=== PATIENT | male | born 1945 | race Caucasian/White ===

== ENCOUNTER 2018-09-09 19:51 | Inpatient (IN) | payer MEDICARE, OTHER ==
[~2018-09-09] VITALS: Ht 177.8 cm; Wt 68.8 kg
--- NOTE | 2018-09-09 20:10 | ERD ---
ER Documentation Chief Complaint Chief Complaint BIB private EMS for ALOC, abnormal labwork HPI 73-year-old male with a history of CHF, diabetes, mesothelioma, depression, dementia, and hypertension sent in by his primary care doctor from his long term facility for acute renal failure. Patient is complaining of feeling generally weak and unwell. Denies any chest pain, shortness of breath, headache, nausea, vomiting, diarrhea, dysuria. Labs done 09/08/18 showed BUN of 81 and creatinine of 2.1 with potassium 5.8. Labs from 09/06/2018 showed a potassium of 4.7. ROS All systems reviewed and are negative except as per history of present illness. Medications Home Meds Reported Medications Ondansetron Hcl* (Ondansetron Hcl*) 4 Mg Tablet, 4 MG PO Q4H PRN for NAUSEA AND OR VOMITING, TAB 09/09/18 Zinc Sulfate* (Zinc Sulfate*) 220 Mg Cap, 220 MG PO DAILY, CAP 09/09/18 Ascorbic Acid* (Vitamin C*) 500 Mg Capsule.sa, 500 MG PO DAILY, CAP 09/09/18 Cran/Vitc/Mannose/Inulin/Brom (Uti-Stat Liquid) 3,875 Mg/30 Ml Liquid, 3875 MG PO DAILY 09/09/18 Acetaminophen* (Acetaminophen*) 650 Mg Tablet, 650 MG PO Q4 PRN for PAIN AND OR ELEVATED TEMP, #30 TAB 09/09/18 Sennosides* (Senna Lax*) 8.6 Mg Tablet, 2 TAB PO DAILY PRN for CONSTIPATION, TAB 09/09/18 Fluoxetine Hcl* (Prozac*) 20 Mg Capsule, 20 MG PO DAILY, CAP 09/09/18 Pantoprazole* (Protonix*) 40 Mg Tablet.dr, 40 MG PO DAILY, TAB 09/09/18 Prochlorperazine* (Prochlorperazine*) 5 Mg Tablet, 5 MG PO Q6 PRN for NAUSEA, TAB 09/09/18 Memantine* (Namenda*) 5 Mg Tablet, 5 MG PO DAILY, #30 TAB 09/09/18 Multivitamins* (Theragran*) 1 Tab Tab, 1 TAB PO DAILY, TAB 09/09/18 Magnesium Hydroxide* (Milk Of Magnesia*) 400 Mg/5 Ml Oral.susp, 30 ML PO Q24H PRN for CONSTIPATION, ML 09/09/18 Megestrol Acetate* (Megace ES*) 625 Mg/5 Ml Oral.susp, 10 ML PO BID, ML 09/09/18 Insulin Glargine* (Lantus*) 100 Unit/Ml Soln, 12 UNIT SC QHS, #1 VIAL 09/09/18 Ferrous Sulfate* (Ferrous Sulfate*) 325 Mg Tabec, 325 MG PO DAILY, TAB 09/09/18 Diltiazem Hcl* (Cardizem SR*) 60 Mg Capsr, 60 MG PO Q6, #60 CAP HOLD IF SBP BELOW 110 OR HR BELOW 60 09/09/18 Cranberry (Cranberry) 400 Mg Capsule, 400 MG PO DAILY, CAP 09/09/18 Docusate Sodium* (Colace*) 100 Mg Capsule, 200 MG PO DAILY PRN for CONSTIPATION, #30 CAP 09/09/18 Bisoprolol Fumarate* (Bisoprolol Fumarate*) 5 Mg Tablet, 5 MG PO DAILY, TAB HOLD IF SBP IS BELOW 110 OR HR BELOW 60 09/09/18 Allergies Allergies: Coded Allergies: No Known Allergy (Unverified , 09/09/18) PMhx/Soc Hx Neurological Disorder: Yes (Dementia) Hx Cardiac Disorders: Yes (CHF, hypertension, A. fib) Hx Miscellaneous Medical Probl: Yes (Diabetes, GERD, esophagitis) FmHx Unable to obtain Physical Exam Vitals Vital Signs Date Temp Pulse Resp B/P (MAP) Pulse Ox O2 O2 Flow FiO2 Time Delivery Rate 09/09/18 66 24 90/47 (61) 100 Nasal 2.0 23:07 Cannula 09/09/18 98.0 66 36 83/44 (57) 99 20:03 Physical Exam Const: No acute distress, nontoxic Head: Atraumatic Eyes: Normal Conjunctiva ENT: Dry mucous membranes Neck: Full range of motion. No meningismus. Resp: Clear to auscultation bilaterally Chest wall: Right upper chest surgical scar, well healing. Left upper chest surgical scar from new pacemaker, well-healing Cardio: irregularly irregular rhythm with normal rate, no murmurs Abd: Soft, non tender, non distended. Normal bowel sounds Skin: No petechiae or rashes Back: No midline or flank tenderness Ext: No cyanosis, or edema Neur: Awake and alert, moving all extremities, normal speech, no facial asymmetry Psych: Depressed mood Result Diagram: 09/09/18201909/09/182019 Results 24 hrs Laboratory Tests Test 09/09/18 20:20 09/09/18 20:32 09/09/18 20:33 09/09/18 22:43 White Blood Count 6.7 10^3/ul Red Blood Count 3.13 10^6/ul Hemoglobin 8.9 g/dl Hematocrit 28.9 % Mean Corpuscular 92.3 fl Volume Mean Corpuscular 28.4 pg Hemoglobin Mean Corpuscular 30.8 g/dl Hemoglobin Concent Red Cell 18.6 % Distribution Width Platelet Count 101 10^3/UL Mean Platelet 10.7 fl Volume Immature 0.900 % Granulocytes % Neutrophils % 91.4 % Lymphocytes % 4.9 % Monocytes % 2.7 % Eosinophils % 0.0 % Basophils % 0.1 % Nucleated Red Blood 0.3 /100WBC Cells % Immature 0.060 10^3/ul Granulocytes # Neutrophils # 6.1 10^3/ul Lymphocytes # 0.3 10^3/ul Monocytes # 0.2 10^3/ul Eosinophils # 0.0 10^3/ul Basophils # 0.0 10^3/ul Nucleated Red Blood 0.0 10^3/ul Cells # Prothrombin Time 20.6 Sec Prothrombin Time 1.6 Ratio INR International 1.76 Normalized Ratio Activated 40.7 Sec Partial Thromboplas t Time Sodium Level 134 mmol/L Potassium Level 5.8 mmol/L Chloride Level 103 mmol/L Carbon Dioxide 20 mmol/L Level Anion Gap 11 Blood Urea Nitrogen 92 mg/dl Creatinine 2.64 mg/dl Est Glomerular mL/min Filtrat Rate mL/min Glucose Level 237 mg/dl Calcium Level 9.3 mg/dl Total Bilirubin 0.1 mg/dl Direct Bilirubin 0.00 mg/dl Indirect Bilirubin 0.1 mg/dl Aspartate Amino 28 IU/L Transf (AST/SGOT) Alanine 30 IU/L Aminotransferase (A LT/SGPT) Alkaline 92 IU/L Phosphatase Troponin I < 0.012 ng/ml Total Protein 6.6 g/dl Albumin 3.0 g/dl Globulin 3.60 g/dl Albumin/Globulin 0.83 Ratio POC Venous Lactate 2.7 mmol/L Bedside Glucose 259 mg/dL Urine Color YELLOW Urine Clarity CLOUDY Urine pH 6.0 Urine Specific 1.015 [place] Urine Ketones NEGATIVE mg/dL Urine Nitrite NEGATIVE mg/dL Urine Bilirubin NEGATIVE mg/dL Urine Urobilinogen NEGATIVE mg/dL Urine Leukocyte 3+ Juliet/ul Esterase Urine Microscopic > 182 /HPF RBC Urine Microscopic > 182 /HPF WBC Urine Bacteria MANY /HPF Urine Hemoglobin 3+ mg/dL Urine Glucose 1+ mg/dL Urine Total Protein 2+ mg/dl Current Medications Medications Dose Sig/Ankita Start Time Status Last (Trade) Ordered Route PRN Stop Time Admin Dose Reason Admin Sodium 2,450 ml @ BOLUS X1 09/09/18 DC 09/09/18 Chloride 1,225 mls/hr ONCE IV 20:30 09/09/18 20:46 22:29 Ondansetron 4 mg ER BRIDGE 09/09/18 HCl (Zofran PRN IV 23:00 09/10/18 Inj) NAUSEA/VOMITI 22:59 NG 650 mg ER BRIDGE 09/09/18 Acetaminophen PRN PO 23:00 09/10/18 (Tylenol .MILD PAIN 22:59 Tab) 1-3 OR TEMP Ceftriaxone 50 ml @ ONCE ONCE 09/10/18 Sodium 100 mls/hr IVPB 00:00 09/10/18 00:29 Procedures/MDM EMERGENT LABS AND DIAGNOSTIC STUDIES: Lab Results above were reviewed and interpreted by me. CBC: no anemia or evidence of infection CMP: No evidence of electrolyte abnormality, renal failure, hypoglycemia, liver failure, or biliary obstruction Troponin within normal limits, not indicative of cardiac ischemia Lactate elevated, concerning for tissue hypoperfusion UA: Consistent with infection 12-lead EKG was interpreted by Xavi Baez MD: Atrial fibrillation at 64 bpm Normal axis Normal intervals No changes of hyperkalemia. No acute ST or T wave changes suggestive of acute ischemia or STEMI. Radiology Results as interpreted by Radiology below were reviewed by Ousmane Baez MD: Chest x-ray: IMPRESSION: 1. There is a moderate right pleural effusion with associated compressive atelectasis. This may be at least partially loculated. A CT might be useful for further characterization. 2. Patchy left basilar atelectasis with very small left pleural effusion. 3. Left chest Port-A-Cath as above. Physician Quin Date Time Electronically viewed and signed by Jeffrey Reyes Physician on 09/09/2018 20:57 Initial Nursing notes reviewed. Previous Medical Records requested via the Electronic Health Record. EMERGENCY DEPARTMENT COURSE / MEDICAL DECISION MAKING: Patient is presenting for acute renal failure, worsening from baseline. He was slightly hypotensive upon arrival, however on reevaluation, this had improved. He is well-appearing on exam. IV fluids were started. I do not suspect sepsis as I have no clear source at this time. Labs showed multiple abnormalities inc luding hyperglycemia, acute renal failure, hyperkalemia, anemia and thrombocytopenia. Hyperkalemia will be treated with insulin, dextrose, and albuterol. Urine was finally collected from the patient. At 2350, patient's urine came back positive for UTI. At this point, antibiotics were given. He has already been receiving the 30 mls/kg bolus which had not finished. Patient's infectious symptoms have not stabilized and the patient is at risk of rapid decompensation. The patient will be admitted for careful hydration, antibiotic therapy, and infectious source control. Time sepsis recognized: 23:50 ( UA came back as positive for UTI) Severe Sepsis Assessment: Infectious Source: UTI End organ damage indicated by: Lactate > 2.0 mmol/L Hypotension( SBP < 90 or >40 mmHG drop or MAP < 65) Acute Resp Failure (sat < 92% w/o oxygen) Pulp Operator > 2.0 Severe Sepsis Managment: Blood Cultures X 2 before broad spectrum antibiotics initiated within 3 hours of recognition. 30 ml/kg NS bolus Completed Initial Lactate: 2.7 Repeat Lactate pending Critical Care: Time: 45 minutes Treatments/Evaluations: Emergent fluid management, while maintaining close respiratory support. Immediate broad spectrum antibiotic therapy. Simultaneous assessment for possible sources in order to direct therapy. Consideration for invasive and chemical support to prevent respiratory or cardiac collapse. Septic Shock Assessment (1 hour post 30 ml/kg fluid bolus): Hypotension (SBP < 90 or 40 mmHg drop, MAP < 65): patient still receiving fluids at time of admit Lactic acid > 4.0 No Critical Care Time: 35 minutes Treatments/Evaluations: Close monitoring and treatment of unstable vital signs, cardiorespiratory, and neurologic status, while maintaining tight balance of fluid, respiratory, and cardiac interventions. This time includes discussing the case with the patient and the patients family. This time does not include all procedures stated elsewhere in this record. This time also includes reviewing old records, labs and radiological studies. This time includes examining and re- examining the patient. Additionally, this time also includes arranging care with admitting and consulting physicians. Accepting Care Team: Current data and ongoing care discussed. Time: Time of admission Primary Provider: , admitting for Dr. Lopez Outstanding Data: none Departure Diagnosis: Primary Impression: Acute renal failure Acute renal failure type: unspecified Qualified Codes: N17.9 - Acute kidney failure, unspecified Additional Impressions: Hyperkalemia Anemia Anemia type: unspecified type Qualified Codes: D64.9 - Anemia, unspecified Thrombocytopenia Generalized weakness UTI (urinary tract infection) Urinary tract infection type: site unspecified Hematuria presence: with hematuria Qualified Codes: N39.0 - Urinary tract infection, site not specified; R31.9 - Hematuria, unspecified Severe sepsis Condition: Serious TERRY BAEZ MD Sep 09, 2018 20:10
[2018-09-09] MEDS ORDERED: SOD CHLORIDE 0.9% 2,450 ML IV ONE (20:30)
[2018-09-09] MEDS ORDERED: BISO5TAB21 PO (20:58)
[2018-09-09] MEDS ORDERED: DOCU-144 PO (20:59)
[2018-09-09] MEDS ORDERED: CRAN400C PO (20:59)
[2018-09-09] MEDS ORDERED: CARSR60 PO (21:00)
[2018-09-09] MEDS ORDERED: FER325 PO (21:00)
[2018-09-09] MEDS ORDERED: MAGN400O19 PO (21:01)
[2018-09-09] MEDS ORDERED: LANT3I SC (21:01)
[2018-09-09] MEDS ORDERED: MEGE625O PO (21:01)
[2018-09-09] MEDS ORDERED: MULTI PO (21:02)
[2018-09-09] MEDS ORDERED: MEMA5TAB PO (21:02)
[2018-09-09] MEDS ORDERED: PANT40TA3 PO (21:02)
[2018-09-09] MEDS ORDERED: PROC5TAB9 PO (21:02)
[2018-09-09] MEDS ORDERED: FLUO20CA38 PO (21:03)
[2018-09-09] MEDS ORDERED: SENN-120 PO (21:03)
[2018-09-09] MEDS ORDERED: ASCO500C7 PO (21:04)
[2018-09-09] MEDS ORDERED: CRAN3875 PO (21:04)
[2018-09-09] MEDS ORDERED: ZINC220C5 PO (21:04)
[2018-09-09] MEDS ORDERED: ACET-2047 PO (21:04)
[2018-09-09] MEDS ORDERED: ONDA4TAB95 PO (21:05)
[2018-09-09] MEDS ORDERED: ACETAMINOPHEN 325 MG TAB PO PRN (23:00)
[2018-09-09] MEDS ORDERED: ONDANSETRON 4 MG INJ IV PRN (23:00)
[2018-09-09] MEDS ORDERED: DEXTROSE 50% 50 ML SYRINGE IV STA (23:56)
[2018-09-09] MEDS ORDERED: INSULIN REGULAR, HUMAN 100 UNIT/1 ML 3ML VIAL IVP STA (23:56)
[2018-09-09] MEDS ORDERED: ALBUTEROL 0.5% (NEB) 2.5 MG/0.5 ML AMP INH STA (23:56)
[2018-09-09] MEDS ORDERED: SODIUM POLYSTYRENE 15 GM KIT (POWDER + SORBITOL) PO STA (23:56)
[2018-09-10] VITALS (11 sets, daily range): BP systolic 94–114; BP diastolic 51–62; PULSE 70–137; RESP 17–19; Ht 177.8 cm; Wt 68.8 kg
[2018-09-10] MEDS ORDERED: CEFTRIAXONE 1 GM/50 ML (PMX) 50 ML IVPB ONE
[2018-09-10] MEDS ORDERED: NACL 0.9% 3 ML SYG IV SCH (06:30)
[2018-09-10] MEDS ORDERED: ACETAMINOPHEN 650 MG SUPP PR PRN (06:30)
[2018-09-10] MEDS: SOD CHLORIDE 0.45% 1,000 ML IV SCH ×2 (06:30→19:37)
[2018-09-10] MEDS ORDERED: FUROSEMIDE 20 MG TAB PO ONE (06:30)
[2018-09-10] MEDS ORDERED: SODIUM POLYSTYRENE 15 GM KIT (POWDER + SORBITOL) PO ONE (06:30)
[2018-09-10] MEDS ORDERED: ZOLPIDEM 5 MG TAB PO PRN (06:30)
[2018-09-10] MEDS ORDERED: ONDANSETRON 4 MG INJ IV PRN (06:30)
[2018-09-10] MEDS ORDERED: PROCHLORPERAZINE 5 MG TAB PO PRN (08:00)
[2018-09-10] MEDS ORDERED: DOCUSATE SODIUM 100 MG CAP PO PRN (08:00)
[2018-09-10] MEDS ORDERED: ACETAMINOPHEN 325 MG TAB PO PRN (08:00)
[2018-09-10] MEDS ORDERED: GLUCOSE GEL 15 GRAM TUBE PO PRN ×2 (08:00)
[2018-09-10] MEDS ORDERED: SENNA TAB PO PRN (08:00)
[2018-09-10] MEDS ORDERED: GLUCOSE GEL 15 GRAM TUBE BUCCAL PRN (08:00)
[2018-09-10] MEDS ORDERED: ONDANSETRON 4 MG TAB PO PRN (08:00)
[2018-09-10] MEDS ORDERED: DEXTROSE 50% 50 ML SYRINGE IV PRN ×3 (08:00)
[2018-09-10] MEDS ORDERED: GLUCAGON 1 MG INJ IM PRN (08:00)
[2018-09-10] MEDS ORDERED: MAGNESIUM HYDROXIDE 30ML CUP PO PRN (08:00)
--- NOTE | 2018-09-10 08:17 | HP ---
Date/Time of Note Date/Time of Note DATE: 09/10/18 TIME: 08:10 Assessment/Plan VTE Prophylaxis Pharmacological prophylaxis: other Lines/Catheters IV Catheter Type (from Nrs): Saline Lock Assessment/Plan Hospital Course 73-year-old male with a history of CHF, diabetes, mesothelioma, depression, dementia, and hypertension sent in by his primary care doctor from his [facility] facility for acute renal failure. Patient is complaining of feeling g enerally weak and unwell. Denies any chest pain, shortness of breath, headache, nausea, vomiting, diarrhea, dysuria. Labs done 09/08/18 showed BUN of 81 and creatinine of 2.1 with potassium 5.8. Labs from 09/06/2018 showed a potassium of 4.7. Patient is therefore presenting for acute renal failure, worsening from baseline. He was slightly hypotensive upon arrival but improved with 2 liters of IVF. Labs showed multiple abnormalities including hyperglycemia, acute renal failure, hyperkalemia, anemia and thrombocytopenia. Hyperkalemia will be treated with insulin, dextrose, and albuterol. Urine was finally collected from the patient was positive for UTI and was given Rocephin IV He is now admitted to the hospital for further care Medications Home Meds Reported Medications Ondansetron Hcl* (Ondansetron Hcl*) 4 Mg Tablet, 4 MG PO Q4H PRN for NAUSEA AND OR VOMITING, TAB 09/09/18 Zinc Sulfate* (Zinc Sulfate*) 220 Mg Cap, 220 MG PO DAILY, CAP 09/09/18 Ascorbic Acid* (Vitamin C*) 500 Mg Capsule.sa, 500 MG PO DAILY, CAP 09/09/18 Cran/Vitc/Mannose/Inulin/Brom (Uti-Stat Liquid) 3,875 Mg/30 Ml Liquid, 3875 MG PO DAILY 09/09/18 Acetaminophen* (Acetaminophen*) 650 Mg Tablet, 650 MG PO Q4 PRN for PAIN AND OR ELEVATED TEMP, #30 TAB 09/09/18 Sennosides* (Senna Lax*) 8.6 Mg Tablet, 2 TAB PO DAILY PRN for CONSTIPATION, TAB 09/09/18 Fluoxetine Hcl* (Prozac*) 20 Mg Capsule, 20 MG PO DAILY, CAP 09/09/18 Pantoprazole* (Protonix*) 40 Mg Tablet.dr, 40 MG PO DAILY, TAB 09/09/18 Prochlorperazine* (Prochlorperazine*) 5 Mg Tablet, 5 MG PO Q6 PRN for NAUSEA, TAB 09/09/18 Memantine* (Namenda*) 5 Mg Tablet, 5 MG PO DAILY, #30 TAB 09/09/18 Multivitamins* (Theragran*) 1 Tab Tab, 1 TAB PO DAILY, TAB 09/09/18 Magnesium Hydroxide* (Milk Of Magnesia*) 400 Mg/5 Ml Oral.susp, 30 ML PO Q24H PRN for CONSTIPATION, ML 09/09/18 Megestrol Acetate* (Megace ES*) 625 Mg/5 Ml Oral.susp, 10 ML PO BID, ML 09/09/18 Insulin Glargine* (Lantus*) 100 Unit/Ml Soln, 12 UNIT SC QHS, #1 VIAL 09/09/18 Ferrous Sulfate* (Ferrous Sulfate*) 325 Mg Tabec, 325 MG PO DAILY, TAB 09/09/18 Diltiazem Hcl* (Cardizem SR*) 60 Mg Capsr, 60 MG PO Q6, #60 CAP HOLD IF SBP BELOW 110 OR HR BELOW 60 09/09/18 Cranberry (Cranberry) 400 Mg Capsule, 400 MG PO DAILY, CAP 09/09/18 Docusate Sodium* (Colace*) 100 Mg Capsule, 200 MG PO DAILY PRN for CONSTIPATION, #30 CAP 09/09/18 Bisoprolol Fumarate* (Bisoprolol Fumarate*) 5 Mg Tablet, 5 MG PO DAILY, TAB HOLD IF SBP IS BELOW 110 OR HR BELOW 60 09/09/18 Allergies Allergies: Coded Allergies: No Known Allergy (Unverified , 09/09/18) PMhx/Soc Hx Neurological Disorder: Yes (Dementia) Hx Cardiac Disorders: Yes (CHF, hypertension, A. fib) Hx Miscellaneous Medical Probl: Yes (Diabetes, GERD, esophagitis) FmHx no renal diseases ROS: 13 point ROS was done and pertinent findings are in HPI Physical Exam Physical Exam Const: No acute distress, nontoxic Head: Atraumatic Eyes: Normal Conjunctiva ENT: Dry mucous membranes Neck: Full range of motion. No meningismus. Resp: Clear to auscultation bilaterally Chest wall: Right upper chest surgical scar, well healing. Left upper chest surgical scar from new pacemaker, well-healing Cardio: irregularly irregular rhythm with normal rate, no murmurs Abd: Soft, non tender, non distended. Normal bowel sounds Skin: No petechiae or rashes Back: No midline or flank tenderness Ext: No cyanosis, or edema Neur: Awake and alert, moving all extremities, normal speech, no facial asymmetry Psych: Depressed mood 12-lead EKG Atrial fibrillation at 64 bpm Normal axis Normal intervals No changes of hyperkalemia. No acute ST or T wave changes suggestive of acute ischemia or STEMI. Chest x-ray: IMPRESSION: 1. There is a moderate right pleural effusion with associated compressive atelectasis. This may be at least partially loculated. A CT might be useful for further characterization. 2. Patchy left basilar atelectasis with very small left pleural effusion. 3. Left chest Port-A-Cath as above. Diagnosis: Acute renal failure: due to ATN caused by sepsis and hypovolemia. will send off urine studies. will continue with ivf. no indication for acute HD yet Hyperkalemia: due to ARF and lactic acidosis (sepsis) Anemia: will check iron panel, stool guiac Thrombocytopenia Generalized weakness UTI (urinary tract infection) and sepsis (POA): cultuers were reviewed. continue iv abx and ivf dementia DM: fair control. continue insulin will be on dvt and gi pplx more than 30 minutes were spent on advance directives and goals of care Result Diagram: 09/09/18201909/09/182019 Results 24hrs Laboratory Tests Test 09/09/18 20:20 09/09/18 20:32 09/09/18 20:33 09/09/18 22:43 White Blood Count 6.7 Red Blood Count 3.13 L Hemoglobin 8.9 L Hematocrit 28.9 L Mean Corpuscular Volume 92.3 Mean Corpuscular 28.4 L Hemoglobin Mean Corpuscular 30.8 L Hemoglobin Concent Red Cell Distribution 18.6 H Width Platelet Count 101 L Mean Platelet Volume 10.7 H Immature Granulocytes % 0.900 H Neutrophils % 91.4 H Lymphocytes % 4.9 L Monocytes % 2.7 Eosinophils % 0.0 Basophils % 0.1 Nucleated Red Blood 0.3 H Cells % Immature Granulocytes # 0.060 H Neutrophils # 6.1 Lymphocytes # 0.3 L Monocytes # 0.2 L Eosinophils # 0.0 Basophils # 0.0 Nucleated Red Blood 0.0 Cells # Prothrombin Time 20.6 H Prothrombin Time Ratio 1.6 INR International 1.76 Normalized Ratio Activated 40.7 H Partial Thromboplast Time Sodium Level 134 L Potassium Level 5.8 H Chloride Level 103 Carbon Dioxide Level 20 L Anion Gap 11 Blood Urea Nitrogen 92 H Creatinine 2.64 H Est Glomerular Filtrat Rate mL/min Glucose Level 237 H Calcium Level 9.3 Total Bilirubin 0.1 L Direct Bilirubin 0.00 Indirect Bilirubin 0.1 Aspartate Amino 28 Transf (AST/SGOT) Alanine 30 Aminotransferase (ALT/SG PT) Alkaline Phosphatase 92 Troponin I < 0.012 Total Protein 6.6 Albumin 3.0 L Globulin 3.60 H Albumin/Globulin Ratio 0.83 POC Venous Lactate 2.7 *H Bedside Glucose 259 H Urine Color YELLOW Urine Clarity CLOUDY A Urine pH 6.0 Urine Specific [place] 1.015 Urine Ketones NEGATIVE Urine Nitrite NEGATIVE Urine Bilirubin NEGATIVE Urine Urobilinogen NEGATIVE Urine Leukocyte Esterase 3+ H Urine Microscopic RBC > 182 H Urine Microscopic WBC > 182 H Urine Bacteria MANY A Urine Hemoglobin 3+ H Urine Glucose 1+ H Urine Total Protein 2+ H Test 09/10/18 00:13 09/10/18 00:27 09/10/18 00:52 09/10/18 01:30 POC Venous Lactate 2.0 Bedside Glucose 188 204 Lactic Acid Level 3.5 *H HPI/ROS Admit Date/Time Admit Date/Time Sep 09, 2018 at 22:52 PMH/Family/Social Past Medical History Medications Current Medications Ondansetron HCl (Zofran Inj) 4 mg ER BRIDGE PRN IV NAUSEA/VOMITING; Start 09/09/18 at 23:00; Stop 09/10/18 at 22:59 Acetaminophen (Tylenol Tab) 650 mg ER BRIDGE PRN PO .MILD PAIN 1-3 OR TEMP; Start 09/09/18 at 23:00; Stop 09/10/18 at 22:59 Dextrose (D50w Syringe) ONCE PRN IV DECREASED GLUCOSE; Start 09/10/18 at 00:00 IV Flush (NS 3 ml) 3 ml PER PROTOCOL IV ; Start 09/10/18 at 06:30 Ondansetron HCl (Zofran Inj) 4 mg Q6H PRN IV NAUSEA/VOMITING; Start 09/10/18 at 06:30 Acetaminophen (Tylenol Supp) 650 mg Q6H PRN DC .PAIN 1-3 OR TEMP; Start 09/10/18 at 06:30 Zolpidem Tartrate (Ambien) 5 mg QHS PRN PO .INSOMNIA; Start 09/10/18 at 06:30 Heparin Sodium (Porcine) (Heparin (5000 Units/1ml)) 5,000 unit Q12 SC ; Start 09/10/18 at 09:00 Acetaminophen (Tylenol Tab) 650 mg Q4H PRN PO MILD PAIN(1-3)OR ELEVATED TEMP; Start 09/10/18 at 08:00 Ascorbic Acid (Vitamin C) 500 mg DAILY PO ; Start 09/10/18 at 09:00 Bisoprolol Fumarate (Zebeta) 5 mg DAILY PO ; Start 09/10/18 at 09:00; Status UNV Diltiazem HCl (Cardizem) 60 mg Q6 PO ; Start 09/10/18 at 12:00 Docusate Sodium (Colace) 200 mg DAILY PRN PO CONSTIPATION; Start 09/10/18 at 08:00 Ferrous Sulfate (Ferrous Sulfate (Ec)) 325 mg DAILY PO ; Start 09/10/18 at 09:00 Fluoxetine HCl (Prozac) 20 mg DAILY PO ; Start 09/10/18 at 09:00 Insulin Glargine (Lantus) 12 units QHS SC ; Start 09/10/18 at 21:00 Magnesium Hydroxide (Milk Of Mag) 30 ml Q24H PRN PO CONSTIPATION; Start 09/10/18 at 08:00 Memantine (Namenda) 5 mg DAILY PO ; Start 09/10/18 at 09:00 Multivitamins Therapeutic (Theragran) 1 tab DAILY PO ; Start 09/10/18 at 09:00 Ondansetron HCl (Zofran Tab) 4 mg Q4H PRN PO NAUSEA AND/OR VOMITING; Start 09/10/18 at 08:00 Pantoprazole (Protonix Tab) 40 mg DAILY@0600 PO ; Start 09/10/18 at 09:00 Prochlorperazine (Compazine) 5 mg Q6H PRN PO NAUSEA; Start 09/10/18 at 08:00 Senna (Senokot) 2 tab DAILY PRN PO CONSTIPATION; Start 09/10/18 at 08:00 Zinc Sulfate (Zinc Sulfate) 220 mg DAILY PO ; Start 09/10/18 at 09:00 Sodium Chloride 1,000 ml @ 80 mls/hr [id number] IV ; Start 09/10/18 at 06:30 Miscellaneous Information 1 ea NOTE XX ; Start 09/10/18 at 08:00 Glucose (Glutose) 15 gm Q15M PRN PO DECREASED GLUCOSE; Start 09/10/18 at 08:00 Glucose (Glutose) 22.5 gm Q15M PRN PO DECREASED GLUCOSE; Start 09/10/18 at 08:00 Dextrose (D50w Syringe) 25 ml Q15M PRN IV DECREASED GLUCOSE; Start 09/10/18 at 08:00 Dextrose (D50w Syringe) 50 ml Q15M PRN IV DECREASED GLUCOSE; Start 09/10/18 at 08:00 Glucagon (Glucagen) 1 mg Q15M PRN IM DECREASED GLUCOSE; Start 09/10/18 at 08:00 Glucose (Glutose) 15 gm Q15M PRN BUCCAL DECREASED GLUCOSE; Start 09/10/18 at 08:00 Coded Allergies: No Known Allergy (Unverified , 09/09/18) Social History Smoking Status: Unknown if ever smoked Exam/Review of Systems Vital Signs Vitals Vital Signs Date Temp Pulse Resp B/P (MAP) Pulse Ox O2 O2 Flow FiO2 Time Delivery Rate 09/10/18 98.1 101 19 108/51 96 07:37 (70) 09/10/18 Nasal 2.0 02:30 Cannula Intake and Output 09/09/18 09/09/18 09/10/18 1515:00 23:00 07:00 IntakeIntake Total 0 ml BalanceBalance 0 ml EMILIA BETANCUR DO Sep 10, 2018 08:17
[2018-09-10] MEDS ORDERED: BISOPROLOL 5 MG TAB PO SCH (09:00)
[2018-09-10] MEDS ORDERED: CEFTRIAXONE 1 GM/50 ML (PMX) 50 ML IVPB SCH (09:00)
[2018-09-10] MEDS: ASCORBIC ACID 500 MG TAB PO SCH (09:31)
[2018-09-10] MEDS: MEMANTINE 5 MG TAB PO SCH (09:31)
[2018-09-10] MEDS: FLUOXETINE 20 MG CAP PO SCH (09:31)
[2018-09-10] MEDS: MULTIVITAMINS THERAPEUTIC TAB PO SCH (09:31)
[2018-09-10] MEDS: ZINC SULFATE 220 MG CAP PO SCH (09:31)
[2018-09-10] MEDS: PANTOPRAZOLE (EC) 40 MG TAB PO SCH (09:31)
[2018-09-10] MEDS: FERROUS SULFATE (EC) 325 MG TAB PO SCH (09:32)
[2018-09-10] MEDS: HEPARIN 5,000 UNIT/1 ML VIAL SC SCH ×2 (10:02→20:32)
[2018-09-10] MEDS ORDERED: ERTAPENEM SODIUM 1 GM in SOD CHLORIDE 0.9% 100 ML IVPB ONE (11:00)
[2018-09-10] MEDS: DILTIAZEM 60 MG TAB PO SCH ×4 (12:18→23:34)
--- NOTE | 2018-09-10 16:01 | CONS ---
DATE OF ADMISSION: 09/09/2018 DATE OF CONSULTATION: 09/10/2018 TYPE OF CONSULTATION: Infectious Disease. REASON FOR CONSULTATION: Antibiotic management. HISTORY OF PRESENT ILLNESS: Kuldeep Sandra is a 73-year-old male who was brought in by EMS for alter ed level of consciousness and abnormal lab work. His past problems include: 1. Congestive heart failure. 2. Diabetes mellitus. 3. Mesothelioma. 4. Depression. 5. Dementia. 6. Hypertension. The [facility], comes in with acute renal failure. He has been fe eling generally weak and unwell. Denies chest pain or shortness of breath. His labs on 09/08/2018 s howed a BUN of 81, creatinine 2.1, potassium 5.8. PAST MEDICAL HISTORY: Significant for dementia including his other problems. He also has atrial fib rillation, GERD and esophagitis. FAMILY HISTORY: Noncontributory. PHYSICAL EXAMINATION: GENERAL: He is in no acute distress. VITAL SIGNS: Stable. He is afebrile. SKIN: Without generalized rash. HEENT: Within normal limits. NECK: Supple. LYMPH NODES: None palpable. CHEST: He has a right upper chest surgical scar well healing and left upper chest surgical scar from a new pacemaker. LUNGS: Decreased breath sounds at the bases. HEART: Irregularly irregular rhythm. ABDOMEN: Soft, nontender, without organosplenomegaly or masses. EXTREMITIES: Without cyanosis, clubbing or edema. RECTAL AND GENITAL: Deferred. NEUROLOGIC: No focal neurological abnormality. LABORATORY DATA: On admission, white count 6.7, H and H of 8.9 and 28.9, platelet count 101,000. BU N and creatinine 92/2.64. Blood sugar of 237. He has 91% polys. Urinalysis shows 3+ leukocyte brett rase and greater than 182 white cells per high powered field. The patient was started initially on c eftriaxone. IMAGING DATA: Chest x-ray shows a left chest Port-A-Cath, moderate right pleural effusion with assoc iated compressive atelectasis, patchy left basilar atelectasis and very small left pleural effusion. The patient was slightly hypotensive but improved with 2 liters of IV fluid. He is not a candidate for acute hemodialysis according to Dr. Richard Be at this point. The patient is on ceftriaxone. I believe switch him to cefepime. I will dictate my findings to Dr. Vazquez and Dr. Richard Be . Dictated By: JENNIFER JACKSON MD, JD/GUNJAN Conf#: [id number] DID#: [id number] CC: RENE VAZQUEZ DO;*EndCC*
[2018-09-10] MEDS: INSULIN GLARGINE [LANTus] (100 UNITS/ML) SYG SC SCH (20:33)
[2018-09-11] VITALS (14 sets, daily range): BP systolic 81–140; BP diastolic 42–83; PULSE 72–138; RESP 19
[2018-09-11] MEDS: INSULIN ASPART [NOVOLOG] 3 ML PEN SC SCH ×5 (00:08→20:33)
[2018-09-11] MEDS: ACCU-CHEK XX SCH (02:00)
[2018-09-11] MEDS: PANTOPRAZOLE (EC) 40 MG TAB PO SCH (05:53)
[2018-09-11] MEDS: DILTIAZEM 60 MG TAB PO SCH ×3 (05:53→17:56)
[2018-09-11] MEDS: SOD CHLORIDE 0.45% 1,000 ML IV SCH ×2 (06:16→20:29)
--- NOTE | 2018-09-11 08:46 | PN ---
Date/Time of Note Date/Time of Note DATE: 09/11/18 TIME: 08:44 Assessment/Plan VTE Prophylaxis Risk score (from Nsg)>0 risk: 8 SCD applied (from Nsg): Yes Pharmacological prophylaxis: other Lines/Catheters IV Catheter Type (from Nrsg): Portacath Assessment/Plan Hospital Course 73-year-old male with a history of CHF, diabetes, mesothelioma, depression, dementia, and hypertension sent in by his primary care doctor from his intermediate facility for acute renal failure. Patient is complaining of feeling generally weak and unwell. Denies any chest pain, shortness of breath, headache, nausea, vomiting, diarrhea, dysuria. Labs done 09/08/18 showed BUN of 81 and creatinine of 2.1 with potassium 5.8. Patient is therefore presenting for acute renal failure, worsening from baseline. He was slightly hypotensive upon arrival but improved with 2 liters of IVF. Labs showed multiple abnormalities including hyperglycemia, acute renal failure, hyperkalemia, anemia and thrombocytopenia. Hyperkalemia will be treated with insulin, dextrose, and albuterol. Urine was finally collected from the patient was positive for UTI and was given Rocephin IV He now afib with RVR. refused dilt po yesterday Medications Home Meds Reported Medications Ondansetron Hcl* (Ondansetron Hcl*) 4 Mg Tablet, 4 MG PO Q4H PRN for NAUSEA AND OR VOMITING, TAB 09/09/18 Zinc Sulfate* (Zinc Sulfate*) 220 Mg Cap, 220 MG PO DAILY, CAP 09/09/18 Ascorbic Acid* (Vitamin C*) 500 Mg Capsule.sa, 500 MG PO DAILY, CAP 09/09/18 Cran/Vitc/Mannose/Inulin/Brom (Uti-Stat Liquid) 3,875 Mg/30 Ml Liquid, 3875 MG PO DAILY 09/09/18 Acetaminophen* (Acetaminophen*) 650 Mg Tablet, 650 MG PO Q4 PRN for PAIN AND OR ELEVATED TEMP, #30 TAB 09/09/18 Sennosides* (Senna Lax*) 8.6 Mg Tablet, 2 TAB PO DAILY PRN for CONSTIPATION, TAB 09/09/18 Fluoxetine Hcl* (Prozac*) 20 Mg Capsule, 20 MG PO DAILY, CAP 09/09/18 Pantoprazole* (Protonix*) 40 Mg Tablet.dr, 40 MG PO DAILY, TAB 09/09/18 Prochlorperazine* (Prochlorperazine*) 5 Mg Tablet, 5 MG PO Q6 PRN for NAUSEA, TAB 09/09/18 Memantine* (Namenda*) 5 Mg Tablet, 5 MG PO DAILY, #30 TAB 09/09/18 Multivitamins* (Theragran*) 1 Tab Tab, 1 TAB PO DAILY, TAB 09/09/18 Magnesium Hydroxide* (Milk Of Magnesia*) 400 Mg/5 Ml Oral.susp, 30 ML PO Q24H PRN for CONSTIPATION, ML 09/09/18 Megestrol Acetate* (Megace ES*) 625 Mg/5 Ml Oral.susp, 10 ML PO BID, ML 09/09/18 Insulin Glargine* (Lantus*) 100 Unit/Ml Soln, 12 UNIT SC QHS, #1 VIAL 09/09/18 Ferrous Sulfate* (Ferrous Sulfate*) 325 Mg Tabec, 325 MG PO DAILY, TAB 09/09/18 Diltiazem Hcl* (Cardizem SR*) 60 Mg Capsr, 60 MG PO Q6, #60 CAP HOLD IF SBP BELOW 110 OR HR BELOW 60 09/09/18 Cranberry (Cranberry) 400 Mg Capsule, 400 MG PO DAILY, CAP 09/09/18 Docusate Sodium* (Colace*) 100 Mg Capsule, 200 MG PO DAILY PRN for CONSTIPATION, #30 CAP 09/09/18 Bisoprolol Fumarate* (Bisoprolol Fumarate*) 5 Mg Tablet, 5 MG PO DAILY, TAB HOLD IF SBP IS BELOW 110 OR HR BELOW 60 09/09/18 Diagnosis: Acute renal failure: due to ATN caused by sepsis and hypovolemia. improving. will continue with ivf. no indication for acute HD Hyperkalemia: due to ARF and lactic acidosis (sepsis) Anemia: will check iron panel, stool guiac. improving Thrombocytopenia Generalized weakness UTI (urinary tract infection) and sepsis (POA): cultuers were reviewed. continue iv abx and ivf dementia DM: fair control. continue insulin afib with RVR: will continue with dilt po. will defer anticoagulation to cardio will be on dvt and gi pplx Result Diagram: 09/11/1837 09/11/18 0536 Results 24hrs Laboratory Tests Test 09/10/18:25 09/10/18 23:25 09/10/18 23:40 09/11/18 05:25 Bedside Glucose 359 H 324 H Urine Color YELLOW Urine Clarity CLOUDY A Urine pH 5.0 Urine Specific [place] 1.008 Urine Ketones NEGATIVE Urine Nitrite NEGATIVE Urine Bilirubin NEGATIVE Urine Urobilinogen NEGATIVE Urine Leukocyte Esterase 2+ H Urine Microscopic RBC > 182 H Urine Microscopic WBC > 182 H Urine Bacteria MODERATE Urine Hemoglobin 3+ H Urine Glucose 3+ H Urine Total Protein 2+ H Hemoglobin A1c 9.1 H Test 09/11/18 05:35 09/11/18 05:36 09/11/18 05:37 09/11/18 07:46 Lactic Acid Level 1.4 Sodium Level 138 Potassium Level 4.2 Chloride Level 104 Carbon Dioxide Level 23 Anion Gap 11 Blood Urea Nitrogen 74 H Creatinine 2.13 H Est Glomerular Filtrat Rate mL/min Glucose Level 118 # Calcium Level 8.9 Phosphorus Level 4.0 Magnesium Level 1.6 L Total Bilirubin 0.2 Direct Bilirubin 0.00 Indirect Bilirubin 0.2 Aspartate Amino 28 Transf (AST/SGOT) Alanine 31 Aminotransferase (ALT/SG PT) Alkaline Phosphatase 85 Total Protein 6.4 # Albumin 2.9 L Globulin 3.50 H Albumin/Globulin Ratio 0.82 White Blood Count 6.5 Red Blood Count 2.76 L Hemoglobin 8.0 L Hematocrit 25.6 L Mean Corpuscular Volume 92.8 Mean Corpuscular 29.0 Hemoglobin Mean Corpuscular 31.3 L Hemoglobin Concent Red Cell Distribution 18.5 H Width Platelet Count 83 L Mean Platelet Volume 11.5 H Immature Granulocytes % 0.500 H Neutrophils % Segmented Neutrophils 86 H % (Manual) Band Neutrophils % 7 H (Manual) Lymphocytes % Lymphocytes % (Manual) 7 L Monocytes % Eosinophils % Basophils % Nucleated Red Blood 0.0 Cells % Immature Granulocytes # 0.030 Neutrophils # Neutrophils # (Manual) 5.6 Band Neutrophils # 0.4 Lymphocytes (Manual) 0.4 L Lymphocytes # Monocytes # Eosinophils # Basophils # Nucleated Red Blood Cells # Platelet Estimate DECREASED Polychromasia 3+ Poikilocytosis 1+ Anisocytosis 1+ Tear Drop Cells 1+ Bedside Glucose 116 Exam/Review of Systems Exam Vitals Vital Signs Date Temp Pulse Resp B/P (MAP) Pulse Ox O2 O2 Flow FiO2 Time Delivery Rate 3/3/19 138 08:11 09/11/18 98.1 19 110/57 98 07:21 (74) 09/11/18 Nasal 2.0 01:12 Cannula Intake and Output 09/10/18 09/10/18 09/11/18 1515:00 23:00 07:00 IntakeIntake Total 1500 ml 1240 ml OutputOutput Total 450 ml BalanceBalance 1500 ml 790 ml Results Results 24hrs Laboratory Tests Test 09/10/18 20:25 09/10/18 23:25 09/10/18 23:40 09/11/18 05:25 Bedside Glucose 359 H 324 H Urine Color YELLOW Urine Clarity CLOUDY A Urine pH 5.0 Urine Specific [place] 1.008 Urine Ketones NEGATIVE Urine Nitrite NEGATIVE Urine Bilirubin NEGATIVE Urine Urobilinogen NEGATIVE Urine Leukocyte Esterase 2+ H Urine Microscopic RBC > 182 H Urine Microscopic WBC > 182 H Urine Bacteria MODERATE Urine Hemoglobin 3+ H Urine Glucose 3+ H Urine Total Protein 2+ H Hemoglobin A1c 9.1 H Test 09/11/18 05:35 09/11/18 05:36 09/11/18 05:37 09/11/18 07:46 Lactic Acid Level 1.4 Sodium Level 138 Potassium Level 4.2 Chloride Level 104 Carbon Dioxide Level 23 Anion Gap 11 Blood Urea Nitrogen 74 H Creatinine 2.13 H Est Glomerular Filtrat Rate mL/min Glucose Level 118 # Calcium Level 8.9 Phosphorus Level 4.0 Magnesium Level 1.6 L Total Bilirubin 0.2 Direct Bilirubin 0.00 Indirect Bilirubin 0.2 Aspartate Amino 28 Transf (AST/SGOT) Alanine 31 Aminotransferase (ALT/SG PT) Alkaline Phosphatase 85 Total Protein 6.4 # Albumin 2.9 L Globulin 3.50 H Albumin/Globulin Ratio 0.82 White Blood Count 6.5 Red Blood Count 2.76 L Hemoglobin 8.0 L Hematocrit 25.6 L Mean Corpuscular Volume 92.8 Mean Corpuscular 29.0 Hemoglobin Mean Corpuscular 31.3 L Hemoglobin Concent Red Cell Distribution 18.5 H Width Platelet Count 83 L Mean Platelet Volume 11.5 H Immature Granulocytes % 0.500 H Neutrophils % Segmented Neutrophils 86 H % (Manual) Band Neutrophils % 7 H (Manual) Lymphocytes % Lymphocytes % (Manual) 7 L Monocytes % Eosinophils % Basophils % Nucleated Red Blood 0.0 Cells % Immature Granulocytes # 0.030 Neutrophils # Neutrophils # (Manual) 5.6 Band Neutrophils # 0.4 Lymphocytes (Manual) 0.4 L Lymphocytes # Monocytes # Eosinophils # Basophils # Nucleated Red Blood Cells # Platelet Estimate DECREASED Polychromasia 3+ Poikilocytosis 1+ Anisocytosis 1+ Tear Drop Cells 1+ Bedside Glucose 116 Medications Medication Current Medications Dextrose (D50w Syringe) ONCE PRN IV DECREASED GLUCOSE; Start 09/10/18 at 00:00 IV Flush (NS 3 ml) 3 ml PER PROTOCOL IV ; Start 09/10/18 at 06:30 Ondansetron HCl (Zofran Inj) 4 mg Q6H PRN IV NAUSEA/VOMITING; Start 09/10/18 at 06:30 Acetaminophen (Tylenol Supp) 650 mg Q6H PRN SD .PAIN 1-3 OR TEMP; Start 09/10/18 at 06:30 Zolpidem Tartrate (Ambien) 5 mg QHS PRN PO .INSOMNIA; Start 09/10/18 at 06:30 Heparin Sodium (Porcine) (Heparin (5000 Units/1ml)) 5,000 unit Q12 SC Last administered on 09/10/18at 20:32; Admin Dose 5,000 UNIT; Start 09/10/18 at 09:00 Acetaminophen (Tylenol Tab) 650 mg Q4H PRN PO MILD PAIN(1-3)OR ELEVATED TEMP; Start 09/10/18 at 08:00 Ascorbic Acid (Vitamin C) 500 mg DAILY PO Last administered on 09/10/18at 09:31; Admin Dose 500 MG; Start 09/10/18 at 09:00 Bisoprolol Fumarate (Zebeta) 5 mg DAILY PO ; Start 09/10/18 at 09:00; Status UNV Diltiazem HCl (Cardizem) 60 mg Q6 PO Last administered on 09/11/18at 05:53; Admin Dose 60 MG; Start 09/10/18 at 12:00 Docusate Sodium (Colace) 200 mg DAILY PRN PO CONSTIPATION; Start 09/10/18 at 08:00 Ferrous Sulfate (Ferrous Sulfate (Ec)) 325 mg DAILY PO Last administered on 09/10/18at 09:32; Admin Dose 325 MG; Start 09/10/18 at 09:00 Fluoxetine HCl (Prozac) 20 mg DAILY PO Last administered on 09/10/18at 09:31; Admin Dose 20 MG; Start 09/10/18 at 09:00 Insulin Glargine (Lantus) 12 units QHS SC Last administered on 09/10/18at 20:33; Admin Dose 12 UNITS; Start 09/10/18 at 21:00 Magnesium Hydroxide (Milk Of Mag) 30 ml Q24H PRN PO CONSTIPATION; Start 09/10/18 at 08:00 Memantine (Namenda) 5 mg DAILY PO Last administered on 09/10/18at 09:31; Admin Dose 5 MG; Start 09/10/18 at 09:00 Multivitamins Therapeutic (Theragran) 1 tab DAILY PO Last administered on 09/10/18at 09:31; Admin Dose 1 TAB; Start 09/10/18 at 09:00 Ondansetron HCl (Zofran Tab) 4 mg Q4H PRN PO NAUSEA AND/OR VOMITING; Start 09/10/18 at 08:00 Pantoprazole (Protonix Tab) 40 mg DAILY@0600 PO Last administered on 09/11/18at 05:53; Admin Dose 40 MG; Start 09/10/18 at 09:00 Prochlorperazine (Compazine) 5 mg Q6H PRN PO NAUSEA; Start 09/10/18 at 08:00 Senna (Senokot) 2 tab DAILY PRN PO CONSTIPATION; Start 09/10/18 at 08:00 Zinc Sulfate (Zinc Sulfate) 220 mg DAILY PO Last administered on 09/10/18at 09:31; Admin Dose 220 MG; Start 09/10/18 at 09:00 Sodium Chloride 1,000 ml @ 80 mls/hr [id number] IV Last administered on 09/11/18at 06:16; Admin Dose 80 MLS/HR; Start 09/10/18 at 06:30 Miscellaneous Information 1 ea NOTE XX ; Start 09/10/18 at 08:00 Glucose (Glutose) 15 gm Q15M PRN PO DECREASED GLUCOSE; Start 09/10/18 at 08:00 Glucose (Glutose) 22.5 gm Q15M PRN PO DECREASED GLUCOSE; Start 09/10/18 at 08:00 Dextrose (D50w Syringe) 25 ml Q15M PRN IV DECREASED GLUCOSE; Start 09/10/18 at 0 8:00 Dextrose (D50w Syringe) 50 ml Q15M PRN IV DECREASED GLUCOSE; Start 09/10/18 at 08:00 Glucagon (Glucagen) 1 mg Q15M PRN IM DECREASED GLUCOSE; Start 09/10/18 at 08:00 Glucose (Glutose) 15 gm Q15M PRN BUCCAL DECREASED GLUCOSE; Start 09/10/18 at 08:00 Ertapenem 0.5 gm/ Sodium Chloride 100 ml @ 200 mls/hr Q24H IVPB ; Start 09/11/18 at 11:00 Diagnostic Test (Pha) (Accu-Chek) 1 ea 02 XX ; Start 09/11/18 at 02:00 Insulin Aspart (Novolog Insulin Pen) NOVOLOG *MODERATE* ALGORITHM WITH MEALS BEDTIME SC Last administered on 09/11/18at 00:08; Admin Dose 4 UNIT; Start 09/10/18 at 22:30 Miscellaneous Information (*Order Clarification Bulletin) MEDICATION REQUIRES CLARIFICATION:BI... Q8H XX ; Start 09/11/18 at 07:30 EMILIA BETANCUR DO Sep 11, 2018 08:46
[2018-09-11] MEDS ORDERED: MAGNESIUM SULFATE 1 GM/D5W 100 ML IVPB ONE (09:00)
[2018-09-11] MEDS: HEPARIN 5,000 UNIT/1 ML VIAL SC SCH (09:00)
[2018-09-11] MEDS: FLUOXETINE 20 MG CAP PO SCH (09:07)
[2018-09-11] MEDS: FERROUS SULFATE (EC) 325 MG TAB PO SCH (09:07)
[2018-09-11] MEDS: ASCORBIC ACID 500 MG TAB PO SCH (09:07)
[2018-09-11] MEDS: MEMANTINE 5 MG TAB PO SCH (09:07)
[2018-09-11] MEDS: ZINC SULFATE 220 MG CAP PO SCH (09:09)
[2018-09-11] MEDS: MULTIVITAMINS THERAPEUTIC TAB PO SCH (09:09)
--- NOTE | 2018-09-11 10:57 | CONS ---
Assessment/Plan Assessment/Plan Assessment/Plan (Daily) Atrial fibrillation likely chronic now tachycardic possibly due to intercurrent UTI and possible p neumonia will check echo will start metoprolol start Eliquis and monitor CBC Consultation Date/Type/Reason Admit Date/Time Sep 09, 2018 at 22:52 Type of Consult Cardiology Reason for Consultation [place] Fibrillation Date/Time of Note DATE: 09/11/18 TIME: 10:45 Hx of Present Illness 73-year-old male with a history of CHF, diabetes, mesothelioma, depression, dementia, and hypertension sent in by his primary care doctor from his longterm facility for acute renal failure. Patient is complaining of feeling generally weak and unwell. Noted to be in afib on admission developed rapid rates although refused Cardizem yesterday. Asymptomatic Constitutional: no complaints (somewhat confused) Respiratory: no complaints Cardiovascular: no complaints Past Medical History Home Meds Reported Medications Ondansetron Hcl* (Ondansetron Hcl*) 4 Mg Tablet, 4 MG PO Q4H PRN for NAUSEA AND OR VOMITING, TAB 09/09/18 Zinc Sulfate* (Zinc Sulfate*) 220 Mg Cap, 220 MG PO DAILY, CAP 09/09/18 Ascorbic Acid* (Vitamin C*) 500 Mg Capsule.sa, 500 MG PO DAILY, CAP 09/09/18 Cran/Vitc/Mannose/Inulin/Brom (Uti-Stat Liquid) 3,875 Mg/30 Ml Liquid, 3875 MG PO DAILY 09/09/18 Acetaminophen* (Acetaminophen*) 650 Mg Tablet, 650 MG PO Q4 PRN for PAIN AND OR ELEVATED TEMP, #30 TAB 09/09/18 Sennosides* (Senna Lax*) 8.6 Mg Tablet, 2 TAB PO DAILY PRN for CONSTIPATION, TAB 09/09/18 Fluoxetine Hcl* (Prozac*) 20 Mg Capsule, 20 MG PO DAILY, CAP 09/09/18 Pantoprazole* (Protonix*) 40 Mg Tablet.dr, 40 MG PO DAILY, TAB 09/09/18 Prochlorperazine* (Prochlorperazine*) 5 Mg Tablet, 5 MG PO Q6 PRN for NAUSEA, TAB 09/09/18 Memantine* (Namenda*) 5 Mg Tablet, 5 MG PO DAILY, #30 TAB 09/09/18 Multivitamins* (Theragran*) 1 Tab Tab, 1 TAB PO DAILY, TAB 09/09/18 Magnesium Hydroxide* (Milk Of Magnesia*) 400 Mg/5 Ml Oral.susp, 30 ML PO Q24H PRN for CONSTIPATION, ML 09/09/18 Megestrol Acetate* (Megace ES*) 625 Mg/5 Ml Oral.susp, 10 ML PO BID, ML 09/09/18 Insulin Glargine* (Lantus*) 100 Unit/Ml Soln, 12 UNIT SC QHS, #1 VIAL 09/09/18 Ferrous Sulfate* (Ferrous Sulfate*) 325 Mg Tabec, 325 MG PO DAILY, TAB 09/09/18 Diltiazem Hcl* (Cardizem SR*) 60 Mg Capsr, 60 MG PO Q6, #60 CAP HOLD IF SBP BELOW 110 OR HR BELOW 60 09/09/18 Cranberry (Cranberry) 400 Mg Capsule, 400 MG PO DAILY, CAP 09/09/18 Docusate Sodium* (Colace*) 100 Mg Capsule, 200 MG PO DAILY PRN for CONSTIPATION, #30 CAP 09/09/18 Bisoprolol Fumarate* (Bisoprolol Fumarate*) 5 Mg Tablet, 5 MG PO DAILY, TAB HOLD IF SBP IS BELOW 110 OR HR BELOW 60 09/09/18 Medications Current Medications Dextrose (D50w Syringe) ONCE PRN IV DECREASED GLUCOSE; Start 09/10/18 at 00:00 IV Flush (NS 3 ml) 3 ml PER PROTOCOL IV ; Start 09/10/18 at 06:30 Ondansetron HCl (Zofran Inj) 4 mg Q6H PRN IV NAUSEA/VOMITING; Start 09/10/18 at 06:30 Acetaminophen (Tylenol Supp) 650 mg Q6H PRN PA .PAIN 1-3 OR TEMP; Start 09/10/18 at 06:30 Zolpidem Tartrate (Ambien) 5 mg QHS PRN PO .INSOMNIA; Start 09/10/18 at 06:30 Heparin Sodium (Porcine) (Heparin (5000 Units/1ml)) 5,000 unit Q12 SC Last administered on 09/10/18at 20:32; Admin Dose 5,000 UNIT; Start 09/10/18 at 09:00 Acetaminophen (Tylenol Tab) 650 mg Q4H PRN PO MILD PAIN(1-3)OR ELEVATED TEMP; Start 09/10/18 at 08:00 Ascorbic Acid (Vitamin C) 500 mg DAILY PO Last administered on 09/11/18 09:07; Admin Dose 500 MG; Start 09/10/18 at 09:00 Diltiazem HCl (Cardizem) 60 mg Q6 PO Last administered on 09/11/18 05:53; Admin Dose 60 MG; Start 09/10/18 at 12:00 Docusate Sodium (Colace) 200 mg DAILY PRN PO CONSTIPATION; Start 09/10/18 at 08:00 Ferrous Sulfate (Ferrous Sulfate (Ec)) 325 mg DAILY PO Last administered on 09:07; Admin Dose 325 MG; Start 09/10/18 at 09:00 Fluoxetine HCl (Prozac) 20 mg DAILY PO Last administered on 09/11/18 09:07; Admin Dose 20 MG; Start 09/10/18 at 09:00 Insulin Glargine (Lantus) 12 units QHS SC Last administered on 09/10/18 20:33; Admin Dose 12 UNITS; Start 09/10/18 at 21:00 Magnesium Hydroxide (Milk Of Mag) 30 ml Q24H PRN PO CONSTIPATION; Start 09/10/18 at 08:00 Memantine (Namenda) 5 mg DAILY PO Last administered on 09/11/18 09:07; Admin Dose 5 MG; Start 09/10/18 at 09:00 Multivitamins Therapeutic (Theragran) 1 tab DAILY PO Last administered on 09/11/18 09:09; Admin Dose 1 TAB; Start 09/10/18 at 09:00 Ondansetron HCl (Zofran Tab) 4 mg Q4H PRN PO NAUSEA AND/OR VOMITING; Start 09/10/18 at 08:00 Pantoprazole (Protonix Tab) 40 mg DAILY@0600 PO Last administered on 09/11/18 05:53; Admin Dose 40 MG; Start 09/10/18 at 09:00 Prochlorperazine (Compazine) 5 mg Q6H PRN PO NAUSEA; Start 09/10/18 at 08:00 Senna (Senokot) 2 tab DAILY PRN PO CONSTIPATION; Start 09/10/18 at 08:00 Zinc Sulfate (Zinc Sulfate) 220 mg DAILY PO Last administered on 3/3/19at 09:09; Admin Dose 220 MG; Start 09/10/18 at 09:00 Sodium Chloride 1,000 ml @ 80 mls/hr [id number] IV Last administered on 09/11/18at 06:16; Admin Dose 80 MLS/HR; Start 09/10/18 at 06:30 Miscellaneous Information 1 ea NOTE XX ; Start 09/10/18 at 08:00 Glucose (Glutose) 15 gm Q15M PRN PO DECREASED GLUCOSE; Start 09/10/18 at 08:00 Glucose (Glutose) 22.5 gm Q15M PRN PO DECREASED GLUCOSE; Start 09/10/18 at 08:00 Dextrose (D50w Syringe) 25 ml Q15M PRN IV DECREASED GLUCOSE; Start 09/10/18 at 08:00 Dextrose (D50w Syringe) 50 ml Q15M PRN IV DECREASED GLUCOSE; Start 09/10/18 at 08:00 Glucagon (Glucagen) 1 mg Q15M PRN IM DECREASED GLUCOSE; Start 09/10/18 at 08:00 Glucose (Glutose) 15 gm Q15M PRN BUCCAL DECREASED GLUCOSE; Start 09/10/18 at 08:00 Ertapenem 0.5 gm/ Sodium Chloride 100 ml @ 200 mls/hr Q24H IVPB ; Start 09/11/18 at 11:00 Diagnostic Test (Pha) (Accu-Chek) 1 ea 02 XX ; Start 09/11/18 at 02:00 Insulin Aspart (Novolog Insulin Pen) NOVOLOG *MODERATE* ALGORITHM WITH MEALS BEDTIME SC Last administered on 09/11/18at 00:08; Admin Dose 4 UNIT; Start 09/10/18 at 22:30 Miscellaneous Information (*Order Clarification Bulletin) MEDICATION REQUIRES CLARIFICATION:BI... Q8H XX ; Start 09/11/18 at 07:30 Allergies: Coded Allergies: No Known Allergy (Unverified , 09/09/18) Social History Smoking Status: Unknown if ever smoked Exam/Review of Systems Vital Signs Vitals Vital Signs Date Temp Pulse Resp B/P (MAP) Pulse Ox O2 O2 Flow FiO2 Time Delivery Rate 09/11/18 138 08:11 09/11/18 98.1 19 110/57 98 07:21 (74) 09/11/18 Nasal 2.0 01:12 Cannula Intake and Output 09/10/18 09/10/18 09/11/18 1515:00 23:00 07:00 IntakeIntake Total 1500 ml 1240 ml OutputOutput Total 450 ml BalanceBalance 1500 ml 790 ml Exam Constitutional: alert Psych: no complaints Respiratory: diminished breath sounds Cardiovascular: irregular rhythm (tachcyardic) Extremities: No edema Labs Result Diagram: 09/11/18 0537 09/11/18 0536 Results 24hrs Laboratory Tests Test 09/10/18 20:25 09/10/18 23:25 09/10/18 23:40 09/11/18 05:25 Bedside Glucose 359 H 324 H Urine Color YELLOW Urine Clarity CLOUDY A Urine pH 5.0 Urine Specific [place] 1.008 Urine Ketones NEGATIVE Urine Nitrite NEGATIVE Urine Bilirubin NEGATIVE Urine Urobilinogen NEGATIVE Urine Leukocyte Esterase 2+ H Urine Microscopic RBC > 182 H Urine Microscopic WBC > 182 H Urine Bacteria MODERATE Urine Hemoglobin 3+ H Urine Glucose 3+ H Urine Total Protein 2+ H Hemoglobin A1c 9.1 H Test 09/11/18 05:35 09/11/18 05:36 09/11/18 05:37 09/11/18 07:46 Lactic Acid Level 1.4 Sodium Level 138 Potassium Level 4.2 Chloride Level 104 Carbon Dioxide Level 23 Anion Gap 11 Blood Urea Nitrogen 74 H Creatinine 2.13 H Est Glomerular Filtrat Rate mL/min Glucose Level 118 # Calcium Level 8.9 Phosphorus Level 4.0 Magnesium Level 1.6 L Total Bilirubin 0.2 Direct Bilirubin 0.00 Indirect Bilirubin 0.2 Aspartate Amino 28 Transf (AST/SGOT) Alanine 31 Aminotransferase (ALT/SG PT) Alkaline Phosphatase 85 Total Protein 6.4 # Albumin 2.9 L Globulin 3.50 H Albumin/Globulin Ratio 0.82 White Blood Count 6.5 Red Blood Count 2.76 L Hemoglobin 8.0 L Hematocrit 25.6 L Mean Corpuscular Volume 92.8 Mean Corpuscular 29.0 Hemoglobin Mean Corpuscular 31.3 L Hemoglobin Concent Red Cell Distribution 18.5 H Width Platelet Count 83 L Mean Platelet Volume 11.5 H Immature Granulocytes % 0.500 H Neutrophils % Segmented Neutrophils 86 H % (Manual) Band Neutrophils % 7 H (Manual) Lymphocytes % Lymphocytes % (Manual) 7 L Monocytes % Eosinophils % Basophils % Nucleated Red Blood 0.0 Cells % Immature Granulocytes # 0.030 Neutrophils # Neutrophils # (Manual) 5.6 Band Neutrophils # 0.4 Lymphocytes (Manual) 0.4 L Lymphocytes # Monocytes # Eosinophils # Basophils # Nucleated Red Blood Cells # Platelet Estimate DECREASED Polychromasia 3+ Poikilocytosis 1+ Anisocytosis 1+ Tear Drop Cells 1+ Bedside Glucose 116 Medications Medications Current Medications Dextrose (D50w Syringe) ONCE PRN IV DECREASED GLUCOSE; Start 09/10/18 at 00:00 IV Flush (NS 3 ml) 3 ml PER PROTOCOL IV ; Start 09/10/18 at 06:30 Ondansetron HCl (Zofran Inj) 4 mg Q6H PRN IV NAUSEA/VOMITING; Start 09/10/18 at 06:30 Acetaminophen (Tylenol Supp) 650 mg Q6H PRN PA .PAIN 1-3 OR TEMP; Start 09/10/18 at 06:30 Zolpidem Tartrate (Ambien) 5 mg QHS PRN PO .INSOMNIA; Start 09/10/18 at 06:30 Heparin Sodium (Porcine) (Heparin (5000 Units/1ml)) 5,000 unit Q12 SC Last administered on 09/10/18at 20:32; Admin Dose 5,000 UNIT; Start 09/10/18 at 09:00 Acetaminophen (Tylenol Tab) 650 mg Q4H PRN PO MILD PAIN(1-3)OR ELEVATED TEMP; Start 09/10/18 at 08:00 Ascorbic Acid (Vitamin C) 500 mg DAILY PO Last administered on 09/11/18at 09:07; Admin Dose 500 MG; Start 09/10/18 at 09:00 Diltiazem HCl (Cardizem) 60 mg Q6 PO Last administered on 09/11/18at 05:53; Admin Dose 60 MG; Start 09/10/18 at 12:00 Docusate Sodium (Colace) 200 mg DAILY PRN PO CONSTIPATION; Start 09/10/18 at 08:00 Ferrous Sulfate (Ferrous Sulfate (Ec)) 325 mg DAILY PO Last administered on 09/11/18at 09:07; Admin Dose 325 MG; Start 09/10/18 at 09:00 Fluoxetine HCl (Prozac) 20 mg DAILY PO Last administered on 09/11/18at 09:07; Admin Dose 20 MG; Start 09/10/18 at 09:00 Insulin Glargine (Lantus) 12 units QHS SC Last administered on 09/10/18at 20:33; Admin Dose 12 UNITS; Start 09/10/18 at 21:00 Magnesium Hydroxide (Milk Of Mag) 30 ml Q24H PRN PO CONSTIPATION; Start 09/10/18 at 08:00 Memantine (Namenda) 5 mg DAILY PO Last administered on 09/11/18at 09:07; Admin Dose 5 MG; Start 09/10/18 at 09:00 Multivitamins Therapeutic (Theragran) 1 tab DAILY PO Last administered on 09/11at 09:09; Admin Dose 1 TAB; Start 09/10/18 at 09:00 Ondansetron HCl (Zofran Tab) 4 mg Q4H PRN PO NAUSEA AND/OR VOMITING; Start 09/10/18 at 08:00 Pantoprazole (Protonix Tab) 40 mg DAILY@0600 PO Last administered on 09/11/18at 05:53; Admin Dose 40 MG; Start 09/10/18 at 09:00 Prochlorperazine (Compazine) 5 mg Q6H PRN PO NAUSEA; Start 09/10/18 at 08:00 Senna (Senokot) 2 tab DAILY PRN PO CONSTIPATION; Start 09/10/18 at 08:00 Zinc Sulfate (Zinc Sulfate) 220 mg DAILY PO Last administered on 09/11/18at 0 9:09; Admin Dose 220 MG; Start 09/10/18 at 09:00 Sodium Chloride 1,000 ml @ 80 mls/hr [id number] IV Last administered on 09/11/18at 06:16; Admin Dose 80 MLS/HR; Start 09/10/18 at 06:30 Miscellaneous Information 1 ea NOTE XX ; Start 09/10/18 at 08:00 Glucose (Glutose) 15 gm Q15M PRN PO DECREASED GLUCOSE; Start 09/10/18 at 08:00 Glucose (Glutose) 22.5 gm Q15M PRN PO DECREASED GLUCOSE; Start 09/10/18 at 08:00 Dextrose (D50w Syringe) 25 ml Q15M PRN IV DECREASED GLUCOSE; Start 09/10/18 at 08:00 Dextrose (D50w Syringe) 50 ml Q15M PRN IV DECREASED GLUCOSE; Start 09/10/18 at 08:00 Glucagon (Glucagen) 1 mg Q15M PRN IM DECREASED GLUCOSE; Start 09/10/18 at 08:00 Glucose (Glutose) 15 gm Q15M PRN BUCCAL DECREASED GLUCOSE; Start 09/10/18 at 08:00 Ertapenem 0.5 gm/ Sodium Chloride 100 ml @ 200 mls/hr Q24H IVPB ; Start 09/11/18 at 11:00 Diagnostic Test (Pha) (Accu-Chek) 1 ea 02 XX ; Start 09/11/18 at 02:00 Insulin Aspart (Novolog Insulin Pen) NOVOLOG *MODERATE* ALGORITHM WITH MEALS BEDTIME SC Last administered on 09/11/18at 00:08; Admin Dose 4 UNIT; Start 09/10/18 at 22:30 Miscellaneous Information (*Order Clarification Bulletin) MEDICATION REQUIRES CLARIFICATION:BI... Q8H XX ; Start 09/11/18 at 07:30 DARLENE DESIR MD Sep 11, 2018 10:57
[2018-09-11] MEDS ORDERED: FUROSEMIDE 40 MG INJ IV ONE (11:00)
[2018-09-11] MEDS ORDERED: DILTIAZEM 25 MG INJ IV ONE (11:00)
[2018-09-11] MEDS ORDERED: FUROSEMIDE 40 MG INJ ONE (11:04)
[2018-09-11] MEDS: METOPROLOL 25 MG TAB GTB SCH ×2 (11:08→20:29)
[2018-09-11] MEDS: ERTAPENEM SODIUM 0.5 GM in SOD CHLORIDE 0.9% 100 ML IVPB SCH (12:05)
--- NOTE | 2018-09-11 16:06 | CONS ---
Assessment/Plan Assessment/Plan Hospital Course (Demo Recall) Patient is awake in no distress he is afebrile, currently getting 2D echo. WBC 6.5 neutrophils 86 bands 7 BUN 74 creatinine 2.13. Urinalysis on admission revealed yellow cloudy urine was positive for leukocyte Estrace WBCs and bacteria. Blood cultures remain negative. Chest x-ray this morning revealed moderate partially loculated right pleural effusion. Dense atelectasis in the left lung base. Left upper chest Port-A-Cath in good position without pneumothorax. Antimicrobials: Invanz Physical examination: Well-developed well-nourished chronically ill-appearing elderly man in no distress. Head atraumatic normocephalic sclera nonicteric. Neck is supple chest rise symmetrical breath sounds diminished bases. Heart: S1-S2. Abdomen soft bowel sounds present assessment Assessment: 1. Acute renal failure 2. Urinary tract infection as per urinalysis 3. History of mesothelioma 4. Atrial fibrillation 5. Possible pneumonia Plan: Clinically stable, blood cultures had been negative, will order urine culture, continue antibiotics, follow cardiology recommendations Consultation Date/Type/Reason Admit Date/Time Sep 09, 2018 at 22:52 Initial Consult Date Type of Consult id Date/Time of Note DATE: 09/11/18 TIME: 16:06 Exam/Review of Systems Exam Vitals Vital Signs Date Temp Pulse Resp B/P (MAP) Pulse Ox O2 O2 Flow FiO2 Time Delivery Rate 09/11/18 91 16:05 09/11/18 98.3 19 102/68 98 15:37 (79) 09/11/18 Nasal 2.0 08:20 Cannula Intake and Output 09/10/18 09/10/18 09/11/18 1515:00 23:00 07:00 IntakeIntake Total 1500 ml 1240 ml OutputOutput Total 450 ml BalanceBalance 1500 ml 790 ml Results Result Diagram: 09/11/18 0537 09/11/18 0536 Results 24hrs Laboratory Tests Test 09/10/18 20:25 09/10/18 23:25 09/10/18 23:40 09/11/18 05:25 Bedside Glucose 359 H 324 H Urine Color YELLOW Urine Clarity CLOUDY A Urine pH 5.0 Urine Specific [place] 1.008 Urine Ketones NEGATIVE Urine Nitrite NEGATIVE Urine Bilirubin NEGATIVE Urine Urobilinogen NEGATIVE Urine Leukocyte Esterase 2+ H Urine Microscopic RBC > 182 H Urine Microscopic WBC > 182 H Urine Bacteria MODERATE Urine Hemoglobin 3+ H Urine Random Creatinine 23.90 Urine Random Sodium 112 H Urine Glucose 3+ H Urine Total Protein 2+ H Hemoglobin A1c 9.1 H Test 09/11/18 05:35 09/11/18 05:36 09/11/18 05:37 09/11/18 07:46 Lactic Acid Level 1.4 Sodium Level 138 Potassium Level 4.2 Chloride Level 104 Carbon Dioxide Level 23 Anion Gap 11 Blood Urea Nitrogen 74 H Creatinine 2.13 H Est Glomerular Filtrat Rate mL/min Glucose Level 118 # Calcium Level 8.9 Phosphorus Level 4.0 Magnesium Level 1.6 L Total Bilirubin 0.2 Direct Bilirubin 0.00 Indirect Bilirubin 0.2 Aspartate Amino 28 Transf (AST/SGOT) Alanine 31 Aminotransferase (ALT/SG PT) Alkaline Phosphatase 85 Total Protein 6.4 # Albumin 2.9 L Globulin 3.50 H Albumin/Globulin Ratio 0.82 White Blood Count 6.5 Red Blood Count 2.76 L Hemoglobin 8.0 L Hematocrit 25.6 L Mean Corpuscular Volume 92.8 Mean Corpuscular 29.0 Hemoglobin Mean Corpuscular 31.3 L Hemoglobin Concent Red Cell Distribution 18.5 H Width Platelet Count 83 L Mean Platelet Volume 11.5 H Immature Granulocytes % 0.500 H Neutrophils % Segmented Neutrophils 86 H % (Manual) Band Neutrophils % 7 H (Manual) Lymphocytes % Lymphocytes % (Manual) 7 L Monocytes % Eosinophils % Basophils % Nucleated Red Blood 0.0 Cells % Immature Granulocytes # 0.030 Neutrophils # Neutrophils # (Manual) 5.6 Band Neutrophils # 0.4 Lymphocytes (Manual) 0.4 L Lymphocytes # Monocytes # Eosinophils # Basophils # Nucleated Red Blood Cells # Platelet Estimate DECREASED Polychromasia 3+ Poikilocytosis 1+ Anisocytosis 1+ Tear Drop Cells 1+ Bedside Glucose 116 Test 09/11/18 10:54 09/11/18 11:21 09/11/18 12:02 Bedside Glucose 148 163 D-Dimer 3067.73 H D-Dimer Comment Troponin I 0.020 Medications Medication Current Medications Dextrose (D50w Syringe) ONCE PRN IV DECREASED GLUCOSE; Start 09/10/18 at 00:00 IV Flush (NS 3 ml) 3 ml PER PROTOCOL IV ; Start 09/10/18 at 06:30 Ondansetron HCl (Zofran Inj) 4 mg Q6H PRN IV NAUSEA/VOMITING; Start 09/10/18 at 06:30 Acetaminophen (Tylenol Supp) 650 mg Q6H PRN [place] .PAIN 1-3 OR TEMP; Start 09/10/18 at 06:30 Zolpidem Tartrate (Ambien) 5 mg QHS PRN PO .INSOMNIA; Start 09/10/18 at 06:30 Heparin Sodium (Porcine) (Heparin (5000 Units/1ml)) 5,000 unit Q12 SC Last administered on 09/10/18 20:32; Admin Dose 5,000 UNIT; Start 09/10/18 at 09:00; Status Hold Acetaminophen (Tylenol Tab) 650 mg Q4H PRN PO MILD PAIN(1-3)OR ELEVATED TEMP; Start 09/10/18 at 08:00 Ascorbic Acid (Vitamin C) 500 mg DAILY PO Last administered on 09/11/18 09:07; Admin Dose 500 MG; Start 09/10/18 at 09:00 Diltiazem HCl (Cardizem) 60 mg Q6 PO Last administered on 09/11/18 12:10; Admin Dose 60 MG; Start 09/10/18 at 12:00 Docusate Sodium (Colace) 200 mg DAILY PRN PO CONSTIPATION; Start 09/10/18 at 08:00 Ferrous Sulfate (Ferrous Sulfate (Ec)) 325 mg DAILY PO Last administered on 09/11/18 09:07; Admin Dose 325 MG; Start 09/10/18 at 09:00 Fluoxetine HCl (Prozac) 20 mg DAILY PO Last administered on 09/11/18 09:07; Admin Dose 20 MG; Start 09/10/18 at 09:00 Insulin Glargine (Lantus) 12 units QHS SC Last administered on 09/10/18 20:33; Admin Dose 12 UNITS; Start 09/10/18 at 21:00 Magnesium Hydroxide (Milk Of Mag) 30 ml Q24H PRN PO CONSTIPATION; Start 09/10/18 at 08:00 Memantine (Namenda) 5 mg DAILY PO Last administered on 09/11/18 09:07; Admin Dose 5 MG; Start 09/10/18 at 09:00 Multivitamins Therapeutic (Theragran) 1 tab DAILY PO Last administered on 09/11/18 09:09; Admin Dose 1 TAB; Start 09/10/18 at 09:00 Ondansetron HCl (Zofran Tab) 4 mg Q4H PRN PO NAUSEA AND/OR VOMITING; Start 09/10/18 at 08:00 Pantoprazole (Protonix Tab) 40 mg DAILY@0600 PO Last administered on 09/11/18at 05:53; Admin Dose 40 MG; Start 09/10/18 at 09:00 Prochlorperazine (Compazine) 5 mg Q6H PRN PO NAUSEA; Start 09/10/18 at 08:00 Senna (Senokot) 2 tab DAILY PRN PO CONSTIPATION; Start 09/10/18 at 08:00 Zinc Sulfate (Zinc Sulfate) 220 mg DAILY PO Last administered on 09/11/18at 09:09; Admin Dose 220 MG; Start 09/10/18 at 09:00 Sodium Chloride 1,000 ml @ 80 mls/hr [id number] IV Last administered on 09/11/18at 06:16; Admin Dose 80 MLS/HR; Start 09/10/18 at 06:30 Miscellaneous Information 1 ea NOTE XX ; Start 09/10/18 at 08:00 Glucose (Glutose) 15 gm Q15M PRN PO DECREASED GLUCOSE; Start 09/10/18 at 08:00 Glucose (Glutose) 22.5 gm Q15M PRN PO DECREASED GLUCOSE; Start 09/10/18 at 08:00 Dextrose (D50w Syringe) 25 ml Q15M PRN IV DECREASED GLUCOSE; Start 09/10/18 at 08:00 Dextrose (D50w Syringe) 50 ml Q15M PRN IV DECREASED GLUCOSE; Start 09/10/18 at 08:00 Glucagon (Glucagen) 1 mg Q15M PRN IM DECREASED GLUCOSE; Start 09/10/18 at 08:00 Glucose (Glutose) 15 gm Q15M PRN BUCCAL DECREASED GLUCOSE; Start 09/10/18 at 08:00 Ertapenem 0.5 gm/ Sodium Chloride 100 ml @ 200 mls/hr Q24H IVPB Last administered on 09/11/18at 12:05; Admin Dose 200 MLS/HR; Start 09/11/18 at 11:00 Diagnostic Test (Pha) (Accu-Chek) 1 ea 02 XX ; Start 09/11/18 at 02:00 Insulin Aspart (Novolog Insulin Pen) NOVOLOG *MODERATE* ALGORITHM WITH MEALS BEDTIME SC Last administered on 09/11/18at 12:08; Admin Dose 2 UNIT; Start 09/10/18 at 22:30 Apixaban (Eliquis) 2.5 mg BID PO ; Start 09/12/18 at 09:00 Metoprolol Tartrate (Lopressor) 25 mg BID GTB Last administered on 09/11/18at 11:08; Admin Dose 25 MG; Start 09/11/18 at 11:00 CARMEN ALEGRIA NP Sep 11, 2018 16:06
[2018-09-11] MEDS ORDERED: APIXABAN 5 MG TABLET PO SCH ×2 (18:00→21:00)
[2018-09-11] MEDS: INSULIN GLARGINE [LANTus] (100 UNITS/ML) SYG SC SCH (20:42)
[2018-09-11] MEDS ORDERED: SOD CHLORIDE 0.9% 1,000 ML IV ONE ×2 (21:30→23:30)
[2018-09-12] VITALS (78 sets, daily range): BP systolic 85–125; BP diastolic 43–87; PULSE 72–145; RESP 12–42
[2018-09-12] MEDS: ACCU-CHEK XX SCH (00:50)
[2018-09-12] MEDS ORDERED: NORepinephrine 8MG/250 ML (PMX 250 ML IV SCH ×3 (02:30→03:27)
[2018-09-12] MEDS: PANTOPRAZOLE (EC) 40 MG TAB PO SCH (06:16)
[2018-09-12] MEDS: INSULIN ASPART [NOVOLOG] 3 ML PEN SC SCH ×4 (07:35→21:20)
--- NOTE | 2018-09-12 08:15 | PN ---
DATE: 09/12/2018 SUBJECTIVE: The patient is critically ill, currently on pressor support. The patient was transferre d from telemetry to the intensive care unit. The patient's urinary output has been adequate. No acu te events noted. No hemoptysis, hematemesis or hematochezia. OBJECTIVE: VITAL SIGNS: Blood pressure is 109/54, respirations 21, pulse 110, temperature 98.6. HEENT: Head is normocephalic. NECK: Supple. HEART: Irregularly irregular . LUNGS: Diminished breath sounds at the base. ABDOMEN: Soft, nontender to palpation without rebound or guarding. EXTREMITIES: Negative for clubbing, cyanosis, no edema. DERMATOLOGIC: No rashes. MUSCULOSKELETAL: No joint effusion. NEUROLOGIC: No change in exam. MEDICATIONS: Reviewed. LABORATORY DATA: Shows white count 6.8, hemoglobin 6.9, platelet count 61. Sodium 138, potassium 3. 9, BUN 66, creatinine 1.98. INR is 1.76. Urinalysis was reviewed. Blood cultures have been reviewe d. IMAGING STUDY: Chest x-ray was reviewed. ASSESSMENT AND PLAN: 1. Septic shock. Etiology is believed to be secondary to urinary tract infection. The patient's ur inalysis does show pyuria, hematuria and moderate bacteria. The patient is currently off pressor sup port. Plan is to continue current medical management. Continue pressor support, IV fluids, antibiot ic therapy, monitor closely. Follow up with infectious disease for antibiotic management. 2. Atrial fibrillation with rapid rate. The patient is currently on Cardizem. We will continue to monitor. Follow up with cardiology. 3. Anemia. The patient had a drop in hemoglobin and hematocrit levels. Etiology is unclear, possib ly dilutional; however, need to rule out bleed in the setting of anticoagulation. Plan is to hold El iquis. We will transfuse 1 unit PRBC. We will check stool for occult blood and monitor hemoglobin a nd hematocrit levels. 4. History of mesothelioma with metastasis. The patient is receiving chemotherapy in outpatient set ting. At this point, continue to monitor. Consider oncology evaluation. 5. Nonoliguric acute kidney injury with unknown baseline creatinine. Etiology is secondary to hemod ynamics. Renal function has been improving. Continue to monitor closely. Continue supportive care, and renally dose all medicines. 6. Diabetes. The patient's glucose levels have been improving. Continue to adjust insulin regimen, monitor closely. 7. Acute encephalopathy and dementia. Etiology is toxic metabolic. Continue to monitor. 8. History of depression. 9. Thrombocytopenia, possibly from chemotherapy. Continue to monitor. 10. Hypokalemia secondary to acute kidney injury, resolved. 11. Lactic acidosis, resolved. Continue to monitor. Please note I spent over 30 minutes of critical care time with this patient. Dictated By: RENE VAZQUEZ DO NR/NTS Conf#: [id number] DID#: [id number] CC: RENE VAZQUEZ DO;*EndCC*
[2018-09-12] MEDS: METOPROLOL 25 MG TAB GTB SCH (09:00)
[2018-09-12] MEDS ORDERED: APIXABAN 5 MG TABLET PO SCH (09:00)
[2018-09-12] MEDS: SOD CHLORIDE 0.45% 1,000 ML IV SCH ×2 (09:04→18:31)
--- NOTE | 2018-09-12 09:21 | CONS ---
Assessment/Plan Assessment/Plan Assessment/Plan (Daily) Chest x-ray showing mild cardiomegaly with what appears to be chronic right- sided pleural changes. Patient is currently on Levophed at 2 mics per minute. Assessment and recommendations; 1. Patient admitted with sepsis and UTI, currently on appropriate antimicrobial regimen. 2. Acute renal injury possibly with some element of baseline renal insufficiency. Serum creatinine improving. 3. Improving hypotension. 4. Chronic atrial fibrillation. 5. Severe anemia and thrombocytopenia. 6. History of hypertension. 7. History of mesothelioma likely with right-sided involvement. 8. History of diabetes. Continue current supportive care. Patient responding well to current treatment regimen. Taper Levophed as tolerated. Hold beta-alyssia for now. Consultation Date/Type/Reason Admit Date/Time Sep 09, 2018 at 22:52 Date of Consultation: Sep 12, 2018 Type of Consult Pulmonary/critical care Pulmonary consult requested for evaluation of right pleural effusion. Patient is a 73-year-old male who was admitted to the hospital sent from physician's office because of acute elevation in serum creatinine. Patient also was hypotensive and had to be transferred to ICU. Patient is currently on low- dose Levophed drip. Otherwise patient has remained hemodynamically stable and also exhibiting stable pulmonary status on 2 L nasal cannula. Patient denies any chest pain, shortness of breath, cough, fever or chills. Past medical history; 1. History of mesothelioma apparently right-sided involvement. 2. Placement of MediPort. 3. Possibly underlying some element of baseline renal insufficiency. 4. CHF. 5. Chronic atrial fibrillation. 6. Diabetes and hypertension. 7. History of dementia. Medications; reviewed. Allergies; none. Family history; noncontributory. Occupational history; not available. Review of systems; denies any headache, shortness of breath, coughing, chest pain, hemoptysis. Any abdominal pain, nausea vomiting. Any diarrhea. General exam; elderly male, currently no distress. Laying comfortably in bed. Date/Time of Note DATE: 09/12/18 TIME: 09:16 Past Medical History Home Meds Reported Medications Ondansetron Hcl* (Ondansetron Hcl*) 4 Mg Tablet, 4 MG PO Q4H PRN for NAUSEA AND OR VOMITING, TAB 09/09/18 Zinc Sulfate* (Zinc Sulfate*) 220 Mg Cap, 220 MG PO DAILY, CAP 09/09/18 Ascorbic Acid* (Vitamin C*) 500 Mg Capsule.sa, 500 MG PO DAILY, CAP 09/09/18 Cran/Vitc/Mannose/Inulin/Brom (Uti-Stat Liquid) 3,875 Mg/30 Ml Liquid, 3875 MG PO DAILY 09/09/18 Acetaminophen* (Acetaminophen*) 650 Mg Tablet, 650 MG PO Q4 PRN for PAIN AND OR ELEVATED TEMP, #30 TAB 09/09/18 Sennosides* (Senna Lax*) 8.6 Mg Tablet, 2 TAB PO DAILY PRN for CONSTIPATION, TAB 09/09/18 Fluoxetine Hcl* (Prozac*) 20 Mg Capsule, 20 MG PO DAILY, CAP 09/09/18 Pantoprazole* (Protonix*) 40 Mg Tablet.dr, 40 MG PO DAILY, TAB 09/09/18 Prochlorperazine* (Prochlorperazine*) 5 Mg Tablet, 5 MG PO Q6 PRN for NAUSEA, TAB 09/09/18 Memantine* (Namenda*) 5 Mg Tablet, 5 MG PO DAILY, #30 TAB 09/09/18 Multivitamins* (Theragran*) 1 Tab Tab, 1 TAB PO DAILY, TAB 09/09/18 Magnesium Hydroxide* (Milk Of Magnesia*) 400 Mg/5 Ml Oral.susp, 30 ML PO Q24H PRN for CONSTIPATION, ML 09/09/18 Megestrol Acetate* (Megace ES*) 625 Mg/5 Ml Oral.susp, 10 ML PO BID, ML 09/09/18 Insulin Glargine* (Lantus*) 100 Unit/Ml Soln, 12 UNIT SC QHS, #1 VIAL 09/09/18 Ferrous Sulfate* (Ferrous Sulfate*) 325 Mg Tabec, 325 MG PO DAILY, TAB 09/09/18 Diltiazem Hcl* (Cardizem SR*) 60 Mg Capsr, 60 MG PO Q6, #60 CAP HOLD IF SBP BELOW 110 OR HR BELOW 60 09/09/18 Cranberry (Cranberry) 400 Mg Capsule, 400 MG PO DAILY, CAP 09/09/18 Docusate Sodium* (Colace*) 100 Mg Capsule, 200 MG PO DAILY PRN for CONSTIPATION, #30 CAP 09/09/18 Bisoprolol Fumarate* (Bisoprolol Fumarate*) 5 Mg Tablet, 5 MG PO DAILY, TAB HOLD IF SBP IS BELOW 110 OR HR BELOW 60 09/09/18 Medications Current Medications Dextrose (D50w Syringe) ONCE PRN IV DECREASED GLUCOSE; Start 09/10/18 at 00:00 IV Flush (NS 3 ml) 3 ml PER PROTOCOL IV ; Start 09/10/18 at 06:30 Ondansetron HCl (Zofran Inj) 4 mg Q6H PRN IV NAUSEA/VOMITING; Start 09/10/18 at 06:30 Acetaminophen (Tylenol Supp) 650 mg Q6H PRN [place] .PAIN 1-3 OR TEMP; Start 09/10/18 at 06:30 Zolpidem Tartrate (Ambien) 5 mg QHS PRN PO .INSOMNIA; Start 09/10/18 at 06:30 Acetaminophen (Tylenol Tab) 650 mg Q4H PRN PO MILD PAIN(1-3)OR ELEVATED TEMP; Start 09/10/18 at 08:00 Ascorbic Acid (Vitamin C) 500 mg DAILY PO Last administered on 09/11/18at 09:07; Admin Dose 500 MG; Start 09/10/18 at 09:00 Diltiazem HCl (Cardizem) 60 mg Q6 PO Last administered on 09/11/18at 12:10; Admin Dose 60 MG; Start 09/10/18 at 12:00 Docusate Sodium (Colace) 200 mg DAILY PRN PO CONSTIPATION; Start 09/10/18 at 08:00 Ferrous Sulfate (Ferrous Sulfate (Ec)) 325 mg DAILY PO Last administered on 09/11/18 09:07; Admin Dose 325 MG; Start 09/10/18 at 09:00 Fluoxetine HCl (Prozac) 20 mg DAILY PO Last administered on 09/11/18 09:07; Admin Dose 20 MG; Start 09/10/18 at 09:00 Insulin Glargine (Lantus) 12 units QHS SC Last administered on 09/11/18 20:42; Admin Dose 12 UNITS; Start 09/10/18 at 21:00 Magnesium Hydroxide (Milk Of Mag) 30 ml Q24H PRN PO CONSTIPATION; Start 09/10/18 at 08:00 Memantine (Namenda) 5 mg DAILY PO Last administered on 09/11/18 09:07; Admin Dose 5 MG; Start 09/10/18 at 09:00 Multivitamins Therapeutic (Theragran) 1 tab DAILY PO Last administered on 09/11/18at 09:09; Admin Dose 1 TAB; Start 09/10/18 at 09:00 Ondansetron HCl (Zofran Tab) 4 mg Q4H PRN PO NAUSEA AND/OR VOMITING; Start 09/10 at 08:00 Pantoprazole (Protonix Tab) 40 mg DAILY@0600 PO Last administered on 09/12/18at 06:16; Admin Dose 40 MG; Start 09/10/18 at 09:00 Prochlorperazine (Compazine) 5 mg Q6H PRN PO NAUSEA; Start 09/10/18 at 08:00 Senna (Senokot) 2 tab DAILY PRN PO CONSTIPATION; Start 09/10/18 at 08:00 Zinc Sulfate (Zinc Sulfate) 220 mg DAILY PO Last administered on 09/11/18at 09:09; Admin Dose 220 MG; Start 09/10/18 at 09:00 Sodium Chloride 1,000 ml @ 80 mls/hr [id number] IV Last administered on 09/11/18at 20:29; Admin Dose 80 MLS/HR; Start 09/10/18 at 06:30 Miscellaneous Information 1 ea NOTE XX ; Start 09/10/18 at 08:00 Glucose (Glutose) 15 gm Q15M PRN PO DECREASED GLUCOSE; Start 09/10/18 at 08:00 Glucose (Glutose) 22.5 gm Q15M PRN PO DECREASED GLUCOSE; Start 09/10/18 at 08:00 Dextrose (D50w Syringe) 25 ml Q15M PRN IV DECREASED GLUCOSE; Start 09/10/18 at 08:00 Dextrose (D50w Syringe) 50 ml Q15M PRN IV DECREASED GLUCOSE; Start 09/10/18 at 08:00 Glucagon (Glucagen) 1 mg Q15M PRN IM DECREASED GLUCOSE; Start 09/10/18 at 08:00 Glucose (Glutose) 15 gm Q15M PRN BUCCAL DECREASED GLUCOSE; Start 09/10/18 at 08: 00 Ertapenem 0.5 gm/ Sodium Chloride 100 ml @ 200 mls/hr Q24H IVPB Last administered on 09/11/18at 12:05; Admin Dose 200 MLS/HR; Start 09/11/18 at 11:00 Diagnostic Test (Pha) (Accu-Chek) 1 ea 02 XX ; Start 09/11/18 at 02:00 Insulin Aspart (Novolog Insulin Pen) NOVOLOG *MODERATE* ALGORITHM WITH MEALS BEDTIME SC Last administered on 09/11/18at 17:59; Admin Dose 2 UNIT; Start 09/10/18 at 22:30 Metoprolol Tartrate (Lopressor) 25 mg BID GTB Last administered on 09/11/18at 11:08; Admin Dose 25 MG; Start 09/11/18 at 11:00 Apixaban (Eliquis) 2.5 mg BID PO Last administered on 09/11/18at 17:55; Admin Dose 2.5 MG; Start 09/11/18 at 18:00; Status Hold Norepinephrine 250 ml @ 1.875 mls/ hr TITRATE IV Last administered on 09/12/18at 03:47; Admin Dose 3.75 MLS/HR; Start 09/12/18 at 03:27 Allergies: Coded Allergies: No Known Allergy (Unverified , 09/09/18) Social History Smoking Status: Unknown if ever smoked Exam/Review of Systems Exam Vitals Vital Signs Date Temp Pulse Resp B/P (MAP) Pulse Ox O2 O2 Flow FiO2 Time Delivery Rate 09/12/18 100 08:00 09/12/18 98 2.0 27 07:33 09/12/18 21 109/54 06:30 (72) 09/12/18 98.4 04:15 09/12/18 Nasal 02:15 Cannula Intake and Output 09/11/18 09/11/18 09/12/18 1515:00 23:00 07:00 IntakeIntake Total 200 ml 2050 ml 1114 ml OutputOutput Total 800 ml 460 ml BalanceBalance 200 ml 1250 ml 654 ml Exam HEENT exam; supple neck, no JVD. No lymphadenopathy. Midline trachea. No thyromegaly. Patient is edentulous. No neck masses. Chest exam; diminished but clear breath sounds. S1-S2 audible, no murmurs. Irregular rhythm. MediPort in left chest wall. Abdomen exam; soft, no rebound. Nontender. No organomegaly. Bowel sounds audible. Extremity exam; no edema. [employer] exam; no focal deficit. Results Result Diagram: 09/12/18 0719 09/12/18 0400 Results 24hrs Laboratory Tests Test 09/11/18 10:54 09/11/18 11:21 09/11/18 12:02 09/11/18 17:08 Bedside Glucose 148 163 148 D-Dimer 3067.73 H D-Dimer Comment Troponin I 0.020 Test 09/11/18 20:32 09/12/18 04:00 09/12/18 07:19 Bedside Glucose 139 White Blood Count 6.4 6.8 Red Blood Count 2.31 L 2.49 L Hemoglobin 6.4 *L 6.9 *L Hematocrit 21.3 L 22.7 L Mean Corpuscular Volume 92.2 91.2 Mean Corpuscular 27.7 L 27.7 L Hemoglobin Mean Corpuscular 30.0 L 30.4 L Hemoglobin Concent Red Cell Distribution 18.4 H 18.7 H Width Platelet Count 58 #L 61 L Mean Platelet Volume 11.2 H 10.5 H Immature Granulocytes % 0.600 H 0.700 H Neutrophils % 92.0 H Lymphocytes % 7.1 L Monocytes % 0.1 Eosinophils % 0.0 Basophils % 0.1 Nucleated Red Blood 0.0 0.0 Cells % Immature Granulocytes # 0.040 H 0.050 H Neutrophils # 6.2 Lymphocytes # 0.5 L Monocytes # 0.0 L Eosinophils # 0.0 Basophils # 0.0 Nucleated Red Blood 0.0 Cells # Sodium Level 138 Potassium Level 3.9 Chloride Level 107 Carbon Dioxide Level 20 L Anion Gap 11 Blood Urea Nitrogen 66 H Creatinine 1.98 H Est Glomerular Filtrat Rate mL/min Glucose Level 85 Calcium Level 8.1 L Phosphorus Level 4.4 Magnesium Level 1.7 Medications Medication Current Medications Dextrose (D50w Syringe) ONCE PRN IV DECREASED GLUCOSE; Start 09/10/18 at 00:00 IV Flush (NS 3 ml) 3 ml PER PROTOCOL IV ; Start 09/10/18 at 06:30 Ondansetron HCl (Zofran Inj) 4 mg Q6H PRN IV NAUSEA/VOMITING; Start 09/10/18 at 06:30 Acetaminophen (Tylenol Supp) 650 mg Q6H PRN [place] .PAIN 1-3 OR TEMP; Start 09/10/18 at 06:30 Zolpidem Tartrate (Ambien) 5 mg QHS PRN PO .INSOMNIA; Start 09/10/18 at 06:30 Acetaminophen (Tylenol Tab) 650 mg Q4H PRN PO MILD PAIN(1-3)OR ELEVATED TEMP; Start 09/10/18 at 08:00 Ascorbic Acid (Vitamin C) 500 mg DAILY PO Last administered on 09/11/18 09:07; Admin Dose 500 MG; Start 09/10/18 at 09:00 Diltiazem HCl (Cardizem) 60 mg Q6 PO Last administered on 09/11/18 12:10; Admin Dose 60 MG; Start 09/10/18 at 12:00 Docusate Sodium (Colace) 200 mg DAILY PRN PO CONSTIPATION; Start 09/10/18 at 08:00 Ferrous Sulfate (Ferrous Sulfate (Ec)) 325 mg DAILY PO Last administered on 09/11/18 09:07; Admin Dose 325 MG; Start 09/10/18 at 09:00 Fluoxetine HCl (Prozac) 20 mg DAILY PO Last administered on 09/11/18 09:07; Admin Dose 20 MG; Start 09/10/18 at 09:00 Insulin Glargine (Lantus) 12 units QHS SC Last administered on 09/11/18 20:42; Admin Dose 12 UNITS; Start 09/10/18 at 21:00 Magnesium Hydroxide (Milk Of Mag) 30 ml Q24H PRN PO CONSTIPATION; Start 09/10/18 at 08:00 Memantine (Namenda) 5 mg DAILY PO Last administered on 09/11/18 09:07; Admin Dose 5 MG; Start 09/10/18 at 09:00 Multivitamins Therapeutic (Theragran) 1 tab DAILY PO Last administered on 09/11/18 09:09; Admin Dose 1 TAB; Start 09/10/18 at 09:00 Ondansetron HCl (Zofran Tab) 4 mg Q4H PRN PO NAUSEA AND/OR VOMITING; Start 09/10/18 at 08:00 Pantoprazole (Protonix Tab) 40 mg DAILY@0600 PO Last administered on 09/12/18 06:16; Admin Dose 40 MG; Start 09/10/18 at 09:00 Prochlorperazine (Compazine) 5 mg Q6H PRN PO NAUSEA; Start 09/10/18 at 08:00 Senna (Senokot) 2 tab DAILY PRN PO CONSTIPATION; Start 09/10/18 at 08:00 Zinc Sulfate (Zinc Sulfate) 220 mg DAILY PO Last administered on 09/11/18at 09:09; Admin Dose 220 MG; Start 09/10/18 at 09:00 Sodium Chloride 1,000 ml @ 80 mls/hr [id number] IV Last administered on 09/11/18at 20:29; Admin Dose 80 MLS/HR; Start 09/10/18 at 06:30 Miscellaneous Information 1 ea NOTE XX ; Start 09/10/18 at 08:00 Glucose (Glutose) 15 gm Q15M PRN PO DECREASED GLUCOSE; Start 09/10/18 at 08:00 Glucose (Glutose) 22.5 gm Q15M PRN PO DECREASED GLUCOSE; Start 09/10/18 at 08:00 Dextrose (D50w Syringe) 25 ml Q15M PRN IV DECREASED GLUCOSE; Start 09/10/18 at 08:00 Dextrose (D50w Syringe) 50 ml Q15M PRN IV DECREASED GLUCOSE; Start 09/10/18 at 08:00 Glucagon (Glucagen) 1 mg Q15M PRN IM DECREASED GLUCOSE; Start 09/10/18 at 08:00 Glucose (Glutose) 15 gm Q15M PRN BUCCAL DECREASED GLUCOSE; Start 09/10/18 at 08:00 Ertapenem 0.5 gm/ Sodium Chloride 100 ml @ 200 mls/hr Q24H IVPB Last administered on 09/11/18at 12:05; Admin Dose 200 MLS/HR; Start 09/11/18 at 11:00 Diagnostic Test (Pha) (Accu-Chek) 1 ea 02 XX ; Start 09/11/18 at 02:00 Insulin Aspart (Novolog Insulin Pen) NOVOLOG *MODERATE* ALGORITHM WITH MEALS BEDTIME SC Last administered on 09/11/18at 17:59; Admin Dose 2 UNIT; Start 09/10/18 at 22:30 Metoprolol Tartrate (Lopressor) 25 mg BID GTB Last administered on 09/11/18at 11:08; Admin Dose 25 MG; Start 09/11/18 at 11:00 Apixaban (Eliquis) 2.5 mg BID PO Last administered on 09/11/18at 17:55; Admin Dose 2.5 MG; Start 09/11/18 at 18:00; Status Hold Norepinephrine 250 ml @ 1.875 mls/ hr TITRATE IV Last administered on 09/12/18at 03:47; Admin Dose 3.75 MLS/HR; Start 09/12/18 at 03:27 SWETA ROBBINS 4, 2019 09:21
[2018-09-12] MEDS: DILTIAZEM 60 MG TAB PO SCH ×4 (09:33→18:31)
[2018-09-12] MEDS: ASCORBIC ACID 500 MG TAB PO SCH (09:33)
[2018-09-12] MEDS: FERROUS SULFATE (EC) 325 MG TAB PO SCH (09:33)
[2018-09-12] MEDS: FLUOXETINE 20 MG CAP PO SCH (09:33)
[2018-09-12] MEDS: MULTIVITAMINS THERAPEUTIC TAB PO SCH (09:33)
[2018-09-12] MEDS: ZINC SULFATE 220 MG CAP PO SCH (09:33)
[2018-09-12] MEDS: MEMANTINE 5 MG TAB PO SCH (09:33)
--- NOTE | 2018-09-12 11:52 | CONS ---
Assessment/Plan Assessment/Plan Hospital Course (Demo Recall) Patient was transferred to ICU secondary to symptomatic hypotension now on low- dose of Levophed tachycardic with a heart rate of 121. She is in no distress and afebrile. WBC 6.8 H&H 6.9 and 22.7 platelets 61 neutrophils 92 BUN 66 creatinine 1.98 Microbiology: All cultures since admission negative Indwelling: Left chest Port-A-Cath Antimicrobials: Invanz Physical examination: Well-developed chronically ill-appearing elderly man in no distress. Head atraumatic normocephalic sclera nonicteric. Neck is supple chest rise symmetrical breath sounds diminished bases. Heart: S1-S2. Abdomen soft bowel sounds present assessment Assessment: 1. Septic shock, possibly cardiogenic 2. Acute renal failure 3. Urinary tract infection as per urinalysis 4. Mesothelioma with metastasis, patient is getting chemotherapy outpatient 5. Atrial fibrillation 6. Possible pneumonia Plan: Patient is hemodynamically unstable, cardiology and pulmonary on case, so far all cultures negative, continue antibiotics, aspiration precautions Consultation Date/Type/Reason Admit Date/Time Sep 09, 2018 at 22:52 Initial Consult Date Type of Consult id Date/Time of Note DATE: 09/12/18 TIME: 11:48 Exam/Review of Systems Exam Vitals Vital Signs Date Temp Pulse Resp B/P (MAP) Pulse Ox O2 O2 Flow FiO2 Time Delivery Rate 09/12/18 145 22 98 Nasal 09:45 Cannula 09/12/18 2.0 09:00 09/12/18 98.2 08:00 09/12/18 27 07:33 Intake and Output 09/11/18 09/11/18 09/12/18 1515:00 23:00 07:00 IntakeIntake Total 200 ml 2050 ml 1201.5 ml OutputOutput Total 800 ml 560 ml BalanceBalance 200 ml 1250 ml 641.5 ml Results Result Diagram: 09/12/18 0719 09/12/18 0400 Results 24hrs Laboratory Tests Test 09/11/18 12:02 09/11/18 17:08 09/11/18 20:32 09/12/18 04:00 Bedside Glucose 163 148 139 White Blood Count 6.4 Red Blood Count 2.31 L Hemoglobin 6.4 *L Hematocrit 21.3 L Mean Corpuscular Volume 92.2 Mean Corpuscular 27.7 L Hemoglobin Mean Corpuscular 30.0 L Hemoglobin Concent Red Cell Distribution 18.4 H Width Platelet Count 58 #L Mean Platelet Volume 11.2 H Immature Granulocytes % 0.600 H Neutrophils % Segmented Neutrophils 83 H % (Manual) Band Neutrophils % 5 H (Manual) Lymphocytes % Lymphocytes % (Manual) 12 L Monocytes % Eosinophils % Basophils % Nucleated Red Blood 0.0 Cells % Immature Granulocytes # 0.040 H Neutrophils # Neutrophils # (Manual) 5.3 Band Neutrophils # 0.3 Lymphocytes (Manual) 0.7 L Lymphocytes # Monocytes # Eosinophils # Basophils # Nucleated Red Blood Cells # Toxic Granulation 1+ Platelet Estimate DECREASED Polychromasia 1+ Hypochromasia 1+ Anisocytosis 1+ Ovalocytes 1+ Sodium Level 138 Potassium Level 3.9 Chloride Level 107 Carbon Dioxide Level 20 L Anion Gap 11 Blood Urea Nitrogen 66 H Creatinine 1.98 H Est Glomerular Filtrat Rate mL/min Glucose Level 85 Calcium Level 8.1 L Phosphorus Level 4.4 Magnesium Level 1.7 Test 09/12/18 07:19 09/12/18 09:31 White Blood Count 6.8 Red Blood Count 2.49 L Hemoglobin 6.9 *L Hematocrit 22.7 L Mean Corpuscular Volume 91.2 Mean Corpuscular 27.7 L Hemoglobin Mean Corpuscular 30.4 L Hemoglobin Concent Red Cell Distribution 18.7 H Width Platelet Count 61 L Mean Platelet Volume 10.5 H Immature Granulocytes % 0.700 H Neutrophils % 92.0 H Lymphocytes % 7.1 L Monocytes % 0.1 Eosinophils % 0.0 Basophils % 0.1 Nucleated Red Blood 0.0 Cells % Immature Granulocytes # 0.050 H Neutrophils # 6.2 Lymphocytes # 0.5 L Monocytes # 0.0 L Eosinophils # 0.0 Basophils # 0.0 Nucleated Red Blood 0.0 Cells # Bedside Glucose 86 Medications Medication Current Medications Dextrose (D50w Syringe) ONCE PRN IV DECREASED GLUCOSE; Start 09/10/18 at 00:00 IV Flush (NS 3 ml) 3 ml PER PROTOCOL IV ; Start 09/10/18 at 06:30 Ondansetron HCl (Zofran Inj) 4 mg Q6H PRN IV NAUSEA/VOMITING; Start 09/10/18 at 06:30 Acetaminophen (Tylenol Supp) 650 mg Q6H PRN [place] .PAIN 1-3 OR TEMP; Start 09/10/18 at 06:30 Zolpidem Tartrate (Ambien) 5 mg QHS PRN PO .INSOMNIA; Start 09/10/18 at 06:30 Acetaminophen (Tylenol Tab) 650 mg Q4H PRN PO MILD PAIN(1-3)OR ELEVATED TEMP; Start 09/10/18 at 08:00 Ascorbic Acid (Vitamin C) 500 mg DAILY PO Last administered on 09/12/18 09:33; Admin Dose 500 MG; Start 09/10/18 at 09:00 Diltiazem HCl (Cardizem) 60 mg Q6 PO Last administered on 09/12/18 09:33; Admin Dose 60 MG; Start 09/10/18 at 12:00 Docusate Sodium (Colace) 200 mg DAILY PRN PO CONSTIPATION; Start 09/10/18 at 08:00 Ferrous Sulfate (Ferrous Sulfate (Ec)) 325 mg DAILY PO Last administered on 09/12/18 09:33; Admin Dose 325 MG; Start 09/10/18 at 09:00 Fluoxetine HCl (Prozac) 20 mg DAILY PO Last administered on 09/12/18 09:33; Admin Dose 20 MG; Start 09/10/18 at 09:00 Insulin Glargine (Lantus) 12 units QHS SC Last administered on 09/11/18 20:42; Admin Dose 12 UNITS; Start 09/10/18 at 21:00 Magnesium Hydroxide (Milk Of Mag) 30 ml Q24H PRN PO CONSTIPATION; Start 09/10/18 at 08:00 Memantine (Namenda) 5 mg DAILY PO Last administered on 09/12/18 09:33; Admin Dose 5 MG; Start 09/10/18 at 09:00 Multivitamins Therapeutic (Theragran) 1 tab DAILY PO Last administered on 09/12/18 09:33; Admin Dose 1 TAB; Start 09/10/18 at 09:00 Ondansetron HCl (Zofran Tab) 4 mg Q4H PRN PO NAUSEA AND/OR VOMITING; Start 09/10/18 at 08:00 Pantoprazole (Protonix Tab) 40 mg DAILY@0600 PO Last administered on 09/12/18 06:16; Admin Dose 40 MG; Start 09/10/18 at 09:00 Prochlorperazine (Compazine) 5 mg Q6H PRN PO NAUSEA; Start 09/10/18 at 08:00 Senna (Senokot) 2 tab DAILY PRN PO CONSTIPATION; Start 09/10/18 at 08:00 Zinc Sulfate (Zinc Sulfate) 220 mg DAILY PO Last administered on 09/12/18at 09:33; Admin Dose 220 MG; Start 09/10/18 at 09:00 Sodium Chloride 1,000 ml @ 80 mls/hr [id number] IV Last administered on 09/11/18at 20:29; Admin Dose 80 MLS/HR; Start 09/10/18 at 06:30 Miscellaneous Information 1 ea NOTE XX ; Start 09/10/18 at 08:00 Glucose (Glutose) 15 gm Q15M PRN PO DECREASED GLUCOSE; Start 09/10/18 at 08:00 Glucose (Glutose) 22.5 gm Q15M PRN PO DECREASED GLUCOSE; Start 09/10/18 at 08:00 Dextrose (D50w Syringe) 25 ml Q15M PRN IV DECREASED GLUCOSE; Start 09/10/18 at 08:00 Dextrose (D50w Syringe) 50 ml Q15M PRN IV DECREASED GLUCOSE; Start 09/10/18 at 08:00 Glucagon (Glucagen) 1 mg Q15M PRN IM DECREASED GLUCOSE; Start 09/10/18 at 08:00 Glucose (Glutose) 15 gm Q15M PRN BUCCAL DECREASED GLUCOSE; Start 09/10/18 at 08:00 Ertapenem 0.5 gm/ Sodium Chloride 100 ml @ 200 mls/hr Q24H IVPB Last administered on 09/11/18at 12:05; Admin Dose 200 MLS/HR; Start 09/11/18 at 11:00 Diagnostic Test (Pha) (Accu-Chek) 1 ea 02 XX ; Start 09/11/18 at 02:00 Insulin Aspart (Novolog Insulin Pen) NOVOLOG *MODERATE* ALGORITHM WITH MEALS BEDTIME SC Last administered on 09/11/18at 17:59; Admin Dose 2 UNIT; Start 09/10/18 at 22:30 Apixaban (Eliquis) 2.5 mg BID PO Last administered on 09/11/18at 17:55; Admin Dose 2.5 MG; Start 09/11/18 at 18:00; Status Hold Norepinephrine 250 ml @ 1.875 mls/ hr TITRATE IV Last administered on 09/12/18at 03:47; Admin Dose 3.75 MLS/HR; Start 09/12/18 at 03:27 CARMEN ALEGRIA NP Sep 12, 2018 11:52
[2018-09-12] MEDS: ERTAPENEM SODIUM 0.5 GM in SOD CHLORIDE 0.9% 100 ML IVPB SCH (13:30)
--- NOTE | 2018-09-12 14:06 | RADRPT ---
Echocardiogram Report Patient Name: SALVADOR STDODARDPatient ID: [id number] : [birth year] (73y 4m)Study Date: 09/11/2018 2:26:31 PM Gender: MAccession #: [id number] Tech: [facility] [place] Location: Ref.Physician: DARLENE DESIR Height(Cm): 178 BSA: 1.84Weight(Kg): 68.5 Quality: Technically Difficult StudyAccount #: Procedures: Echocardiographic Report: Transthoracic echocardiogram examination, patient uncooperative and coughing throughout exam. Indications: Atrial Fibrillation. Measurements: 2D/M Mode Doppler Measurement Value Normal Range Measurement Value Normal Range LVIDd 2D 3.4 [ 4.2 - 5.8 ] cm AV Peak Reyes 1.1 [ 100.0 - 170.0 ] cm/sec LVIDs 2D 2.1 [ 2.5 - 4.0 ] cm AV Peak PG 5.0 [ 2.0 - 9.0 ] mmHg LVPWd 2D 1.3 [ 0.6 - 1.0 ] cm LVOT Peak Reyes 0.7 [ 70.0 - 110.0 ] cm/sec IVSd 2D 1.3 [ 0.6 - 1.0 ] cm LVOT Peak PG 2.0 [ 2.0 - 6.0 ] mmHg AoR Diam 2D 3.2 [ 2.6 - 3.4 ] cm PV Peak Reyes 1.1 [ 40.0 - 80.0 ] cm/sec EDV 2D 46.1 [ 62.0 - 150.0 ] ml PV Peak PG 5.0 mmHg ESV 2D 13.9 [ 21.0 - 61.0 ] ml EF 2D 69.8 [ 52.0 - 72.0 ] percent LA Dimen 2D 4.0 [ 3.0 - 4.0 ] cm Findings: Left Ventricle: Normal left ventricular cavity size. Possibly mild left ventricular systolic dysfunction. Moderate concentric left ventricular hypertrophy. The left ventricle is not well visualized in the apical views, parasternal and subcostal only. The left ventricular ejection fraction is visually estimated at 60 %. Right Ventricle: Normal right ventricular size. Left Atrium: Upper limit of normal left atrial size. Right Atrium: The right atrium is normal in size and appearance. Atrial Septum: Normal atrial septum. Mitral Valve: Normal appearance of the mitral valve leaflets. The mitral valve is not well visualized. Mild mitral regurgitation, but only seen from parasternal window. Aortic Valve: The aortic valve is not well visualized. No hemodynamically significant aortic stenosis by Doppler. Aortic cusps appear mildly calcified. No aortic regurgitation. Tricuspid Valve: Normal appearance of the tricuspid valve. No evidence of tricuspid regurgitation. Pulmonic Valve: Normal pulmonic valve appearance and function with trivial (physiologic) regurgitation. There is trace pulmonic regurgitation. Pericardium: Normal pericardium with no significant pericardial effusion. Aorta: Normal aortic root. IVC: Normal inferior vena cava appearance. Pulmonary Artery: Normal pulmonary artery size. Conclusions: Normal left ventricular cavity size. Possibly mild left ventricular systolic dysfunction. . Moderate concentric left ventricular hypertrophy. The left ventricle is not well visualized in the apical views, parasternal and subcostal only. The left ventricular ejection fraction is visually estimated at 60 %. Normal appearance of the mitral valve leaflets. The mitral valve is not well visualized. Mild mitral regurgitation, but only seen from parasternal window. The aortic valve is not well visualized. No hemodynamically significant aortic stenosis by Doppler. Aortic cusps appear mildly calcified. No aortic regurgitation. Normal appearance of the tricuspid valve. No evidence of tricuspid regurgitation. Upper limit of normal left atrial size. Electronically Signed By: Gael Herrmann 2018-09-12 14:04:48 PST
--- NOTE | 2018-09-12 14:23 | CONS ---
Consult Date/Type/Reason Admit Date/Time Sep 09, 2018 at 22:52 Initial Consult Date 09/12/18 Type of Consultation: CV Reason for Consultation AFIB Date/Time of Note DATE: 09/12/18 TIME: 14:18 Subjective Cardiology follow-up progress note Subjective: Discussed with staff and telemetry was reviewed. Patient remains in atrial fibrillation. Mostly left ventricular response. He is a still in ICU but off of Levophed drip Patient denies any chest pain or pressure to me and wants to go home He denies any active bleeding to me but his hemoglobin had dropped significantly Objective: General: Elderly gentleman in no acute distress HEENT: NC/AT. pupils are equal. round. NECK: NO JVD. no stridor. CV: Irregularly irregular. systolic murmur; no gallop or rubs. PULM: no wheezing + rhonchi. GI: SOFT, NT, ND, no rebound or guarding Extremity: trace B/L LE edema. no clubbing. neuro: awake and alert, OX2. Psych: calm and pleasant rectal: deferred : normal Echocardiogram was personally reviewed which shows: Normal left ventricular cavity size. Possibly mild left ventricular systolic dysfunction. . Moderate concentric left ventricular hypertrophy. The left ventricle is not well visualized in the apical views, parasternal and subcostal only. The left ventricular ejection fraction is visually estimated at 60 %. Normal appearance of the mitral valve leaflets. The mitral valve is not well visualized. Mild mitral regurgitation, but only seen from parasternal window. The aortic valve is not well visualized. No hemodynamically significant aortic stenosis by Doppler. Aortic cusps appear mildly calcified. No aortic regurgitation. Normal appearance of the tricuspid valve. No evidence of tricuspid regurgitation. Upper limit of normal left atrial size. Objective Vitals Vital Signs Date Temp Pulse Resp B/P (MAP) Pulse Ox O2 O2 Flow FiO2 Time Delivery Rate 09/12/18 138 12:00 09/12/18 22 98 Nasal 09:45 Cannula 09/12/18 2.0 09:00 09/12/18 98.2 08:00 09/12/18 27 07:33 Intake and Output 09/11/18 09/11/18 09/12/18 1515:00 23:00 07:00 IntakeIntake Total 200 ml 2050 ml 1201.5 ml OutputOutput Total 800 ml 560 ml BalanceBalance 200 ml 1250 ml 641.5 ml Results/Medications Result Diagram: 09/12/18 0719 09/12/18 0400 Results 24 hrs Laboratory Tests Test 09/11/18 17:08 09/11/18 20:32 09/12/18 04:00 09/12/18 07:19 Bedside Glucose 148 139 White Blood Count 6.4 6.8 Red Blood Count 2.31 L 2.49 L Hemoglobin 6.4 *L 6.9 *L Hematocrit 21.3 L 22.7 L Mean Corpuscular Volume 92.2 91.2 Mean Corpuscular 27.7 L 27.7 L Hemoglobin Mean Corpuscular 30.0 L 30.4 L Hemoglobin Concent Red Cell Distribution 18.4 H 18.7 H Width Platelet Count 58 #L 61 L Mean Platelet Volume 11.2 H 10.5 H Immature Granulocytes % 0.600 H 0.700 H Neutrophils % 92.0 H Segmented Neutrophils 83 H % (Manual) Band Neutrophils % 5 H (Manual) Lymphocytes % 7.1 L Lymphocytes % (Manual) 12 L Monocytes % 0.1 Eosinophils % 0.0 Basophils % 0.1 Nucleated Red Blood 0.0 0.0 Cells % Immature Granulocytes # 0.040 H 0.050 H Neutrophils # 6.2 Neutrophils # (Manual) 5.3 Band Neutrophils # 0.3 Lymphocytes (Manual) 0.7 L Lymphocytes # 0.5 L Monocytes # 0.0 L Eosinophils # 0.0 Basophils # 0.0 Nucleated Red Blood 0.0 Cells # Toxic Granulation 1+ Platelet Estimate DECREASED Polychromasia 1+ Hypochromasia 1+ Anisocytosis 1+ Ovalocytes 1+ Sodium Level 138 Potassium Level 3.9 Chloride Level 107 Carbon Dioxide Level 20 L Anion Gap 11 Blood Urea Nitrogen 66 H Creatinine 1.98 H Est Glomerular Filtrat Rate mL/min Glucose Level 85 Calcium Level 8.1 L Phosphorus Level 4.4 Magnesium Level 1.7 Test 09/12/18 09:31 09/12/18 13:29 Bedside Glucose 86 107 Home Meds Reported Medications Ondansetron Hcl* (Ondansetron Hcl*) 4 Mg Tablet, 4 MG PO Q4H PRN for NAUSEA AND OR VOMITING, TAB 09/09/18 Zinc Sulfate* (Zinc Sulfate*) 220 Mg Cap, 220 MG PO DAILY, CAP 09/09/18 Ascorbic Acid* (Vitamin C*) 500 Mg Capsule.sa, 500 MG PO DAILY, CAP 09/09/18 Cran/Vitc/Mannose/Inulin/Brom (Uti-Stat Liquid) 3,875 Mg/30 Ml Liquid, 3875 MG PO DAILY 09/09/18 Acetaminophen* (Acetaminophen*) 650 Mg Tablet, 650 MG PO Q4 PRN for PAIN AND OR ELEVATED TEMP, #30 TAB 09/09/18 Sennosides* (Senna Lax*) 8.6 Mg Tablet, 2 TAB PO DAILY PRN for CONSTIPATION, TAB 09/09/18 Fluoxetine Hcl* (Prozac*) 20 Mg Capsule, 20 MG PO DAILY, CAP 09/09/18 Pantoprazole* (Protonix*) 40 Mg Tablet.dr, 40 MG PO DAILY, TAB 09/09/18 Prochlorperazine* (Prochlorperazine*) 5 Mg Tablet, 5 MG PO Q6 PRN for NAUSEA, TAB 09/09/18 Memantine* (Namenda*) 5 Mg Tablet, 5 MG PO DAILY, #30 TAB 09/09/18 Multivitamins* (Theragran*) 1 Tab Tab, 1 TAB PO DAILY, TAB 09/09/18 Magnesium Hydroxide* (Milk Of Magnesia*) 400 Mg/5 Ml Oral.susp, 30 ML PO Q24H PRN for CONSTIPATION, ML 09/09/18 Megestrol Acetate* (Megace ES*) 625 Mg/5 Ml Oral.susp, 10 ML PO BID, ML 09/09/18 Insulin Glargine* (Lantus*) 100 Unit/Ml Soln, 12 UNIT SC QHS, #1 VIAL 09/09/18 Ferrous Sulfate* (Ferrous Sulfate*) 325 Mg Tabec, 325 MG PO DAILY, TAB 09/09/18 Diltiazem Hcl* (Cardizem SR*) 60 Mg Capsr, 60 MG PO Q6, #60 CAP HOLD IF SBP BELOW 110 OR HR BELOW 60 09/09/18 Cranberry (Cranberry) 400 Mg Capsule, 400 MG PO DAILY, CAP 09/09/18 Docusate Sodium* (Colace*) 100 Mg Capsule, 200 MG PO DAILY PRN for CONSTIPATION, #30 CAP 09/09/18 Bisoprolol Fumarate* (Bisoprolol Fumarate*) 5 Mg Tablet, 5 MG PO DAILY, TAB HOLD IF SBP IS BELOW 110 OR HR BELOW 60 09/09/18 Medications Current Medications Dextrose (D50w Syringe) ONCE PRN IV DECREASED GLUCOSE; Start 09/10/18 at 00:00 IV Flush (NS 3 ml) 3 ml PER PROTOCOL IV ; Start 09/10/18 at 06:30 Ondansetron HCl (Zofran Inj) 4 mg Q6H PRN IV NAUSEA/VOMITING; Start 09/10/18 at 06:30 Acetaminophen (Tylenol Supp) 650 mg Q6H PRN [place] .PAIN 1-3 OR TEMP; Start 09/10/18 at 06:30 Zolpidem Tartrate (Ambien) 5 mg QHS PRN PO .INSOMNIA; Start 09/10/18 at 06:30 Acetaminophen (Tylenol Tab) 650 mg Q4H PRN PO MILD PAIN(1-3)OR ELEVATED TEMP; Start 09/10/18 at 08:00 Ascorbic Acid (Vitamin C) 500 mg DAILY PO Last administered on 09/12/18 09:33; Admin Dose 500 MG; Start 09/10/18 at 09:00 Diltiazem HCl (Cardizem) 60 mg Q6 PO Last administered on 09/12/18 13:30; Admin Dose 60 MG; Start 09/10/18 at 12:00 Docusate Sodium (Colace) 200 mg DAILY PRN PO CONSTIPATION; Start 09/10/18 at 08:00 Ferrous Sulfate (Ferrous Sulfate (Ec)) 325 mg DAILY PO Last administered on 09/12/18 09:33; Admin Dose 325 MG; Start 09/10/18 at 09:00 Fluoxetine HCl (Prozac) 20 mg DAILY PO Last administered on 09/12/18 09:33; Admin Dose 20 MG; Start 09/10/18 at 09:00 Insulin Glargine (Lantus) 12 units QHS SC Last administered on 09/11/18 20:42; Admin Dose 12 UNITS; Start 09/10/18 at 21:00 Magnesium Hydroxide (Milk Of Mag) 30 ml Q24H PRN PO CONSTIPATION; Start 09/10/18 at 08:00 Memantine (Namenda) 5 mg DAILY PO Last administered on 09/12/18 09:33; Admin Dose 5 MG; Start 09/10/18 at 09:00 Multivitamins Therapeutic (Theragran) 1 tab DAILY PO Last administered on 09/12/18 09:33; Admin Dose 1 TAB; Start 09/10/18 at 09:00 Ondansetron HCl (Zofran Tab) 4 mg Q4H PRN PO NAUSEA AND/OR VOMITING; Start at 08:00 Pantoprazole (Protonix Tab) 40 mg DAILY@0600 PO Last administered on 09/12/18at 06:16; Admin Dose 40 MG; Start 09/10/18 at 09:00 Prochlorperazine (Compazine) 5 mg Q6H PRN PO NAUSEA; Start 09/10/18 at 08:00 Senna (Senokot) 2 tab DAILY PRN PO CONSTIPATION; Start 09/10/18 at 08:00 Zinc Sulfate (Zinc Sulfate) 220 mg DAILY PO Last administered on 09/12/18 09:33; Admin Dose 220 MG; Start 09/10/18 at 09:00 Sodium Chloride 1,000 ml @ 80 mls/hr [id number] IV Last administered on 09/11/18at 20:29; Admin Dose 80 MLS/HR; Start 09/10/18 at 06:30 Miscellaneous Information 1 ea NOTE XX ; Start 09/10/18 at 08:00 Glucose (Glutose) 15 gm Q15M PRN PO DECREASED GLUCOSE; Start 09/10/18 at 08:00 Glucose (Glutose) 22.5 gm Q15M PRN PO DECREASED GLUCOSE; Start 09/10/18 at 08:00 Dextrose (D50w Syringe) 25 ml Q15M PRN IV DECREASED GLUCOSE; Start 09/10/18 at 08:00 Dextrose (D50w Syringe) 50 ml Q15M PRN IV DECREASED GLUCOSE; Start 09/10/18 at 08:00 Glucagon (Glucagen) 1 mg Q15M PRN IM DECREASED GLUCOSE; Start 09/10/18 at 08:00 Glucose (Glutose) 15 gm Q15M PRN BUCCAL DECREASED GLUCOSE; Start 09/10/18 at 0 8:00 Ertapenem 0.5 gm/ Sodium Chloride 100 ml @ 200 mls/hr Q24H IVPB Last administered on 09/12/18at 13:30; Admin Dose 200 MLS/HR; Start 09/11/18 at 11:00 Diagnostic Test (Pha) (Accu-Chek) 1 ea 02 XX ; Start 09/11/18 at 02:00 Insulin Aspart (Novolog Insulin Pen) NOVOLOG *MODERATE* ALGORITHM WITH MEALS BEDTIME SC Last administered on 09/11/18at 17:59; Admin Dose 2 UNIT; Start 09/10/18 at 22:30 Apixaban (Eliquis) 2.5 mg BID PO Last administered on 09/11/18at 17:55; Admin Dose 2.5 MG; Start 09/11/18 at 18:00; Status Hold Norepinephrine 250 ml @ 1.875 mls/ hr TITRATE IV Last administered on 09/12/18at 03:47; Admin Dose 3.75 MLS/HR; Start 09/12/18 at 03:27 Assessment/Plan Hospital Course (Demo Recall) 1. Atrial fibrillation rapid ventricular response 2. Sepsis 3. Acute renal failure 4. Severe anemia 5. Thrombocytopenia 6. History of mesothelioma 7. Diabetes 8. Encephalopathy Recommendations: Eliquis on hold due to severe anemia Transfusion as needed I will give a dose of digoxin now. Check additional tomorrow adjusted as needed Cardizem as needed Antibiotic management as per internal medicine If blood pressure drops more we will have to start Alex-Synephrine madai Thank you for his referral. We will continue to follow along with you EMILIA BURCIAGA MD [facility] EMILIA BURCIAGA MD Sep 12, 2018 14:23
[2018-09-12] MEDS ORDERED: DIGOXIN 500 MCG INJ IV ONE (14:30)
[2018-09-12] MEDS ORDERED: PHENYLephrine 20MG IN 250 ML 250 ML IV PRN (16:00)
[2018-09-12] MEDS: INSULIN GLARGINE [LANTus] (100 UNITS/ML) SYG SC SCH (21:18)
[2018-09-13] VITALS (23 sets, daily range): BP systolic 90–118; BP diastolic 46–98; PULSE 61–92; RESP 16–32
[2018-09-13] MEDS: DILTIAZEM 60 MG TAB PO SCH ×5 (01:24→23:43)
[2018-09-13] MEDS: ACCU-CHEK XX SCH (02:00)
[2018-09-13] MEDS: PANTOPRAZOLE (EC) 40 MG TAB PO SCH (05:35)
[2018-09-13] MEDS: INSULIN ASPART [NOVOLOG] 3 ML PEN SC SCH ×4 (07:35→20:48)
--- NOTE | 2018-09-13 07:48 | CONS ---
Assessment/Plan Assessment/Plan Assessment/Plan (Daily) Assessment and recommendations; 1. Patient admitted with severe sepsis due to UTI with significant clinical improvement. Off pressor support. 2. Acute renal injury with improving renal function. 3. Pancytopenia. 4. History of mesothelioma with right-sided involvement. 5. Hypertension and diabetes. 6. Chronic atrial fibrillation. Continue current supportive care. Antibiotics to be adjusted once urine culture results are obtained. Patient can be transferred to medical floor. Consultation Date/Type/Reason Admit Date/Time Sep 09, 2018 at 22:52 Initial Consult Date 09/12/18 Type of Consult Pulmonary/critical care Pulmonary consult requested for evaluation of right pleural effusion. Patient is a 73-year-old male who was admitted to the hospital sent from physician's office because of acute elevation in serum creatinine. Patient also was hypotensive and had to be transferred to ICU. Patient is currently on low- dose Levophed drip. Otherwise patient has remained hemodynamically stable and also exhibiting stable pulmonary status on 2 L nasal cannula. Patient denies any chest pain, shortness of breath, cough, fever or chills. Past medical history; 1. History of mesothelioma apparently right-sided involvement. 2. Placement of MediPort. 3. Possibly underlying some element of baseline renal insufficiency. 4. CHF. 5. Chronic atrial fibrillation. 6. Diabetes and hypertension. 7. History of dementia. Medications; reviewed. Allergies; none. Family history; noncontributory. Occupational history; not available. Review of systems; denies any headache, shortness of breath, coughing, chest pain, hemoptysis. Any abdominal pain, nausea vomiting. Any diarrhea. General exam; elderly male, currently no distress. Laying comfortably in bed. Date/Time of Note DATE: 09/13/18 TIME: 07:46 24 HR Interval Summary Free Text/Dictation Patient's condition is stable. Remains awake and alert. Has improved hemodynamically and is off pressor support. General exam; elderly male, awake alert, laying comfortably in bed. On room air. Currently no distress. Exam/Review of Systems Exam Vitals Vital Signs Date Temp Pulse Resp B/P (MAP) Pulse Ox O2 O2 Flow FiO2 Time Delivery Rate 09/13/18 80 23 103/66 97 2.0 05:00 (78) 09/13/18 98.4 04:00 09/12/18 Nasal 22:00 Cannula 09/12/18 27 07:33 Intake and Output 09/12/18 09/12/18 09/13/18 1515:00 23:00 07:00 IntakeIntake Total 1269.00 ml 970 ml 560 ml OutputOutput Total 900 ml 800 ml BalanceBalance 369.00 ml 170 ml 560 ml Exam H EENT exam; supple neck, no JVD. No lymphadenopathy. Midline trachea. No thyromegaly. Patient is edentulous. No neck masses. Chest exam; diminished but clear breath sounds. S1-S2 audible, no murmurs. Irregular rhythm. Abdomen exam; soft, nontender. No organomegaly. Bowel sounds audible. Extremity exam; no edema. Patient has a multiple ecchymosis. FLOW MANAGER exam; no focal deficit. Results Result Diagram: 09/13/18 0450 09/13/18 0430 Results 24hrs Laboratory Tests Test 09/12/18 09:31 09/12/18 13:29 09/12/18 18:20 09/12/18 21:03 Bedside Glucose 86 107 228 H 271 H Test 09/12/18 21:19 09/13/18 04:30 09/13/18 04:50 09/13/18 04:53 Bedside Glucose 241 H Sodium Level 138 Potassium Level 4.0 Chloride Level 108 Carbon Dioxide 21 Level Anion Gap 9 Blood Urea Nitrogen 58 H Creatinine 1.88 H Est Glomerular Filtrat Rate mL/min Glucose Level 149 # Calcium Level 8.1 L Phosphorus Level 3.6 Magnesium Level 1.8 Total Bilirubin 0.2 Direct Bilirubin 0.00 Indirect Bilirubin 0.2 Aspartate Amino 21 Transf (AST/SGOT) Alanine 34 Aminotransferase (A LT/SGPT) Alkaline 69 Phosphatase B-Type Natriuretic 6490 H Peptide Total Protein 5.0 #L Albumin 2.2 L Globulin 2.80 Albumin/Globulin 0.78 Ratio Thyroid Stimulating 1.770 Hormone (TSH) Free Thyroxine 1.61 White Blood Count 3.0 #L Red Blood Count 2.72 L Hemoglobin 7.6 L Hematocrit 24.2 L Mean Corpuscular 89.0 Volume Mean Corpuscular 27.9 L Hemoglobin Mean Corpuscular 31.4 L Hemoglobin Concent Red Cell 18.2 H Distribution Width Platelet Count 43 #L Mean Platelet Volume Immature 0.700 H Granulocytes % Neutrophils % Lymphocytes % Monocytes % Eosinophils % Basophils % Nucleated Red Blood 0.0 Cells % Immature 0.020 Granulocytes # Neutrophils # Lymphocytes # Monocytes # Eosinophils # Basophils # Nucleated Red Blood Cells # Digoxin Level 0.6 L Lab Scanned Report BLOOD TRANSFUSION Medications Medication Current Medications Dextrose (D50w Syringe) ONCE PRN IV DECREASED GLUCOSE; Start 09/10/18 at 00:00 IV Flush (NS 3 ml) 3 ml PER PROTOCOL IV ; Start 09/10/18 at 06:30 Ondansetron HCl (Zofran Inj) 4 mg Q6H PRN IV NAUSEA/VOMITING; Start 09/10/18 at 06:30 Acetaminophen (Tylenol Supp) 650 mg Q6H PRN [place] .PAIN 1-3 OR TEMP; Start 09/10/18 at 06:30 Zolpidem Tartrate (Ambien) 5 mg QHS PRN PO .INSOMNIA; Start 09/10/18 at 06:30 Acetaminophen (Tylenol Tab) 650 mg Q4H PRN PO MILD PAIN(1-3)OR ELEVATED TEMP; Start 09/10/18 at 08:00 Ascorbic Acid (Vitamin C) 500 mg DAILY PO Last administered on 09/12/18 09:33; Admin Dose 500 MG; Start 09/10/18 at 09:00 Diltiazem HCl (Cardizem) 60 mg Q6 PO Last administered on 09/13/18 05:36; Admin Dose 60 MG; Start 09/10/18 at 12:00 Docusate Sodium (Colace) 200 mg DAILY PRN PO CONSTIPATION; Start 09/10/18 at 08:00 Ferrous Sulfate (Ferrous Sulfate (Ec)) 325 mg DAILY PO Last administered on 09/12/18 09:33; Admin Dose 325 MG; Start 09/10/18 at 09:00 Fluoxetine HCl (Prozac) 20 mg DAILY PO Last administered on 09/12/18 09:33; Admin Dose 20 MG; Start 09/10/18 at 09:00 Insulin Glargine (Lantus) 12 units QHS SC Last administered on 09/12/18 21:18; Admin Dose 12 UNITS; Start 09/10/18 at 21:00 Magnesium Hydroxide (Milk Of Mag) 30 ml Q24H PRN PO CONSTIPATION; Start 09/10/18 at 08:00 Memantine (Namenda) 5 mg DAILY PO Last administered on 09/12/18 09:33; Admin Dose 5 MG; Start 09/10/18 at 09:00 Multivitamins Therapeutic (Theragran) 1 tab DAILY PO Last administered on 09/12/18 09:33; Admin Dose 1 TAB; Start 09/10/18 at 09:00 Ondansetron HCl (Zofran Tab) 4 mg Q4H PRN PO NAUSEA AND/OR VOMITING; Start 09/10/18 at 08:00 Pantoprazole (Protonix Tab) 40 mg DAILY@0600 PO Last administered on 09/13/18 05:35; Admin Dose 40 MG; Start 09/10/18 at 09:00 Prochlorperazine (Compazine) 5 mg Q6H PRN PO NAUSEA; Start 09/10/18 at 08:00 Senna (Senokot) 2 tab DAILY PRN PO CONSTIPATION; Start 09/10/18 at 08:00 Zinc Sulfate (Zinc Sulfate) 220 mg DAILY PO Last administered on 09/12/18 09:33; Admin Dose 220 MG; Start 09/10/18 at 09:00 Sodium Chloride 1,000 ml @ 80 mls/hr [id number] IV Last administered on 09/12/18 18:31; Admin Dose 80 MLS/HR; Start 09/10/18 at 06:30 Miscellaneous Information 1 ea NOTE XX ; Start 09/10/18 at 08:00 Glucose (Glutose) 15 gm Q15M PRN PO DECREASED GLUCOSE; Start 09/10/18 at 08:00 Glucose (Glutose) 22.5 gm Q15M PRN PO DECREASED GLUCOSE; Start 09/10/18 at 08:00 Dextrose (D50w Syringe) 25 ml Q15M PRN IV DECREASED GLUCOSE; Start 09/10/18 at 08:00 Dextrose (D50w Syringe) 50 ml Q15M PRN IV DECREASED GLUCOSE; Start 09/10/18 at 08:00 Glucagon (Glucagen) 1 mg Q15M PRN IM DECREASED GLUCOSE; Start 09/10/18 at 08:00 Glucose (Glutose) 15 gm Q15M PRN BUCCAL DECREASED GLUCOSE; Start 09/10/18 at 08:00 Ertapenem 0.5 gm/ Sodium Chloride 100 ml @ 200 mls/hr Q24H IVPB Last administered on 09/12/18at 13:30; Admin Dose 200 MLS/HR; Start 09/11/18 at 11:00 Diagnostic Test (Pha) (Accu-Chek) 1 02 XX ; Start 09/11/18 at 02:00 Insulin Aspart (Novolog Insulin Pen) NOVOLOG *MODERATE* ALGORITHM WITH MEALS BEDTIME SC Last administered on 09/12/18 21:20; Admin Dose 2 UNIT; Start 09/10/18 at 22:30 Apixaban (Eliquis) 2.5 mg BID PO Last administered on 09/11/18at 17:55; Admin Dos e 2.5 MG; Start 09/11/18 at 18:00; Status Hold Norepinephrine 250 ml @ 1.875 mls/ hr TITRATE IV Last administered on 09/12/18 03:47; Admin Dose 3.75 MLS/HR; Start 09/12/18 at 03:27 Phenylephrine HCl 250 ml @ 75 mls/hr TITRATE PRN IV BLOOD PRESSURE SUPPORT; Start 09/12/18 at 16:00 SWETA ROBBINS 5, 2019 07:48
--- NOTE | 2018-09-13 08:36 | PN ---
DATE: 09/13/2018 SUBJECTIVE: The patient is currently off pressor support. Please note, I spoke with the patient's [facility] oncologist yesterday, informing that the patient did receive chemotherapy last on , which included Gemzar for patient's underlying mesothelioma. No other events noted. OBJECTIVE: VITAL SIGNS: Blood pressure is 130/66, respirations 23, pulse 80, temperature 98.4. HEENT: Head is normocephalic. NECK: Supple. HEART: Regular rate. LUNGS: Show diminished breath sounds at the base. ABDOMEN: Soft, nontender to palpation without rebound or guarding. EXTREMITIES: Negative for clubbing, cyanosis. Trace edema. DERMATOLOGIC: No rashes. MUSCULOSKELETAL: No joint effusion. NEUROLOGIC: No change in exam. MEDICATIONS: Reviewed. LABORATORY DATA: Shows sodium 138, potassium 4.0, BUN 58, creatinine 1.88. White count 3.0, hemoglo bin 7.6, and platelet count is 43. ASSESSMENT AND PLAN: 1. Septic shock, etiology is likely secondary to urinary tract infection. The patient is clinically improving, currently off pressor support. Continue current antibiotic regimen and monitor closely. Follow up with infectious disease for antibiotic management. 2. Atrial fibrillation with episode of rapid rate. The patient is currently rate controlled. Gina nue medical management. Follow up with cardiology. Eliquis is on hold in the setting of severe anem ia. 3. Anemia. The patient is status post blood transfusion. Etiology is unclear, possibly due to rece nt chemotherapy. No gross evidence of gastrointestinal bleed. Monitor closely. 4. Mesothelioma with metastasis. The patient is currently receiving chemotherapy. Last episode was on 09/08/2018. The patient received gemcitabine. We will place oncology consult for evaluation. 5. Thrombocytopenia, leukopenia, etiology may be secondary to chemotherapy. We will follow up with hematology/oncology. 6. Nonoliguric acute kidney injury on top of possible chronic kidney disease with unknown baseline c reatinine. Etiology is secondary to hemodynamics. Renal function has stabilized. Continue current treatment plans, supportive care, renally dose all medicines. 7. Diabetes. The patient's glucose levels remain elevated. We will adjust insulin regimen. 8. Acute encephalopathy and dementia, etiology is toxic metabolic. Continue to monitor. 9. History of depression. 10. Hypokalemia, secondary to acute kidney injury, resolved. 11. Lactic acidosis, resolved. Dictated By: RENE YADAV/GUNJAN Conf#: [id number] DID#: [id number] CC: REINA MANZANO MD; RENE VAZQUEZ DO;*EndCC*
[2018-09-13] MEDS: MEMANTINE 5 MG TAB PO SCH (09:00)
[2018-09-13] MEDS: ZINC SULFATE 220 MG CAP PO SCH (09:00)
[2018-09-13] MEDS: ASCORBIC ACID 500 MG TAB PO SCH (09:00)
[2018-09-13] MEDS: MULTIVITAMINS THERAPEUTIC TAB PO SCH (09:01)
[2018-09-13] MEDS: FLUOXETINE 20 MG CAP PO SCH (09:01)
[2018-09-13] MEDS: FERROUS SULFATE (EC) 325 MG TAB PO SCH (09:01)
[2018-09-13] MEDS: SOD CHLORIDE 0.45% 1,000 ML IV SCH (11:21)
[2018-09-13] MEDS: ERTAPENEM SODIUM 0.5 GM in SOD CHLORIDE 0.9% 100 ML IVPB SCH (11:21)
--- NOTE | 2018-09-13 11:58 | CONS ---
Consult Date/Type/Reason Admit Date/Time Sep 09, 2018 at 22:52 Initial Consult Date 09/12/18 Type of Consultation: CV Date/Time of Note DATE: 09/13/18 TIME: 11:57 Subjective Cardiology follow-up progress note Subjective: Discussed with staff and telemetry was reviewed. Patient remains in atrial fibrillation. HR is under good control He is a still in ICU but off of Levophed drip Patient denies any chest pain or pressure to me and wants to go home He denies any active bleeding to me but his hemoglobin had dropped significantly Objective: General: Elderly gentleman in no acute distress HEENT: NC/AT. pupils are equal. round. NECK: NO JVD. no stridor. CV: Irregularly irregular. systolic murmur; no gallop or rubs. PULM: no wheezing + rhonchi. GI: SOFT, NT, ND, no rebound or guarding Extremity: trace B/L LE edema. no clubbing. neuro: awake and alert, OX2. Psych: calm and pleasant rectal: deferred : normal Echocardiogram was personally reviewed which shows: Normal left ventricular cavity size. Possibly mild left ventricular systolic dysfunction. . Moderate concentric left ventricular hypertrophy. The left ventricle is not well visualized in the apical views, parasternal and subcostal only. The left ventricular ejection fraction is visually estimated at 60 %. Normal appearance of the mitral valve leaflets. The mitral valve is not well visualized. Mild mitral regurgitation, but only seen from parasternal window. The aortic valve is not well visualized. No hemodynamically significant aortic stenosis by Doppler. Aortic cusps appear mildly calcified. No aortic regurgitation. Normal appearance of the tricuspid valve. No evidence of tricuspid regurgitation. Upper limit of normal left atrial size. Objective Vitals Vital Signs Date Temp Pulse Resp B/P (MAP) Pulse Ox O2 O2 Flow FiO2 Time Delivery Rate 09/13/18 69 26 110/62 97 Nasal 2.0 09:00 (78) Cannula 09/13/18 97.6 08:00 09/12/18 27 07:33 Intake and Output 09/12/18 09/12/18 09/13/18 1515:00 23:00 07:00 IntakeIntake Total 1269.00 ml 970 ml 560 ml OutputOutput Total 900 ml 800 ml BalanceBalance 369.00 ml 170 ml 560 ml Results/Medications Result Diagram: 09/13/18 0450 09/13/18 0430 Results 24 hrs Laboratory Tests Test 09/12/18 13:29 09/12/18 18:20 09/12/18 21:03 09/12/18 21:19 Bedside Glucose 107 228 H 271 H 241 H Test 09/13/18 04:30 09/13/18 04:50 09/13/18 04:53 09/13/18 09:00 Sodium Level 138 Potassium Level 4.0 Chloride Level 108 Carbon Dioxide 21 Level Anion Gap 9 Blood Urea Nitrogen 58 H Creatinine 1.88 H Est Glomerular Filtrat Rate mL/min Glucose Level 149 # Calcium Level 8.1 L Phosphorus Level 3.6 Magnesium Level 1.8 Total Bilirubin 0.2 Direct Bilirubin 0.00 Indirect Bilirubin 0.2 Aspartate Amino 21 Transf (AST/SGOT) Alanine 34 Aminotransferase (A LT/SGPT) Alkaline 69 Phosphatase B-Type Natriuretic 6490 H Peptide Total Protein 5.0 #L Albumin 2.2 L Globulin 2.80 Albumin/Globulin 0.78 Ratio Thyroid Stimulating 1.770 Hormone (TSH) Free Thyroxine 1.61 White Blood Count 3.0 #L Red Blood Count 2.72 L Hemoglobin 7.6 L Hematocrit 24.2 L Mean Corpuscular 89.0 Volume Mean Corpuscular 27.9 L Hemoglobin Mean Corpuscular 31.4 L Hemoglobin Concent Red Cell 18.2 H Distribution Width Platelet Count 43 #L Mean Platelet Volume Immature 0.700 H Granulocytes % Neutrophils % Segmented 81 H Neutrophils % (Manual) Band Neutrophils % 5 H (Manual) Lymphocytes % Lymphocytes % 13 L (Manual) Monocytes % Monocytes % 1 (Manual) Eosinophils % Basophils % Nucleated Red Blood 0.0 Cells % Immature 0.020 Granulocytes # Neutrophils # Neutrophils # 2.4 (Manual) Band Neutrophils # 0.1 Lymphocytes 0.3 L (Manual) Lymphocytes # Monocytes # Monocytes # 0.0 L (Manual) Eosinophils # Basophils # Nucleated Red Blood Cells # Platelet Estimate DECREASED Giant Platelets 1 H Poikilocytosis 1+ Anisocytosis 1+ Tear Drop Cells 1+ Ovalocytes 1+ Schistocytes 1+ Digoxin Level 0.6 L Lab Scanned Report BLOOD TRANSFUSION Bedside Glucose 105 Home Meds Reported Medications Ondansetron Hcl* (Ondansetron Hcl*) 4 Mg Tablet, 4 MG PO Q4H PRN for NAUSEA AND OR VOMITING, TAB 09/09/18 Zinc Sulfate* (Zinc Sulfate*) 220 Mg Cap, 220 MG PO DAILY, CAP 09/09/18 Ascorbic Acid* (Vitamin C*) 500 Mg Capsule.sa, 500 MG PO DAILY, CAP 09/09/18 Cran/Vitc/Mannose/Inulin/Brom (Uti-Stat Liquid) 3,875 Mg/30 Ml Liquid, 3875 MG PO DAILY 09/09/18 Acetaminophen* (Acetaminophen*) 650 Mg Tablet, 650 MG PO Q4 PRN for PAIN AND OR ELEVATED TEMP, #30 TAB 09/09/18 Sennosides* (Senna Lax*) 8.6 Mg Tablet, 2 TAB PO DAILY PRN for CONSTIPATION, TAB 09/09/18 Fluoxetine Hcl* (Prozac*) 20 Mg Capsule, 20 MG PO DAILY, CAP 09/09/18 Pantoprazole* (Protonix*) 40 Mg Tablet.dr, 40 MG PO DAILY, TAB 09/09/18 Prochlorperazine* (Prochlorperazine*) 5 Mg Tablet, 5 MG PO Q6 PRN for NAUSEA, TAB 09/09/18 Memantine* (Namenda*) 5 Mg Tablet, 5 MG PO DAILY, #30 TAB 09/09/18 Multivitamins* (Theragran*) 1 Tab Tab, 1 TAB PO DAILY, TAB 09/09/18 Magnesium Hydroxide* (Milk Of Magnesia*) 400 Mg/5 Ml Oral.susp, 30 ML PO Q24H PRN for CONSTIPATION, ML 09/09/18 Megestrol Acetate* (Megace ES*) 625 Mg/5 Ml Oral.susp, 10 ML PO BID, ML 09/09/18 Insulin Glargine* (Lantus*) 100 Unit/Ml Soln, 12 UNIT SC QHS, #1 VIAL 09/09/18 Ferrous Sulfate* (Ferrous Sulfate*) 325 Mg Tabec, 325 MG PO DAILY, TAB 09/09/18 Diltiazem Hcl* (Cardizem SR*) 60 Mg Capsr, 60 MG PO Q6, #60 CAP HOLD IF SBP BELOW 110 OR HR BELOW 60 09/09/18 Cranberry (Cranberry) 400 Mg Capsule, 400 MG PO DAILY, CAP 09/09/18 Docusate Sodium* (Colace*) 100 Mg Capsule, 200 MG PO DAILY PRN for CONSTIPATION, #30 CAP 09/09/18 Bisoprolol Fumarate* (Bisoprolol Fumarate*) 5 Mg Tablet, 5 MG PO DAILY, TAB HOLD IF SBP IS BELOW 110 OR HR BELOW 60 09/09/18 Medications Current Medications IV Flush (NS 3 ml) 3 ml PER PROTOCOL IV ; Start 09/10/18 at 06:30 Ondansetron HCl (Zofran Inj) 4 mg Q6H PRN IV NAUSEA/VOMITING; Start 09/10/18 at 06:30 Acetaminophen (Tylenol Supp) 650 mg Q6H PRN [place] .PAIN 1-3 OR TEMP; Start 09/10/18 at 06:30 Zolpidem Tartrate (Ambien) 5 mg QHS PRN PO .INSOMNIA; Start 09/10/18 at 06:30 Acetaminophen (Tylenol Tab) 650 mg Q4H PRN PO MILD PAIN(1-3)OR ELEVATED TEMP; Start 09/10/18 at 08:00 Ascorbic Acid (Vitamin C) 500 mg DAILY PO Last administered on 09/13/18at 09:00; Admin Dose 500 MG; Start 09/10/18 at 09:00 Diltiazem HCl (Cardizem) 60 mg Q6 PO Last administered on 09/13/18at 05:36; Admin Dose 60 MG; Start 09/10/18 at 12:00 Docusate Sodium (Colace) 200 mg DAILY PRN PO CONSTIPATION; Start 09/10/18 at 08:00 Ferrous Sulfate (Ferrous Sulfate (Ec)) 325 mg DAILY PO Last administered on 09/13/18at 09:01; Admin Dose 325 MG; Start 09/10/18 at 09:00 Fluoxetine HCl (Prozac) 20 mg DAILY PO Last administered on 09/13/18at 09:01; Admin Dose 20 MG; Start 09/10/18 at 09:00 Magnesium Hydroxide (Milk Of Mag) 30 ml Q24H PRN PO CONSTIPATION; Start 09/10/18 at 08:00 Memantine (Namenda) 5 mg DAILY PO Last administered on 09/13/18at 09:00; Admin Dose 5 MG; Start 09/10/18 at 09:00 Multivitamins Therapeutic (Theragran) 1 tab DAILY PO Last administered on 09/13/18at 09:01; Admin Dose 1 TAB; Start 09/10/18 at 09:00 Ondansetron HCl (Zofran Tab) 4 mg Q4H PRN PO NAUSEA AND/OR VOMITING; Start 09/10/18 at 08:00 Pantoprazole (Protonix Tab) 40 mg DAILY@0600 PO Last administered on 09/13/18at 05:35; Admin Dose 40 MG; Start 09/10/18 at 09:00 Prochlorperazine (Compazine) 5 mg Q6H PRN PO NAUSEA; Start 09/10/18 at 08:00 Senna (Senokot) 2 tab DAILY PRN PO CONSTIPATION; Start 09/10/18 at 08:00 Zinc Sulfate (Zinc Sulfate) 220 mg DAILY PO Last administered on 09/13/18at 09:00; Admin Dose 220 MG; Start 09/10/18 at 09:00 Sodium Chloride 1,000 ml @ 20 mls/hr Q24H IV Last administered on 09/13/18at 11:21; Admin Dose 20 MLS/HR; Start 09/10/18 at 06:30 Miscellaneous Information 1 ea NOTE XX ; Start 09/10/18 at 08:00 Glucose (Glutose) 15 gm Q15M PRN PO DECREASED GLUCOSE; Start 09/10/18 at 08:00 Glucose (Glutose) 22.5 gm Q15M PRN PO DECREASED GLUCOSE; Start 09/10/18 at 08:00 Dextrose (D50w Syringe) 25 ml Q15M PRN IV DECREASED GLUCOSE; Start 09/10/18 at 08:00 Dextrose (D50w Syringe) 50 ml Q15M PRN IV DECREASED GLUCOSE; Start 09/10/18 at 08:00 Glucagon (Glucagen) 1 mg Q15M PRN IM DECREASED GLUCOSE; Start 09/10/18 at 08:00 Glucose (Glutose) 15 gm Q15M PRN BUCCAL DECREASED GLUCOSE; Start 09/10/18 at 08:00 Ertapenem 0.5 gm/ Sodium Chloride 100 ml @ 200 mls/hr Q24H IVPB Last administered on 09/13/18at 11:21; Admin Dose 200 MLS/HR; Start 09/11/18 at 11:00 Diagnostic Test (Pha) (Accu-Chek) 1 ea 02 XX ; Start 09/11/18 at 02:00 Insulin Aspart (Novolog Insulin Pen) NOVOLOG *MODERATE* ALGORITHM WITH MEALS BEDTIME SC Last administered on 09/12/18 21:20; Admin Dose 2 UNIT; Start 09/10/18 at 22:30 Apixaban (Eliquis) 2.5 mg BID PO Last administered on 09/11/18at 17:55; Admin Dose 2.5 MG; Start 09/11/18 at 18:00; Status Hold Norepinephrine 250 ml @ 1.875 mls/ hr TITRATE IV Last administered on 09/12/18at 03:47; Admin Dose 3.75 MLS/HR; Start 09/12/18 at 03:27 Phenylephrine HCl 250 ml @ 75 mls/hr TITRATE PRN IV BLOOD PRESSURE SUPPORT; Start 09/12/18 at 16:00 Insulin Glargine (Lantus) 16 units QHS SC ; Start 09/13/18 at 21:00 Assessment/Plan Hospital Course (Demo Recall) 1. Atrial fibrillation rapid ventricular response 2. Sepsis 3. Acute renal failure 4. Severe anemia 5. Thrombocytopenia 6. History of mesothelioma 7. Diabetes 8. Encephalopathy Recommendations: Eliquis on hold due to severe anemia Transfusion as needed dig prn as long as low level cont Cardizem po as needed Antibiotic management as per internal medicine ok to transfer to tele from cardiac stand point Thank you for his referral. We will continue to follow along with you EMILIA BURCIAGA MD [facility] EMILIA BURCIAGA MD Sep 13, 2018 11:58
--- NOTE | 2018-09-13 12:42 | CONS ---
Assessment/Plan Assessment/Plan Hospital Course (Demo Recall) Patient is awake and looks comfortable, no fevers overnight. His BUN is 58 creatinine 1.88 WBC 3 H&H 7.6 and 24.2 platelet count 43 Microbiology: All cultures negative Indwelling: Left chest Port-A-Cath Antimicrobials: Invanz Physical examination: Well-developed chronically ill-appearing elderly man in no distress. Head atraumatic normocephalic sclera nonicteric. Neck is supple chest rise symmetrical breath sounds diminished bases. Heart: S1-S2. Abdomen soft bowel sounds present assessment Assessment: 1. Septic shock, possibly cardiogenic, patient is off pressors 2. Acute renal failure 3. Urinary tract infection as per urinalysis 4. Mesothelioma with metastasis, patient is getting chemotherapy outpatient 5. Atrial fibrillation 6. Possible pneumonia Plan: Stable off pressors, continue antibiotics, aspiration precautions, repeat chest x-ray, pulmonary and cardiology recommendations Consultation Date/Type/Reason Admit Date/Time Sep 09, 2018 at 22:52 Initial Consult Date Type of Consult id Date/Time of Note DATE: 09/13/18 TIME: 12:41 Exam/Review of Systems Exam Vitals Vital Signs Date Temp Pulse Resp B/P (MAP) Pulse Ox O2 O2 Flow FiO2 Time Delivery Rate 09/13/18 82 12:00 09/13/18 26 110/62 97 Nasal 2.0 09:00 (78) Cannula 09/13/18 97.6 08:00 09/12/18 27 07:33 Intake and Output 09/12/18 09/12/18 09/13/18 1414:59 22:59 06:59 IntakeIntake Total 1276.50 ml 970 ml 640 ml OutputOutput Total 850 ml 950 ml BalanceBalance 426.50 ml 20 ml 640 ml Results Result Diagram: 09/13/18 0450 09/13/18 0430 Results 24hrs Laboratory Tests Test 09/12/18 13:29 09/12/18 18:20 09/12/18 21:03 09/12/18 21:19 Bedside Glucose 107 228 H 271 H 241 H Test 09/13/18 04:30 09/13/18 04:50 09/13/18 04:53 09/13/18 09:00 Sodium Level 138 Potassium Level 4.0 Chloride Level 108 Carbon Dioxide 21 Level Anion Gap 9 Blood Urea Nitrogen 58 H Creatinine 1.88 H Est Glomerular Filtrat Rate mL/min Glucose Level 149 # Calcium Level 8.1 L Phosphorus Level 3.6 Magnesium Level 1.8 Total Bilirubin 0.2 Direct Bilirubin 0.00 Indirect Bilirubin 0.2 Aspartate Amino 21 Transf (AST/SGOT) Alanine 34 Aminotransferase (A LT/SGPT) Alkaline 69 Phosphatase B-Type Natriuretic 6490 H Peptide Total Protein 5.0 #L Albumin 2.2 L Globulin 2.80 Albumin/Globulin 0.78 Ratio Thyroid Stimulating 1.770 Hormone (TSH) Free Thyroxine 1.61 White Blood Count 3.0 #L Red Blood Count 2.72 L Hemoglobin 7.6 L Hematocrit 24.2 L Mean Corpuscular 89.0 Volume Mean Corpuscular 27.9 L Hemoglobin Mean Corpuscular 31.4 L Hemoglobin Concent Red Cell 18.2 H Distribution Width Platelet Count 43 #L Mean Platelet Volume Immature 0.700 H Granulocytes % Neutrophils % Segmented 81 H Neutrophils % (Manual) Band Neutrophils % 5 H (Manual) Lymphocytes % Lymphocytes % 13 L (Manual) Monocytes % Monocytes % 1 (Manual) Eosinophils % Basophils % Nucleated Red Blood 0.0 Cells % Immature 0.020 Granulocytes # Neutrophils # Neutrophils # 2.4 (Manual) Band Neutrophils # 0.1 Lymphocytes 0.3 L (Manual) Lymphocytes # Monocytes # Monocytes # 0.0 L (Manual) Eosinophils # Basophils # Nucleated Red Blood Cells # Platelet Estimate DECREASED Giant Platelets 1 H Poikilocytosis 1+ Anisocytosis 1+ Tear Drop Cells 1+ Ovalocytes 1+ Schistocytes 1+ Digoxin Level 0.6 L Lab Scanned Report BLOOD TRANSFUSION Bedside Glucose 105 Test 09/13/18 12:28 Bedside Glucose 123 Medications Medication Current Medications IV Flush (NS 3 ml) 3 ml PER PROTOCOL IV ; Start 09/10/18 at 06:30 Ondansetron HCl (Zofran Inj) 4 mg Q6H PRN IV NAUSEA/VOMITING; Start 09/10/18 at 06:30 Acetaminophen (Tylenol Supp) 650 mg Q6H PRN MO .PAIN 1-3 OR TEMP; Start 09/10/18 at 06:30 Zolpidem Tartrate (Ambien) 5 mg QHS PRN PO .INSOMNIA; Start 09/10/18 at 06:30 Acetaminophen (Tylenol Tab) 650 mg Q4H PRN PO MILD PAIN(1-3)OR ELEVATED TEMP; Start 09/10/18 at 08:00 Ascorbic Acid (Vitamin C) 500 mg DAILY PO Last administered on 09/13/18 09:00; Admin Dose 500 MG; Start 09/10/18 at 09:00 Diltiazem HCl (Cardizem) 60 mg Q6 PO Last administered on 09/13/18 12:29; Admin Dose 60 MG; Start 09/10/18 at 12:00 Docusate Sodium (Colace) 200 mg DAILY PRN PO CONSTIPATION; Start 09/10/18 at 08:00 Ferrous Sulfate (Ferrous Sulfate (Ec)) 325 mg DAILY PO Last administered on 09/13/18 09:01; Admin Dose 325 MG; Start 09/10/18 at 09:00 Fluoxetine HCl (Prozac) 20 mg DAILY PO Last administered on 09/13/18 09:01; Admin Dose 20 MG; Start 09/10/18 at 09:00 Magnesium Hydroxide (Milk Of Mag) 30 ml Q24H PRN PO CONSTIPATION; Start 09/10/18 at 08:00 Memantine (Namenda) 5 mg DAILY PO Last administered on 09/13/18 09:00; Admin Dose 5 MG; Start 09/10/18 at 09:00 Multivitamins Therapeutic (Theragran) 1 tab DAILY PO Last administered on 09/13/18 09:01; Admin Dose 1 TAB; Start 09/10/18 at 09:00 Ondansetron HCl (Zofran Tab) 4 mg Q4H PRN PO NAUSEA AND/OR VOMITING; Start 09/10/18 at 08:00 Pantoprazole (Protonix Tab) 40 mg DAILY@0600 PO Last administered on 09/13/18 05:35; Admin Dose 40 MG; Start 09/10/18 at 09:00 Prochlorperazine (Compazine) 5 mg Q6H PRN PO NAUSEA; Start 09/10/18 at 08:00 Senna (Senokot) 2 tab DAILY PRN PO CONSTIPATION; Start 09/10/18 at 08:00 Zinc Sulfate (Zinc Sulfate) 220 mg DAILY PO Last administered on 09/13/18 09:00; Admin Dose 220 MG; Start 09/10/18 at 09:00 Sodium Chloride 1,000 ml @ 20 mls/hr Q24H IV Last administered on 09/13/18 11:21; Admin Dose 20 MLS/HR; Start 09/10/18 at 06:30 Miscellaneous Information 1 ea NOTE XX ; Start 09/10/18 at 08:00 Glucose (Glutose) 15 gm Q15M PRN PO DECREASED GLUCOSE; Start 09/10/18 at 08:00 Glucose (Glutose) 22.5 gm Q15M PRN PO DECREASED GLUCOSE; Start 09/10/18 at 08:00 Dextrose (D50w Syringe) 25 ml Q15M PRN IV DECREASED GLUCOSE; Start 09/10/18 at 08:00 Dextrose (D50w Syringe) 50 ml Q15M PRN IV DECREASED GLUCOSE; Start 09/10/18 at 08:00 Glucagon (Glucagen) 1 mg Q15M PRN IM DECREASED GLUCOSE; Start 09/10/18 at 08:00 Glucose (Glutose) 15 gm Q15M PRN BUCCAL DECREASED GLUCOSE; Start 09/10/18 at 08:00 Ertapenem 0.5 gm/ Sodium Chloride 100 ml @ 200 mls/hr Q24H IVPB Last administered on 09/13/18 11:21; Admin Dose 200 MLS/HR; Start 09/11/18 at 11:00 Diagnostic Test (Pha) (Accu-Chek) 1 ea 02 XX ; Start 09/11/18 at 02:00 Insulin Aspart (Novolog Insulin Pen) NOVOLOG *MODERATE* ALGORITHM WITH MEALS BEDTIME SC Last administered on 09/12/18 21:20; Admin Dose 2 UNIT; Start 09/10/18 at 22:30 Apixaban (Eliquis) 2.5 mg BID PO Last administered on 09/11/18at 17:55; Admin Dose 2.5 MG; Start 09/11/18 at 18:00; Status Hold Norepinephrine 250 ml @ 1.875 mls/ hr TITRATE IV Last administered on 09/12/18 03:47; Admin Dose 3.75 MLS/HR; Start 09/12/18 at 03:27 Phenylephrine HCl 250 ml @ 75 mls/hr TITRATE PRN IV BLOOD PRESSURE SUPPORT; Start 09/12/18 at 16:00 Insulin Glargine (Lantus) 16 units QHS SC ; Start 09/13/18 at 21:00 CARMEN ALEGRIA NP Sep 13, 2018 12:42
[2018-09-13] MEDS: INSULIN GLARGINE [LANTus] (100 UNITS/ML) SYG SC SCH (20:58)
--- NOTE | 2018-09-13 23:42 | CONS ---
Assessment/Plan Assessment/Plan Hospital Course (Demo Recall) Severe anemia and thrombocytopenia. ? post chemo PROCEED WITH W-UP PER ORDERS MONITOR BLOOD COUNT CLOSELY OBSERVE FOR BLEEDING AND HEMOLYSIS AVOID MYELOSUPPRESSIVE MEDS History of mesothelioma likely with right-sided involvement. INCOMPLETE RECORD WILL TRY TO OBTAIN OUTPT RECORD Sepsis , UTI CONT antimicrobial regimen. Acute renal injury possibly with some element of baseline renal insufficiency. Serum creatinine improving. Improving hypotension. Chronic atrial fibrillation. Hyperkalemia: due to ARF and lactic acidosis (sepsis) History of hypertension. History of diabetes. Generalized weakness Consultation Date/Type/Reason Admit Date/Time Sep 09, 2018 at 22:52 Date of Consultation: Sep 13, 2018 Type of Consult hemeon Reason for Consultation anemia mesothelioma Requesting Provider: RENE VAZQUEZ DO Date/Time of Note DATE: 09/13/18 TIME: 23:42 Hx of Present Illness 73-year-old male with a history of CHF, diabetes, mesothelioma, depression, dementia, and hypertension sent in by his primary care doctor from his assisted facility for acute renal failure. Patient is complaining of feeling generally weak and unwell. Denies any chest pain, shortness of breath, headache, nausea, vomiting, diarrhea, dysuria. Labs done 09/08/18 showed BUN of 81 and creatinine of 2.1 with potassium 5.8. Labs from 09/06/2018 showed a potassium of 4.7. Patient is therefore presenting for acute renal failure, worsening from baseline. He was slightly hypotensive upon arrival but improved with 2 liters of IVF. Labs showed multiple abnormalities including hyperglycemia, acute renal failure, hyperkalemia, anemia and thrombocytopenia. Hyperkalemia will be treated with insulin, dextrose, and albuterol. Urine was finally collected from the patient was positive for UTI and was given Rocephin IV He is now admitted to the hospital for further care His medical w-up and treatment are in progress [facility] is aware about hx of cancer, but unable to provide his oncologist name and details of treatment Medications Home Meds Reported Medications Ondansetron Hcl* (Ondansetron Hcl*) 4 Mg Tablet, 4 MG PO Q4H PRN for NAUSEA AND OR VOMITING, TAB 09/09/18 Zinc Sulfate* (Zinc Sulfate*) 220 Mg Cap, 220 MG PO DAILY, CAP 09/09/18 Ascorbic Acid* (Vitamin C*) 500 Mg Capsule.sa, 500 MG PO DAILY, CAP 09/09/18 Cran/Vitc/Mannose/Inulin/Brom (Uti-Stat Liquid) 3,875 Mg/30 Ml Liquid, 3875 MG PO DAILY 09/09/18 Acetaminophen* (Acetaminophen*) 650 Mg Tablet, 650 MG PO Q4 PRN for PAIN AND OR ELEVATED TEMP, #30 TAB 09/09/18 Sennosides* (Senna Lax*) 8.6 Mg Tablet, 2 TAB PO DAILY PRN for CONSTIPATION, TAB 09/09/18 Fluoxetine Hcl* (Prozac*) 20 Mg Capsule, 20 MG PO DAILY, CAP 09/09/18 Pantoprazole* (Protonix*) 40 Mg Tablet.dr, 40 MG PO DAILY, TAB 09/09/18 Prochlorperazine* (Prochlorperazine*) 5 Mg Tablet, 5 MG PO Q6 PRN for NAUSEA, TAB 09/09/18 Memantine* (Namenda*) 5 Mg Tablet, 5 MG PO DAILY, #30 TAB 09/09/18 Multivitamins* (Theragran*) 1 Tab Tab, 1 TAB PO DAILY, TAB 09/09/18 Magnesium Hydroxide* (Milk Of Magnesia*) 400 Mg/5 Ml Oral.susp, 30 ML PO Q24H PRN for CONSTIPATION, ML 09/09/18 Megestrol Acetate* (Megace ES*) 625 Mg/5 Ml Oral.susp, 10 ML PO BID, ML 09/09/18 Insulin Glargine* (Lantus*) 100 Unit/Ml Soln, 12 UNIT SC QHS, #1 VIAL 09/09/18 Ferrous Sulfate* (Ferrous Sulfate*) 325 Mg Tabec, 325 MG PO DAILY, TAB 09/09/18 Diltiazem Hcl* (Cardizem SR*) 60 Mg Capsr, 60 MG PO Q6, #60 CAP HOLD IF SBP BELOW 110 OR HR BELOW 60 09/09/18 Cranberry (Cranberry) 400 Mg Capsule, 400 MG PO DAILY, CAP 09/09/18 Docusate Sodium* (Colace*) 100 Mg Capsule, 200 MG PO DAILY PRN for CONSTIPATION, #30 CAP 09/09/18 Bisoprolol Fumarate* (Bisoprolol Fumarate*) 5 Mg Tablet, 5 MG PO DAILY, TAB HOLD IF SBP IS BELOW 110 OR HR BELOW 60 09/09/18 Allergies Allergies: Coded Allergies: No Known Allergy (Unverified , 09/09/18) PMhx/Soc Hx Neurological Disorder: Yes (Dementia) Hx Cardiac Disorders: Yes (CHF, hypertension, A. fib) Hx Miscellaneous Medical Probl: Yes (Diabetes, GERD, esophagitis) FmHx no renal diseases ROS: 13 point ROS was done and pertinent findings are in HPI Past Medical History Home Meds Reported Medications Ondansetron Hcl* (Ondansetron Hcl*) 4 Mg Tablet, 4 MG PO Q4H PRN for NAUSEA AND OR VOMITING, TAB 09/09/18 Zinc Sulfate* (Zinc Sulfate*) 220 Mg Cap, 220 MG PO DAILY, CAP 09/09/18 Ascorbic Acid* (Vitamin C*) 500 Mg Capsule.sa, 500 MG PO DAILY, CAP 09/09/18 Cran/Vitc/Mannose/Inulin/Brom (Uti-Stat Liquid) 3,875 Mg/30 Ml Liquid, 3875 MG PO DAILY 09/09/18 Acetaminophen* (Acetaminophen*) 650 Mg Tablet, 650 MG PO Q4 PRN for PAIN AND OR ELEVATED TEMP, #30 TAB 09/09/18 Sennosides* (Senna Lax*) 8.6 Mg Tablet, 2 TAB PO DAILY PRN for CONSTIPATION, TAB 09/09/18 Fluoxetine Hcl* (Prozac*) 20 Mg Capsule, 20 MG PO DAILY, CAP 09/09/18 Pantoprazole* (Protonix*) 40 Mg Tablet.dr, 40 MG PO DAILY, TAB 09/09/18 Prochlorperazine* (Prochlorperazine*) 5 Mg Tablet, 5 MG PO Q6 PRN for NAUSEA, TAB 09/09/18 Memantine* (Namenda*) 5 Mg Tablet, 5 MG PO DAILY, #30 TAB 09/09/18 Multivitamins* (Theragran*) 1 Tab Tab, 1 TAB PO DAILY, TAB 09/09/18 Magnesium Hydroxide* (Milk Of Magnesia*) 400 Mg/5 Ml Oral.susp, 30 ML PO Q24H PRN for CONSTIPATION, ML 09/09/18 Megestrol Acetate* (Megace ES*) 625 Mg/5 Ml Oral.susp, 10 ML PO BID, ML 09/09/18 Insulin Glargine* (Lantus*) 100 Unit/Ml Soln, 12 UNIT SC QHS, #1 VIAL 09/09/18 Ferrous Sulfate* (Ferrous Sulfate*) 325 Mg Tabec, 325 MG PO DAILY, TAB 09/09/18 Diltiazem Hcl* (Cardizem SR*) 60 Mg Capsr, 60 MG PO Q6, #60 CAP HOLD IF SBP BELOW 110 OR HR BELOW 60 09/09/18 Cranberry (Cranberry) 400 Mg Capsule, 400 MG PO DAILY, CAP 09/09/18 Docusate Sodium* (Colace*) 100 Mg Capsule, 200 MG PO DAILY PRN for CONSTIPATION, #30 CAP 09/09/18 Bisoprolol Fumarate* (Bisoprolol Fumarate*) 5 Mg Tablet, 5 MG PO DAILY, TAB HOLD IF SBP IS BELOW 110 OR HR BELOW 60 09/09/18 Medications Current Medications IV Flush (NS 3 ml) 3 ml PER PROTOCOL IV ; Start 09/10/18 at 06:30 Ondansetron HCl (Zofran Inj) 4 mg Q6H PRN IV NAUSEA/VOMITING; Start 09/10/18 at 06:30 Acetaminophen (Tylenol Supp) 650 mg Q6H PRN HI .PAIN 1-3 OR TEMP; Start 09/10/18 at 06:30 Zolpidem Tartrate (Ambien) 5 mg QHS PRN PO .INSOMNIA; Start 09/10/18 at 06:30 Acetaminophen (Tylenol Tab) 650 mg Q4H PRN PO MILD PAIN(1-3)OR ELEVATED TEMP; Start 09/10/18 at 08:00 Ascorbic Acid (Vitamin C) 500 mg DAILY PO Last administered on 09/13/18at 09:00; Admin Dose 500 MG; Start 09/10/18 at 09:00 Diltiazem HCl (Cardizem) 60 mg Q6 PO Last administered on 09/13/18at 18:04; Admin Dose 60 MG; Start 09/10/18 at 12:00 Docusate Sodium (Colace) 200 mg DAILY PRN PO CONSTIPATION; Start 09/10/18 at 08:00 Ferrous Sulfate (Ferrous Sulfate (Ec)) 325 mg DAILY PO Last administered on 09/13/18at 09:01; Admin Dose 325 MG; Start 09/10/18 at 09:00 Fluoxetine HCl (Prozac) 20 mg DAILY PO Last administered on 09/13/18at 09:01; Ad min Dose 20 MG; Start 09/10/18 at 09:00 Magnesium Hydroxide (Milk Of Mag) 30 ml Q24H PRN PO CONSTIPATION; Start 09/10/18 at 08:00 Memantine (Namenda) 5 mg DAILY PO Last administered on 09/13/18at 09:00; Admin Dose 5 MG; Start 09/10/18 at 09:00 Multivitamins Therapeutic (Theragran) 1 tab DAILY PO Last administered on 09/13/18at 09:01; Admin Dose 1 TAB; Start 09/10/18 at 09:00 Ondansetron HCl (Zofran Tab) 4 mg Q4H PRN PO NAUSEA AND/OR VOMITING; Start 09/10/18 at 08:00 Pantoprazole (Protonix Tab) 40 mg DAILY@0600 PO Last administered on 09/13/18at 05:35; Admin Dose 40 MG; Start 09/10/18 at 09:00 Prochlorperazine (Compazine) 5 mg Q6H PRN PO NAUSEA; Start 09/10/18 at 08:00 Senna (Senokot) 2 tab DAILY PRN PO CONSTIPATION; Start 09/10/18 at 08:00 Zinc Sulfate (Zinc Sulfate) 220 mg DAILY PO Last administered on 09/13/18at 09:00; Admin Dose 220 MG; Start 09/10/18 at 09:00 Sodium Chloride 1,000 ml @ 20 mls/hr Q24H IV Last administered on 09/13/18at 11:21; Admin Dose 20 MLS/HR; Start 09/10/18 at 06:30 Miscellaneous Information 1 ea NOTE XX ; Start 09/10/18 at 08:00 Glucose (Glutose) 15 gm Q15M PRN PO DECREASED GLUCOSE; Start 09/10/18 at 08:00 Glucose (Glutose) 22.5 gm Q15M PRN PO DECREASED GLUCOSE; Start 09/10/18 at 08:00 Dextrose (D50w Syringe) 25 ml Q15M PRN IV DECREASED GLUCOSE; Start 09/10/18 at 0 8:00 Dextrose (D50w Syringe) 50 ml Q15M PRN IV DECREASED GLUCOSE; Start 09/10/18 at 08:00 Glucagon (Glucagen) 1 mg Q15M PRN IM DECREASED GLUCOSE; Start 09/10/18 at 08:00 Glucose (Glutose) 15 gm Q15M PRN BUCCAL DECREASED GLUCOSE; Start 09/10/18 at 08:00 Ertapenem 0.5 gm/ Sodium Chloride 100 ml @ 200 mls/hr Q24H IVPB Last administered on 09/13/18at 11:21; Admin Dose 200 MLS/HR; Start 09/11/18 at 11:00 Diagnostic Test (Pha) (Accu-Chek) 1 ea 02 XX ; Start 09/11/18 at 02:00 Insulin Aspart (Novolog Insulin Pen) NOVOLOG *MODERATE* ALGORITHM WITH MEALS BEDTIME SC Last administered on 09/13/18at 20:48; Admin Dose 1 UNIT; Start 09/10/18 at 22:30 Apixaban (Eliquis) 2.5 mg BID PO Last administered on 09/11/18at 17:55; Admin Dose 2.5 MG; Start 09/11/18 at 18:00; Status Hold Norepinephrine 250 ml @ 1.875 mls/ hr TITRATE IV Last administered on 09/12/18at 03:47; Admin Dose 3.75 MLS/HR; Start 09/12/18 at 03:27 Phenylephrine HCl 250 ml @ 75 mls/hr TITRATE PRN IV BLOOD PRESSURE SUPPORT; Start 09/12/18 at 16:00 Insulin Glargine (Lantus) 16 units QHS SC Last administered on 09/13/18at 20:58; Admin Dose 16 UNITS; Start 09/13/18 at 21:00 Allergies: Coded Allergies: No Known Allergy (Unverified , 09/09/18) Social History Smoking Status: Unknown if ever smoked Exam/Review of Systems Exam Vitals Vital Signs Date Temp Pulse Resp B/P (MAP) Pulse Ox O2 O2 Flow FiO2 Time Delivery Rate 09/13/18 83 20:00 09/13/18 Nasal 2.0 20:00 Cannula 09/13/18 99.0 32 117/73 94 20:00 (88) 09/12/18 27 07:33 Intake and Output 09/12/18 09/12/18 09/13/18 1515:00 23:00 07:00 IntakeIntake Total 1269.00 ml 970 ml 560 ml OutputOutput Total 900 ml 800 ml BalanceBalance 369.00 ml 170 ml 560 ml Exam Const: No acute distress, nontoxic Head: Atraumatic Eyes: Normal Conjunctiva ENT: Dry mucous membranes Neck: Full range of motion. No meningismus. Resp: Clear to auscultation bilaterally Chest wall: Right upper chest surgical scar, well healing. Left upper chest surgical scar from new pacemaker, well-healing Cardio: irregularly irregular rhythm with normal rate, no murmurs Abd: Soft, non tender, non distended. Normal bowel sounds Skin: No petechiae or rashes Back: No midline or flank tenderness Ext: No cyanosis, or edema Neur: Awake and alert, moving all extremities, normal speech, no facial asymmetry Psych: Depressed mood Results Result Diagram: 09/13/18 0450 09/13/18 0430 Results 24hrs Laboratory Tests Test 09/13/18 04:30 09/13/18 04:50 09/13/18 04:53 09/13/18 09:00 Sodium Level 138 Potassium Level 4.0 Chloride Level 108 Carbon Dioxide 21 Level Anion Gap 9 Blood Urea Nitrogen 58 H Creatinine 1.88 H Est Glomerular Filtrat Rate mL/min Glucose Level 149 # Calcium Level 8.1 L Phosphorus Level 3.6 Magnesium Level 1.8 Total Bilirubin 0.2 Direct Bilirubin 0.00 Indirect Bilirubin 0.2 Aspartate Amino 21 Transf (AST/SGOT) Alanine 34 Aminotransferase (A LT/SGPT) Alkaline 69 Phosphatase B-Type Natriuretic 6490 H Peptide Total Protein 5.0 #L Albumin 2.2 L Globulin 2.80 Albumin/Globulin 0.78 Ratio Thyroid Stimulating 1.770 Hormone (TSH) Free Thyroxine 1.61 White Blood Count 3.0 #L Red Blood Count 2.72 L Hemoglobin 7.6 L Hematocrit 24.2 L Mean Corpuscular 89.0 Volume Mean Corpuscular 27.9 L Hemoglobin Mean Corpuscular 31.4 L Hemoglobin Concent Red Cell 18.2 H Distribution Width Platelet Count 43 #L Mean Platelet Volume Immature 0.700 H Granulocytes % Neutrophils % Segmented 81 H Neutrophils % (Manual) Band Neutrophils % 5 H (Manual) Lymphocytes % Lymphocytes % 13 L (Manual) Monocytes % Monocytes % 1 (Manual) Eosinophils % Basophils % Nucleated Red Blood 0.0 Cells % Immature 0.020 Granulocytes # Neutrophils # Neutrophils # 2.4 (Manual) Band Neutrophils # 0.1 Lymphocytes 0.3 L (Manual) Lymphocytes # Monocytes # Monocytes # 0.0 L (Manual) Eosinophils # Basophils # Nucleated Red Blood Cells # Platelet Estimate DECREASED Giant Platelets 1 H Poikilocytosis 1+ Anisocytosis 1+ Tear Drop Cells 1+ Ovalocytes 1+ Schistocytes 1+ Digoxin Level 0.6 L Lab Scanned Report BLOOD TRANSFUSION Bedside Glucose 105 Test 09/13/18 12:28 09/13/18 18:03 09/13/18 20:46 Bedside Glucose 123 219 182 Imaging Imaging PROCEDURE: US Lower extremity Venous. CLINICAL INDICATION: Bilateral lower extremity edema TECHNIQUE: Multiple sonographic images of the bilateral lower extremity deep venous system was obtained utilizing grayscale, color-flow, compressive sonography and doppler imaging with augmentation. The images were reviewed on a PACS workstation. COMPARISON: None. FINDINGS: There is normal compressibility and flow within the bilateral common femoral, femoral , posterior tibial and popliteal veins. RPTAT: AA IMPRESSION: No sonographic evidence for deep venous thrombosis. .Noel Guevara MD MD Date Time Electronically viewed and signed by .Noel Guevara MD, MD on 09/11/2018 11:42 .S/ CC: ANDRÉS ISLAS MD [id number] 12-lead EKG Atrial fibrillation at 64 bpm Normal axis Normal intervals No changes of hyperkalemia. No acute ST or T wave changes suggestive of acute ischemia or STEMI. Chest x-ray: IMPRESSION: 1. There is a moderate right pleural effusion with associated compressive atelectasis. This may be at least partially loculated. A CT might be useful for further characterization. 2. Patchy left basilar atelectasis with very small left pleural effusion. 3. Left chest Port-A-Cath as above. PROCEDURE: Retroperitoneal US. CLINICAL INDICATION: Renal insufficiency TECHNIQUE: Multiple sonographic images of the kidneys and retroperitoneum were obtained. The images were reviewed on a PACS workstation. COMPARISON: No prior studies are available for comparison. FINDINGS: The kidneys are normal in size, contour, cortical thickness and cortical echogenicity. The right kidney measures 9.2 cm. The left kidney measures 9.1 cm. No kidney stones are visualized. There is no evidence for hydronephrosis. The urinary bladder is partially distended and grossly unremarkable. RPTAT: AA IMPRESSION: Unremarkable retroperitoneal ultrasound. .Noel Guevara MD, MD Date Time Electronically viewed and signed by .Noel Guevara MD, MD on 09/10/2018 11:03 .S/ CC: ADONIS LEE MD [id number] [place] [address] Radiology Main Line: [phone] DIAGNOSTIC IMAGING REPORT Patient: SALVADOR STODDARD : 1945 Age: 73 Sex: M MR #: [id number] DOS: 09/13/18 0000 Ordering MD: CARMEN ALEGRIA NP Location: ICU Room/Bed: [facility] PROCEDURE: XR Chest. CLINICAL INDICATION: Shortness of breath. TECHNIQUE: Single AP portable chest. COMPARISON: 09/11/2018 Chest x-ray FINDINGS: Stable cardiomegaly and vascular congestion with large right pleural effusion and trace left pleural effusion. Bibasilar subsegmental atelectasis at the and/or infiltrate. Left chest MediPort catheter in place. Atherosclerotic calcification of the aorta.No pneumothorax. The osseous structures and soft tissues are unremarkable. IMPRESSION: 1. Cardiomegaly with stable bilateral airspace disease and right pleural effusion . RPTAT:AAJJ Physician Fernando Date Time Electronically viewed and signed by Physician Fernando on 09/13/2018 17:31 ZORAIDA/ CC: CARMEN ALEGRIA NP [id number] Medications Medication Current Medications IV Flush (NS 3 ml) 3 ml PER PROTOCOL IV ; Start 09/10/18 at 06:30 Ondansetron HCl (Zofran Inj) 4 mg Q6H PRN IV NAUSEA/VOMITING; Start 09/10/18 at 06:30 Acetaminophen (Tylenol Supp) 650 mg Q6H PRN HI .PAIN 1-3 OR TEMP; Start 09/10/18 at 06:30 Zolpidem Tartrate (Ambien) 5 mg QHS PRN PO .INSOMNIA; Start 09/10/18 at 06:30 Acetaminophen (Tylenol Tab) 650 mg Q4H PRN PO MILD PAIN(1-3)OR ELEVATED TEMP; Start 09/10/18 at 08:00 Ascorbic Acid (Vitamin C) 500 mg DAILY PO Last administered on 09/13/18at 09:00; Admin Dose 500 MG; Start 09/10/18 at 09:00 Diltiazem HCl (Cardizem) 60 mg Q6 PO Last administered on 09/13/18at 18:04; Admin Dose 60 MG; Start 09/10/18 at 12:00 Docusate Sodium (Colace) 200 mg DAILY PRN PO CONSTIPATION; Start 09/10/18 at 08:00 Ferrous Sulfate (Ferrous Sulfate (Ec)) 325 mg DAILY PO Last administered on 09/13/18at 09:01; Admin Dose 325 MG; Start 09/10/18 at 09:00 Fluoxetine HCl (Prozac) 20 mg DAILY PO Last administered on 09/13/18at 09:01; Admin Dose 20 MG; Start 09/10/18 at 09:00 Magnesium Hydroxide (Milk Of Mag) 30 ml Q24H PRN PO CONSTIPATION; Start 09/10/18 at 08:00 Memantine (Namenda) 5 mg DAILY PO Last administered on 09/13/18at 09:00; Admin Dose 5 MG; Start 09/10/18 at 09:00 Multivitamins Therapeutic (Theragran) 1 tab DAILY PO Last administered on 09/13/18at 09:01; Admin Dose 1 TAB; Start 09/10/18 at 09:00 Ondansetron HCl (Zofran Tab) 4 mg Q4H PRN PO NAUSEA AND/OR VOMITING; Start 09/10/18 at 08:00 Pantoprazole (Protonix Tab) 40 mg DAILY@0600 PO Last administered on 09/13/18at 05:35; Admin Dose 40 MG; Start 09/10/18 at 09:00 Prochlorperazine (Compazine) 5 mg Q6H PRN PO NAUSEA; Start 09/10/18 at 08:00 Senna (Senokot) 2 tab DAILY PRN PO CONSTIPATION; Start 09/10/18 at 08:00 Zinc Sulfate (Zinc Sulfate) 220 mg DAILY PO Last administered on 09/13/18at 09:00; Admin Dose 220 MG; Start 09/10/18 at 09:00 Sodium Chloride 1,000 ml @ 20 mls/hr Q24H IV Last administered on 09/13/18at 11:21; Admin Dose 20 MLS/HR; Start 09/10/18 at 06:30 Miscellaneous Information 1 ea NOTE XX ; Start 09/10/18 at 08:00 Glucose (Glutose) 15 gm Q15M PRN PO DECREASED GLUCOSE; Start 09/10/18 at 08:00 Glucose (Glutose) 22.5 gm Q15M PRN PO DECREASED GLUCOSE; Start 09/10/18 at 08:00 Dextrose (D50w Syringe) 25 ml Q15M PRN IV DECREASED GLUCOSE; Start 09/10/18 at 08:00 Dextrose (D50w Syringe) 50 ml Q15M PRN IV DECREASED GLUCOSE; Start 09/10/18 at 08:00 Glucagon (Glucagen) 1 mg Q15M PRN IM DECREASED GLUCOSE; Start 09/10/18 at 08:00 Glucose (Glutose) 15 gm Q15M PRN BUCCAL DECREASED GLUCOSE; Start 09/10/18 at 08:00 Ertapenem 0.5 gm/ Sodium Chloride 100 ml @ 200 mls/hr Q24H IVPB Last ad ministered on 09/13/18at 11:21; Admin Dose 200 MLS/HR; Start 09/11/18 at 11:00 Diagnostic Test (Pha) (Accu-Chek) 1 ea 02 XX ; Start 09/11/18 at 02:00 Insulin Aspart (Novolog Insulin Pen) NOVOLOG *MODERATE* ALGORITHM WITH MEALS BEDTIME SC Last administered on 09/13/18at 20:48; Admin Dose 1 UNIT; Start at 22:30 Apixaban (Eliquis) 2.5 mg BID PO Last administered on 09/11/18at 17:55; Admin Dose 2.5 MG; Start 09/11/18 at 18:00; Status Hold Norepinephrine 250 ml @ 1.875 mls/ hr TITRATE IV Last administered on 09/12/18at 03:47; Admin Dose 3.75 MLS/HR; Start 09/12/18 at 03:27 Phenylephrine HCl 250 ml @ 75 mls/hr TITRATE PRN IV BLOOD PRESSURE SUPPORT; Start 09/12/18 at 16:00 Insulin Glargine (Lantus) 16 units QHS SC Last administered on 09/13/18at 20:58; Admin Dose 16 UNITS; Start 09/13/18 at 21:00 ISABELLE JARVIS MD Sep 13, 2018 23:42
[2018-09-14] VITALS (23 sets, daily range): BP systolic 90–123; BP diastolic 55–78; PULSE 79–100; RESP 17–33
[2018-09-14] MEDS: ACCU-CHEK XX SCH ×4 (02:54→21:19)
[2018-09-14] MEDS: PANTOPRAZOLE (EC) 40 MG TAB PO SCH (05:55)
[2018-09-14] MEDS: DILTIAZEM 60 MG TAB PO SCH ×3 (05:56→17:50)
--- NOTE | 2018-09-14 07:24 | CONS ---
Consult Date/Type/Reason Admit Date/Time Sep 09, 2018 at 22:52 Initial Consult Date 09/12/18 Type of Consultation: CV Requesting Provider: RENE VAZQUEZ DO Date/Time of Note DATE: 09/14/18 TIME: 07:22 Subjective Cardiology follow-up progress note Subjective: Discussed with staff and telemetry was reviewed. Patient remains in atrial fibrillation. HR is under good control He is a still in ICU but off of Levophed drip Patient denies any chest pain or pressure to me and wants to go home He denies any active bleeding to me Objective: General: Elderly gentleman in no acute distress HEENT: NC/AT. pupils are equal. round. NECK: NO JVD. no stridor. CV: Irregularly irregular. systolic murmur; no gallop or rubs. PULM: no wheezing + rhonchi. GI: SOFT, NT, ND, no rebound or guarding Extremity: trace B/L LE edema. no clubbing. neuro: awake and alert, OX2. Psych: calm and pleasant rectal: deferred : normal Echocardiogram was personally reviewed which shows: Normal left ventricular cavity size. Possibly mild left ventricular systolic dysfunction. . Moderate concentric left ventricular hypertrophy. The left ventricle is not well visualized in the apical views, parasternal and subcostal only. The left ventricular ejection fraction is visually estimated at 60 %. Normal appearance of the mitral valve leaflets. The mitral valve is not well visualized. Mild mitral regurgitation, but only seen from parasternal window. The aortic valve is not well visualized. No hemodynamically significant aortic stenosis by Doppler. Aortic cusps appear mildly calcified. No aortic regurgitation. Normal appearance of the tricuspid valve. No evidence of tricuspid regurgitation. Upper limit of normal left atrial size. Objective Vitals Vital Signs Date Temp Pulse Resp B/P (MAP) Pulse Ox O2 O2 Flow FiO2 Time Delivery Rate 09/14/18 84 20 115/70 100 Nasal 2.0 06:00 (85) Cannula 09/14/18 98.2 04:00 09/12/18 27 07:33 Intake and Output 09/13/18 09/13/18 09/14/18 1515:00 23:00 07:00 IntakeIntake Total 680 ml 640 ml 500 ml OutputOutput Total 800 ml 880 ml 690 ml BalanceBalance -120 ml -240 ml -190 ml Results/Medications Result Diagram: 09/14/180 09/14/18 0430 Results 24 hrs Laboratory Tests Test 09/13/18 09:00 09/13/18 12:28 09/13/18 18:03 09/13/18 20:46 Bedside Glucose 105 123 219 182 Test 09/14/18 04:30 White Blood Count 0.7 #L Red Blood Count 2.64 L Hemoglobin 7.5 L Hematocrit 23.9 L Mean Corpuscular Volume 90.5 Mean Corpuscular 28.4 L Hemoglobin Mean Corpuscular 31.4 L Hemoglobin Concent Red Cell Distribution 17.7 H Width Platelet Count 34 #L Mean Platelet Volume 11.5 H Immature Granulocytes % 5.500 H Neutrophils % Lymphocytes % Monocytes % Eosinophils % Basophils % Nucleated Red Blood 0.0 Cells % Immature Granulocytes # 0.040 H Neutrophils # Lymphocytes # Monocytes # Eosinophils # Basophils # Nucleated Red Blood Cells # Absolute Reticulocyte 0.004 L Count Percent Reticulocyte 0.2 L Count Sodium Level 138 Potassium Level 3.9 Chloride Level 110 Carbon Dioxide Level 20 L Anion Gap 8 Blood Urea Nitrogen 53 H Creatinine 1.98 H Est Glomerular Filtrat Rate mL/min Glucose Level 77 # Uric Acid 7.4 Calcium Level 8.4 Phosphorus Level 3.4 Magnesium Level 1.7 Ferritin Pending Lactate Dehydrogenase 414 Vitamin B12 Level Pending Folate Pending Thyroid Stimulating Pending Hormone (TSH) Digoxin Level 0.6 L Home Meds Reported Medications Ondansetron Hcl* (Ondansetron Hcl*) 4 Mg Tablet, 4 MG PO Q4H PRN for NAUSEA AND OR VOMITING, TAB 09/09/18 Zinc Sulfate* (Zinc Sulfate*) 220 Mg Cap, 220 MG PO DAILY, CAP 09/09/18 Ascorbic Acid* (Vitamin C*) 500 Mg Capsule.sa, 500 MG PO DAILY, CAP 09/09/18 Cran/Vitc/Mannose/Inulin/Brom (Uti-Stat Liquid) 3,875 Mg/30 Ml Liquid, 3875 MG PO DAILY 09/09/18 Acetaminophen* (Acetaminophen*) 650 Mg Tablet, 650 MG PO Q4 PRN for PAIN AND OR ELEVATED TEMP, #30 TAB 09/09/18 Sennosides* (Senna Lax*) 8.6 Mg Tablet, 2 TAB PO DAILY PRN for CONSTIPATION, TAB 09/09/18 Fluoxetine Hcl* (Prozac*) 20 Mg Capsule, 20 MG PO DAILY, CAP 09/09/18 Pantoprazole* (Protonix*) 40 Mg Tablet.dr, 40 MG PO DAILY, TAB 09/09/18 Prochlorperazine* (Prochlorperazine*) 5 Mg Tablet, 5 MG PO Q6 PRN for NAUSEA, TAB 09/09/18 Memantine* (Namenda*) 5 Mg Tablet, 5 MG PO DAILY, #30 TAB 09/09/18 Multivitamins* (Theragran*) 1 Tab Tab, 1 TAB PO DAILY, TAB 09/09/18 Magnesium Hydroxide* (Milk Of Magnesia*) 400 Mg/5 Ml Oral.susp, 30 ML PO Q24H PRN for CONSTIPATION, ML 09/09/18 Megestrol Acetate* (Megace ES*) 625 Mg/5 Ml Oral.susp, 10 ML PO BID, ML 09/09/18 Insulin Glargine* (Lantus*) 100 Unit/Ml Soln, 12 UNIT SC QHS, #1 VIAL 09/09/18 Ferrous Sulfate* (Ferrous Sulfate*) 325 Mg Tabec, 325 MG PO DAILY, TAB 09/09/18 Diltiazem Hcl* (Cardizem SR*) 60 Mg Capsr, 60 MG PO Q6, #60 CAP HOLD IF SBP BELOW 110 OR HR BELOW 60 09/09/18 Cranberry (Cranberry) 400 Mg Capsule, 400 MG PO DAILY, CAP 09/09/18 Docusate Sodium* (Colace*) 100 Mg Capsule, 200 MG PO DAILY PRN for CONSTIPATION, #30 CAP 09/09/18 Bisoprolol Fumarate* (Bisoprolol Fumarate*) 5 Mg Tablet, 5 MG PO DAILY, TAB HOLD IF SBP IS BELOW 110 OR HR BELOW 60 09/09/18 Medications Current Medications IV Flush (NS 3 ml) 3 ml PER PROTOCOL IV ; Start 09/10/18 at 06:30 Ondansetron HCl (Zofran Inj) 4 mg Q6H PRN IV NAUSEA/VOMITING; Start 09/10/18 at 06:30 Acetaminophen (Tylenol Supp) 650 mg Q6H PRN [place] .PAIN 1-3 OR TEMP; Start 09/10/18 at 06:30 Zolpidem Tartrate (Ambien) 5 mg QHS PRN PO .INSOMNIA; Start 09/10/18 at 06:30 Acetaminophen (Tylenol Tab) 650 mg Q4H PRN PO MILD PAIN(1-3)OR ELEVATED TEMP; Start 09/10/18 at 08:00 Ascorbic Acid (Vitamin C) 500 mg DAILY PO Last administered on 09/13/18 09:00; Admin Dose 500 MG; Start 09/10/18 at 09:00 Diltiazem HCl (Cardizem) 60 mg Q6 PO Last administered on 09/14/18 05:56; Admin Dose 60 MG; Start 09/10/18 at 12:00 Docusate Sodium (Colace) 200 mg DAILY PRN PO CONSTIPATION; Start 09/10/18 at 08:00 Ferrous Sulfate (Ferrous Sulfate (Ec)) 325 mg DAILY PO Last administered on 09/13/18 09:01; Admin Dose 325 MG; Start 09/10/18 at 09:00 Fluoxetine HCl (Prozac) 20 mg DAILY PO Last administered on 09/13/18 09:01; Admin Dose 20 MG; Start 09/10/18 at 09:00 Magnesium Hydroxide (Milk Of Mag) 30 ml Q24H PRN PO CONSTIPATION; Start 09/10/18 at 08:00 Memantine (Namenda) 5 mg DAILY PO Last administered on 09/13/18 09:00; Admin Dose 5 MG; Start 09/10/18 at 09:00 Multivitamins Therapeutic (Theragran) 1 tab DAILY PO Last administered on 09/13/18 09:01; Admin Dose 1 TAB; Start 09/10/18 at 09:00 Ondansetron HCl (Zofran Tab) 4 mg Q4H PRN PO NAUSEA AND/OR VOMITING; Start 09/10/18 at 08:00 Pantoprazole (Protonix Tab) 40 mg DAILY@0600 PO Last administered on 09/14/18 05:55; Admin Dose 40 MG; Start 09/10/18 at 09:00 Prochlorperazine (Compazine) 5 mg Q6H PRN PO NAUSEA; Start 09/10/18 at 08:00 Senna (Senokot) 2 tab DAILY PRN PO CONSTIPATION; Start 09/10/18 at 08:00 Zinc Sulfate (Zinc Sulfate) 220 mg DAILY PO Last administered on 09/13/18 09:00; Admin Dose 220 MG; Start 09/10/18 at 09:00 Sodium Chloride 1,000 ml @ 20 mls/hr Q24H IV Last administered on 09/13/18 11:21; Admin Dose 20 MLS/HR; Start 09/10/18 at 06:30 Miscellaneous Information 1 ea NOTE XX ; Start 09/10/18 at 08:00 Glucose (Glutose) 15 gm Q15M PRN PO DECREASED GLUCOSE; Start 09/10/18 at 08:00 Glucose (Glutose) 22.5 gm Q15M PRN PO DECREASED GLUCOSE; Start 09/10/18 at 08:00 Dextrose (D50w Syringe) 25 ml Q15M PRN IV DECREASED GLUCOSE; Start 09/10/18 at 08:00 Dextrose (D50w Syringe) 50 ml Q15M PRN IV DECREASED GLUCOSE; Start 09/10/18 at 08:00 Glucagon (Glucagen) 1 mg Q15M PRN IM DECREASED GLUCOSE; Start 09/10/18 at 08:00 Glucose (Glutose) 15 gm Q15M PRN BUCCAL DECREASED GLUCOSE; Start 09/10/18 at 08:00 Ertapenem 0.5 gm/ Sodium Chloride 100 ml @ 200 mls/hr Q24H IVPB Last administered on 09/13/18 11:21; Admin Dose 200 MLS/HR; Start 09/11/18 at 11:00 Diagnostic Test (Pha) (Accu-Chek) 1 ea 02 XX Last administered on 09/14/18at 02:54; Admin Dose 1 EA; Start 09/11/18 at 02:00 Insulin Aspart (Novolog Insulin Pen) NOVOLOG *MODERATE* ALGORITHM WITH MEALS BEDTIME SC Last administered on 09/13/18at 20:48; Admin Dose 1 UNIT; Start 09/10/18 at 22:30 Apixaban (Eliquis) 2.5 mg BID PO Last administered on 09/11/18at 17:55; Admin Dose 2.5 MG; Start 09/11/18 at 18:00; Status Hold Norepinephrine 250 ml @ 1.875 mls/ hr TITRATE IV Last administered on 09/12/18 03:47; Admin Dose 3.75 MLS/HR; Start 09/12/18 at 03:27 Phenylephrine HCl 250 ml @ 75 mls/hr TITRATE PRN IV BLOOD PRESSURE SUPPORT; Start 09/12/18 at 16:00 Insulin Glargine (Lantus) 16 units QHS SC Last administered on 09/13/18at 20:58; Admin Dose 16 UNITS; Start 09/13/18 at 21:00 Assessment/Plan Hospital Course (Demo Recall) 1. Atrial fibrillation rapid ventricular response: Currently HR is under good control 2. Sepsis 3. Acute renal failure 4. Severe anemia 5. Thrombocytopenia 6. History of mesothelioma 7. Diabetes 8. Encephalopathy Recommendations: Eliquis is on hold due to severe anemia. awaiting stool guiac Transfusion as needed dig prn as long as low level cont Cardizem po as needed Antibiotic management as per internal medicine ok to transfer to tele from cardiac stand point Thank you for his referral. We will continue to follow along with you EMILIA BURCIAGA MD [facility] EMILIA BURCIAGA MD Sep 14, 2018 07:24
[2018-09-14] MEDS: INSULIN ASPART [NOVOLOG] 3 ML PEN SC SCH ×4 (07:35→21:00)
--- NOTE | 2018-09-14 08:02 | PN ---
DATE: 09/14/2018 SUBJECTIVE: The patient is stable, no events overnight. No fevers, chills, nausea, or vomiting. OBJECTIVE: VITAL SIGNS: Blood pressure is 115/70, respirations 20, pulse 74, temperature 98.2. HEENT: Head is normocephalic. NECK: Supple. HEART: Regular rate. LUNGS: Show diminished breath sounds at the base. ABDOMEN: Soft, nontender to palpation. No rebound or guarding. EXTREMITIES: Negative for clubbing, cyanosis, no edema. DERMATOLOGIC: No rashes. MUSCULOSKELETAL: No joint effusion. NEUROLOGIC: No change in exam. MEDICATIONS: Reviewed. LABORATORY DATA: Shows a white count of 0.7, hemoglobin 7.5, platelet count is 34. The patient's di goxin level is 0.6. Sodium 138, potassium 3.9, BUN 53, creatinine 1.98. Microbiology has been revie wed. Chest x-ray has been reviewed. ASSESSMENT AND PLAN: 1. Sepsis, status post shock, etiology is felt to be secondary to urinary tract infection, possible pneumonia. The patient is currently on pressor support. Continue current antibiotic regimen. Cultu res have been reviewed. 2. Atrial fibrillation, currently rate controlled. Continue medical management. The patient's Eliq uis has been on hold in the setting of severe anemia. We would consider resuming, defer to cardiolog y. 3. Pancytopenia, neutropenia. Etiology is likely due to recent chemotherapy, gemcitabine. We will defer to oncology/hematology for possibility of Neupogen. 4. Anemia. The patient is status blood transfusion. 5. Mesothelioma with metastasis. The patient is currently on chemotherapy, last dose was on 9. The patient received gemcitabine. Follow up with oncology for further evaluation. 6. Nonoliguric acute kidney injury on top of chronic kidney disease. Etiology is secondary to hemod ynamics. Renal function appears to be stabilizing around creatinine of 2.0 mg/dL. Continue current treatment plans, supportive care and renally dose all medicines. 7. Diabetes. The patient's insulin regimen was adjusted. Continue to monitor. 8. Acute encephalopathy and dementia, etiology is toxic metabolic. 9. History of depression. 10. Hypokalemia, improved. 11. Lactic acidosis, resolved. 12. Gastrointestinal and deep vein thrombosis prophylaxis. 13. Debility. Place a physical therapy consult for evaluation. DISPOSITION: The patient is pending transfer to telemetry. Dictated By: RENE VAZQUEZ DO NR/GUNJAN Conf#: [id number] DID#: [id number] CC: RENE VAZQUEZ DO; REINA MANZANO MD;*EndCC*
[2018-09-14] MEDS: ZINC SULFATE 220 MG CAP PO SCH (08:34)
[2018-09-14] MEDS: MULTIVITAMINS THERAPEUTIC TAB PO SCH (08:34)
[2018-09-14] MEDS: FLUOXETINE 20 MG CAP PO SCH (08:34)
[2018-09-14] MEDS: FERROUS SULFATE (EC) 325 MG TAB PO SCH (08:35)
[2018-09-14] MEDS: MEMANTINE 5 MG TAB PO SCH (08:35)
[2018-09-14] MEDS: LINAGLIPTIN 5 MG TABLET PO SCH (08:35)
[2018-09-14] MEDS: ASCORBIC ACID 500 MG TAB PO SCH (08:35)
--- NOTE | 2018-09-14 09:26 | CONS ---
Assessment/Plan Assessment/Plan Assessment/Plan (Daily) Assessment recommendations; 1. Patient admitted with UTI and sepsis with hypotension with marked overall interval improvement. 2. Acute on chronic renal injury with continually improving renal function. 3. Pancytopenia. 4. History of chronic atrial fibrillation. Rate is well controlled. Patient not on anticoagulants because of severe anemia and thrombocytopenia. 5. History of mesothelioma involving right lung. Continue current supportive care. Transfer to telemetry unit. Antibiotics per ID recommendations. Monitor white cell count. Consultation Date/Type/Reason Admit Date/Time Sep 09, 2018 at 22:52 Initial Consult Date 09/12/18 Type of Consult Pulmonary/critical care Pulmonary consult requested for evaluation of right pleural effusion. Patient is a 73-year-old male who was admitted to the hospital sent from physician's office because of acute elevation in serum creatinine. Patient also was hypotensive and had to be transferred to ICU. Patient is currently on low- dose Levophed drip. Otherwise patient has remained hemodynamically stable and also exhibiting stable pulmonary status on 2 L nasal cannula. Patient denies any chest pain, shortness of breath, cough, fever or chills. Past medical history; 1. History of mesothelioma apparently right-sided involvement. 2. Placement of MediPort. 3. Possibly underlying some element of baseline renal insufficiency. 4. CHF. 5. Chronic atrial fibrillation. 6. Diabetes and hypertension. 7. History of dementia. Medications; reviewed. Allergies; none. Family history; noncontributory. Occupational history; not available. Review of systems; denies any headache, shortness of breath, coughing, chest pain, hemoptysis. Any abdominal pain, nausea vomiting. Any diarrhea. General exam; elderly male, currently no distress. Laying comfortably in bed. Requesting Provider: RENE VAZQUEZ DO Date/Time of Note DATE: 09/14/18 TIME: 09:24 24 HR Interval Summary Free Text/Dictation Patient's condition is stable. Remains completely awake and alert. Denies any shortness of breath, chest pain, fever, chills, or any other constitutional symptoms. General exam; elderly male, awake alert, currently in no distress. Exam/Review of Systems Exam Vitals Vital Signs Date Temp Pulse Resp B/P (MAP) Pulse Ox O2 O2 Flow FiO2 Time Delivery Rate 09/14/18 96 24 122/60 100 Nasal 2.0 09:00 (80) Cannula 09/14/18 98.2 08:00 09/12/18 27 07:33 Intake and Output 09/13/18 09/13/18 09/14/18 1515:00 23:00 07:00 IntakeIntake Total 680 ml 640 ml 500 ml OutputOutput Total 800 ml 880 ml 815 ml BalanceBalance -120 ml -240 ml -315 ml Exam HEENT exam; supple neck, no JVD. No lymphadenopathy. Midline trachea. No thyromegaly. Patient is edentulous. No neck masses. Chest exam; diminished breath sounds bilaterally. S1-S2 audible, no murmurs. Irregular rhythm. Abdomen exam; soft, nontender. No organomegaly. Bowel sounds audible. Extremity exam; no peripheral edema clubbing. Patient has a patchy ecchymosis. WAIST CUTTER exam; no focal deficit. Results Result Diagram: 09/14/18 0430 09/14/18 0430 Results 24hrs Laboratory Tests Test 09/13/18 12:28 09/13/18 18:03 09/13/18 20:46 09/14/18 04:30 Bedside Glucose 123 219 182 White Blood Count 0.7 #L Red Blood Count 2.64 L Hemoglobin 7.5 L Hematocrit 23.9 L Mean Corpuscular Volume 90.5 Mean Corpuscular 28.4 L Hemoglobin Mean Corpuscular 31.4 L Hemoglobin Concent Red Cell Distribution 17.7 H Width Platelet Count 34 #L Mean Platelet Volume 11.5 H Immature Granulocytes % 5.500 H Neutrophils % Lymphocytes % Monocytes % Eosinophils % Basophils % Nucleated Red Blood 0.0 Cells % Immature Granulocytes # 0.040 H Neutrophils # Lymphocytes # Monocytes # Eosinophils # Basophils # Nucleated Red Blood Cells # Absolute Reticulocyte 0.004 L Count Percent Reticulocyte 0.2 L Count Sodium Level 138 Potassium Level 3.9 Chloride Level 110 Carbon Dioxide Level 20 L Anion Gap 8 Blood Urea Nitrogen 53 H Creatinine 1.98 H Est Glomerular Filtrat Rate mL/min Glucose Level 77 # Uric Acid 7.4 Calcium Level 8.4 Phosphorus Level 3.4 Magnesium Level 1.7 Ferritin Pending Lactate Dehydrogenase 414 Vitamin B12 Level Pending Folate > 20.0 H Thyroid Stimulating 1.230 Hormone (TSH) Digoxin Level 0.6 L Test 09/14/18 08:28 09/14/18 08:44 Bedside Glucose 71 80 Medications Medication Current Medications IV Flush (NS 3 ml) 3 ml PER PROTOCOL IV ; Start 09/10/18 at 06:30 Ondansetron HCl (Zofran Inj) 4 mg Q6H PRN IV NAUSEA/VOMITING; Start 09/10/18 at 06:30 Acetaminophen (Tylenol Supp) 650 mg Q6H PRN [place] .PAIN 1-3 OR TEMP; Start 09/10/18 at 06:30 Zolpidem Tartrate (Ambien) 5 mg QHS PRN PO .INSOMNIA; Start 09/10/18 at 06:30 Acetaminophen (Tylenol Tab) 650 mg Q4H PRN PO MILD PAIN(1-3)OR ELEVATED TEMP; Start 09/10/18 at 08:00 Ascorbic Acid (Vitamin C) 500 mg DAILY PO Last administered on 09/14/18at 08:35; Admin Dose 500 MG; Start 09/10/18 at 09:00 Diltiazem HCl (Cardizem) 60 mg Q6 PO Last administered on 09/14/18at 05:56; Admin Dose 60 MG; Start 09/10/18 at 12:00 Docusate Sodium (Colace) 200 mg DAILY PRN PO CONSTIPATION; Start 09/10/18 at 08:00 Ferrous Sulfate (Ferrous Sulfate (Ec)) 325 mg DAILY PO Last administered on 09/14/18at 08:35; Admin Dose 325 MG; Start 09/10/18 at 09:00 Fluoxetine HCl (Prozac) 20 mg DAILY PO Last administered on 09/14/18at 08:34; Admin Dose 20 MG; Start 09/10/18 at 09:00 Magnesium Hydroxide (Milk Of Mag) 30 ml Q24H PRN PO CONSTIPATION; Start 09/10/18 at 08:00 Memantine (Namenda) 5 mg DAILY PO Last administered on 09/14/18at 08:35; Admin Dose 5 MG; Start 09/10/18 at 09:00 Multivitamins Therapeutic (Theragran) 1 tab DAILY PO Last administered on 09/14/18at 08:34; Admin Dose 1 TAB; Start 09/10/18 at 09:00 Ondansetron HCl (Zofran Tab) 4 mg Q4H PRN PO NAUSEA AND/OR VOMITING; Start 09/10/18 at 08:00 Pantoprazole (Protonix Tab) 40 mg DAILY@0600 PO Last administered on 09/14/18at 05:55; Admin Dose 40 MG; Start 09/10/18 at 09:00 Prochlorperazine (Compazine) 5 mg Q6H PRN PO NAUSEA; Start 09/10/18 at 08:00 Senna (Senokot) 2 tab DAILY PRN PO CONSTIPATION; Start 09/10/18 at 08:00 Zinc Sulfate (Zinc Sulfate) 220 mg DAILY PO Last administered on 09/14/18at 08:34; Admin Dose 220 MG; Start 09/10/18 at 09:00 Miscellaneous Information 1 ea NOTE XX ; Start 09/10/18 at 08:00 Glucose (Glutose) 15 gm Q15M PRN PO DECREASED GLUCOSE; Start 09/10/18 at 08:00 Glucose (Glutose) 22.5 gm Q15M PRN PO DECREASED GLUCOSE; Start 09/10/18 at 08:00 Dextrose (D50w Syringe) 25 ml Q15M PRN IV DECREASED GLUCOSE; Start 09/10/18 at 08:00 Dextrose (D50w Syringe) 50 ml Q15M PRN IV DECREASED GLUCOSE; Start 09/10/18 at 08:00 Glucagon (Glucagen) 1 mg Q15M PRN IM DECREASED GLUCOSE; Start 09/10/18 at 08:00 Glucose (Glutose) 15 gm Q15M PRN BUCCAL DECREASED GLUCOSE; Start 09/10/18 at 08:00 Ertapenem 0.5 gm/ Sodium Chloride 100 ml @ 200 mls/hr Q24H IVPB Last administered on 09/13/18at 11:21; Admin Dose 200 MLS/HR; Start 09/11/18 at 11:00 Diagnostic Test (Pha) (Accu-Chek) 1 ea 02 XX Last administered on 09/14/18at 02:54; Admin Dose 1 EA; Start 09/11/18 at 02:00 Insulin Aspart (Novolog Insulin Pen) NOVOLOG *MODERATE* ALGORITHM WITH MEALS BEDTIME SC Last administered on 09/13/18at 20:48; Admin Dose 1 UNIT; Start 09/10/18 at 22:30 Apixaban (Eliquis) 2.5 mg BID PO Last administered on 09/11/18at 17:55; Admin Dose 2.5 MG; Start 09/11/18 at 18:00; Status Hold Insulin Glargine (Lantus) 16 units QHS SC Last administered on 09/13/18at 20:58; Admin Dose 16 UNITS; Start 09/13/18 at 21:00 Linagliptin (Tradjenta) 5 mg DAILY PO Last administered on 09/14/18at 08:35; Admin Dose 5 MG; Start 09/14/18 at 09:00 Diagnostic Test (Pha) (Accu-Chek) 1 ea AC MEALS AND BEDTIME XX ; Start 09/14/18 at 11:00 SWETA ROBBINS Sep 14, 2018 09:26
[2018-09-14] MEDS: ERTAPENEM SODIUM 0.5 GM in SOD CHLORIDE 0.9% 100 ML IVPB SCH (11:08)
--- NOTE | 2018-09-14 13:06 | CONS ---
Assessment/Plan Assessment/Plan Hospital Course (Demo Recall) All noted, no acute events per discussion with RN, patient is awaiting for telemetry bed he is lying comfortably in bed, no fevers. WBC today 0.7 H&H 7.5 and 23.9 platelets 34 BUN 53 creatinine 1.98 Chest x-ray 09/13/18 revealed cardiomegaly with stable bilateral airspace disease and right pleural effusion Microbiology: All cultures negative Indwelling: Left chest Port-A-Cath Antimicrobials: Invanz Physical examination: Well-developed chronically ill-appearing elderly man in no distress. Head atraumatic normocephalic sclera nonicteric. Neck is supple chest rise symmetrical breath sounds diminished bases. Heart: S1-S2. Abdomen soft bowel sounds present assessment Assessment: 1. S/p septic shock, possibly cardiogenic, patient is off pressors 2. Acute renal failure 3. Urinary tract infection as per urinalysis 4. Mesothelioma with metastasis, patient is getting chemotherapy outpatient 5. Atrial fibrillation 6. Possible pneumonia 7. Pancytopenia Plan: Patient remained stable, completing antibiotics, consider oncology evaluation, patient may need Neupogen Consultation Date/Type/Reason Admit Date/Time Sep 09, 2018 at 22:52 Initial Consult Date Type of Consult id Requesting Provider: RENE VAZQUEZ DO Date/Time of Note DATE: 09/14/18 TIME: 13:04 Exam/Review of Systems Exam Vitals Vital Signs Date Temp Pulse Resp B/P (MAP) Pulse Ox O2 O2 Flow FiO2 Time Delivery Rate 09/14/18 93 12:00 09/14/18 22 103/65 100 Nasal 2.0 11:00 (78) Cannula 09/14/18 98.2 08:00 09/12/18 27 07:33 Intake and Output 09/13/18 09/13/18 09/14/18 1515:00 23:00 07:00 IntakeIntake Total 680 ml 640 ml 500 ml OutputOutput Total 800 ml 880 ml 815 ml BalanceBalance -120 ml -240 ml -315 ml Results Result Diagram: 09/14/18 0430 09/14/18 0430 Results 24hrs Laboratory Tests Test 09/13/18 18:03 09/13/18 20:46 09/14/18 04:30 09/14/18 08:28 Bedside Glucose 219 182 71 White Blood Count 0.7 #L Red Blood Count 2.64 L Hemoglobin 7.5 L Hematocrit 23.9 L Mean Corpuscular 90.5 Volume Mean Corpuscular 28.4 L Hemoglobin Mean Corpuscular 31.4 L Hemoglobin Concent Red Cell Distribution 17.7 H Width Platelet Count 34 #L Mean Platelet Volume 11.5 H Immature Granulocytes 5.500 H % Neutrophils % Segmented Neutrophils 53 % (Manual) Lymphocytes % Lymphocytes % 43 (Manual) Monocytes % Monocytes % (Manual) 3 Eosinophils % Eosinophils % 1 (Manual) Basophils % Nucleated Red Blood 0.0 Cells % Immature Granulocytes 0.040 H # Neutrophils # Lymphocytes (Manual) 0.3 L Lymphocytes # Monocytes # Monocytes # (Manual) 0.0 L Eosinophils # Basophils # Nucleated Red Blood Cells # Pathologist Y Review (Hematology) Platelet Estimate SIG DECREASED Polychromasia 1+ Poikilocytosis 1+ Anisocytosis 1+ Absolute Reticulocyte 0.004 L Count Percent Reticulocyte 0.2 L Count Sodium Level 138 Potassium Level 3.9 Chloride Level 110 Carbon Dioxide Level 20 L Anion Gap 8 Blood Urea Nitrogen 53 H Creatinine 1.98 H Est Glomerular Filtrat Rate mL/min Glucose Level 77 # Uric Acid 7.4 Calcium Level 8.4 Phosphorus Level 3.4 Magnesium Level 1.7 Iron Level 139 Total Iron Binding 192 L Capacity Percent Iron 72 H Saturation Ferritin 983.0 H Lactate Dehydrogenase 414 Vitamin B12 Level 805 Folate > 20.0 H Thyroid Stimulating 1.230 Hormone (TSH) Digoxin Level 0.6 L Test 09/14/18 08:44 09/14/18 12:00 Bedside Glucose 80 190 Medications Medication Current Medications IV Flush (NS 3 ml) 3 ml PER PROTOCOL IV ; Start 09/10/18 at 06:30 Ondansetron HCl (Zofran Inj) 4 mg Q6H PRN IV NAUSEA/VOMITING; Start 09/10/18 at 06:30 Acetaminophen (Tylenol Supp) 650 mg Q6H PRN [place] .PAIN 1-3 OR TEMP; Start 09/10/18 at 06:30 Zolpidem Tartrate (Ambien) 5 mg QHS PRN PO .INSOMNIA; Start 09/10/18 at 06:30 Acetaminophen (Tylenol Tab) 650 mg Q4H PRN PO MILD PAIN(1-3)OR ELEVATED TEMP; Start 09/10/18 at 08:00 Ascorbic Acid (Vitamin C) 500 mg DAILY PO Last administered on 09/14/18 08:35; Admin Dose 500 MG; Start 09/10/18 at 09:00 Diltiazem HCl (Cardizem) 60 mg Q6 PO Last administered on 09/14/18 12:01; Admin Dose 60 MG; Start 09/10/18 at 12:00 Docusate Sodium (Colace) 200 mg DAILY PRN PO CONSTIPATION; Start 09/10/18 at 08:00 Ferrous Sulfate (Ferrous Sulfate (Ec)) 325 mg DAILY PO Last administered on 09/14/18 08:35; Admin Dose 325 MG; Start 09/10/18 at 09:00 Fluoxetine HCl (Prozac) 20 mg DAILY PO Last administered on 09/14/18 08:34; Admin Dose 20 MG; Start 09/10/18 at 09:00 Magnesium Hydroxide (Milk Of Mag) 30 ml Q24H PRN PO CONSTIPATION; Start 09/10/18 at 08:00 Memantine (Namenda) 5 mg DAILY PO Last administered on 09/14/18 08:35; Admin Dose 5 MG; Start 09/10/18 at 09:00 Multivitamins Therapeutic (Theragran) 1 tab DAILY PO Last administered on 09/14/18 08:34; Admin Dose 1 TAB; Start 09/10/18 at 09:00 Ondansetron HCl (Zofran Tab) 4 mg Q4H PRN PO NAUSEA AND/OR VOMITING; Start 09/10/18 at 08:00 Pantoprazole (Protonix Tab) 40 mg DAILY@0600 PO Last administered on 09/14/18 05:55; Admin Dose 40 MG; Start 09/10/18 at 09:00 Prochlorperazine (Compazine) 5 mg Q6H PRN PO NAUSEA; Start 09/10/18 at 08:00 Senna (Senokot) 2 tab DAILY PRN PO CONSTIPATION; Start 09/10/18 at 08:00 Zinc Sulfate (Zinc Sulfate) 220 mg DAILY PO Last administered on 09/14/18 08:34; Admin Dose 220 MG; Start 09/10/18 at 09:00 Miscellaneous Information 1 ea NOTE XX ; Start 09/10/18 at 08:00 Glucose (Glutose) 15 gm Q15M PRN PO DECREASED GLUCOSE; Start 09/10/18 at 08:00 Glucose (Glutose) 22.5 gm Q15M PRN PO DECREASED GLUCOSE; Start 09/10/18 at 08:00 Dextrose (D50w Syringe) 25 ml Q15M PRN IV DECREASED GLUCOSE; Start 09/10/18 at 08:00 Dextrose (D50w Syringe) 50 ml Q15M PRN IV DECREASED GLUCOSE; Start 09/10/18 at 08:00 Glucagon (Glucagen) 1 mg Q15M PRN IM DECREASED GLUCOSE; Start 09/10/18 at 08:00 Glucose (Glutose) 15 gm Q15M PRN BUCCAL DECREASED GLUCOSE; Start 09/10/18 at 08:00 Ertapenem 0.5 gm/ Sodium Chloride 100 ml @ 200 mls/hr Q24H IVPB Last administered on 09/14/18 11:08; Admin Dose 200 MLS/HR; Start 09/11/18 at 11:00 Diagnostic Test (Pha) (Accu-Chek) 1 ea 02 XX Last administered on 09/14/18 02:54; Admin Dose 1 EA; Start 09/11/18 at 02:00 Insulin Aspart (Novolog Insulin Pen) NOVOLOG *MODERATE* ALGORITHM WITH MEALS BEDTIME SC Last administered on 09/14/18 12:02; Admin Dose 4 UNIT; Start 09/10/18 at 22:30 Apixaban (Eliquis) 2.5 mg BID PO Last administered on 09/11/18 17:55; Admin Dose 2.5 MG; Start 09/11/18 at 18:00; Status Hold Insulin Glargine (Lantus) 16 units QHS SC Last administered on 09/13/18 20:58; Admin Dose 16 UNITS; Start 09/13/18 at 21:00 Linagliptin (Tradjenta) 5 mg DAILY PO Last administered on 09/14/18 08:35; Admin Dose 5 MG; Start 09/14/18 at 09:00 Diagnostic Test (Pha) (Accu-Chek) 1 ea AC MEALS AND BEDTIME XX Last administered on 09/14/18 11:12; Admin Dose 1 EA; Start 09/14/18 at 11:00 CARMEN ALEGRIA NP Sep 14, 2018 13:06
[2018-09-14] MEDS: MEGESTROL (40 MG/ML) 10ML CUP PO SCH (21:08)
[2018-09-14] MEDS: INSULIN GLARGINE [LANTus] (100 UNITS/ML) SYG SC SCH (21:18)
--- NOTE | 2018-09-14 23:01 | CONS ---
Assessment/Plan Assessment/Plan Hospital Course (Demo Recall) Severe anemia and thrombocytopenia. ? 2 TO CHEMO COMPLETE W-UP PER ORDERS MONITOR BLOOD COUNT CLOSELY OBSERVE FOR BLEEDING AND HEMOLYSIS AVOID MYELOSUPPRESSIVE MEDS LEUKOPENIA IN PT WITH SEPSPIS START NEUPOGEN MONITOR COUNT CLOSELY History of mesothelioma likely with right-sided involvement. INCOMPLETE RECORD WILL TRY TO OBTAIN OUTPT RECORD Sepsis , UTI CONT antimicrobial regimen. Acute renal injury possibly with some element of baseline renal insufficiency. Serum creatinine improving. Improving hypotension. Chronic atrial fibrillation. Hyperkalemia: due to ARF and lactic acidosis (sepsis) History of hypertension. History of diabetes. Generalized weakness Consultation Date/Type/Reason Admit Date/Time Sep 09, 2018 at 22:52 Initial Consult Date 09/13/18 Type of Consult [facility] Requesting Provider: RENE VAZQUEZ DO Date/Time of Note DATE: 09/14/18 TIME: 22:58 24 HR Interval Summary Free Text/Dictation all noted transferred to tele Exam/Review of Systems Exam Vitals Vital Signs Date Temp Pulse Resp B/P (MAP) Pulse Ox O2 O2 Flow FiO2 Time Delivery Rate 09/14/18 98.5 85 20 117/57 90 20:34 (77) 09/14/18 Room Air 17:00 09/14/18 2.0 11:00 09/12/18 27 07:33 Intake and Output 09/13/18 09/13/18 09/14/18 1515:00 23:00 07:00 IntakeIntake Total 680 ml 640 ml 500 ml OutputOutput Total 800 ml 880 ml 815 ml BalanceBalance -120 ml -240 ml -315 ml Exam Const: No acute distress, nontoxic Head: Atraumatic Eyes: Normal Conjunctiva ENT: Dry mucous membranes Neck: Full range of motion. No meningismus. Resp: Clear to auscultation bilaterally Chest wall: Right upper chest surgical scar, well healing. Left upper chest surgical scar from new pacemaker, well-healing Cardio: irregularly irregular rhythm with normal rate, no murmurs Abd: Soft, non tender, non distended. Normal bowel sounds Skin: No petechiae or rashes Back: No midline or flank tenderness Ext: No cyanosis, or edema Neur: Awake and alert, moving all extremities, normal speech, no facial asymmetry Psych: Depressed mood Results Result Diagram: 09/14/18 0430 09/14/18 0430 Results 24hrs Laboratory Tests Test 09/14/18 04:30 09/14/18 08:28 09/14/18 08:44 09/14/18 12:00 White Blood Count 0.7 #L Red Blood Count 2.64 L Hemoglobin 7.5 L Hematocrit 23.9 L Mean Corpuscular 90.5 Volume Mean Corpuscular 28.4 L Hemoglobin Mean Corpuscular 31.4 L Hemoglobin Concent Red Cell Distribution 17.7 H Width Platelet Count 34 #L Mean Platelet Volume 11.5 H Immature Granulocytes 5.500 H % Neutrophils % Segmented Neutrophils 53 % (Manual) Lymphocytes % Lymphocytes % 43 (Manual) Monocytes % Monocytes % (Manual) 3 Eosinophils % Eosinophils % 1 (Manual) Basophils % Nucleated Red Blood 0.0 Cells % Immature Granulocytes 0.040 H # Neutrophils # Lymphocytes (Manual) 0.3 L Lymphocytes # Monocytes # Monocytes # (Manual) 0.0 L Eosinophils # Basophils # Nucleated Red Blood Cells # Pathologist Y Review (Hematology) Platelet Estimate SIG DECREASED Polychromasia 1+ Poikilocytosis 1+ Anisocytosis 1+ Absolute Reticulocyte 0.004 L Count Percent Reticulocyte 0.2 L Count Sodium Level 138 Potassium Level 3.9 Chloride Level 110 Carbon Dioxide Level 20 L Anion Gap 8 Blood Urea Nitrogen 53 H Creatinine 1.98 H Est Glomerular Filtrat Rate mL/min Glucose Level 77 # Uric Acid 7.4 Calcium Level 8.4 Phosphorus Level 3.4 Magnesium Level 1.7 Iron Level 139 Total Iron Binding 192 L Capacity Percent Iron 72 H Saturation Ferritin 983.0 H Lactate Dehydrogenase 414 Vitamin B12 Level 805 Folate > 20.0 H Thyroid Stimulating 1.230 Hormone (TSH) Digoxin Level 0.6 L Bedside Glucose 71 80 190 Test 09/14/18 17:09 09/14/18 21:03 Bedside Glucose 109 113 Medications Medication Current Medications IV Flush (NS 3 ml) 3 ml PER PROTOCOL IV ; Start 09/10/18 at 06:30 Ondansetron HCl (Zofran Inj) 4 mg Q6H PRN IV NAUSEA/VOMITING; Start 09/10/18 at 06:30 Acetaminophen (Tylenol Supp) 650 mg Q6H PRN [place] .PAIN 1-3 OR TEMP; Start 09/10/18 at 06:30 Zolpidem Tartrate (Ambien) 5 mg QHS PRN PO .INSOMNIA; Start 09/10/18 at 06:30 Acetaminophen (Tylenol Tab) 650 mg Q4H PRN PO MILD PAIN(1-3)OR ELEVATED TEMP; Start 09/10/18 at 08:00 Ascorbic Acid (Vitamin C) 500 mg DAILY PO Last administered on 09/14/18 08:35; Admin Dose 500 MG; Start 09/10/18 at 09:00 Diltiazem HCl (Cardizem) 60 mg Q6 PO Last administered on 09/14/18 17:50; Admin Dose 60 MG; Start 09/10/18 at 12:00 Docusate Sodium (Colace) 200 mg DAILY PRN PO CONSTIPATION; Start 09/10/18 at 08:00 Ferrous Sulfate (Ferrous Sulfate (Ec)) 325 mg DAILY PO Last administered on 09/14/18 08:35; Admin Dose 325 MG; Start 09/10/18 at 09:00 Fluoxetine HCl (Prozac) 20 mg DAILY PO Last administered on 09/14/18 08:34; Adm in Dose 20 MG; Start 09/10/18 at 09:00 Magnesium Hydroxide (Milk Of Mag) 30 ml Q24H PRN PO CONSTIPATION; Start 09/10/18 at 08:00 Memantine (Namenda) 5 mg DAILY PO Last administered on 09/14/18 08:35; Admin Dose 5 MG; Start 09/10/18 at 09:00 Multivitamins Therapeutic (Theragran) 1 tab DAILY PO Last administered on 09/14/18 08:34; Admin Dose 1 TAB; Start 09/10/18 at 09:00 Ondansetron HCl (Zofran Tab) 4 mg Q4H PRN PO NAUSEA AND/OR VOMITING; Start 09/10/18 at 08:00 Pantoprazole (Protonix Tab) 40 mg DAILY@0600 PO Last administered on 09/14/18 05:55; Admin Dose 40 MG; Start 09/10/18 at 09:00 Prochlorperazine (Compazine) 5 mg Q6H PRN PO NAUSEA; Start 09/10/18 at 08:00 Senna (Senokot) 2 tab DAILY PRN PO CONSTIPATION; Start 09/10/18 at 08:00 Zinc Sulfate (Zinc Sulfate) 220 mg DAILY PO Last administered on 09/14/18 08:34; Admin Dose 220 MG; Start 09/10/18 at 09:00 Miscellaneous Information 1 ea NOTE XX ; Start 09/10/18 at 08:00 Glucose (Glutose) 15 gm Q15M PRN PO DECREASED GLUCOSE; Start 09/10/18 at 08:00 Glucose (Glutose) 22.5 gm Q15M PRN PO DECREASED GLUCOSE; Start 09/10/18 at 08:00 Dextrose (D50w Syringe) 25 ml Q15M PRN IV DECREASED GLUCOSE; Start 09/10/18 at 08:00 Dextrose (D50w Syringe) 50 ml Q15M PRN IV DECREASED GLUCOSE; Start 09/10/18 at 08:00 Glucagon (Glucagen) 1 mg Q15M PRN IM DECREASED GLUCOSE; Start 09/10/18 at 08:00 Glucose (Glutose) 15 gm Q15M PRN BUCCAL DECREASED GLUCOSE; Start 09/10/18 at 08:00 Ertapenem 0.5 gm/ Sodium Chloride 100 ml @ 200 mls/hr Q24H IVPB Last admini stered on 09/14/18at 11:08; Admin Dose 200 MLS/HR; Start 09/11/18 at 11:00 Diagnostic Test (Pha) (Accu-Chek) 1 ea 02 XX Last administered on 09/14/18 02:54; Admin Dose 1 EA; Start 09/11/18 at 02:00 Insulin Aspart (Novolog Insulin Pen) NOVOLOG *MODERATE* ALGORITHM WITH MEALS BEDTIME SC Last administered on 09/14/18 12:02; Admin Dose 4 UNIT; Start 09/10/18 at 22:30 Apixaban (Eliquis) 2.5 mg BID PO Last administered on 09/11/18 17:55; Admin Dose 2.5 MG; Start 09/11/18 at 18:00; Status Hold Insulin Glargine (Lantus) 16 units QHS SC Last administered on 09/14/18 21:18; Admin Dose 16 UNITS; Start 09/13/18 at 21:00 Linagliptin (Tradjenta) 5 mg DAILY PO Last administered on 09/14/18 08:35; Admin Dose 5 MG; Start 09/14/18 at 09:00 Diagnostic Test (Pha) (Accu-Chek) 1 ea AC MEALS AND BEDTIME XX Last administered on 3/6/19at 21:19; Admin Dose 1 EA; Start 09/14/18 at 11:00 Megestrol Acetate (Megace Susp) 1,250 mg BID PO Last administered on 09/14/18at 21:08; Admin Dose 1,250 MG; Start 09/14/18 at 21:00 ISABELLE JARVIS MD Sep 14, 2018 23:01
[2018-09-15] VITALS (12 sets, daily range): BP systolic 97–126; BP diastolic 54–61; PULSE 59–117; RESP 18–22
[2018-09-15] MEDS: DILTIAZEM 60 MG TAB PO SCH ×4 (00:39→17:28)
[2018-09-15] MEDS: FILGRASTIM 300 MCG INJ SC SCH ×2 (00:40→17:25)
[2018-09-15] MEDS: ACCU-CHEK XX SCH ×5 (02:00→21:00)
[2018-09-15] MEDS: PANTOPRAZOLE (EC) 40 MG TAB PO SCH (05:32)
[2018-09-15] MEDS: INSULIN ASPART [NOVOLOG] 3 ML PEN SC SCH ×4 (07:31→21:00)
[2018-09-15] MEDS ORDERED: POTASSIUM CHLORIDE (SR) 20 MEQ TAB PO STA (08:10)
--- NOTE | 2018-09-15 08:13 | CONS ---
Consult Date/Type/Reason Admit Date/Time Sep 09, 2018 at 22:52 Initial Consult Date 09/12/18 Type of Consultation: CV Requesting Provider: RENE VAZQUEZ DO Date/Time of Note DATE: 09/15/18 TIME: 08:11 Subjective Cardiology follow-up progress note Subjective: Discussed with staff and telemetry was reviewed. Patient remains in atrial fibrillation. HR is under kiki control between 90-low 100s He is on tele and out of ICU now Patient denies any chest pain or pressure to me He denies any active bleeding to me Objective: General: Elderly gentleman in no acute distress HEENT: NC/AT. pupils are equal. round. NECK: NO JVD. no stridor. CV: Irregularly irregular. systolic murmur; no gallop or rubs. PULM: no wheezing + rhonchi. GI: SOFT, NT, ND, no rebound or guarding Extremity: trace B/L LE edema. no clubbing. neuro: awake and alert, OX2. Psych: calm and pleasant rectal: deferred : normal Echocardiogram was personally reviewed which shows: Normal left ventricular cavity size. Possibly mild left ventricular systolic dysfunction. . Moderate concentric left ventricular hypertrophy. The left ventricle is not well visualized in the apical views, parasternal and subcostal only. The left ventricular ejection fraction is visually estimated at 60 %. Normal appearance of the mitral valve leaflets. The mitral valve is not well visualized. Mild mitral regurgitation, but only seen from parasternal window. The aortic valve is not well visualized. No hemodynamically significant aortic stenosis by Doppler. Aortic cusps appear mildly calcified. No aortic regurgitation. Normal appearance of the tricuspid valve. No evidence of tricuspid regurgitation. Upper limit of normal left atrial size. Objective Vitals Vital Signs Date Temp Pulse Resp B/P (MAP) Pulse Ox O2 O2 Flow FiO2 Time Delivery Rate 09/15/18 98.2 94 20 97/61 (73) 95 Room Air 07:09 09/14/18 2.0 22:00 09/12/18 27 07:33 Intake and Output 09/14/18 09/14/18 09/15/18 1515:00 23:00 07:00 IntakeIntake Total 1028 ml 200 ml 400 ml OutputOutput Total 430 ml 400 ml BalanceBalance 598 ml -200 ml 400 ml Results/Medications Result Diagram: 09/15/18 0629 09/15/18 0629 Results 24 hrs Laboratory Tests Test 09/14/18 08:28 09/14/18 08:44 09/14/18 12:00 09/14/18 17:09 Bedside Glucose 71 80 190 109 Test 09/14/18 21:03 09/15/18 06:29 09/15/18 07:31 Bedside Glucose 113 55 L White Blood Count 0.5 #L Red Blood Count 3.04 L Hemoglobin 8.6 L Hematocrit 26.9 L Mean Corpuscular Volume 88.5 Mean Corpuscular 28.3 L Hemoglobin Mean Corpuscular 32.0 Hemoglobin Concent Red Cell Distribution 17.3 H Width Platelet Count 26 #*L Mean Platelet Volume Immature Granulocytes % 2.100 H Neutrophils % Lymphocytes % Monocytes % Eosinophils % Basophils % Nucleated Red Blood 0.0 Cells % Immature Granulocytes # 0.010 Neutrophils # Lymphocytes # Monocytes # Eosinophils # Basophils # Nucleated Red Blood Cells # Sodium Level 139 Potassium Level 3.4 L Chloride Level 107 Carbon Dioxide Level 20 L Anion Gap 12 Blood Urea Nitrogen 50 H Creatinine 2.00 H Est Glomerular Filtrat Rate mL/min Glucose Level 48 #*L Calcium Level 9.0 Phosphorus Level 3.9 Magnesium Level 1.8 Home Meds Reported Medications Ondansetron Hcl* (Ondansetron Hcl*) 4 Mg Tablet, 4 MG PO Q4H PRN for NAUSEA AND OR VOMITING, TAB 09/09/18 Zinc Sulfate* (Zinc Sulfate*) 220 Mg Cap, 220 MG PO DAILY, CAP 09/09/18 Ascorbic Acid* (Vitamin C*) 500 Mg Capsule.sa, 500 MG PO DAILY, CAP 09/09/18 Cran/Vitc/Mannose/Inulin/Brom (Uti-Stat Liquid) 3,875 Mg/30 Ml Liquid, 3875 MG PO DAILY 09/09/18 Acetaminophen* (Acetaminophen*) 650 Mg Tablet, 650 MG PO Q4 PRN for PAIN AND OR ELEVATED TEMP, #30 TAB 09/09/18 Sennosides* (Senna Lax*) 8.6 Mg Tablet, 2 TAB PO DAILY PRN for CONSTIPATION, TAB 09/09/18 Fluoxetine Hcl* (Prozac*) 20 Mg Capsule, 20 MG PO DAILY, CAP 09/09/18 Pantoprazole* (Protonix*) 40 Mg Tablet.dr, 40 MG PO DAILY, TAB 09/09/18 Prochlorperazine* (Prochlorperazine*) 5 Mg Tablet, 5 MG PO Q6 PRN for NAUSEA, TAB 09/09/18 Memantine* (Namenda*) 5 Mg Tablet, 5 MG PO DAILY, #30 TAB 09/09/18 Multivitamins* (Theragran*) 1 Tab Tab, 1 TAB PO DAILY, TAB 09/09/18 Magnesium Hydroxide* (Milk Of Magnesia*) 400 Mg/5 Ml Oral.susp, 30 ML PO Q24H PRN for CONSTIPATION, ML 09/09/18 Megestrol Acetate* (Megace ES*) 625 Mg/5 Ml Oral.susp, 10 ML PO BID, ML 09/09/18 Insulin Glargine* (Lantus*) 100 Unit/Ml Soln, 12 UNIT SC QHS, #1 VIAL 09/09/18 Ferrous Sulfate* (Ferrous Sulfate*) 325 Mg Tabec, 325 MG PO DAILY, TAB 09/09/18 Diltiazem Hcl* (Cardizem SR*) 60 Mg Capsr, 60 MG PO Q6, #60 CAP HOLD IF SBP BELOW 110 OR HR BELOW 60 09/09/18 Cranberry (Cranberry) 400 Mg Capsule, 400 MG PO DAILY, CAP 09/09/18 Docusate Sodium* (Colace*) 100 Mg Capsule, 200 MG PO DAILY PRN for CONSTIPATION, #30 CAP 09/09/18 Bisoprolol Fumarate* (Bisoprolol Fumarate*) 5 Mg Tablet, 5 MG PO DAILY, TAB HOLD IF SBP IS BELOW 110 OR HR BELOW 60 09/09/18 Medications Current Medications IV Flush (NS 3 ml) 3 ml PER PROTOCOL IV ; Start 09/10/18 at 06:30 Ondansetron HCl (Zofran Inj) 4 mg Q6H PRN IV NAUSEA/VOMITING; Start 09/10/18 at 06:30 Acetaminophen (Tylenol Supp) 650 mg Q6H PRN [place] .PAIN 1-3 OR TEMP; Start 09/10/18 at 06:30 Zolpidem Tartrate (Ambien) 5 mg QHS PRN PO .INSOMNIA; Start 09/10/18 at 06:30 Acetaminophen (Tylenol Tab) 650 mg Q4H PRN PO MILD PAIN(1-3)OR ELEVATED TEMP; Start 09/10/18 at 08:00 Ascorbic Acid (Vitamin C) 500 mg DAILY PO Last administered on 09/14/18 08:35; Admin Dose 500 MG; Start 09/10/18 at 09:00 Diltiazem HCl (Cardizem) 60 mg Q6 PO Last administered on 09/15/18 05:33; Admin Dose 60 MG; Start 09/10/18 at 12:00 Docusate Sodium (Colace) 200 mg DAILY PRN PO CONSTIPATION; Start 09/10/18 at 08:00 Ferrous Sulfate (Ferrous Sulfate (Ec)) 325 mg DAILY PO Last administered on 09/14/18 08:35; Admin Dose 325 MG; Start 09/10/18 at 09:00 Fluoxetine HCl (Prozac) 20 mg DAILY PO Last administered on 09/14/18 08:34; Admin Dose 20 MG; Start 09/10/18 at 09:00 Magnesium Hydroxide (Milk Of Mag) 30 ml Q24H PRN PO CONSTIPATION; Start 09/10/18 at 08:00 Memantine (Namenda) 5 mg DAILY PO Last administered on 09/14/18 08:35; Admin Dose 5 MG; Start 09/10/18 at 09:00 Multivitamins Therapeutic (Theragran) 1 tab DAILY PO Last administered on 09/14/18 08:34; Admin Dose 1 TAB; Start 09/10/18 at 09:00 Ondansetron HCl (Zofran Tab) 4 mg Q4H PRN PO NAUSEA AND/OR VOMITING; Start 09/10/18 at 08:00 Pantoprazole (Protonix Tab) 40 mg DAILY@0600 PO Last administered on 09/15/18 05:32; Admin Dose 40 MG; Start 09/10/18 at 09:00 Prochlorperazine (Compazine) 5 mg Q6H PRN PO NAUSEA; Start 09/10/18 at 08:00 Senna (Senokot) 2 tab DAILY PRN PO CONSTIPATION; Start 09/10/18 at 08:00 Zinc Sulfate (Zinc Sulfate) 220 mg DAILY PO Last administered on 09/14/18 08:34; Admin Dose 220 MG; Start 09/10/18 at 09:00 Miscellaneous Information 1 ea NOTE XX ; Start 09/10/18 at 08:00 Glucose (Glutose) 15 gm Q15M PRN PO DECREASED GLUCOSE; Start 09/10/18 at 08:00 Glucose (Glutose) 22.5 gm Q15M PRN PO DECREASED GLUCOSE; Start 09/10/18 at 08:00 Dextrose (D50w Syringe) 25 ml Q15M PRN IV DECREASED GLUCOSE; Start 09/10/18 at 08:00 Dextrose (D50w Syringe) 50 ml Q15M PRN IV DECREASED GLUCOSE Last administered on 09/15/18 07:34; Admin Dose 50 ML; Start 09/10/18 at 08:00 Glucagon (Glucagen) 1 mg Q15M PRN IM DECREASED GLUCOSE; Start 09/10/18 at 08:00 Glucose (Glutose) 15 gm Q15M PRN BUCCAL DECREASED GLUCOSE; Start 09/10/18 at 08:00 Ertapenem 0.5 gm/ Sodium Chloride 100 ml @ 200 mls/hr Q24H IVPB Last administered on 09/14/18 11:08; Admin Dose 200 MLS/HR; Start 09/11/18 at 11:00 Diagnostic Test (Pha) (Accu-Chek) 1 ea 02 XX Last administered on 09/14/18 02:54; Admin Dose 1 EA; Start 09/11/18 at 02:00 Insulin Aspart (Novolog Insulin Pen) NOVOLOG *MODERATE* ALGORITHM WITH MEALS BEDTIME SC Last administered on 09/14/18 12:02; Admin Dose 4 UNIT; Start 09/10/18 at 22:30 Apixaban (Eliquis) 2.5 mg BID PO Last administered on 09/11/18 17:55; Admin Dose 2.5 MG; Start 09/11/18 at 18:00; Status Hold Linagliptin (Tradjenta) 5 mg DAILY PO Last administered on 09/14/18 08:35; Admin Dose 5 MG; Start 09/14/18 at 09:00 Diagnostic Test (Pha) (Accu-Chek) 1 ea AC MEALS AND BEDTIME XX Last administered on 09/15/18 07:31; Admin Dose 1 EA; Start 09/14/18 at 11:00 Megestrol Acetate (Megace Susp) 1,250 mg BID PO Last administered on 09/14/18 21:08; Admin Dose 1,250 MG; Start 3/6/19 at 21:00 Filgrastim (Neupogen) 300 mcg DAILY@17 SC Last administered on 09/15/18at 00:40; Admin Dose 300 MCG; Start 09/14/18 at 23:15 Dextrose/Sodium Chloride 500 ml @ 50 mls/hr Q10H IV ; Start 09/15/18 at 08:00 Insulin Glargine (Lantus) 4 units QHS SC ; Start 09/15/18 at 21:00; Status UNV Assessment/Plan Hospital Course (Demo Recall) 1. Atrial fibrillation rapid ventricular response: Currently HR is under c ontrol mostly 2. s/p Sepsis and shock 3. renal failure 4. Severe anemia 5. Thrombocytopenia 6. History of mesothelioma 7. Diabetes 8. Encephalopathy Recommendations: Eliquis is on hold due to severe anemia. Transfusion as needed dig prn as long as low dig level cont Cardizem po as needed Antibiotic management as per internal medicine Thank you for his referral. We will continue to follow along with you EMILIA BURCIAGA MD [facility] EMILIA BURCIAGA MD Sep 15, 2018 08:13
[2018-09-15] MEDS: DEXTROSE 5%-0.45% NACL 500 ML IV SCH ×2 (08:23→17:18)
[2018-09-15] MEDS: MEGESTROL (40 MG/ML) 10ML CUP PO SCH ×2 (08:47→21:46)
[2018-09-15] MEDS: FERROUS SULFATE (EC) 325 MG TAB PO SCH (08:47)
[2018-09-15] MEDS: FLUOXETINE 20 MG CAP PO SCH (08:48)
[2018-09-15] MEDS: MEMANTINE 5 MG TAB PO SCH (08:48)
[2018-09-15] MEDS: ZINC SULFATE 220 MG CAP PO SCH (08:48)
[2018-09-15] MEDS: MULTIVITAMINS THERAPEUTIC TAB PO SCH (08:48)
[2018-09-15] MEDS: ASCORBIC ACID 500 MG TAB PO SCH (08:48)
--- NOTE | 2018-09-15 08:49 | RADRPT ---
Vent Rate: 124 bpm RR Interval: 0 msec ND Interval: 0 msec QRS Duration: 82 msec QT Interval: 296 msec QTC Interval: 425 msec P-R-T [place]: 0 - 18 - 100 degrees Atrial flutter with variable AV block Nonspecific ST and T wave abnormality Abnormal ECG Electronically Signed By: Gael Herrmann
[2018-09-15] MEDS: LINAGLIPTIN 5 MG TABLET PO SCH (08:50)
--- NOTE | 2018-09-15 09:11 | PN ---
DATE: 09/15/2018 SUBJECTIVE: The patient was transferred from the intensive care unit to telemetry. Overnight, the p atient was noted to be hypoglycemic with a blood glucose level of 48. No other acute events noted. No hemoptysis, hematemesis or hematochezia. The patient this morning is alert and oriented x1 at [facility]. OBJECTIVE: VITAL SIGNS: Blood pressure 97/61, respirations 20, pulse 94, temperature 98.2. HEENT: Head is normocephalic. NECK: Supple. HEART: Regular rate. LUNGS: Show diminished breath sounds at the base. ABDOMEN: Soft, nontender to palpation without rebound or guarding. EXTREMITIES: Negative for clubbing, cyanosis, no edema. DERMATOLOGIC: No rashes. MUSCULOSKELETAL: No joint effusion. NEUROLOGIC: No change in exam. MEDICATIONS: Reviewed. LABORATORY DATA: Show sodium 139, potassium 2.4, chloride 107, bicarbonate 20, BUN 50, creatinine 2. 00, glucose level is 55. White count 0.5, hemoglobin 8.6, platelet count is 26. ASSESSMENT AND PLAN: 1. Sepsis, status post shock, etiology is felt to be secondary to urinary tract infection, possible pneumonia. The patient is currently completing antibiotic course. We will continue to monitor. Fol low up with Infectious Disease. 2. Atrial fibrillation, currently rate controlled. Continue medical management. Follow up with car diology. 3. Pancytopenia, neutropenia, possibly due to recent chemotherapy, gemcitabine. Appreciate oncology evaluation. The patient is receiving Neupogen. Continue to monitor. Follow up with hematology. 4. Anemia. Continue to monitor hemoglobin and hematocrit levels. 5. Mesothelioma with metastasis. The patient is currently receiving chemotherapy, last dose was 228 . Follow up with oncology for further recommendations. 6. Nonoliguric acute kidney injury on top of chronic kidney disease. Etiology of acute kidney injur y is secondary to hemodynamics. Renal function appears to be stabilizing around a creatinine of 2.0 mg/dL. We will continue current treatment plan, supportive care, renally dose all medicines. 7. Diabetes. The patient had episode of hypoglycemia. We will decrease the patient's long-acting L antus to 4 units at bedtime. The patient will be placed on a dextrose drip. We will monitor glucose levels closely. Consider a diabetic consult with endocrinology. 8. Acute encephalopathy, etiology is toxic metabolic. 9. History of depression. 10. Hyperkalemia. We will continue to monitor and replete. 11. Debility. We will place a physical therapy consult for evaluation. 12. Gastrointestinal and deep vein thrombosis prophylaxis. Dictated By: RENE VAZQUEZ DO NR/NTS Conf#: [id number] DID#: [id number] CC: REINA MANZANO MD; RENE VAZQUEZ DO;*EndCC*
[2018-09-15] MEDS: ERTAPENEM SODIUM 0.5 GM in SOD CHLORIDE 0.9% 100 ML IVPB SCH (10:46)
--- NOTE | 2018-09-15 11:08 | CONS ---
Consult Date/Type/Reason Admit Date/Time Sep 09, 2018 at 22:52 Initial Consult Date 09/13/18 Type of Consult Pulmonary Requesting Provider: RENE VAZQUEZ DO Date/Time of Note DATE: 09/15/18 TIME: 11:07 Subjective Patient remains awake alert no respiratory distress. Objective Vital Signs Date Temp Pulse Resp B/P (MAP) Pulse Ox O2 O2 Flow FiO2 Time Delivery Rate 09/15/18 98.4 59 20 118/55 95 Room Air 11:02 (76) 09/15/18 2.0 09:50 09/12/18 27 07:33 Intake and Output 09/14/18 09/14/18 09/15/18 1515:00 23:00 07:00 IntakeIntake Total 1028 ml 200 ml 400 ml OutputOutput Total 430 ml 400 ml BalanceBalance 598 ml -200 ml 400 ml Exam GENERAL: Well-nourished well-developed gentleman comfortable at rest VITAL SIGNS: per chart NECK: Supple. No JVD or lymphadenopathy. CARDIAC EXAM: S1, S2. No added sounds or murmurs. CHEST: clear bilaterally, No added sounds, rales or wheezes ABDOMEN: Soft, nontender. No guarding or rebound. EXTREMITIES: No cyanosis, clubbing or edema. NEUROLOGIC: Generalized weakness. No focal deficits. Vent Setting Fraction of Inspired Oxygen pe: 27 Results/Medications Result Diagram: 09/15/18 0629 09/15/18 0629 Results 24 hrs Laboratory Tests Test 09/14/18 12:00 09/14/18 17:09 09/14/18 21:03 09/15/18 05:45 Bedside Glucose 190 109 113 Stool Occult Blood NEGATIVE Test 09/15/18 06:29 09/15/18 07:31 09/15/18 08:46 White Blood Count 0.5 #L Red Blood Count 3.04 L Hemoglobin 8.6 L Hematocrit 26.9 L Mean Corpuscular 88.5 Volume Mean Corpuscular 28.3 L Hemoglobin Mean Corpuscular 32.0 Hemoglobin Concent Red Cell Distribution 17.3 H Width Platelet Count 26 #*L Mean Platelet Volume Immature Granulocytes 2.100 H % Neutrophils % Segmented Neutrophils 16 L % (Manual) Band Neutrophils % 7 H (Manual) Lymphocytes % Lymphocytes % 73 H (Manual) Monocytes % Monocytes % (Manual) 2 Eosinophils % Eosinophils % 1 (Manual) Basophils % Basophils % (Manual) 1 Nucleated Red Blood 0.0 Cells % Immature Granulocytes 0.010 # Neutrophils # Neutrophils # 0.1 L (Manual) Band Neutrophils # 0.0 Lymphocytes (Manual) 0.3 L Lymphocytes # Monocytes # Monocytes # (Manual) 0.0 L Eosinophils # Basophils # Basophils # (Manual) 0.0 Nucleated Red Blood Cells # Platelet Estimate SIG DECREASED Giant Platelets 1 H Polychromasia 1+ Hypochromasia 1+ Poikilocytosis 1+ Anisocytosis 1+ Microcytosis 1+ Spherocytes 1+ Sodium Level 139 Potassium Level 3.4 L Chloride Level 107 Carbon Dioxide Level 20 L Anion Gap 12 Blood Urea Nitrogen 50 H Creatinine 2.00 H Est Glomerular Filtrat Rate mL/min Glucose Level 48 #*L Calcium Level 9.0 Phosphorus Level 3.9 Magnesium Level 1.8 Bedside Glucose 55 L 170 Medications Current Medications IV Flush (NS 3 ml) 3 ml PER PROTOCOL IV ; Start 09/10/18 at 06:30 Ondansetron HCl (Zofran Inj) 4 mg Q6H PRN IV NAUSEA/VOMITING; Start 09/10/18 at 06:30 Acetaminophen (Tylenol Supp) 650 mg Q6H PRN [place] .PAIN 1-3 OR TEMP; Start 09/10/18 at 06:30 Zolpidem Tartrate (Ambien) 5 mg QHS PRN PO .INSOMNIA; Start 09/10/18 at 06:30 Acetaminophen (Tylenol Tab) 650 mg Q4H PRN PO MILD PAIN(1-3)OR ELEVATED TEMP; Start 09/10/18 at 08:00 Ascorbic Acid (Vitamin C) 500 mg DAILY PO Last administered on 09/15/18at 08:48; Admin Dose 500 MG; Start 09/10/18 at 09:00 Diltiazem HCl (Cardizem) 60 mg Q6 PO Last administered on 09/15/18at 05:33; Admin Dose 60 MG; Start 09/10/18 at 12:00 Docusate Sodium (Colace) 200 mg DAILY PRN PO CONSTIPATION; Start 09/10/18 at 08:00 Ferrous Sulfate (Ferrous Sulfate (Ec)) 325 mg DAILY PO Last administered on 09/15/18at 08:47; Admin Dose 325 MG; Start 09/10/18 at 09:00 Fluoxetine HCl (Prozac) 20 mg DAILY PO Last administered on 09/15/18at 08:48; Admin Dose 20 MG; Start 09/10/18 at 09:00 Magnesium Hydroxide (Milk Of Mag) 30 ml Q24H PRN PO CONSTIPATION; Start 09/10/18 at 08:00 Memantine (Namenda) 5 mg DAILY PO Last administered on 09/15/18at 08:48; Admin Dose 5 MG; Start 09/10/18 at 09:00 Multivitamins Therapeutic (Theragran) 1 tab DAILY PO Last administered on 09/15/18at 08:48; Admin Dose 1 TAB; Start 09/10/18 at 09:00 Ondansetron HCl (Zofran Tab) 4 mg Q4H PRN PO NAUSEA AND/OR VOMITING; Start 09/10/18 at 08:00 Pantoprazole (Protonix Tab) 40 mg DAILY@0600 PO Last administered on 09/15/18at 05:32; Admin Dose 40 MG; Start 09/10/18 at 09:00 Prochlorperazine (Compazine) 5 mg Q6H PRN PO NAUSEA; Start 09/10/18 at 08:00 Senna (Senokot) 2 tab DAILY PRN PO CONSTIPATION; Start 09/10/18 at 08:00 Zinc Sulfate (Zinc Sulfate) 220 mg DAILY PO Last administered on 09/15/18at 08:48; Admin Dose 220 MG; Start 09/10/18 at 09:00 Miscellaneous Information 1 ea NOTE XX ; Start 09/10/18 at 08:00 Glucose (Glutose) 15 gm Q15M PRN PO DECREASED GLUCOSE; Start 09/10/18 at 08:00 Glucose (Glutose) 22.5 gm Q15M PRN PO DECREASED GLUCOSE; Start 09/10/18 at 08:00 Dextrose (D50w Syringe) 25 ml Q15M PRN IV DECREASED GLUCOSE; Start 09/10/18 at 08:00 Dextrose (D50w Syringe) 50 ml Q15M PRN IV DECREASED GLUCOSE Last administered on 09/15/18at 07:34; Admin Dose 50 ML; Start 09/10/18 at 08:00 Glucagon (Glucagen) 1 mg Q15M PRN IM DECREASED GLUCOSE; Start 09/10/18 at 08:00 Glucose (Glutose) 15 gm Q15M PRN BUCCAL DECREASED GLUCOSE; Start 09/10/18 at 08:00 Ertapenem 0.5 gm/ Sodium Chloride 100 ml @ 200 mls/hr Q24H IVPB Last administered on 09/15/18 10:46; Admin Dose 200 MLS/HR; Start 09/11/18 at 11:00 Diagnostic Test (Pha) (Accu-Chek) 1 ea 02 XX Last administered on 09/14/18 02:54; Admin Dose 1 EA; Start 09/11/18 at 02:00 Insulin Aspart (Novolog Insulin Pen) NOVOLOG *MODERATE* ALGORITHM WITH MEALS BEDTIME SC Last administered on 09/14/18 12:02; Admin Dose 4 UNIT; Start 09/10/18 at 22:30 Apixaban (Eliquis) 2.5 mg BID PO Last administered on 09/11/18 17:55; Admin Dose 2.5 MG; Start 09/11/18 at 18:00; Status Hold Linagliptin (Tradjenta) 5 mg DAILY PO Last administered on 09/15/18 08:50; Admin Dose 5 MG; Start 09/14/18 at 09:00 Diagnostic Test (Pha) (Accu-Chek) 1 ea AC MEALS AND BEDTIME XX Last administered on 09/15/18 07:31; Admin Dose 1 EA; Start 09/14/18 at 11:00 Megestrol Acetate (Megace Susp) 1,250 mg BID PO Last administered on 09/15/18 08:47; Admin Dose 1,250 MG; Start 09/14/18 at 21:00 Filgrastim (Neupogen) 300 mcg DAILY@17 SC Last administered on 09/15/18 00:40; Admin Dose 300 MCG; Start 09/14/18 at 23:15 Dextrose/Sodium Chloride 500 ml @ 50 mls/hr Q10H IV Last administered on 09/15/18 08:23; Admin Dose 50 MLS/HR; Start 09/15/18 at 08:00 Insulin Glargine (Lantus) 4 units QHS SC ; Start 09/15/18 at 21:00 Assessment/Plan Hospital Course (Demo Recall) Assessment 1. Patient admitted with UTI and sepsis with hypotension with marked overall interval improvement. No hemodynamically stable 2. Acute on chronic renal injury with continually improving renal function. 3. Pancytopenia. 4. History of chronic atrial fibrillation. Rate is well controlled. Patient not on anticoagulants because of severe anemia and thrombocytopenia. 5. History of mesothelioma involving right lung. Plan 1. Continue antibiotics 2. Hematology oncology recommendations 3. Physical therapy as tolerated REINA MANZANO MD, [facility] Sep 15, 2018 11:08
--- NOTE | 2018-09-15 13:12 | CONS ---
Assessment/Plan Assessment/Plan Hospital Course (Demo Recall) No acute events overnight. Patient was transferred out of ICU he is in no distress and looks comfortable, no fevers overnight WBC 0.5 platelets 26 BUN 50 creatinine 2 Chest x-ray 09/13/18 revealed cardiomegaly with stable bilateral airspace disease and right pleural effusion Microbiology: All cultures negative Indwelling: Left chest Port-A-Cath Antimicrobials: Invanz Physical examination: Well-developed chronically ill-appearing elderly man in no distress. Head atraumatic normocephalic sclera nonicteric. Neck is supple chest rise symmetrical breath sounds diminished bases. Heart: S1-S2. Abdomen soft bowel sounds present assessment Assessment: 1. S/p septic shock, possibly cardiogenic, patient is off pressors 2. Acute renal failure 3. Urinary tract infection as per urinalysis 4. Mesothelioma with metastasis, patient is getting chemotherapy outpatient 5. Atrial fibrillation 6. Possible pneumonia 7. Pancytopenia Plan: Patient is neutropenic, started on Neupogen per oncology recommendations, were going to add fluconazole and acyclovir to the regimen Consultation Date/Type/Reason Admit Date/Time Sep 09, 2018 at 22:52 Initial Consult Date Type of Consult id Requesting Provider: RENE VAZQUEZ DO Date/Time of Note DATE: 09/15/18 TIME: 13:09 Exam/Review of Systems Exam Vitals Vital Signs Date Temp Pulse Resp B/P (MAP) Pulse Ox O2 O2 Flow FiO2 Time Delivery Rate 09/15/18 75 12:40 09/15/18 98.4 20 118/55 95 Room Air 11:02 (76) 09/15/18 2.0 09:50 09/12/18 27 07:33 Intake and Output 09/14/18 09/14/18 09/15/18 1515:00 23:00 07:00 IntakeIntake Total 1028 ml 200 ml 400 ml OutputOutput Total 430 ml 400 ml BalanceBalance 598 ml -200 ml 400 ml Results Result Diagram: 09/15/18 0629 09/15/18 0629 Results 24hrs Laboratory Tests Test 09/14/18 17:09 09/14/18 21:03 09/15/18 05:45 09/15/18 06:29 Bedside Glucose 109 113 Stool Occult Blood NEGATIVE White Blood Count 0.5 #L Red Blood Count 3.04 L Hemoglobin 8.6 L Hematocrit 26.9 L Mean Corpuscular 88.5 Volume Mean Corpuscular 28.3 L Hemoglobin Mean Corpuscular 32.0 Hemoglobin Concent Red Cell Distribution 17.3 H Width Platelet Count 26 #*L Mean Platelet Volume Immature Granulocytes 2.100 H % Neutrophils % Segmented Neutrophils 16 L % (Manual) Band Neutrophils % 7 H (Manual) Lymphocytes % Lymphocytes % 73 H (Manual) Monocytes % Monocytes % (Manual) 2 Eosinophils % Eosinophils % 1 (Manual) Basophils % Basophils % (Manual) 1 Nucleated Red Blood 0.0 Cells % Immature Granulocytes 0.010 # Neutrophils # Neutrophils # 0.1 L (Manual) Band Neutrophils # 0.0 Lymphocytes (Manual) 0.3 L Lymphocytes # Monocytes # Monocytes # (Manual) 0.0 L Eosinophils # Basophils # Basophils # (Manual) 0.0 Nucleated Red Blood Cells # Platelet Estimate SIG DECREASED Giant Platelets 1 H Polychromasia 1+ Hypochromasia 1+ Poikilocytosis 1+ Anisocytosis 1+ Microcytosis 1+ Spherocytes 1+ Sodium Level 139 Potassium Level 3.4 L Chloride Level 107 Carbon Dioxide Level 20 L Anion Gap 12 Blood Urea Nitrogen 50 H Creatinine 2.00 H Est Glomerular Filtrat Rate mL/min Glucose Level 48 #*L Calcium Level 9.0 Phosphorus Level 3.9 Magnesium Level 1.8 Test 09/15/18 07:31 09/15/18 08:46 09/15/18 12:06 Bedside Glucose 55 L 170 186 Medications Medication Current Medications IV Flush (NS 3 ml) 3 ml PER PROTOCOL IV ; Start 09/10/18 at 06:30 Ondansetron HCl (Zofran Inj) 4 mg Q6H PRN IV NAUSEA/VOMITING; Start 09/10/18 at 06:30 Acetaminophen (Tylenol Supp) 650 mg Q6H PRN [place] .PAIN 1-3 OR TEMP; Start 09/10/18 at 06:30 Zolpidem Tartrate (Ambien) 5 mg QHS PRN PO .INSOMNIA; Start 09/10/18 at 06:30 Acetaminophen (Tylenol Tab) 650 mg Q4H PRN PO MILD PAIN(1-3)OR ELEVATED TEMP; Start 09/10/18 at 08:00 Ascorbic Acid (Vitamin C) 500 mg DAILY PO Last administered on 09/15/18at 08:48; Admin Dose 500 MG; Start 09/10/18 at 09:00 Diltiazem HCl (Cardizem) 60 mg Q6 PO Last administered on 09/15/18at 12:24; Admin Dose 60 MG; Start 09/10/18 at 12:00 Docusate Sodium (Colace) 200 mg DAILY PRN PO CONSTIPATION; Start 09/10/18 at 08:00 Ferrous Sulfate (Ferrous Sulfate (Ec)) 325 mg DAILY PO Last administered on at 08:47; Admin Dose 325 MG; Start 09/10/18 at 09:00 Fluoxetine HCl (Prozac) 20 mg DAILY PO Last administered on 09/15/18 08:48; Admin Dose 20 MG; Start 09/10/18 at 09:00 Magnesium Hydroxide (Milk Of Mag) 30 ml Q24H PRN PO CONSTIPATION; Start 09/10/18 at 08:00 Memantine (Namenda) 5 mg DAILY PO Last administered on 09/15/18at 08:48; Admin Dose 5 MG; Start 09/10/18 at 09:00 Multivitamins Therapeutic (Theragran) 1 tab DAILY PO Last administered on 09/15/18at 08:48; Admin Dose 1 TAB; Start 09/10/18 at 09:00 Ondansetron HCl (Zofran Tab) 4 mg Q4H PRN PO NAUSEA AND/OR VOMITING; Start 09/10/18 at 08:00 Pantoprazole (Protonix Tab) 40 mg DAILY@0600 PO Last administered on 09/15/18at 05:32; Admin Dose 40 MG; Start 09/10/18 at 09:00 Prochlorperazine (Compazine) 5 mg Q6H PRN PO NAUSEA; Start 09/10/18 at 08:00 Senna (Senokot) 2 tab DAILY PRN PO CONSTIPATION; Start 09/10/18 at 08:00 Zinc Sulfate (Zinc Sulfate) 220 mg DAILY PO Last administered on 09/15/18 08:48; Admin Dose 220 MG; Start 09/10/18 at 09:00 Miscellaneous Information 1 ea NOTE XX ; Start 09/10/18 at 08:00 Glucose (Glutose) 15 gm Q15M PRN PO DECREASED GLUCOSE; Start 09/10/18 at 08:00 Glucose (Glutose) 22.5 gm Q15M PRN PO DECREASED GLUCOSE; Start 09/10/18 at 08:00 Dextrose (D50w Syringe) 25 ml Q15M PRN IV DECREASED GLUCOSE; Start 09/10/18 at 08:00 Dextrose (D50w Syringe) 50 ml Q15M PRN IV DECREASED GLUCOSE Last administered on 09/15/18at 07:34; Admin Dose 50 ML; Start 09/10/18 at 08:00 Glucagon (Glucagen) 1 mg Q15M PRN IM DECREASED GLUCOSE; Start 09/10/18 at 08:00 Glucose (Glutose) 15 gm Q15M PRN BUCCAL DECREASED GLUCOSE; Start 09/10/18 at 08:00 Ertapenem 0.5 gm/ Sodium Chloride 100 ml @ 200 mls/hr Q24H IVPB Last administered on 09/15/18at 10:46; Admin Dose 200 MLS/HR; Start 09/11/18 at 11:00 Diagnostic Test (Pha) (Accu-Chek) 1 ea 02 XX Last administered on 09/14/18at 02:54; Admin Dose 1 EA; Start 09/11/18 at 02:00 Insulin Aspart (Novolog Insulin Pen) NOVOLOG *MODERATE* ALGORITHM WITH MEALS BEDTIME SC Last administered on 09/15/18 12:11; Admin Dose 4 UNIT; Start 09/10/18 at 22:30 Apixaban (Eliquis) 2.5 mg BID PO Last administered on 09/11/18at 17:55; Admin Dose 2.5 MG; Start 09/11/18 at 18:00; Status Hold Linagliptin (Tradjenta) 5 mg DAILY PO Last administered on 09/15/18 08:50; Admin Dose 5 MG; Start 09/14/18 at 09:00 Diagnostic Test (Pha) (Accu-Chek) 1 ea AC MEALS AND BEDTIME XX Last administered on 09/15/18at 12:06; Admin Dose 1 EA; Start 09/14/18 at 11:00 Megestrol Acetate (Megace Susp) 1,250 mg BID PO Last administered on 09/15/18 08:47; Admin Dose 1,250 MG; Start 09/14/18 at 21:00 Filgrastim (Neupogen) 300 mcg DAILY@17 SC Last administered on 09/15/18at 00:40; Admin Dose 300 MCG; Start 09/14/18 at 23:15 Dextrose/Sodium Chloride 500 ml @ 50 mls/hr Q10H IV Last administered on 09/15/18at 08:23; Admin Dose 50 MLS/HR; Start 09/15/18 at 08:00 Insulin Glargine (Lantus) 4 units QHS SC ; Start 09/15/18 at 21:00 CARMEN ALEGRIA NP Sep 15, 2018 13:12
[2018-09-15] MEDS: FLUCONAZOLE 100 MG TAB PO SCH (14:59)
[2018-09-15] MEDS: ACYCLOVIR 400 MG TAB PO SCH ×2 (14:59→21:46)
--- NOTE | 2018-09-15 17:10 | CONS ---
Assessment/Plan Assessment/Plan Hospital Course (Demo Recall) Severe anemia and thrombocytopenia. ? 2 TO CHEMO The patient is currently receiving chemotherapy, last dose was 2.28. 19 COMPLETE W-UP PER ORDERS MONITOR BLOOD COUNT CLOSELY OBSERVE FOR BLEEDING AND HEMOLYSIS AVOID MYELOSUPPRESSIVE MEDS LEUKOPENIA IN PT WITH SEPSPIS CONT NEUPOGEN MONITOR COUNT CLOSELY History of mesothelioma likely with right-sided involvement. OUTPT RECORD-P The patient is currently receiving chemotherapy, last dose was 2.28.19 NO INTERVENTION PLANNED AT PRESENT Sepsis , UTI CONT antimicrobial regimen. Acute renal injury possibly with some element of baseline renal insufficiency. Serum creatinine improving. Improving hypotension. Chronic atrial fibrillation. Hyperkalemia: due to ARF and lactic acidosis (sepsis) History of hypertension. History of diabetes. Generalized weakness Consultation Date/Type/Reason Admit Date/Time Sep 09, 2018 at 22:52 Initial Consult Date 09/13/18 Type of Consult [facility] Requesting Provider: RENE VAZQUEZ DO Date/Time of Note DATE: 09/15/18 TIME: 17:10 24 HR Interval Summary Free Text/Dictation all noted afebrile, neutropenic Exam/Review of Systems Exam Vitals Vital Signs Date Temp Pulse Resp B/P (MAP) Pulse Ox O2 O2 Flow FiO2 Time Delivery Rate 09/15/18 74 16:57 09/15/18 98.3 22 115/55 95 Room Air 15:39 (75) 09/15/18 2.0 09:50 09/12/18 27 07:33 Intake and Output 09/14/18 09/14/18 09/15/18 1515:00 23:00 07:00 IntakeIntake Total 1028 ml 200 ml 400 ml OutputOutput Total 430 ml 400 ml BalanceBalance 598 ml -200 ml 400 ml Exam Const: No acute distress, nontoxic Head: Atraumatic Eyes: Normal Conjunctiva ENT: Dry mucous membranes Neck: Full range of motion. No meningismus. Resp: Clear to auscultation bilaterally Chest wall: Right upper chest surgical scar, well healing. Left upper chest surgical scar from new pacemaker, well-healing Cardio: irregularly irregular rhythm with normal rate, no murmurs Abd: Soft, non tender, non distended. Normal bowel sounds Skin: No petechiae or rashes Back: No midline or flank tenderness Ext: No cyanosis, or edema Neur: Awake and alert, moving all extremities, normal speech, no facial asymmetry Psych: Depressed mood Results Result Diagram: 09/15/18 0629 09/15/18 0629 Results 24hrs Laboratory Tests Test 09/14/18 21:03 09/15/18 05:45 09/15/18 06:29 09/15/18 07:31 Bedside Glucose 113 55 L Stool Occult Blood NEGATIVE White Blood Count 0.5 #L Red Blood Count 3.04 L Hemoglobin 8.6 L Hematocrit 26.9 L Mean Corpuscular 88.5 Volume Mean Corpuscular 28.3 L Hemoglobin Mean Corpuscular 32.0 Hemoglobin Concent Red Cell Distribution 17.3 H Width Platelet Count 26 #*L Mean Platelet Volume Immature Granulocytes 2.100 H % Neutrophils % Segmented Neutrophils 16 L % (Manual) Band Neutrophils % 7 H (Manual) Lymphocytes % Lymphocytes % 73 H (Manual) Monocytes % Monocytes % (Manual) 2 Eosinophils % Eosinophils % 1 (Manual) Basophils % Basophils % (Manual) 1 Nucleated Red Blood 0.0 Cells % Immature Granulocytes 0.010 # Neutrophils # Neutrophils # 0.1 L (Manual) Band Neutrophils # 0.0 Lymphocytes (Manual) 0.3 L Lymphocytes # Monocytes # Monocytes # (Manual) 0.0 L Eosinophils # Basophils # Basophils # (Manual) 0.0 Nucleated Red Blood Cells # Platelet Estimate SIG DECREASED Giant Platelets 1 H Polychromasia 1+ Hypochromasia 1+ Poikilocytosis 1+ Anisocytosis 1+ Microcytosis 1+ Spherocytes 1+ Sodium Level 139 Potassium Level 3.4 L Chloride Level 107 Carbon Dioxide Level 20 L Anion Gap 12 Blood Urea Nitrogen 50 H Creatinine 2.00 H Est Glomerular Filtrat Rate mL/min Glucose Level 48 #*L Calcium Level 9.0 Phosphorus Level 3.9 Magnesium Level 1.8 Test 09/15/18 08:46 09/15/18 12:06 Bedside Glucose 170 186 Medications Medication Current Medications IV Flush (NS 3 ml) 3 ml PER PROTOCOL IV ; Start 09/10/18 at 06:30 Ondansetron HCl (Zofran Inj) 4 mg Q6H PRN IV NAUSEA/VOMITING; Start 09/10/18 at 06:30 Acetaminophen (Tylenol Supp) 650 mg Q6H PRN [place] .PAIN 1-3 OR TEMP; Start 09/10/18 at 06:30 Zolpidem Tartrate (Ambien) 5 mg QHS PRN PO .INSOMNIA; Start 09/10/18 at 06:30 Acetaminophen (Tylenol Tab) 650 mg Q4H PRN PO MILD PAIN(1-3)OR ELEVATED TEMP; Start 09/10/18 at 08:00 Ascorbic Acid (Vitamin C) 500 mg DAILY PO Last administered on 09/15/18 08:48; Admin Dose 500 MG; Start 09/10/18 at 09:00 Diltiazem HCl (Cardizem) 60 mg Q6 PO Last administered on 09/15/18at 12:24; Admin Dose 60 MG; Start 09/10/18 at 12:00 Docusate Sodium (Colace) 200 mg DAILY PRN PO CONSTIPATION; Start 09/10/18 at 08:00 Ferrous Sulfate (Ferrous Sulfate (Ec)) 325 mg DAILY PO Last administered on 09/15/18at 08:47; Admin Dose 325 MG; Start 09/10/18 at 09:00 Magnesium Hydroxide (Milk Of Mag) 30 ml Q24H PRN PO CONSTIPATION; Start 09/10/18 at 08:00 Memantine (Namenda) 5 mg DAILY PO Last administered on 09/15/18 08:48; Admin Dose 5 MG; Start 09/10/18 at 09:00 Multivitamins Therapeutic (Theragran) 1 tab DAILY PO Last administered on 09/15/18 08:48; Admin Dose 1 TAB; Start 09/10/18 at 09:00 Ondansetron HCl (Zofran Tab) 4 mg Q4H PRN PO NAUSEA AND/OR VOMITING; Start 09/10/18 at 08:00 Pantoprazole (Protonix Tab) 40 mg DAILY@0600 PO Last administered on 09/15/18 05:32; Admin Dose 40 MG; Start 09/10/18 at 09:00 Prochlorperazine (Compazine) 5 mg Q6H PRN PO NAUSEA; Start 09/10/18 at 08:00 Senna (Senokot) 2 tab DAILY PRN PO CONSTIPATION; Start 09/10/18 at 08:00 Zinc Sulfate (Zinc Sulfate) 220 mg DAILY PO Last administered on 09/15/18 08:48; Admin Dose 220 MG; Start 09/10/18 at 09:00 Miscellaneous Information 1 ea NOTE XX ; Start 09/10/18 at 08:00 Glucose (Glutose) 15 gm Q15M PRN PO DECREASED GLUCOSE; Start 09/10/18 at 08:00 Glucose (Glutose) 22.5 gm Q15M PRN PO DECREASED GLUCOSE; Start 09/10/18 at 08:00 Dextrose (D50w Syringe) 25 ml Q15M PRN IV DECREASED GLUCOSE; Start 09/10/18 at 08:00 Dextrose (D50w Syringe) 50 ml Q15M PRN IV DECREASED GLUCOSE Last administered on 09/15/18 07:34; Admin Dose 50 ML; Start 09/10/18 at 08:00 Glucagon (Glucagen) 1 mg Q15M PRN IM DECREASED GLUCOSE; Start 09/10/18 at 08:00 Glucose (Glutose) 15 gm Q15M PRN BUCCAL DECREASED GLUCOSE; Start 09/10/18 at 08:00 Ertapenem 0.5 gm/ Sodium Chloride 100 ml @ 200 mls/hr Q24H IVPB Last administered on 09/15/18 10:46; Admin Dose 200 MLS/HR; Start 09/11/18 at 11:00 Diagnostic Test (Pha) (Accu-Chek) 1 ea 02 XX Last administered on 09/14/18 02:54; Admin Dose 1 EA; Start 09/11/18 at 02:00 Insulin Aspart (Novolog Insulin Pen) NOVOLOG *MODERATE* ALGORITHM WITH MEALS BEDTIME SC Last administered on 09/15/18 12:11; Admin Dose 4 UNIT; Start 09/10/18 at 22:30 Apixaban (Eliquis) 2.5 mg BID PO Last administered on 09/11/18 17:55; Admin Dose 2.5 MG; Start 09/11/18 at 18:00; Status Hold Linagliptin (Tradjenta) 5 mg DAILY PO Last administered on 09/15/18 08:50; Admin Dose 5 MG; Start 09/14/18 at 09:00 Diagnostic Test (Pha) (Accu-Chek) 1 ea AC MEALS AND BEDTIME XX Last administered on 09/15/18 12:06; Admin Dose 1 EA; Start 09/14/18 at 11:00 Megestrol Acetate (Megace Susp) 1,250 mg BID PO Last administered on 09/15/18 08:47; Admin Dose 1,250 MG; Start 09/14/18 at 21:00 Filgrastim (Neupogen) 300 mcg DAILY@17 SC Last administered on 09/15/18at 00:40; Admin Dose 300 MCG; Start 09/14/18 at 23:15 Dextrose/Sodium Chloride 500 ml @ 50 mls/hr Q10H IV Last administered on 09/15/18at 08:23; Admin Dose 50 MLS/HR; Start 09/15/18 at 08:00 Insulin Glargine (Lantus) 4 units QHS SC ; Start 09/15/18 at 21:00 Fluconazole (Diflucan) 100 mg DAILY PO Last administered on 09/15/18at 14:59; Admin Dose 100 MG; Start 09/15/18 at 14:30 Acyclovir (Zovirax) 400 mg BID PO Last administered on 09/15/18at 14:59; Admin Dose 400 MG; Start 09/15/18 at 15:00 Fluoxetine HCl (Prozac) 60 mg DAILY PO ; Start 09/16/18 at 09:00 ISABELLE JARVIS MD Sep 15, 2018 17:10
[2018-09-15] MEDS ORDERED: INSULIN GLARGINE [LANTus] (100 UNITS/ML) SYG SC SCH (21:00)
[2018-09-16] VITALS (10 sets, daily range): BP systolic 110–141; BP diastolic 55–60; PULSE 77–96; RESP 16–22
[2018-09-16] MEDS: DILTIAZEM 60 MG TAB PO SCH ×4 (00:59→17:23)
[2018-09-16] MEDS: ACCU-CHEK XX SCH ×5 (02:00→22:30)
[2018-09-16] MEDS: DEXTROSE 5%-0.45% NACL 1,000 ML IV SCH (04:55)
[2018-09-16] MEDS: PANTOPRAZOLE (EC) 40 MG TAB PO SCH (06:36)
[2018-09-16] MEDS: INSULIN ASPART [NOVOLOG] 3 ML PEN SC SCH ×4 (07:55→22:20)
[2018-09-16] MEDS: MEGESTROL (40 MG/ML) 10ML CUP PO SCH ×2 (07:59→22:32)
[2018-09-16] MEDS: FLUCONAZOLE 100 MG TAB PO SCH (07:59)
[2018-09-16] MEDS: MEMANTINE 5 MG TAB PO SCH (08:00)
[2018-09-16] MEDS: MULTIVITAMINS THERAPEUTIC TAB PO SCH (08:00)
[2018-09-16] MEDS: ZINC SULFATE 220 MG CAP PO SCH (08:00)
[2018-09-16] MEDS: ASCORBIC ACID 500 MG TAB PO SCH (08:00)
[2018-09-16] MEDS: LINAGLIPTIN 5 MG TABLET PO SCH (08:00)
[2018-09-16] MEDS: FERROUS SULFATE (EC) 325 MG TAB PO SCH (08:00)
[2018-09-16] MEDS: ACYCLOVIR 400 MG TAB PO SCH ×2 (08:01→22:32)
[2018-09-16] MEDS: FLUOXETINE 20 MG CAP PO SCH (08:54)
--- NOTE | 2018-09-16 09:53 | PN ---
DATE: 09/16/2018 SUBJECTIVE DATA: The patient remains lethargic, stable. The patient is neutropenic. No other event s noted. OBJECTIVE: VITAL SIGNS: Blood pressure is 110/58, respirations 16, pulse 96, temperature 98.1. HEENT: Head is normocephalic. NECK: Supple. HEART: Regular rate. LUNGS: Show diminished breath sounds at base. ABDOMEN: Soft, nontender to palpation without rebound or guarding. EXTREMITIES: Negative for clubbing, cyanosis. No edema. DERMATOLOGIC: No rashes. MUSCULOSKELETAL: No joint effusion. NEUROLOGIC: No change in exam. MEDICATIONS: Reviewed. LABORATORY DATA: Shows sodium 130, potassium 4.1, BUN 45, creatinine 1.88, glucose 69. White count 0.7, hemoglobin 7.4, platelet count is 18. ASSESSMENT AND PLAN: 1. Sepsis, status post shock. Etiology secondary to urinary tract infection, possible pneumonia. P atient completing antibiotic course. 2. Neutropenia, pancytopenia. Etiology likely secondary to recent chemotherapy, gemcitabine. Appre ciate hematology's evaluation. Continue Epogen. We will follow up recommendations. 3. Atrial fibrillation, rate controlled. Continue medical management. 4. Mesothelioma with metastasis. The patient is on chemotherapy, last dose was 09/08. Continue to monitor. Follow up with oncology. 5. Nonoliguric acute kidney injury on top of chronic kidney disease. Etiology secondary to hemodyna mics. Renal function appears to be stabilizing around a creatinine 2.0 mg/dL. Continue current shawanda tment plan, supportive care, renally dose all meds. 6. Diabetes. The patient had a recurrent episode of hypoglycemia. Will discontinue Lantus. Contin ue Tradjenta. Continue dextrose drip. Continue insulin sliding scale. 7. Acute encephalopathy, etiology is toxic metabolic. 8. History of depression. Continue Prozac. Medication was adjusted. 8. Anorexia. Continue Megace. 9. Hypokalemia. Continue to monitor and replete. 10. Debility. Continue physical therapy. 11. Gastrointestinal and deep vein thrombosis prophylaxis. Dictated By: RENE VAZQUEZ DO NR/NTS Conf#: [id number] DID#: [id number] CC: RENE VAZQUEZ DO;*EndCC*
--- NOTE | 2018-09-16 10:24 | CONS ---
Consult Date/Type/Reason Admit Date/Time Sep 09, 2018 at 22:52 Initial Consult Date 09/12/18 Type of Consultation: CV Requesting Provider: RENE VAZQUEZ DO Date/Time of Note DATE: 09/16/18 TIME: 10:23 Subjective Cardiology follow-up progress note Subjective: Discussed with staff and telemetry was reviewed. Patient remains in atrial fibrillation. HR is under fair control He is on tele and out of ICU now Patient denies any chest pain or pressure to me He denies any active bleeding to me Objective: General: Elderly gentleman in no acute distress HEENT: NC/AT. pupils are equal. round. NECK: NO JVD. no stridor. CV: Irregularly irregular. systolic murmur; no gallop or rubs. PULM: no wheezing + rhonchi. GI: SOFT, NT, ND, no rebound or guarding Extremity: trace B/L LE edema. no clubbing. neuro: awake and alert, OX2. Psych: calm and pleasant rectal: deferred : normal Echocardiogram was personally reviewed which shows: Normal left ventricular cavity size. Possibly mild left ventricular systolic dysfunction. . Moderate concentric left ventricular hypertrophy. The left ventricle is not well visualized in the apical views, parasternal and subcostal only. The left ventricular ejection fraction is visually estimated at 60 %. Normal appearance of the mitral valve leaflets. The mitral valve is not well visualized. Mild mitral regurgitation, but only seen from parasternal window. The aortic valve is not well visualized. No hemodynamically significant aortic stenosis by Doppler. Aortic cusps appear mildly calcified. No aortic regurgitation. Normal appearance of the tricuspid valve. No evidence of tricuspid regu rgitation. Upper limit of normal left atrial size. Objective Vitals Vital Signs Date Temp Pulse Resp B/P (MAP) Pulse Ox O2 O2 Flow FiO2 Time Delivery Rate 09/16/18 96 08:19 09/16/18 98.1 16 110/58 98 Room Air 07:31 (75) 09/15/18 2.0 20:15 09/12/18 27 07:33 Intake and Output 09/15/18 09/15/18 09/16/18 1515:00 23:00 07:00 IntakeIntake Total 480 ml 1425 ml BalanceBalance 480 ml 1425 ml Results/Medications Result Diagram: 09/16/18 0442 09/16/18 044 Results 24 hrs Laboratory Tests Test 09/15/18 12:06 09/15/18 17:15 09/15/18 17:35 09/15/18 21:43 Bedside Glucose 186 179 76 Fibrinogen 797.0 H Test 09/16/18 04:42 09/16/18 06:39 09/16/18 07:46 White Blood Count 0.7 #L Red Blood Count 2.68 L Hemoglobin 7.4 L Hematocrit 23.6 L Mean Corpuscular 88.1 Volume Mean Corpuscular 27.6 L Hemoglobin Mean Corpuscular 31.4 L Hemoglobin Concent Red Cell Distribution 17.0 H Width Platelet Count 18 #*L Mean Platelet Volume Immature Granulocytes 0.000 L % Neutrophils % Segmented Neutrophils 10 L % (Manual) Band Neutrophils % 9 H (Manual) Lymphocytes % Lymphocytes % 62 H (Manual) Reactive Lymphocytes 3 H % (Manual) Monocytes % Monocytes % (Manual) 9 Eosinophils % Eosinophils % 4 (Manual) Basophils % Basophils % (Manual) 1 Metamyelocytes % 0 (manual) Myelocytes % (Manual) 0 Promyelocytes % 0 (Manual) Nucleated Red Blood 0 Cells % Immature Granulocytes 0.000 # Neutrophils # Neutrophils # 0.1 L (Manual) Band Neutrophils # 0.0 Lymphocytes (Manual) 0.4 L Lymphocytes # Reactive Lymphocytes 0.0 # Monocytes # Monocytes # (Manual) 0.0 L Eosinophils # Basophils # Basophils # (Manual) 0.0 Metamyelocytes # 0.0 Myelocytes # 0.0 Promyelocytes # 0.0 Nucleated Red Blood Cells # White Cell Morphology @See below Comment Platelet Estimate SIG DECREASED Giant Platelets 1 H Polychromasia 3+ Hypochromasia 1+ Poikilocytosis 1+ Anisocytosis 1+ Microcytosis 1+ Ovalocytes 1+ Red Cell Morphology @See below Comment Sodium Level 138 Potassium Level 4.1 Chloride Level 110 Carbon Dioxide Level 19 L Anion Gap 9 Blood Urea Nitrogen 45 H Creatinine 1.88 H Est Glomerular Filtrat Rate mL/min Glucose Level 57 L Calcium Level 8.9 Phosphorus Level 3.5 Magnesium Level 1.8 Digoxin Level < 0.4 L Bedside Glucose 69 L 91 Home Meds Reported Medications Ondansetron Hcl* (Ondansetron Hcl*) 4 Mg Tablet, 4 MG PO Q4H PRN for NAUSEA AND OR VOMITING, TAB 09/09/18 Zinc Sulfate* (Zinc Sulfate*) 220 Mg Cap, 220 MG PO DAILY, CAP 09/09/18 Ascorbic Acid* (Vitamin C*) 500 Mg Capsule.sa, 500 MG PO DAILY, CAP 09/09/18 Cran/Vitc/Mannose/Inulin/Brom (Uti-Stat Liquid) 3,875 Mg/30 Ml Liquid, 3875 MG PO DAILY 09/09/18 Acetaminophen* (Acetaminophen*) 650 Mg Tablet, 650 MG PO Q4 PRN for PAIN AND OR ELEVATED TEMP, #30 TAB 09/09/18 Sennosides* (Senna Lax*) 8.6 Mg Tablet, 2 TAB PO DAILY PRN for CONSTIPATION, TAB 09/09/18 Fluoxetine Hcl* (Prozac*) 20 Mg Capsule, 20 MG PO DAILY, CAP 09/09/18 Pantoprazole* (Protonix*) 40 Mg Tablet.dr, 40 MG PO DAILY, TAB 09/09/18 Prochlorperazine* (Prochlorperazine*) 5 Mg Tablet, 5 MG PO Q6 PRN for NAUSEA, TAB 09/09/18 Memantine* (Namenda*) 5 Mg Tablet, 5 MG PO DAILY, #30 TAB 09/09/18 Multivitamins* (Theragran*) 1 Tab Tab, 1 TAB PO DAILY, TAB 09/09/18 Magnesium Hydroxide* (Milk Of Magnesia*) 400 Mg/5 Ml Oral.susp, 30 ML PO Q24H PRN for CONSTIPATION, ML 09/09/18 Megestrol Acetate* (Megace ES*) 625 Mg/5 Ml Oral.susp, 10 ML PO BID, ML 09/09/18 Insulin Glargine* (Lantus*) 100 Unit/Ml Soln, 12 UNIT SC QHS, #1 VIAL 09/09/18 Ferrous Sulfate* (Ferrous Sulfate*) 325 Mg Tabec, 325 MG PO DAILY, TAB 09/09/18 Diltiazem Hcl* (Cardizem SR*) 60 Mg Capsr, 60 MG PO Q6, #60 CAP HOLD IF SBP BELOW 110 OR HR BELOW 60 09/09/18 Cranberry (Cranberry) 400 Mg Capsule, 400 MG PO DAILY, CAP 09/09/18 Docusate Sodium* (Colace*) 100 Mg Capsule, 200 MG PO DAILY PRN for CONSTIPATION, #30 CAP 09/09/18 Bisoprolol Fumarate* (Bisoprolol Fumarate*) 5 Mg Tablet, 5 MG PO DAILY, TAB HOLD IF SBP IS BELOW 110 OR HR BELOW 60 09/09/18 Medications Current Medications IV Flush (NS 3 ml) 3 ml PER PROTOCOL IV ; Start 09/10/18 at 06:30 Ondansetron HCl (Zofran Inj) 4 mg Q6H PRN IV NAUSEA/VOMITING; Start 09/10/18 at 06:30 Acetaminophen (Tylenol Supp) 650 mg Q6H PRN [place] .PAIN 1-3 OR TEMP; Start 09/10/18 at 06:30 Zolpidem Tartrate (Ambien) 5 mg QHS PRN PO .INSOMNIA; Start 09/10/18 at 06:30 Acetaminophen (Tylenol Tab) 650 mg Q4H PRN PO MILD PAIN(1-3)OR ELEVATED TEMP; Start 09/10/18 at 08:00 Ascorbic Acid (Vitamin C) 500 mg DAILY PO Last administered on 09/16/18at 08:00; Admin Dose 500 MG; Start 09/10/18 at 09:00 Diltiazem HCl (Cardizem) 60 mg Q6 PO Last administered on 09/16/18at 06:36; Admin Dose 60 MG; Start 09/10/18 at 12:00 Docusate Sodium (Colace) 200 mg DAILY PRN PO CONSTIPATION; Start 09/10/18 at 08:00 Ferrous Sulfate (Ferrous Sulfate (Ec)) 325 mg DAILY PO Last administered on 09/16/18at 08:00; Admin Dose 325 MG; Start 09/10/18 at 09:00 Magnesium Hydroxide (Milk Of Mag) 30 ml Q24H PRN PO CONSTIPATION; Start 09/10/18 at 08:00 Memantine (Namenda) 5 mg DAILY PO Last administered on 09/16/18at 08:00; Admin Dose 5 MG; Start 09/10/18 at 09:00 Multivitamins Therapeutic (Theragran) 1 tab DAILY PO Last administered on 09/16/18at 08:00; Admin Dose 1 TAB; Start 09/10/18 at 09:00 Ondansetron HCl (Zofran Tab) 4 mg Q4H PRN PO NAUSEA AND/OR VOMITING; Start 09/10/18 at 08:00 Pantoprazole (Protonix Tab) 40 mg DAILY@0600 PO Last administered on 09/16/18at 06:36; Admin Dose 40 MG; Start 09/10/18 at 09:00 Prochlorperazine (Compazine) 5 mg Q6H PRN PO NAUSEA; Start 09/10/18 at 08:00 Senna (Senokot) 2 tab DAILY PRN PO CONSTIPATION; Start 09/10/18 at 08:00 Zinc Sulfate (Zinc Sulfate) 220 mg DAILY PO Last administered on 09/16/18at 08:00; Admin Dose 220 MG; Start 09/10/18 at 09:00 Miscellaneous Information 1 ea NOTE XX ; Start 09/10/18 at 08:00 Glucose (Glutose) 15 gm Q15M PRN PO DECREASED GLUCOSE; Start 09/10/18 at 08:00 Glucose (Glutose) 22.5 gm Q15M PRN PO DECREASED GLUCOSE; Start 09/10/18 at 08:00 Dextrose (D50w Syringe) 25 ml Q15M PRN IV DECREASED GLUCOSE; Start 09/10/18 at 08:00 Dextrose (D50w Syringe) 50 ml Q15M PRN IV DECREASED GLUCOSE Last administered on 09/15/18at 07:34; Admin Dose 50 ML; Start 09/10/18 at 08:00 Glucagon (Glucagen) 1 mg Q15M PRN IM DECREASED GLUCOSE; Start 09/10/18 at 08:00 Glucose (Glutose) 15 gm Q15M PRN BUCCAL DECREASED GLUCOSE; Start 09/10/18 at 08:00 Ertapenem 0.5 gm/ Sodium Chloride 100 ml @ 200 mls/hr Q24H IVPB Last administered on 09/15/18at 10:46; Admin Dose 200 MLS/HR; Start 09/11/18 at 11:00 Diagnostic Test (Pha) (Accu-Chek) 1 ea 02 XX Last administered on 09/14/18at 02:54; Admin Dose 1 EA; Start 09/11/18 at 02:00 Insulin Aspart (Novolog Insulin Pen) NOVOLOG *MODERATE* ALGORITHM WITH MEALS BEDTIME SC Last administered on 09/15/18at 17:17; Admin Dose 2 UNIT; Start 09/10/18 at 22:30 Apixaban (Eliquis) 2.5 mg BID PO Last administered on 09/11/18at 17:55; Admin Dose 2.5 MG; Start 09/11/18 at 18:00; Status Hold Linagliptin (Tradjenta) 5 mg DAILY PO Last administered on 09/16/18 08:00; Admin Dose 5 MG; Start 09/14/18 at 09:00 Diagnostic Test (Pha) (Accu-Chek) 1 ea AC MEALS AND BEDTIME XX Last administered on 09/16/18 08:06; Admin Dose 1 EA; Start 09/14/18 at 11:00 Megestrol Acetate (Megace Susp) 1,250 mg BID PO Last administered on 09/16/18 07:59; Admin Dose 1,250 MG; Start 09/14/18 at 21:00 Filgrastim (Neupogen) 300 mcg DAILY@17 SC Last administered on 09/15/18 17:25; Admin Dose 300 MCG; Start 09/14/18 at 23:15 Fluconazole (Diflucan) 100 mg DAILY PO Last administered on 09/16/18 07:59; Admin Dose 100 MG; Start 09/15/18 at 14:30 Acyclovir (Zovirax) 400 mg BID PO Last administered on 09/16/18 08:01; Admin Dose 400 MG; Start 09/15/18 at 15:00 Fluoxetine HCl (Prozac) 60 mg DAILY PO Last administered on 09/16/18 08:54; Admin Dose 60 MG; Start 09/16/18 at 09:00 Dextrose/Sodium Chloride 1,000 ml @ 50 mls/hr Q20H IV Last administered on 09/16/18 04:55; Admin Dose 50 MLS/HR; Start 09/16/18 at 05:00 Assessment/Plan Hospital Course (Demo Recall) 1. Atrial fibrillation rapid ventricular response: Currently HR is under control mostly 2. s/p Sepsis and shock 3. renal failure 4. Severe anemia 5. severe Thrombocytopenia 6. History of mesothelioma 7. Diabetes 8. Encephalopathy Recommendations: stop Eliquis due to severe anemia and worsening thrombocytopenia Transfusion as needed dig prn as long as low dig level . Will give 1 dose today cont Cardizem po as needed Antibiotic management as per internal medicine Thank you for his referral. We will continue to follow along with you as needed over the weekend EMILIA BURCIAGA MD [facility] EMILIA BURCIAGA MD Sep 16, 2018 10:24
--- NOTE | 2018-09-16 11:41 | CONS ---
Consult Date/Type/Reason Admit Date/Time Sep 09, 2018 at 22:52 Initial Consult Date 09/13/18 Type of Consult Pulmonary Requesting Provider: RENE VAZQUEZ DO Date/Time of Note DATE: 09/16/18 TIME: 11:40 Subjective No respiratory distress this morning. Remains stable on room air. Objective Vital Signs Date Temp Pulse Resp B/P (MAP) Pulse Ox O2 O2 Flow FiO2 Time Delivery Rate 09/16/18 97.9 88 18 118/55 99 Nasal 11:13 (76) Cannula 09/16/18 2.0 08:00 09/12/18 27 07:33 Intake and Output 09/15/18 09/15/18 09/16/18 1414:59 22:59 06:59 IntakeIntake Total 480 ml 1425 ml BalanceBalance 480 ml 1425 ml Exam GENERAL: Well-nourished well-developed gentleman comfortable at rest VITAL SIGNS: per chart NECK: Supple. No JVD or lymphadenopathy. CARDIAC EXAM: S1, S2. No added sounds or murmurs. CHEST: clear bilaterally, No added sounds, rales or wheezes ABDOMEN: Soft, nontender. No guarding or rebound. EXTREMITIES: No cyanosis, clubbing or edema. NEUROLOGIC: Generalized weakness. No focal deficits. Vent Setting Fraction of Inspired Oxygen pe: 27 Results/Medications Result Diagram: 09/16/1844109/16/182 Results 24 hrs Laboratory Tests Test 09/15/18 12:06 09/15/18 17:15 09/15/18 17:35 09/15/18 21:43 Bedside Glucose 186 179 76 Fibrinogen 797.0 H Test 09/16/18 04:42 09/16/18 06:39 09/16/18 07:46 White Blood Count 0.7 #L Red Blood Count 2.68 L Hemoglobin 7.4 L Hematocrit 23.6 L Mean Corpuscular 88.1 Volume Mean Corpuscular 27.6 L Hemoglobin Mean Corpuscular 31.4 L Hemoglobin Concent Red Cell Distribution 17.0 H Width Platelet Count 18 #*L Mean Platelet Volume Immature Granulocytes 0.000 L % Neutrophils % Segmented Neutrophils 10 L % (Manual) Band Neutrophils % 9 H (Manual) Lymphocytes % Lymphocytes % 62 H (Manual) Reactive Lymphocytes 3 H % (Manual) Monocytes % Monocytes % (Manual) 9 Eosinophils % Eosinophils % 4 (Manual) Basophils % Basophils % (Manual) 1 Metamyelocytes % 0 (manual) Myelocytes % (Manual) 0 Promyelocytes % 0 (Manual) Nucleated Red Blood 0 Cells % Immature Granulocytes 0.000 # Neutrophils # Neutrophils # 0.1 L (Manual) Band Neutrophils # 0.0 Lymphocytes (Manual) 0.4 L Lymphocytes # Reactive Lymphocytes 0.0 # Monocytes # Monocytes # (Manual) 0.0 L Eosinophils # Basophils # Basophils # (Manual) 0.0 Metamyelocytes # 0.0 Myelocytes # 0.0 Promyelocytes # 0.0 Nucleated Red Blood Cells # White Cell Morphology @See below Comment Platelet Estimate SIG DECREASED Giant Platelets 1 H Polychromasia 3+ Hypochromasia 1+ Poikilocytosis 1+ Anisocytosis 1+ Microcytosis 1+ Ovalocytes 1+ Red Cell Morphology @See below Comment Sodium Level 138 Potassium Level 4.1 Chloride Level 110 Carbon Dioxide Level 19 L Anion Gap 9 Blood Urea Nitrogen 45 H Creatinine 1.88 H Est Glomerular Filtrat Rate mL/min Glucose Level 57 L Calcium Level 8.9 Phosphorus Level 3.5 Magnesium Level 1.8 Digoxin Level < 0.4 L Bedside Glucose 69 L 91 Medications Current Medications IV Flush (NS 3 ml) 3 ml PER PROTOCOL IV ; Start 09/10/18 at 06:30 Ondansetron HCl (Zofran Inj) 4 mg Q6H PRN IV NAUSEA/VOMITING; Start 09/10/18 at 06:30 Acetaminophen (Tylenol Supp) 650 mg Q6H PRN [place] .PAIN 1-3 OR TEMP; Start 09/10/18 at 06:30 Zolpidem Tartrate (Ambien) 5 mg QHS PRN PO .INSOMNIA; Start 09/10/18 at 06:30 Acetaminophen (Tylenol Tab) 650 mg Q4H PRN PO MILD PAIN(1-3)OR ELEVATED TEMP; Start 09/10/18 at 08:00 Ascorbic Acid (Vitamin C) 500 mg DAILY PO Last administered on 09/16/18at 08:00; Admin Dose 500 MG; Start 09/10/18 at 09:00 Diltiazem HCl (Cardizem) 60 mg Q6 PO Last administered on 09/16/18at 06:36; Admin Dose 60 MG; Start 09/10/18 at 12:00 Docusate Sodium (Colace) 200 mg DAILY PRN PO CONSTIPATION; Start 09/10/18 at 08:00 Ferrous Sulfate (Ferrous Sulfate (Ec)) 325 mg DAILY PO Last administered on 09/16/18at 08:00; Admin Dose 325 MG; Start 09/10/18 at 09:00 Magnesium Hydroxide (Milk Of Mag) 30 ml Q24H PRN PO CONSTIPATION; Start 09/10/18 at 08:00 Memantine (Namenda) 5 mg DAILY PO Last administered on 09/16/18at 08:00; Admin Dose 5 MG; Start 09/10/18 at 09:00 Multivitamins Therapeutic (Theragran) 1 tab DAILY PO Last administered on 09/16/18at 08:00; Admin Dose 1 TAB; Start 09/10/18 at 09:00 Ondansetron HCl (Zofran Tab) 4 mg Q4H PRN PO NAUSEA AND/OR VOMITING; Start 09/10/18 at 08:00 Pantoprazole (Protonix Tab) 40 mg DAILY@0600 PO Last administered on 09/16/18at 06:36; Admin Dose 40 MG; Start 09/10/18 at 09:00 Prochlorperazine (Compazine) 5 mg Q6H PRN PO NAUSEA; Start 09/10/18 at 08:00 Senna (Senokot) 2 tab DAILY PRN PO CONSTIPATION; Start 09/10/18 at 08:00 Zinc Sulfate (Zinc Sulfate) 220 mg DAILY PO Last administered on 09/16/18at 08:00; Admin Dose 220 MG; Start 09/10/18 at 09:00 Miscellaneous Information 1 ea NOTE XX ; Start 09/10/18 at 08:00 Glucose (Glutose) 15 gm Q15M PRN PO DECREASED GLUCOSE; Start 09/10/18 at 08:00 Glucose (Glutose) 22.5 gm Q15M PRN PO DECREASED GLUCOSE; Start 09/10/18 at 08:00 Dextrose (D50w Syringe) 25 ml Q15M PRN IV DECREASED GLUCOSE; Start 09/10/18 at 08:00 Dextrose (D50w Syringe) 50 ml Q15M PRN IV DECREASED GLUCOSE Last administered on 09/15/18at 07:34; Admin Dose 50 ML; Start 09/10/18 at 08:00 Glucagon (Glucagen) 1 mg Q15M PRN IM DECREASED GLUCOSE; Start 09/10/18 at 08:00 Glucose (Glutose) 15 gm Q15M PRN BUCCAL DECREASED GLUCOSE; Start 09/10/18 at 08:00 Ertapenem 0.5 gm/ Sodium Chloride 100 ml @ 200 mls/hr Q24H IVPB Last administered on 09/15/18 10:46; Admin Dose 200 MLS/HR; Start 09/11/18 at 11:00 Diagnostic Test (Pha) (Accu-Chek) 1 ea 02 XX Last administered on 09/14/18 02:5 4; Admin Dose 1 EA; Start 09/11/18 at 02:00 Insulin Aspart (Novolog Insulin Pen) NOVOLOG *MODERATE* ALGORITHM WITH MEALS BEDTIME SC Last administered on 09/15/18 17:17; Admin Dose 2 UNIT; Start at 22:30 Linagliptin (Tradjenta) 5 mg DAILY PO Last administered on 09/16/18 08:00; Admin Dose 5 MG; Start 09/14/18 at 09:00 Diagnostic Test (Pha) (Accu-Chek) 1 ea AC MEALS AND BEDTIME XX Last ad ministered on 09/16/18 08:06; Admin Dose 1 EA; Start 09/14/18 at 11:00 Megestrol Acetate (Megace Susp) 1,250 mg BID PO Last administered on 09/16/18 07:59; Admin Dose 1,250 MG; Start 09/14/18 at 21:00 Filgrastim (Neupogen) 300 mcg DAILY@17 SC Last administered on 09/15/18 17:25; Admin Dose 300 MCG; Start 09/14/18 at 23:15 Fluconazole (Diflucan) 100 mg DAILY PO Last administered on 09/16/18 07:59; Admin Dose 100 MG; Start 09/15/18 at 14:30 Acyclovir (Zovirax) 400 mg BID PO Last administered on 09/16/18 08:01; Admin Dose 400 MG; Start 09/15/18 at 15:00 Fluoxetine HCl (Prozac) 60 mg DAILY PO Last administered on 09/16/18 08:54; Admin Dose 60 MG; Start 09/16/18 at 09:00 Dextrose/Sodium Chloride 1,000 ml @ 50 mls/hr Q20H IV Last administered on 3/8/19at 04:55; Admin Dose 50 MLS/HR; Start 09/16/18 at 05:00 Digoxin (Digoxin) 125 mcg DAILY@13 IV ; Start 09/16/18 at 13:00; Stop 09/18/18 at 12:59 Assessment/Plan Hospital Course (Demo Recall) Assessment 1. Patient admitted with UTI and sepsis with hypotension with marked overall interval improvement. No hemodynamically stable 2. Acute on chronic renal injury with continually improving renal function. 3. Pancytopenia. 4. History of chronic atrial fibrillation. Rate is well controlled. Patient not on anticoagulants because of severe anemia and thrombocytopenia. 5. History of mesothelioma involving right lung. Plan 1. Continue antibiotics 2. Hematology oncology recommendations 3. Physical therapy as tolerated Consider transfer to [facility]. REINA MANZANO MD, [facility] Sep 16, 2018 11:41
[2018-09-16] MEDS: ERTAPENEM SODIUM 0.5 GM in SOD CHLORIDE 0.9% 100 ML IVPB SCH (12:02)
[2018-09-16] MEDS: DIGOXIN 500 MCG INJ IV SCH (12:03)
--- NOTE | 2018-09-16 14:16 | RADRPT ---
Vent Rate: 78 bpm RR Interval: 0 msec W[place] Interval: 0 msec QRS Duration: 80 msec QT Interval: 370 msec QTC Interval: 421 msec P-R-T [place]: 0 - 11 - 41 degrees Atrial flutter with variable AV block Possible Anterior infarct , age undetermined Abnormal ECG Electronically Signed By: Gael Herrmann
--- NOTE | 2018-09-16 15:07 | CONS ---
Assessment/Plan Assessment/Plan Hospital Course (Demo Recall) No acute changes overnight patient is sleeping looks comfortable no fevers overnight. WBC today 0.7 H&H 7.4 and 23.6 platelets 18 BUN 45 creatinine 1.88 Antimicrobials: Invanz, acyclovir, fluconazole Microbiology: All cultures negative Indwelling: Left chest Port-A-Cath Physical examination: Well-developed chronically ill-appearing elderly man in no distress. Head atraumatic normocephalic sclera nonicteric. Neck is supple chest rise symmetrical breath sounds diminished bases. Heart: S1-S2. Abdomen soft bowel sounds present assessment Assessment: 1. S/p septic shock, possibly cardiogenic 2. Acute renal failure 3. Urinary tract infection as per urinalysis 4. Mesothelioma with metastasis, patient is getting chemotherapy outpatient 5. Atrial fibrillation 6. Possible pneumonia 7. Pancytopenia/neutropenia Plan: Stable, continue present care and antibiotics, follow oncology recommendations, continue Neupogen Consultation Date/Type/Reason Admit Date/Time Sep 09, 2018 at 22:52 Initial Consult Date Type of Consult id Requesting Provider: RENE VAZQUEZ DO Date/Time of Note DATE: 09/16/18 TIME: 15:06 Exam/Review of Systems Exam Vitals Vital Signs Date Temp Pulse Resp B/P (MAP) Pulse Ox O2 O2 Flow FiO2 Time Delivery Rate 09/16/18 98.0 91 18 128/60 97 Room Air 15:05 (82) 09/16/18 2.0 08:00 09/12/18 27 07:33 Intake and Output 09/15/18 09/15/18 09/16/18 1414:59 22:59 06:59 IntakeIntake Total 480 ml 1425 ml BalanceBalance 480 ml 1425 ml Results Result Diagram: 09/16/18 0442 09/16/18 0442 Results 24hrs Laboratory Tests Test 09/15/18 17:15 09/15/18 17:35 09/15/18 21:43 09/16/18 04:42 Bedside Glucose 179 76 Fibrinogen 797.0 H White Blood Count 0.7 #L Red Blood Count 2.68 L Hemoglobin 7.4 L Hematocrit 23.6 L Mean Corpuscular 88.1 Volume Mean Corpuscular 27.6 L Hemoglobin Mean Corpuscular 31.4 L Hemoglobin Concent Red Cell Distribution 17.0 H Width Platelet Count 18 #*L Mean Platelet Volume Immature Granulocytes 0.000 L % Neutrophils % Segmented Neutrophils 10 L % (Manual) Band Neutrophils % 9 H (Manual) Lymphocytes % Lymphocytes % 62 H (Manual) Reactive Lymphocytes 3 H % (Manual) Monocytes % Monocytes % (Manual) 9 Eosinophils % Eosinophils % 4 (Manual) Basophils % Basophils % (Manual) 1 Metamyelocytes % 0 (manual) Myelocytes % (Manual) 0 Promyelocytes % 0 (Manual) Nucleated Red Blood 0 Cells % Immature Granulocytes 0.000 # Neutrophils # Neutrophils # 0.1 L (Manual) Band Neutrophils # 0.0 Lymphocytes (Manual) 0.4 L Lymphocytes # Reactive Lymphocytes 0.0 # Monocytes # Monocytes # (Manual) 0.0 L Eosinophils # Basophils # Basophils # (Manual) 0.0 Metamyelocytes # 0.0 Myelocytes # 0.0 Promyelocytes # 0.0 Nucleated Red Blood Cells # White Cell Morphology @See below Comment Platelet Estimate SIG DECREASED Giant Platelets 1 H Polychromasia 3+ Hypochromasia 1+ Poikilocytosis 1+ Anisocytosis 1+ Microcytosis 1+ Ovalocytes 1+ Red Cell Morphology @See below Comment Sodium Level 138 Potassium Level 4.1 Chloride Level 110 Carbon Dioxide Level 19 L Anion Gap 9 Blood Urea Nitrogen 45 H Creatinine 1.88 H Est Glomerular Filtrat Rate mL/min Glucose Level 57 L Calcium Level 8.9 Phosphorus Level 3.5 Magnesium Level 1.8 Digoxin Level < 0.4 L Test 09/16/18 06:39 09/16/18 07:46 09/16/18 12:05 Bedside Glucose 69 L 91 123 Medications Medication Current Medications IV Flush (NS 3 ml) 3 ml PER PROTOCOL IV ; Start 09/10/18 at 06:30 Ondansetron HCl (Zofran Inj) 4 mg Q6H PRN IV NAUSEA/VOMITING; Start 09/10/18 at 06:30 Acetaminophen (Tylenol Supp) 650 mg Q6H PRN [place] .PAIN 1-3 OR TEMP; Start 09/10/18 at 06:30 Zolpidem Tartrate (Ambien) 5 mg QHS PRN PO .INSOMNIA; Start 09/10/18 at 06:30 Acetaminophen (Tylenol Tab) 650 mg Q4H PRN PO MILD PAIN(1-3)OR ELEVATED TEMP; Start 09/10/18 at 08:00 Ascorbic Acid (Vitamin C) 500 mg DAILY PO Last administered on 09/16/18at 08:00; Admin Dose 500 MG; Start 09/10/18 at 09:00 Diltiazem HCl (Cardizem) 60 mg Q6 PO Last administered on 09/16/18at 12:03; Admin Dose 60 MG; Start 09/10/18 at 12:00 Docusate Sodium (Colace) 200 mg DAILY PRN PO CONSTIPATION; Start 09/10/18 at 08:00 Ferrous Sulfate (Ferrous Sulfate (Ec)) 325 mg DAILY PO Last administered on 09/16/18at 08:00; Admin Dose 325 MG; Start 09/10/18 at 09:00 Magnesium Hydroxide (Milk Of Mag) 30 ml Q24H PRN PO CONSTIPATION; Start 09/10/18 at 08:00 Memantine (Namenda) 5 mg DAILY PO Last administered on 09/16/18at 08:00; Admin Dose 5 MG; Start 09/10/18 at 09:00 Multivitamins Therapeutic (Theragran) 1 tab DAILY PO Last administered on 09/16/18at 08:00; Admin Dose 1 TAB; Start 09/10/18 at 09:00 Ondansetron HCl (Zofran Tab) 4 mg Q4H PRN PO NAUSEA AND/OR VOMITING; Start 09/10/18 at 08:00 Pantoprazole (Protonix Tab) 40 mg DAILY@0600 PO Last administered on 09/16/18at 06:36; Admin Dose 40 MG; Start 09/10/18 at 09:00 Prochlorperazine (Compazine) 5 mg Q6H PRN PO NAUSEA; Start 09/10/18 at 08:00 Senna (Senokot) 2 tab DAILY PRN PO CONSTIPATION; Start 09/10/18 at 08:00 Zinc Sulfate (Zinc Sulfate) 220 mg DAILY PO Last administered on 09/16/18at 08:00; Admin Dose 220 MG; Start 09/10/18 at 09:00 Miscellaneous Information 1 ea NOTE XX ; Start 09/10/18 at 08:00 Glucose (Glutose) 15 gm Q15M PRN PO DECREASED GLUCOSE; Start 09/10/18 at 08:00 Glucose (Glutose) 22.5 gm Q15M PRN PO DECREASED GLUCOSE; Start 09/10/18 at 08:00 Dextrose (D50w Syringe) 25 ml Q15M PRN IV DECREASED GLUCOSE; Start 09/10/18 at 08:00 Dextrose (D50w Syringe) 50 ml Q15M PRN IV DECREASED GLUCOSE Last administered on 09/15/18 07:34; Admin Dose 50 ML; Start 09/10/18 at 08:00 Glucagon (Glucagen) 1 mg Q15M PRN IM DECREASED GLUCOSE; Start 09/10/18 at 08:00 Glucose (Glutose) 15 gm Q15M PRN BUCCAL DECREASED GLUCOSE; Start 09/10/18 at 08:00 Ertapenem 0.5 gm/ Sodium Chloride 100 ml @ 200 mls/hr Q24H IVPB Last administered on 09/16/18 12:02; Admin Dose 200 MLS/HR; Start 09/11/18 at 11:00 Diagnostic Test (Pha) (Accu-Chek) 1 ea 02 XX Last administered on 09/14/18 02:54; Admin Dose 1 EA; Start 09/11/18 at 02:00 Insulin Aspart (Novolog Insulin Pen) NOVOLOG *MODERATE* ALGORITHM WITH MEALS BE DTIME SC Last administered on 09/15/18 17:17; Admin Dose 2 UNIT; Start 09/10/18 at 22:30 Linagliptin (Tradjenta) 5 mg DAILY PO Last administered on 09/16/18 08:00; Admin Dose 5 MG; Start 09/14/18 at 09:00 Diagnostic Test (Pha) (Accu-Chek) 1 ea AC MEALS AND BEDTIME XX Last administered on 09/16/18 12:02; Admin Dose 1 EA; Start 09/14/18 at 11:00 Megestrol Acetate (Megace Susp) 1,250 mg BID PO Last administered on 09/16/18 07:59; Admin Dose 1,250 MG; Start 09/14/18 at 21:00 Filgrastim (Neupogen) 300 mcg DAILY@17 SC Last administered on 09/15/18 17:25; Admin Dose 300 MCG; Start 09/14/18 at 23:15 Fluconazole (Diflucan) 100 mg DAILY PO Last administered on 09/16/18 07:59; Admin Dose 100 MG; Start 09/15/18 at 14:30 Acyclovir (Zovirax) 400 mg BID PO Last administered on 3/8/19at 08:01; Admin Dose 400 MG; Start 09/15/18 at 15:00 Fluoxetine HCl (Prozac) 60 mg DAILY PO Last administered on 09/16/18at 08:54; Admin Dose 60 MG; Start 09/16/18 at 09:00 Dextrose/Sodium Chloride 1,000 ml @ 50 mls/hr Q20H IV Last administered on 09/16/18at 04:55; Admin Dose 50 MLS/HR; Start 09/16/18 at 05:00 Digoxin (Digoxin) 125 mcg DAILY@13 IV Last administered on 09/16/18at 12:03; Admin Dose 125 MCG; Start 09/16/18 at 13:00; Stop 09/18/18 at 12:59 CARMEN ALEGRIA NP Sep 16, 2018 15:07
[2018-09-16] MEDS: FILGRASTIM 300 MCG INJ SC SCH (17:22)
--- NOTE | 2018-09-16 23:30 | CONS ---
Assessment/Plan Assessment/Plan Hospital Course (Demo Recall) Severe anemia and thrombocytopenia. 2 RECENT TO CHEMO The patient is currently receiving chemotherapy, last dose was 2.28. 19 MONITOR BLOOD COUNT CLOSELY OBSERVE FOR BLEEDING AND HEMOLYSIS AVOID MYELOSUPPRESSIVE MEDS LEUKOPENIA IN PT WITH SEPSIS POST RECENT CHEMO CONT NEUPOGEN TILL ANC MORE THAN [id number] MONITOR COUNT CLOSELY History of mesothelioma likely with right-sided involvement. OUTPT RECORD-P The patient is currently receiving chemotherapy, last dose was 2 .28.19 NO INTERVENTION PLANNED AT PRESENT Sepsis , UTI CONT antimicrobial regimen. Acute renal injury possibly with some element of baseline renal insufficiency. Serum creatinine improving. Improving hypotension. Chronic atrial fibrillation. Hyperkalemia: due to ARF and lactic acidosis (sepsis) History of hypertension. History of diabetes. Generalized weakness Consultation Date/Type/Reason Admit Date/Time Sep 09, 2018 at 22:52 Initial Consult Date 09/13/18 Type of Consult [facility] Requesting Provider: RENE VAZQUEZ DO Date/Time of Note DATE: 09/16/18 TIME: 23:30 24 HR Interval Summary Free Text/Dictation all noted ON NEUPOGEN Exam/Review of Systems Exam Vitals Vital Signs Date Temp Pulse Resp B/P (MAP) Pulse Ox O2 O2 Flow FiO2 Time Delivery Rate 09/16/18 85 20:00 09/16/18 97.3 20 141/55 92 20:00 (83) 09/16/18 Nasal 2.0 19:53 Cannula 09/12/18 27 07:33 Intake and Output 09/15/18 09/15/18 09/16/18 1515:00 23:00 07:00 IntakeIntake Total 480 ml 1425 ml BalanceBalance 480 ml 1425 ml Exam Const: No acute distress, nontoxic Head: Atraumatic Eyes: Normal Conjunctiva ENT: Dry mucous membranes Neck: Full range of motion. No meningismus. Resp: Clear to auscultation bilaterally Chest wall: Right upper chest surgical scar, well healing. Left upper chest surgical scar from new pacemaker, well-healing Cardio: irregularly irregular rhythm with normal rate, no murmurs Abd: Soft, non tender, non distended. Normal bowel sounds Skin: No petechiae or rashes Back: No midline or flank tenderness Ext: No cyanosis, or edema Neur: Awake and alert, moving all extremities, normal speech, no facial asymmetry Psych: Depressed mood Results Result Diagram: 09/16/18 0442 09/16/18 0442 Results 24hrs Laboratory Tests Test 09/16/18 04:42 09/16/18 06:39 09/16/18 07:46 09/16/18 12:05 White Blood Count 0.7 #L Red Blood Count 2.68 L Hemoglobin 7.4 L Hematocrit 23.6 L Mean Corpuscular 88.1 Volume Mean Corpuscular 27.6 L Hemoglobin Mean Corpuscular 31.4 L Hemoglobin Concent Red Cell Distribution 17.0 H Width Platelet Count 18 #*L Mean Platelet Volume Immature Granulocytes 0.000 L % Neutrophils % Segmented Neutrophils 10 L % (Manual) Band Neutrophils % 9 H (Manual) Lymphocytes % Lymphocytes % 62 H (Manual) Reactive Lymphocytes 3 H % (Manual) Monocytes % Monocytes % (Manual) 9 Eosinophils % Eosinophils % 4 (Manual) Basophils % Basophils % (Manual) 1 Metamyelocytes % 0 (manual) Myelocytes % (Manual) 0 Promyelocytes % 0 (Manual) Nucleated Red Blood 0 Cells % Immature Granulocytes 0.000 # Neutrophils # Neutrophils # 0.1 L (Manual) Band Neutrophils # 0.0 Lymphocytes (Manual) 0.4 L Lymphocytes # Reactive Lymphocytes 0.0 # Monocytes # Monocytes # (Manual) 0.0 L Eosinophils # Basophils # Basophils # (Manual) 0.0 Metamyelocytes # 0.0 Myelocytes # 0.0 Promyelocytes # 0.0 Nucleated Red Blood Cells # White Cell Morphology @See below Comment Platelet Estimate SIG DECREASED Giant Platelets 1 H Polychromasia 3+ Hypochromasia 1+ Poikilocytosis 1+ Anisocytosis 1+ Microcytosis 1+ Ovalocytes 1+ Red Cell Morphology @See below Comment Sodium Level 138 Potassium Level 4.1 Chloride Level 110 Carbon Dioxide Level 19 L Anion Gap 9 Blood Urea Nitrogen 45 H Creatinine 1.88 H Est Glomerular Filtrat Rate mL/min Glucose Level 57 L Calcium Level 8.9 Phosphorus Level 3.5 Magnesium Level 1.8 Digoxin Level < 0.4 L Bedside Glucose 69 L 91 123 Test 09/16/18 17:21 09/16/18 22:29 Bedside Glucose 107 111 Medications Medication Current Medications IV Flush (NS 3 ml) 3 ml PER PROTOCOL IV ; Start 09/10/18 at 06:30 Ondansetron HCl (Zofran Inj) 4 mg Q6H PRN IV NAUSEA/VOMITING; Start 09/10/18 at 06:30 Acetaminophen (Tylenol Supp) 650 mg Q6H PRN [place] .PAIN 1-3 OR TEMP; Start 09/10/18 at 06:30 Zolpidem Tartrate (Ambien) 5 mg QHS PRN PO .INSOMNIA; Start 09/10/18 at 06:30 Acetaminophen (Tylenol Tab) 650 mg Q4H PRN PO MILD PAIN(1-3)OR ELEVATED TEMP; Start 09/10/18 at 08:00 Ascorbic Acid (Vitamin C) 500 mg DAILY PO Last administered on 09/16/18at 08:00; Admin Dose 500 MG; Start 09/10/18 at 09:00 Diltiazem HCl (Cardizem) 60 mg Q6 PO Last administered on 09/16/18at 17:23; Admin Dose 60 MG; Start 09/10/18 at 12:00 Docusate Sodium (Colace) 200 mg DAILY PRN PO CONSTIPATION; Start 09/10/18 at 08:00 Ferrous Sulfate (Ferrous Sulfate (Ec)) 325 mg DAILY PO Last administered on 09/16/18at 08:00; Admin Dose 325 MG; Start 09/10/18 at 09:00 Magnesium Hydroxide (Milk Of Mag) 30 ml Q24H PRN PO CONSTIPATION; Start 09/10/18 at 08:00 Memantine (Namenda) 5 mg DAILY PO Last administered on 09/16/18at 08:00; Admin Dose 5 MG; Start 09/10/18 at 09:00 Multivitamins Therapeutic (Theragran) 1 tab DAILY PO Last administered on 09/16/18at 08:00; Admin Dose 1 TAB; Start 09/10/18 at 09:00 Ondansetron HCl (Zofran Tab) 4 mg Q4H PRN PO NAUSEA AND/OR VOMITING; Start 09/10/18 at 08:00 Pantoprazole (Protonix Tab) 40 mg DAILY@0600 PO Last administered on 09/16/18at 06:36; Admin Dose 40 MG; Start 09/10/18 at 09:00 Prochlorperazine (Compazine) 5 mg Q6H PRN PO NAUSEA; Start 09/10/18 at 08:00 Senna (Senokot) 2 tab DAILY PRN PO CONSTIPATION; Start 09/10/18 at 08:00 Zinc Sulfate (Zinc Sulfate) 220 mg DAILY PO Last administered on 09/16/18 08:00; Admin Dose 220 MG; Start 09/10/18 at 09:00 Miscellaneous Information 1 ea NOTE XX ; Start 09/10/18 at 08:00 Glucose (Glutose) 15 gm Q15M PRN PO DECREASED GLUCOSE; Start 09/10/18 at 08:00 Glucose (Glutose) 22.5 gm Q15M PRN PO DECREASED GLUCOSE; Start 09/10/18 at 08:00 Dextrose (D50w Syringe) 25 ml Q15M PRN IV DECREASED GLUCOSE; Start 09/10/18 at 08:00 Dextrose (D50w Syringe) 50 ml Q15M PRN IV DECREASED GLUCOSE Last administered on 09/15/18at 07:34; Admin Dose 50 ML; Start 09/10/18 at 08:00 Glucagon (Glucagen) 1 mg Q15M PRN IM DECREASED GLUCOSE; Start 09/10/18 at 08:00 Glucose (Glutose) 15 gm Q15M PRN BUCCAL DECREASED GLUCOSE; Start 09/10/18 at 08:00 Ertapenem 0.5 gm/ Sodium Chloride 100 ml @ 200 mls/hr Q24H IVPB Last administered on 09/16/18 12:02; Admin Dose 200 MLS/HR; Start 09/11/18 at 11:00 Diagnostic Test (Pha) (Accu-Chek) 1 ea 02 XX Last administered on 09/14/18at 02:54; Admin Dose 1 EA; Start 09/11/18 at 02:00 Insulin Aspart (Novolog Insulin Pen) NOVOLOG *MODERATE* ALGORITHM WITH MEALS BEDTIME SC Last administered on 09/15/18 17:17; Admin Dose 2 UNIT; Start 09/10/18 at 22:30 Linagliptin (Tradjenta) 5 mg DAILY PO Last administered on 09/16/18 08:00; Admin Dose 5 MG; Start 09/14/18 at 09:00 Diagnostic Test (Pha) (Accu-Chek) 1 ea AC MEALS AND BEDTIME XX Last administered on 09/16/18 22:30; Admin Dose 1 EA; Start 09/14/18 at 11:00 Megestrol Acetate (Megace Susp) 1,250 mg BID PO Last administered on 09/16/18 22:32; Admin Dose 1,250 MG; Start 09/14/18 at 21:00 Filgrastim (Neupogen) 300 mcg DAILY@17 SC Last administered on 09/16/18at 17:22; Admin Dose 300 MCG; Start 09/14/18 at 23:15 Fluconazole (Diflucan) 100 mg DAILY PO Last administered on 09/16/18 07:59; Admin Dose 100 MG; Start 09/15/18 at 14:30 Acyclovir (Zovirax) 400 mg BID PO Last administered on 09/16/18at 22:32; Admin Dose 400 MG; Start 09/15/18 at 15:00 Fluoxetine HCl (Prozac) 60 mg DAILY PO Last administered on 09/16/18 08:54; Admin Dose 60 MG; Start 09/16/18 at 09:00 Dextrose/Sodium Chloride 1,000 ml @ 50 mls/hr Q20H IV Last administered on 09/16/18 04:55; Admin Dose 50 MLS/HR; Start 09/16/18 at 05:00 Digoxin (Digoxin) 125 mcg DAILY@13 IV Last administered on 09/16/18at 12:03; Admin Dose 125 MCG; Start 09/16/18 at 13:00; Stop 09/18/18 at 12:59 ISABELLE JARVIS MD Sep 16, 2018 23:30
[2018-09-17] VITALS (10 sets, daily range): BP systolic 107–120; BP diastolic 53–65; PULSE 79–100; RESP 18–20
[2018-09-17] MEDS: DILTIAZEM 60 MG TAB PO SCH ×5 (00:14→23:11)
[2018-09-17] MEDS: ACCU-CHEK XX SCH ×5 (02:00→21:00)
[2018-09-17] MEDS: DEXTROSE 5%-0.45% NACL 1,000 ML IV SCH ×2 (02:10→20:16)
[2018-09-17] MEDS: PANTOPRAZOLE (EC) 40 MG TAB PO SCH (05:55)
[2018-09-17] MEDS: INSULIN ASPART [NOVOLOG] 3 ML PEN SC SCH ×4 (07:55→20:32)
[2018-09-17] MEDS: MULTIVITAMINS THERAPEUTIC TAB PO SCH (08:22)
[2018-09-17] MEDS: FLUCONAZOLE 100 MG TAB PO SCH (08:22)
[2018-09-17] MEDS: MEMANTINE 5 MG TAB PO SCH (08:22)
[2018-09-17] MEDS: FERROUS SULFATE (EC) 325 MG TAB PO SCH (08:22)
[2018-09-17] MEDS: ACYCLOVIR 400 MG TAB PO SCH ×2 (08:22→20:17)
[2018-09-17] MEDS: FLUOXETINE 20 MG CAP PO SCH (08:22)
[2018-09-17] MEDS: ASCORBIC ACID 500 MG TAB PO SCH (08:22)
[2018-09-17] MEDS: ZINC SULFATE 220 MG CAP PO SCH (08:22)
[2018-09-17] MEDS: LINAGLIPTIN 5 MG TABLET PO SCH (08:22)
[2018-09-17] MEDS: MEGESTROL (40 MG/ML) 10ML CUP PO SCH ×2 (08:24→20:17)
[2018-09-17] MEDS: ERTAPENEM SODIUM 0.5 GM in SOD CHLORIDE 0.9% 100 ML IVPB SCH (10:45)
--- NOTE | 2018-09-17 11:16 | CONS ---
Consult Date/Type/Reason Admit Date/Time Sep 09, 2018 at 22:52 Initial Consult Date 09/13/18 Type of Consult Pulmonary Requesting Provider: RENE VAZQUEZ DO Date/Time of Note DATE: 09/17/18 TIME: 11:16 Subjective Comfortable this morning, no resp distress. Objective Vital Signs Date Temp Pulse Resp B/P (MAP) Pulse Ox O2 O2 Flow FiO2 Time Delivery Rate 09/17/18 85 08:00 09/17/18 98.0 18 115/62 94 07:58 (79) 09/16/18 Nasal 2.0 19:53 Cannula Intake and Output 09/16/18 09/16/18 09/17/18 1414:59 22:59 06:59 IntakeIntake Total 1460 ml 1000 ml OutputOutput Total 100 ml BalanceBalance 1460 ml 900 ml Exam GENERAL: Well-nourished well-developed gentleman comfortable at rest VITAL SIGNS: per chart NECK: Supple. No JVD or lymphadenopathy. CARDIAC EXAM: S1, S2. No added sounds or murmurs. CHEST: clear bilaterally, No added sounds, rales or wheezes ABDOMEN: Soft, nontender. No guarding or rebound. EXTREMITIES: No cyanosis, clubbing or edema. NEUROLOGIC: Generalized weakness. No focal deficits. Vent Setting Fraction of Inspired Oxygen pe: 27 Results/Medications Result Diagram: 09/17/18 0645 09/17/18 0645 Results 24 hrs Laboratory Tests Test 09/16/18 12:05 09/16/18 17:21 09/16/18 22:29 09/17/18 06:45 Bedside Glucose 123 107 111 White Blood Count 1.3 #L Red Blood Count 2.81 L Hemoglobin 7.8 L Hematocrit 25.2 L Mean Corpuscular 89.7 Volume Mean Corpuscular 27.8 L Hemoglobin Mean Corpuscular 31.0 L Hemoglobin Concent Red Cell Distribution 16.9 H Width Platelet Count 26 #*L Mean Platelet Volume Immature Granulocytes 19.500 H % Neutrophils % Segmented Neutrophils 15 L % (Manual) Band Neutrophils % 7 H (Manual) Lymphocytes % Lymphocytes % 48 (Manual) Reactive Lymphocytes 1 H % (Manual) Monocytes % Monocytes % (Manual) 16 H Eosinophils % Eosinophils % 3 (Manual) Basophils % Metamyelocytes % 2 H (manual) Myelocytes % (Manual) 2 H Promyelocytes % 6 H (Manual) Blast Cells % 1.5 H (Manual) Nucleated Red Blood 5 H Cells % Immature Granulocytes 0.250 H # Neutrophils # Neutrophils # 0.2 L (Manual) Band Neutrophils # 0.0 Lymphocytes (Manual) 0.6 L Lymphocytes # Reactive Lymphocytes 0.0 # Monocytes # Monocytes # (Manual) 0.2 L Eosinophils # Basophils # Metamyelocytes # 0.0 Myelocytes # 0.0 Promyelocytes # 0.0 Nucleated Red Blood Cells # Platelet Estimate SIG DECREASED Giant Platelets 3 H Polychromasia 3+ Hypochromasia 1+ Poikilocytosis 1+ Anisocytosis 1+ Microcytosis 1+ Ovalocytes 1+ Sodium Level 137 Potassium Level 4.1 Chloride Level 107 Carbon Dioxide Level 22 Anion Gap 8 Blood Urea Nitrogen 39 H Creatinine 1.88 H Est Glomerular Filtrat Rate mL/min Glucose Level 105 # Calcium Level 8.9 Phosphorus Level 3.3 Magnesium Level 1.7 Test 09/17/18 07:59 Bedside Glucose 101 Medications Current Medications IV Flush (NS 3 ml) 3 ml PER PROTOCOL IV ; Start 09/10/18 at 06:30 Ondansetron HCl (Zofran Inj) 4 mg Q6H PRN IV NAUSEA/VOMITING; Start 09/10/18 at 06:30 Acetaminophen (Tylenol Supp) 650 mg Q6H PRN [place] .PAIN 1-3 OR TEMP; Start 09/10/18 at 06:30 Zolpidem Tartrate (Ambien) 5 mg QHS PRN PO .INSOMNIA; Start 09/10/18 at 06:30 Acetaminophen (Tylenol Tab) 650 mg Q4H PRN PO MILD PAIN(1-3)OR ELEVATED TEMP; Start 09/10/18 at 08:00 Ascorbic Acid (Vitamin C) 500 mg DAILY PO Last administered on 09/17/18at 08:22; Admin Dose 500 MG; Start 09/10/18 at 09:00 Diltiazem HCl (Cardizem) 60 mg Q6 PO Last administered on 09/17/18at 05:55; Admin Dose 60 MG; Start 09/10/18 at 12:00 Docusate Sodium (Colace) 200 mg DAILY PRN PO CONSTIPATION; Start 09/10/18 at 0 8:00 Ferrous Sulfate (Ferrous Sulfate (Ec)) 325 mg DAILY PO Last administered on 09/17/18at 08:22; Admin Dose 325 MG; Start 09/10/18 at 09:00 Magnesium Hydroxide (Milk Of Mag) 30 ml Q24H PRN PO CONSTIPATION; Start 09/10/18 at 08:00 Memantine (Namenda) 5 mg DAILY PO Last administered on 09/17/18at 08:22; Admin Dose 5 MG; Start 09/10/18 at 09:00 Multivitamins Therapeutic (Theragran) 1 tab DAILY PO Last administered on 09/17/18at 08:22; Admin Dose 1 TAB; Start 09/10/18 at 09:00 Ondansetron HCl (Zofran Tab) 4 mg Q4H PRN PO NAUSEA AND/OR VOMITING; Start 09/10/18 at 08:00 Pantoprazole (Protonix Tab) 40 mg DAILY@0600 PO Last administered on 09/17/18at 05:55; Admin Dose 40 MG; Start 09/10/18 at 09:00 Prochlorperazine (Compazine) 5 mg Q6H PRN PO NAUSEA; Start 09/10/18 at 08:00 Senna (Senokot) 2 tab DAILY PRN PO CONSTIPATION; Start 09/10/18 at 08:00 Zinc Sulfate (Zinc Sulfate) 220 mg DAILY PO Last administered on 09/17/18at 08:22; Admin Dose 220 MG; Start 09/10/18 at 09:00 Miscellaneous Information 1 ea NOTE XX ; Start 09/10/18 at 08:00 Glucose (Glutose) 15 gm Q15M PRN PO DECREASED GLUCOSE; Start 09/10/18 at 08:00 Glucose (Glutose) 22.5 gm Q15M PRN PO DECREASED GLUCOSE; Start 09/10/18 at 08:00 Dextrose (D50w Syringe) 25 ml Q15M PRN IV DECREASED GLUCOSE; Start 09/10/18 at 08:00 Dextrose (D50w Syringe) 50 ml Q15M PRN IV DECREASED GLUCOSE Last administered on 09/15/18at 07:34; Admin Dose 50 ML; Start 09/10/18 at 08:00 Glucagon (Glucagen) 1 mg Q15M PRN IM DECREASED GLUCOSE; Start 09/10/18 at 08:00 Glucose (Glutose) 15 gm Q15M PRN BUCCAL DECREASED GLUCOSE; Start 09/10/18 at 08:00 Ertapenem 0.5 gm/ Sodium Chloride 100 ml @ 200 mls/hr Q24H IVPB Last administered on 09/17/18 10:45; Admin Dose 200 MLS/HR; Start 09/11/18 at 11:00 Diagnostic Test (Pha) (Accu-Chek) 1 ea 02 XX Last administered on 09/14/18 02:54; Admin Dose 1 EA; Start 09/11/18 at 02:00 Insulin Aspart (Novolog Insulin Pen) NOVOLOG *MODERATE* ALGORITHM WITH MEALS BEDTIME SC Last administered on 09/15/18 17:17; Admin Dose 2 UNIT; Start 09/10/18 at 22:30 Linagliptin (Tradjenta) 5 mg DAILY PO Last administered on 09/17/18 08:22; Admi n Dose 5 MG; Start 09/14/18 at 09:00 Diagnostic Test (Pha) (Accu-Chek) 1 ea AC MEALS AND BEDTIME XX Last administered on 09/17/18 08:01; Admin Dose 1 EA; Start 09/14/18 at 11:00 Megestrol Acetate (Megace Susp) 1,250 mg BID PO Last administered on 09/17/18 08:24; Admin Dose 1,250 MG; Start 09/14/18 at 21:00 Filgrastim (Neupogen) 300 mcg DAILY@17 SC Last administered on 09/16/18 17:22; Admin Dose 300 MCG; Start 09/14/18 at 23:15 Fluconazole (Diflucan) 100 mg DAILY PO Last administered on 09/17/18 08:22; Admin Dose 100 MG; Start 09/15/18 at 14:30 Acyclovir (Zovirax) 400 mg BID PO Last administered on 09/17/18 08:22; Admin Dose 400 MG; Start 09/15/18 at 15:00 Fluoxetine HCl (Prozac) 60 mg DAILY PO Last administered on 09/17/18 08:22; Admin Dose 60 MG; Start 09/16/18 at 09:00 Dextrose/Sodium Chloride 1,000 ml @ 50 mls/hr Q20H IV Last administered on 09/17/18 02:10; Admin Dose 50 MLS/HR; Start 09/16/18 at 05:00 Digoxin (Digoxin) 125 mcg DAILY@13 IV Last administered on 3/8/19at 12:03; Admi n Dose 125 MCG; Start 09/16/18 at 13:00; Stop 09/18/18 at 12:59 Assessment/Plan Hospital Course (Demo Recall) Assessment 1. Patient admitted with UTI and sepsis with hypotension with marked overall interval improvement. No hemodynamically stable 2. Acute on chronic renal injury with continually improving renal function. 3. Pancytopenia. 4. History of chronic atrial fibrillation. Rate is well controlled. Patient not on anticoagulants because of severe anemia and thrombocytopenia. 5. History of mesothelioma involving right lung. Plan 1. Continue antibiotics 2. Hematology oncology recommendations 3. Physical therapy as tolerated [facility]. REINA MANZANO MD, [facility] Sep 17, 2018 11:16
--- NOTE | 2018-09-17 12:37 | PN ---
DATE: 09/17/2018 SUBJECTIVE: The patient remains lethargic, has poor p.o. intake. The patient is on IV fluids. No o ther events noted. OBJECTIVE: VITAL SIGNS: Blood pressure is 115/62, respiration 18, pulse 90, temperature 98.0. HEENT: Head is normocephalic. NECK: Supple. HEART: Regular rate. LUNGS: Show diminished breath sounds at the base. ABDOMEN: Soft, nontender to palpation without rebound or guarding. EXTREMITIES: Negative for clubbing, cyanosis, no edema. DERMATOLOGIC: No rashes. MUSCULOSKELETAL: No joint effusion. NEUROLOGIC: No change in exam. MEDICATIONS: Reviewed. LABORATORY DATA: Shows white count 1.3, hemoglobin 7.8, platelet count is 26. Sodium 137, potassium 4.1, BUN 39, creatinine 1.88. ASSESSMENT AND PLAN: 1. Sepsis, status post shock. Etiology is secondary to urinary tract infection, possible pneumonia. The patient is completing antibiotic course. 2. Neutropenia, pancytopenia, likely due to recent chemotherapy. Appreciate hematology's evaluation . Continue Neupogen. Follow up recommendations. 3. Atrial fibrillation, rate controlled. Continue medical management. 4. Mesothelioma with metastasis. The patient is on chemotherapy, last dose was on 09/08/2018. Cont inue to monitor. 5. Nonoliguric acute kidney injury on top of chronic kidney disease. Etiology is secondary to hemod ynamics. Renal function and creatinine have stabilized. Continue current treatment plan, supportive care, renally dose all meds. 6. Diabetes. The patient's insulin regimen was adjusted. Continue Tradjenta. The patient has poor p.o. intake. Continue to monitor closely. 7. Acute encephalopathy. Etiology is toxic metabolic. 8. History of depression. Continue Prozac. 9. Anorexia. Continue Megace. Continue gentle IV hydration. 10. Hypokalemia. Continue to monitor and replete. 11. Debility. Continue physical therapy. 12. Gastrointestinal and deep vein thrombosis prophylaxis. Dictated By: RENE YADAV/GUNJAN Conf#: [id number] DID#: [id number]
--- NOTE | 2018-09-17 13:01 | CONS ---
Assessment/Plan Assessment/Plan Hospital Course (Demo Recall) No acute changes overnight patient had been afebrile WBC today 1.3 platelets 26 BUN 39 creatinine 1.88 Antimicrobials: Invanz, acyclovir, fluconazole Microbiology: All cultures negative Indwelling: Left chest Port-A-Cath Physical examination: Well-developed chronically ill-appearing elderly man in no distress. Head atraumatic normocephalic sclera nonicteric. Neck is supple chest rise symmetrical breath sounds diminished bases. Heart: S1-S2. Abdomen soft bowel sounds present assessment Assessment: 1. S/p septic shock, possibly cardiogenic 2. Acute renal failure 3. Urinary tract infection as per urinalysis 4. Mesothelioma with metastasis, patient is getting chemotherapy outpatient 5. Atrial fibrillation 6. Possible pneumonia 7. Pancytopenia/neutropenia Plan: Remains stable, continue present care and antibiotics, continue Neupogen per oncology Consultation Date/Type/Reason Admit Date/Time Sep 09, 2018 at 22:52 Initial Consult Date Type of Consult id Requesting Provider: RENE VAZQUEZ DO Date/Time of Note DATE: 09/17/18 TIME: 13:00 Exam/Review of Systems Exam Vitals Vital Signs Date Temp Pulse Resp B/P (MAP) Pulse Ox O2 O2 Flow FiO2 Time Delivery Rate 09/17/18 97.5 96 18 107/53 93 12:10 (71) 09/17/18 Nasal 2.0 08:15 Cannula Intake and Output 09/16/18 09/16/18 09/17/18 1414:59 22:59 06:59 IntakeIntake Total 1460 ml 1000 ml OutputOutput Total 100 ml BalanceBalance 1460 ml 900 ml Results Result Diagram: 09/17/18 0645 09/17/18 0645 Results 24hrs Laboratory Tests Test 09/16/18 17:21 09/16/18 22:29 09/17/18 06:45 09/17/18 07:59 Bedside Glucose 107 111 101 White Blood Count 1.3 #L Red Blood Count 2.81 L Hemoglobin 7.8 L Hematocrit 25.2 L Mean Corpuscular 89.7 Volume Mean Corpuscular 27.8 L Hemoglobin Mean Corpuscular 31.0 L Hemoglobin Concent Red Cell Distribution 16.9 H Width Platelet Count 26 #*L Mean Platelet Volume Immature Granulocytes 19.500 H % Neutrophils % Segmented Neutrophils 15 L % (Manual) Band Neutrophils % 7 H (Manual) Lymphocytes % Lymphocytes % 48 (Manual) Reactive Lymphocytes 1 H % (Manual) Monocytes % Monocytes % (Manual) 16 H Eosinophils % Eosinophils % 3 (Manual) Basophils % Metamyelocytes % 2 H (manual) Myelocytes % (Manual) 2 H Promyelocytes % 6 H (Manual) Blast Cells % 1.5 H (Manual) Nucleated Red Blood 5 H Cells % Immature Granulocytes 0.250 H # Neutrophils # Neutrophils # 0.2 L (Manual) Band Neutrophils # 0.0 Lymphocytes (Manual) 0.6 L Lymphocytes # Reactive Lymphocytes 0.0 # Monocytes # Monocytes # (Manual) 0.2 L Eosinophils # Basophils # Metamyelocytes # 0.0 Myelocytes # 0.0 Promyelocytes # 0.0 Nucleated Red Blood Cells # Platelet Estimate SIG DECREASED Giant Platelets 3 H Polychromasia 3+ Hypochromasia 1+ Poikilocytosis 1+ Anisocytosis 1+ Microcytosis 1+ Ovalocytes 1+ Sodium Level 137 Potassium Level 4.1 Chloride Level 107 Carbon Dioxide Level 22 Anion Gap 8 Blood Urea Nitrogen 39 H Creatinine 1.88 H Est Glomerular Filtrat Rate mL/min Glucose Level 105 # Calcium Level 8.9 Phosphorus Level 3.3 Magnesium Level 1.7 Test 09/17/18 12:07 Bedside Glucose 138 Medications Medication Current Medications IV Flush (NS 3 ml) 3 ml PER PROTOCOL IV ; Start 09/10/18 at 06:30 Ondansetron HCl (Zofran Inj) 4 mg Q6H PRN IV NAUSEA/VOMITING; Start 09/10/18 at 06:30 Acetaminophen (Tylenol Supp) 650 mg Q6H PRN [place] .PAIN 1-3 OR TEMP; Start 09/10/18 at 06:30 Zolpidem Tartrate (Ambien) 5 mg QHS PRN PO .INSOMNIA; Start 09/10/18 at 06:30 Acetaminophen (Tylenol Tab) 650 mg Q4H PRN PO MILD PAIN(1-3)OR ELEVATED TEMP; Start 09/10/18 at 08:00 Ascorbic Acid (Vitamin C) 500 mg DAILY PO Last administered on 09/17/18at 08:22; Admin Dose 500 MG; Start 09/10/18 at 09:00 Diltiazem HCl (Cardizem) 60 mg Q6 PO Last administered on 09/17/18at 12:14; Admin Dose 60 MG; Start 09/10/18 at 12:00 Docusate Sodium (Colace) 200 mg DAILY PRN PO CONSTIPATION; Start 09/10/18 at 08:00 Ferrous Sulfate (Ferrous Sulfate (Ec)) 325 mg DAILY PO Last administered on 09/17/18at 08:22; Admin Dose 325 MG; Start 09/10/18 at 09:00 Magnesium Hydroxide (Milk Of Mag) 30 ml Q24H PRN PO CONSTIPATION; Start 09/10/18 at 08:00 Memantine (Namenda) 5 mg DAILY PO Last administered on 09/17/18at 08:22; Admin Dose 5 MG; Start 09/10/18 at 09:00 Multivitamins Therapeutic (Theragran) 1 tab DAILY PO Last administered on 09/17/18at 08:22; Admin Dose 1 TAB; Start 09/10/18 at 09:00 Ondansetron HCl (Zofran Tab) 4 mg Q4H PRN PO NAUSEA AND/OR VOMITING; Start 09/10/18 at 08:00 Pantoprazole (Protonix Tab) 40 mg DAILY@0600 PO Last administered on 09/17/18at 05:55; Admin Dose 40 MG; Start 09/10/18 at 09:00 Prochlorperazine (Compazine) 5 mg Q6H PRN PO NAUSEA; Start 09/10/18 at 08:00 Senna (Senokot) 2 tab DAILY PRN PO CONSTIPATION; Start 09/10/18 at 08:00 Zinc Sulfate (Zinc Sulfate) 220 mg DAILY PO Last administered on 09/17/18 08:22; Admin Dose 220 MG; Start 09/10/18 at 09:00 Miscellaneous Information 1 ea NOTE XX ; Start 09/10/18 at 08:00 Glucose (Glutose) 15 gm Q15M PRN PO DECREASED GLUCOSE; Start 09/10/18 at 08:00 Glucose (Glutose) 22.5 gm Q15M PRN PO DECREASED GLUCOSE; Start 09/10/18 at 08:00 Dextrose (D50w Syringe) 25 ml Q15M PRN IV DECREASED GLUCOSE; Start 09/10/18 at 08:00 Dextrose (D50w Syringe) 50 ml Q15M PRN IV DECREASED GLUCOSE Last administered on 09/15/18at 07:34; Admin Dose 50 ML; Start 09/10/18 at 08:00 Glucagon (Glucagen) 1 mg Q15M PRN IM DECREASED GLUCOSE; Start 09/10/18 at 08:00 Glucose (Glutose) 15 gm Q15M PRN BUCCAL DECREASED GLUCOSE; Start 09/10/18 at 08:00 Ertapenem 0.5 gm/ Sodium Chloride 100 ml @ 200 mls/hr Q24H IVPB Last administered on 09/17/18 10:45; Admin Dose 200 MLS/HR; Start 09/11/18 at 11:00 Diagnostic Test (Pha) (Accu-Chek) 1 ea 02 XX Last administered on 09/14/18 02:54; Admin Dose 1 EA; Start 09/11/18 at 02:00 Insulin Aspart (Novolog Insulin Pen) NOVOLOG *MODERATE* ALGORITHM WITH MEALS BEDTIME SC Last administered on 09/15/18 17:17; Admin Dose 2 UNIT; Start 09/10/18 at 22:30 Linagliptin (Tradjenta) 5 mg DAILY PO Last administered on 09/17/18 08:22; Admin Dose 5 MG; Start 09/14/18 at 09:00 Diagnostic Test (Pha) (Accu-Chek) 1 ea AC MEALS AND BEDTIME XX Last administered on 09/17/18 12:16; Admin Dose 1 EA; Start 09/14/18 at 11:00 Megestrol Acetate (Megace Susp) 1,250 mg BID PO Last administered on 09/17/18 08:24; Admin Dose 1,250 MG; Start 09/14/18 at 21:00 Filgrastim (Neupogen) 300 mcg DAILY@17 SC Last administered on 09/16/18 17:22; Admin Dose 300 MCG; Start 09/14/18 at 23:15 Fluconazole (Diflucan) 100 mg DAILY PO Last administered on 09/17/18 08:22; Admin Dose 100 MG; Start 09/15/18 at 14:30 Acyclovir (Zovirax) 400 mg BID PO Last administered on 09/17/18 08:22; Admin Dose 400 MG; Start 09/15/18 at 15:00 Fluoxetine HCl (Prozac) 60 mg DAILY PO Last administered on 09/17/18 08:22; Admin Dose 60 MG; Start 09/16/18 at 09:00 Dextrose/Sodium Chloride 1,000 ml @ 50 mls/hr Q20H IV Last administered on 09/17/18at 02:10; Admin Dose 50 MLS/HR; Start 09/16/18 at 05:00 Digoxin (Digoxin) 125 mcg DAILY@13 IV Last administered on 09/16/18at 12:03; Admin Dose 125 MCG; Start 09/16/18 at 13:00; Stop 09/18/18 at 12:59 CARMEN ALEGRIA NP Sep 17, 2018 13:01
[2018-09-17] MEDS: DIGOXIN 500 MCG INJ IV SCH (13:19)
--- NOTE | 2018-09-17 16:56 | CONS ---
Consult Date/Type/Reason Admit Date/Time Sep 09, 2018 at 22:52 Initial Consult Date 09/12/18 Type of Consultation: CV Requesting Provider: RENE VAZQUEZ DO Date/Time of Note DATE: 09/17/18 TIME: 16:52 Subjective Cardiology follow-up progress note Subjective: Discussed with staff and telemetry was reviewed. Patient remains in atrial fibrillation. HR is under good control He is on tele now Patient denies any chest pain or pressure to me He denies any active bleeding to me Objective: General: Elderly gentleman in no acute distress HEENT: NC/AT. pupils are equal. round. NECK: NO JVD. no stridor. CV: Irregularly irregular. systolic murmur; no gallop or rubs. PULM: no wheezing + rhonchi. GI: SOFT, NT, ND, no rebound or guarding Extremity: trace B/L LE edema. no clubbing. neuro: awake and alert, OX2. Psych: calm and pleasant rectal: deferred : normal Echocardiogram was personally reviewed which shows: Normal left ventricular cavity size. Possibly mild left ventricular systolic dysfunction. . Moderate concentric left ventricular hypertrophy. The left ventricle is not well visualized in the apical views, parasternal and subcostal only. The left ventricular ejection fraction is visually estimated at 60 %. Normal appearance of the mitral valve leaflets. The mitral valve is not well visualized. Mild mitral regurgitation, but only seen from parasternal window. The aortic valve is not well visualized. No hemodynamically significant aortic stenosis by Doppler. Aortic cusps appear mildly calcified. No aortic regurgitation. Normal appearance of the tricuspid valve. No evidence of tricuspid regurgitation. Upper limit of normal left atrial size. Objective Vitals Vital Signs Date Temp Pulse Resp B/P (MAP) Pulse Ox O2 O2 Flow FiO2 Time Delivery Rate 09/17/18 85 16:00 09/17/18 97.9 19 120/56 96 15:38 (77) 09/17/18 Nasal 2.0 08:15 Cannula Intake and Output 09/16/18 09/16/18 09/17/18 1515:00 23:00 07:00 IntakeIntake Total 1460 ml 1000 ml OutputOutput Total 100 ml BalanceBalance 1460 ml 900 ml Results/Medications Result Diagram: 09/17/18 0645 09/17/18 0645 Results 24 hrs Laboratory Tests Test 09/16/18 17:21 3/8/19 22:29 09/17/18 06:45 09/17/18 07:59 Bedside Glucose 107 111 101 White Blood Count 1.3 #L Red Blood Count 2.81 L Hemoglobin 7.8 L Hematocrit 25.2 L Mean Corpuscular 89.7 Volume Mean Corpuscular 27.8 L Hemoglobin Mean Corpuscular 31.0 L Hemoglobin Concent Red Cell Distribution 16.9 H Width Platelet Count 26 #*L Mean Platelet Volume Immature Granulocytes 19.500 H % Neutrophils % Segmented Neutrophils 15 L % (Manual) Band Neutrophils % 7 H (Manual) Lymphocytes % Lymphocytes % 48 (Manual) Reactive Lymphocytes 1 H % (Manual) Monocytes % Monocytes % (Manual) 16 H Eosinophils % Eosinophils % 3 (Manual) Basophils % Metamyelocytes % 2 H (manual) Myelocytes % (Manual) 2 H Promyelocytes % 6 H (Manual) Blast Cells % 1.5 H (Manual) Nucleated Red Blood 5 H Cells % Immature Granulocytes 0.250 H # Neutrophils # Neutrophils # 0.2 L (Manual) Band Neutrophils # 0.0 Lymphocytes (Manual) 0.6 L Lymphocytes # Reactive Lymphocytes 0.0 # Monocytes # Monocytes # (Manual) 0.2 L Eosinophils # Basophils # Metamyelocytes # 0.0 Myelocytes # 0.0 Promyelocytes # 0.0 Nucleated Red Blood Cells # Platelet Estimate SIG DECREASED Giant Platelets 3 H Polychromasia 3+ Hypochromasia 1+ Poikilocytosis 1+ Anisocytosis 1+ Microcytosis 1+ Ovalocytes 1+ Sodium Level 137 Potassium Level 4.1 Chloride Level 107 Carbon Dioxide Level 22 Anion Gap 8 Blood Urea Nitrogen 39 H Creatinine 1.88 H Est Glomerular Filtrat Rate mL/min Glucose Level 105 # Calcium Level 8.9 Phosphorus Level 3.3 Magnesium Level 1.7 Test 09/17/18 12:07 Bedside Glucose 138 Home Meds Reported Medications Ondansetron Hcl* (Ondansetron Hcl*) 4 Mg Tablet, 4 MG PO Q4H PRN for NAUSEA AND OR VOMITING, TAB 09/09/18 Zinc Sulfate* (Zinc Sulfate*) 220 Mg Cap, 220 MG PO DAILY, CAP 09/09/18 Ascorbic Acid* (Vitamin C*) 500 Mg Capsule.sa, 500 MG PO DAILY, CAP 09/09/18 Cran/Vitc/Mannose/Inulin/Brom (Uti-Stat Liquid) 3,875 Mg/30 Ml Liquid, 3875 MG PO DAILY 09/09/18 Acetaminophen* (Acetaminophen*) 650 Mg Tablet, 650 MG PO Q4 PRN for PAIN AND OR ELEVATED TEMP, #30 TAB 09/09/18 Sennosides* (Senna Lax*) 8.6 Mg Tablet, 2 TAB PO DAILY PRN for CONSTIPATION, TAB 09/09/18 Fluoxetine Hcl* (Prozac*) 20 Mg Capsule, 20 MG PO DAILY, CAP 09/09/18 Pantoprazole* (Protonix*) 40 Mg Tablet.dr, 40 MG PO DAILY, TAB 09/09/18 Prochlorperazine* (Prochlorperazine*) 5 Mg Tablet, 5 MG PO Q6 PRN for NAUSEA, TAB 09/09/18 Memantine* (Namenda*) 5 Mg Tablet, 5 MG PO DAILY, #30 TAB 09/09/18 Multivitamins* (Theragran*) 1 Tab Tab, 1 TAB PO DAILY, TAB 09/09/18 Magnesium Hydroxide* (Milk Of Magnesia*) 400 Mg/5 Ml Oral.susp, 30 ML PO Q24H PRN for CONSTIPATION, ML 09/09/18 Megestrol Acetate* (Megace ES*) 625 Mg/5 Ml Oral.susp, 10 ML PO BID, ML 09/09/18 Insulin Glargine* (Lantus*) 100 Unit/Ml Soln, 12 UNIT SC QHS, #1 VIAL 09/09/18 Ferrous Sulfate* (Ferrous Sulfate*) 325 Mg Tabec, 325 MG PO DAILY, TAB 09/09/18 Diltiazem Hcl* (Cardizem SR*) 60 Mg Capsr, 60 MG PO Q6, #60 CAP HOLD IF SBP BELOW 110 OR HR BELOW 60 09/09/18 Cranberry (Cranberry) 400 Mg Capsule, 400 MG PO DAILY, CAP 09/09/18 Docusate Sodium* (Colace*) 100 Mg Capsule, 200 MG PO DAILY PRN for CONSTIPATION, #30 CAP 09/09/18 Bisoprolol Fumarate* (Bisoprolol Fumarate*) 5 Mg Tablet, 5 MG PO DAILY, TAB HOLD IF SBP IS BELOW 110 OR HR BELOW 60 09/09/18 Medications Current Medications IV Flush (NS 3 ml) 3 ml PER PROTOCOL IV ; Start 09/10/18 at 06:30 Ondansetron HCl (Zofran Inj) 4 mg Q6H PRN IV NAUSEA/VOMITING; Start 09/10/18 at 06:30 Acetaminophen (Tylenol Supp) 650 mg Q6H PRN [place] .PAIN 1-3 OR TEMP; Start 09/10/18 at 06:30 Zolpidem Tartrate (Ambien) 5 mg QHS PRN PO .INSOMNIA; Start 09/10/18 at 06:30 Acetaminophen (Tylenol Tab) 650 mg Q4H PRN PO MILD PAIN(1-3)OR ELEVATED TEMP; Start 09/10/18 at 08:00 Ascorbic Acid (Vitamin C) 500 mg DAILY PO Last administered on 09/17/18at 08:22; Admin Dose 500 MG; Start 09/10/18 at 09:00 Diltiazem HCl (Cardizem) 60 mg Q6 PO Last administered on 09/17/18at 12:14; Admin Dose 60 MG; Start 09/10/18 at 12:00 Docusate Sodium (Colace) 200 mg DAILY PRN PO CONSTIPATION; Start 09/10/18 at 08:00 Ferrous Sulfate (Ferrous Sulfate (Ec)) 325 mg DAILY PO Last administered on 09/17/18at 08:22; Admin Dose 325 MG; Start 09/10/18 at 09:00 Magnesium Hydroxide (Milk Of Mag) 30 ml Q24H PRN PO CONSTIPATION; Start 09/10/18 at 08:00 Memantine (Namenda) 5 mg DAILY PO Last administered on 09/17/18 08:22; Admin Dose 5 MG; Start 09/10/18 at 09:00 Multivitamins Therapeutic (Theragran) 1 tab DAILY PO Last administered on 09/17/18 08:22; Admin Dose 1 TAB; Start 09/10/18 at 09:00 Ondansetron HCl (Zofran Tab) 4 mg Q4H PRN PO NAUSEA AND/OR VOMITING; Start 09/10/18 at 08:00 Pantoprazole (Protonix Tab) 40 mg DAILY@0600 PO Last administered on 09/17/18at 05:55; Admin Dose 40 MG; Start 09/10/18 at 09:00 Prochlorperazine (Compazine) 5 mg Q6H PRN PO NAUSEA; Start 09/10/18 at 08:00 Senna (Senokot) 2 tab DAILY PRN PO CONSTIPATION; Start 09/10/18 at 08:00 Zinc Sulfate (Zinc Sulfate) 220 mg DAILY PO Last administered on 09/17/18 08:22; Admin Dose 220 MG; Start 09/10/18 at 09:00 Miscellaneous Information 1 ea NOTE XX ; Start 09/10/18 at 08:00 Glucose (Glutose) 15 gm Q15M PRN PO DECREASED GLUCOSE; Start 09/10/18 at 08:00 Glucose (Glutose) 22.5 gm Q15M PRN PO DECREASED GLUCOSE; Start 09/10/18 at 08:00 Dextrose (D50w Syringe) 25 ml Q15M PRN IV DECREASED GLUCOSE; Start 09/10/18 at 08:00 Dextrose (D50w Syringe) 50 ml Q15M PRN IV DECREASED GLUCOSE Last administered on 09/15/18at 07:34; Admin Dose 50 ML; Start 09/10/18 at 08:00 Glucagon (Glucagen) 1 mg Q15M PRN IM DECREASED GLUCOSE; Start 09/10/18 at 08:00 Glucose (Glutose) 15 gm Q15M PRN BUCCAL DECREASED GLUCOSE; Start 09/10/18 at 08:00 Ertapenem 0.5 gm/ Sodium Chloride 100 ml @ 200 mls/hr Q24H IVPB Last administered on 09/17/18at 10:45; Admin Dose 200 MLS/HR; Start 09/11/18 at 11:00 Diagnostic Test (Pha) (Accu-Chek) 1 ea 02 XX Last administered on 09/14/18at 02:54; Admin Dose 1 EA; Start 09/11/18 at 02:00 Insulin Aspart (Novolog Insulin Pen) NOVOLOG *MODERATE* ALGORITHM WITH MEALS BEDTIME SC Last administered on 09/15/18at 17:17; Admin Dose 2 UNIT; Start 09/10/18 at 22:30 Linagliptin (Tradjenta) 5 mg DAILY PO Last administered on 09/17/18 08:22; Admin Dose 5 MG; Start 09/14/18 at 09:00 Diagnostic Test (Pha) (Accu-Chek) 1 ea AC MEALS AND BEDTIME XX Last administered on 09/17/18at 12:16; Admin Dose 1 EA; Start 09/14/18 at 11:00 Megestrol Acetate (Megace Susp) 1,250 mg BID PO Last administered on 09/17/18 08:24; Admin Dose 1,250 MG; Start 09/14/18 at 21:00 Filgrastim (Neupogen) 300 mcg DAILY@17 SC Last administered on 09/16/18 17:22; Admin Dose 300 MCG; Start 09/14/18 at 23:15 Fluconazole (Diflucan) 100 mg DAILY PO Last administered on 09/17/18 08:22; Admin Dose 100 MG; Start 09/15/18 at 14:30 Acyclovir (Zovirax) 400 mg BID PO Last administered on 09/17/18 08:22; Admin Dose 400 MG; Start 09/15/18 at 15:00 Fluoxetine HCl (Prozac) 60 mg DAILY PO Last administered on 09/17/18 08:22; Admin Dose 60 MG; Start 09/16/18 at 09:00 Dextrose/Sodium Chloride 1,000 ml @ 50 mls/hr Q20H IV Last administered on 09/17/18 02:10; Admin Dose 50 MLS/HR; Start 09/16/18 at 05:00 Digoxin (Digoxin) 125 mcg DAILY@13 IV Last administered on 09/17/18 13:19; Admin Dose 125 MCG; Start 09/16/18 at 13:00; Stop 09/18/18 at 12:59 Assessment/Plan Hospital Course (Demo Recall) 1. Atrial fibrillation rapid ventricular response: Currently HR is under control mostly 2. s/p Sepsis and shock 3. renal failure 4. Severe anemia 5. severe Thrombocytopenia 6. History of mesothelioma 7. Diabetes 8. Encephalopathy Recommendations: off Eliquis due to severe anemia and worsening thrombocytopenia Transfusion as needed dig prn as long as low dig level . Will give 1 dose today cont Cardizem po as needed Antibiotic management as per internal medicine Thank you for his referral. We will continue to follow along with you as needed over the weekend EMILIA BURCIAGA MD [facility] EMILIA BURCIAGA MD Sep 17, 2018 16:56
[2018-09-17] MEDS: FILGRASTIM 300 MCG INJ SC SCH (18:15)
--- NOTE | 2018-09-17 20:44 | CONS ---
Assessment/Plan Assessment/Plan Hospital Course (Demo Recall) Severe anemia and thrombocytopenia. 2 RECENT TO CHEMO The patient is currently receiving chemotherapy, last dose was 2.28. 19 MONITOR BLOOD COUNT CLOSELY OBSERVE FOR BLEEDING AND HEMOLYSIS AVOID MYELOSUPPRESSIVE MEDS LEUKOPENIA IN PT WITH SEPSIS POST RECENT CHEMO CONT NEUPOGEN TILL ANC MORE THAN 15023 MONITOR COUNT CLOSELY History of mesothelioma likely with right-sided involvement. OUTPT RECORD-P The patient is currently receiving chemotherapy, last dose was 2 .28.19 NO INTERVENTION PLANNED AT PRESENT Sepsis , UTI CONT antimicrobial regimen. Acute renal injury possibly with some element of baseline renal insufficiency. Serum creatinine improving. Improving hypotension. Chronic atrial fibrillation. Hyperkalemia: due to ARF and lactic acidosis (sepsis) History of hypertension. History of diabetes. Generalized weakness Consultation Date/Type/Reason Admit Date/Time Sep 09, 2018 at 22:52 Initial Consult Date 09/13/18 Type of Consult [facility] Requesting Provider: RENE VAZQUEZ DO Date/Time of Note DATE: 09/17/18 TIME: 20:44 24 HR Interval Summary Free Text/Dictation ALL NOTED ON NEUPOGEN COUNT RECOVERING Exam/Review of Systems Exam Vitals Vital Signs Date Temp Pulse Resp B/P (MAP) Pulse Ox O2 O2 Flow FiO2 Time Delivery Rate 09/17/18 98.0 79 18 113/57 97 20:06 (75) 09/17/18 Nasal 2.0 08:15 Cannula Intake and Output 09/16/18 09/16/18 09/17/18 1515:00 23:00 07:00 IntakeIntake Total 1460 ml 1000 ml OutputOutput Total 100 ml BalanceBalance 1460 ml 900 ml Exam Const: No acute distress, nontoxic Head: Atraumatic Eyes: Normal Conjunctiva ENT: Dry mucous membranes Neck: Full range of motion. No meningismus. Resp: Clear to auscultation bilaterally Chest wall: Right upper chest surgical scar, well healing. Left upper chest surgical scar from new pacemaker, well-healing Cardio: irregularly irregular rhythm with normal rate, no murmurs Abd: Soft, non tender, non distended. Normal bowel sounds Skin: No petechiae or rashes Back: No midline or flank tenderness Ext: No cyanosis, or edema Neur: Awake and alert, moving all extremities, normal speech, no facial asymmetry Psych: Depressed mood Results Result Diagram: 09/17/18 0645 09/17/18 0645 Results 24hrs Laboratory Tests Test 09/16/18 22:29 09/17/18 06:45 09/17/18 07:59 09/17/18 12:07 Bedside Glucose 111 101 138 White Blood Count 1.3 #L Red Blood Count 2.81 L Hemoglobin 7.8 L Hematocrit 25.2 L Mean Corpuscular 89.7 Volume Mean Corpuscular 27.8 L Hemoglobin Mean Corpuscular 31.0 L Hemoglobin Concent Red Cell Distribution 16.9 H Width Platelet Count 26 #*L Mean Platelet Volume Immature Granulocytes 19.500 H % Neutrophils % Segmented Neutrophils 15 L % (Manual) Band Neutrophils % 7 H (Manual) Lymphocytes % Lymphocytes % 48 (Manual) Reactive Lymphocytes 1 H % (Manual) Monocytes % Monocytes % (Manual) 16 H Eosinophils % Eosinophils % 3 (Manual) Basophils % Metamyelocytes % 2 H (manual) Myelocytes % (Manual) 2 H Promyelocytes % 6 H (Manual) Blast Cells % 1.5 H (Manual) Nucleated Red Blood 5 H Cells % Immature Granulocytes 0.250 H # Neutrophils # Neutrophils # 0.2 L (Manual) Band Neutrophils # 0.0 Lymphocytes (Manual) 0.6 L Lymphocytes # Reactive Lymphocytes 0.0 # Monocytes # Monocytes # (Manual) 0.2 L Eosinophils # Basophils # Metamyelocytes # 0.0 Myelocytes # 0.0 Promyelocytes # 0.0 Nucleated Red Blood Cells # Platelet Estimate SIG DECREASED Giant Platelets 3 H Polychromasia 3+ Hypochromasia 1+ Poikilocytosis 1+ Anisocytosis 1+ Microcytosis 1+ Ovalocytes 1+ Sodium Level 137 Potassium Level 4.1 Chloride Level 107 Carbon Dioxide Level 22 Anion Gap 8 Blood Urea Nitrogen 39 H Creatinine 1.88 H Est Glomerular Filtrat Rate mL/min Glucose Level 105 # Calcium Level 8.9 Phosphorus Level 3.3 Magnesium Level 1.7 Test 09/17/18 17:26 09/17/18 20:13 Bedside Glucose 149 190 Medications Medication Current Medications IV Flush (NS 3 ml) 3 ml PER PROTOCOL IV ; Start 09/10/18 at 06:30 Ondansetron HCl (Zofran Inj) 4 mg Q6H PRN IV NAUSEA/VOMITING; Start 09/10/18 at 06:30 Acetaminophen (Tylenol Supp) 650 mg Q6H PRN [place] .PAIN 1-3 OR TEMP; Start 09/10/18 at 06:30 Zolpidem Tartrate (Ambien) 5 mg QHS PRN PO .INSOMNIA; Start 09/10/18 at 06:30 Acetaminophen (Tylenol Tab) 650 mg Q4H PRN PO MILD PAIN(1-3)OR ELEVATED TEMP; Start 09/10/18 at 08:00 Ascorbic Acid (Vitamin C) 500 mg DAILY PO Last administered on 09/17/18 08:22; Admin Dose 500 MG; Start 09/10/18 at 09:00 Diltiazem HCl (Cardizem) 60 mg Q6 PO Last administered on 09/17/18 17:31; Admin Dose 60 MG; Start 09/10/18 at 12:00 Docusate Sodium (Colace) 200 mg DAILY PRN PO CONSTIPATION; Start 09/10/18 at 08:00 Ferrous Sulfate (Ferrous Sulfate (Ec)) 325 mg DAILY PO Last administered on 09/17/18 08:22; Admin Dose 325 MG; Start 09/10/18 at 09:00 Magnesium Hydroxide (Milk Of Mag) 30 ml Q24H PRN PO CONSTIPATION; Start 09/10/18 at 08:00 Memantine (Namenda) 5 mg DAILY PO Last administered on 09/17/18 08:22; Admin Dose 5 MG; Start 09/10/18 at 09:00 Multivitamins Therapeutic (Theragran) 1 tab DAILY PO Last administered on 09/17/18 08:22; Admin Dose 1 TAB; Start 09/10/18 at 09:00 Ondansetron HCl (Zofran Tab) 4 mg Q4H PRN PO NAUSEA AND/OR VOMITING; Start 09/10/18 at 08:00 Pantoprazole (Protonix Tab) 40 mg DAILY@0600 PO Last administered on 09/17/18 05:55; Admin Dose 40 MG; Start 09/10/18 at 09:00 Prochlorperazine (Compazine) 5 mg Q6H PRN PO NAUSEA; Start 09/10/18 at 08:00 Senna (Senokot) 2 tab DAILY PRN PO CONSTIPATION; Start 09/10/18 at 08:00 Zinc Sulfate (Zinc Sulfate) 220 mg DAILY PO Last administered on 09/17/18 08:22; Admin Dose 220 MG; Start 09/10/18 at 09:00 Miscellaneous Information 1 ea NOTE XX ; Start 09/10/18 at 08:00 Glucose (Glutose) 15 gm Q15M PRN PO DECREASED GLUCOSE; Start 09/10/18 at 08:00 Glucose (Glutose) 22.5 gm Q15M PRN PO DECREASED GLUCOSE; Start 09/10/18 at 08:00 Dextrose (D50w Syringe) 25 ml Q15M PRN IV DECREASED GLUCOSE; Start 09/10/18 at 08:00 Dextrose (D50w Syringe) 50 ml Q15M PRN IV DECREASED GLUCOSE Last administered on 09/15/18 07:34; Admin Dose 50 ML; Start 09/10/18 at 08:00 Glucagon (Glucagen) 1 mg Q15M PRN IM DECREASED GLUCOSE; Start 09/10/18 at 08:00 Glucose (Glutose) 15 gm Q15M PRN BUCCAL DECREASED GLUCOSE; Start 09/10/18 at 08:00 Ertapenem 0.5 gm/ Sodium Chloride 100 ml @ 200 mls/hr Q24H IVPB Last administered on 09/17/18at 10:45; Admin Dose 200 MLS/HR; Start 09/11/18 at 11:00 Diagnostic Test (Pha) (Accu-Chek) 1 ea 02 XX Last administered on 09/14/18at 02:54; Admin Dose 1 EA; Start 09/11/18 at 02:00 Insulin Aspart (Novolog Insulin Pen) NOVOLOG *MODERATE* ALGORITHM WITH MEALS BEDTIME SC Last administered on 09/17/18 20:32; Admin Dose 1 UNIT; Start 09/10/18 at 22:30 Linagliptin (Tradjenta) 5 mg DAILY PO Last administered on 09/17/18 08:22; Admin Dose 5 MG; Start 09/14/18 at 09:00 Diagnostic Test (Pha) (Accu-Chek) 1 ea AC MEALS AND BEDTIME XX Last administered on 09/17/18 17:28; Admin Dose 1 EA; Start 09/14/18 at 11:00 Megestrol Acetate (Megace Susp) 1,250 mg BID PO Last administered on 09/17/18 20:17; Admin Dose 1,250 MG; Start 09/14/18 at 21:00 Filgrastim (Neupogen) 300 mcg DAILY@17 SC Last administered on 09/17/18 18:15; Admin Dose 300 MCG; Start 09/14/18 at 23:15 Fluconazole (Diflucan) 100 mg DAILY PO Last administered on 09/17/18 08:22; Admin Dose 100 MG; Start 09/15/18 at 14:30 Acyclovir (Zovirax) 400 mg BID PO Last administered on 09/17/18 20:17; Admin Dose 400 MG; Start 09/15/18 at 15:00 Fluoxetine HCl (Prozac) 60 mg DAILY PO Last administered on 09/17/18at 08:22; Admin Dose 60 MG; Start 09/16/18 at 09:00 Dextrose/Sodium Chloride 1,000 ml @ 50 mls/hr Q20H IV Last administered on 09/17/18 20:16; Admin Dose 50 MLS/HR; Start 09/16/18 at 05:00 Digoxin (Digoxin) 125 mcg DAILY@13 IV Last administered on 09/17/18 13:19; Admin Dose 125 MCG; Start 09/16/18 at 13:00; Stop 09/18/18 at 12:59 ISABELLE JARVIS MD Sep 17, 2018 20:44
[2018-09-18] VITALS (11 sets, daily range): BP systolic 92–121; BP diastolic 53–60; PULSE 82–113; RESP 16–18
[2018-09-18] MEDS: ACCU-CHEK XX SCH ×5 (02:00→21:00)
[2018-09-18] MEDS: DILTIAZEM 60 MG TAB PO SCH ×6 (05:31→23:31)
[2018-09-18] MEDS: PANTOPRAZOLE (EC) 40 MG TAB PO SCH (05:31)
[2018-09-18] MEDS: INSULIN ASPART [NOVOLOG] 3 ML PEN SC SCH ×4 (07:55→20:53)
[2018-09-18] MEDS: MULTIVITAMINS THERAPEUTIC TAB PO SCH (08:15)
[2018-09-18] MEDS: ASCORBIC ACID 500 MG TAB PO SCH (08:15)
[2018-09-18] MEDS: MEGESTROL (40 MG/ML) 10ML CUP PO SCH ×2 (08:15→20:50)
[2018-09-18] MEDS: ACYCLOVIR 400 MG TAB PO SCH ×2 (08:15→20:50)
[2018-09-18] MEDS: ZINC SULFATE 220 MG CAP PO SCH (08:15)
[2018-09-18] MEDS: FLUCONAZOLE 100 MG TAB PO SCH (08:15)
[2018-09-18] MEDS: FLUOXETINE 20 MG CAP PO SCH (08:16)
[2018-09-18] MEDS: MEMANTINE 5 MG TAB PO SCH (08:16)
[2018-09-18] MEDS: FERROUS SULFATE (EC) 325 MG TAB PO SCH (08:16)
[2018-09-18] MEDS: LINAGLIPTIN 5 MG TABLET PO SCH (08:16)
--- NOTE | 2018-09-18 09:28 | PN ---
DATE: 09/18/2018 SUBJECTIVE: The patient this morning was noted to be mildly tachypneic. The patient denies shortnes s of breath. No other events noted. OBJECTIVE: VITAL SIGNS: Blood pressure is 109/55, respirations 16, pulse 93, temperature 98.7. HEENT: Head is normocephalic. NECK: Supple. HEART: Regular rate. LUNGS: Show diminished breath sounds at base, right greater than left. ABDOMEN: Soft, nontender to palpation. No rebound or guarding. EXTREMITIES: Negative for clubbing, cyanosis, no edema. DERMATOLOGIC: No rashes. MUSCULOSKELETAL: No joint effusions. NEUROLOGIC: No change in exam. MEDICATIONS: The patient's medications have been reviewed. LABORATORY DATA: From 09/18 is pending. IMAGING: Chest x-ray was reviewed, shows bilateral effusions, right greater than left, bibasilar con solidation. ASSESSMENT AND PLAN: 1. Sepsis, status post shock. Etiology secondary to UTI and pneumonia. The patient is currently on antibiotic therapy. We will continue. 2. Tachypnea. Etiology may be secondary to pneumonia, underlying mesothelioma, pleural effusion. C hest x-ray shows bilateral effusions and nodular consolidation. Continue nasal cannula at 4 liters. Monitor closely. Continue nebulizers. Follow up with pulmonary. 3. Pancytopenia. Neutropenia. Etiology is likely due to chemotherapy. Continue Neupogen. Follow up with hematology. 4. Atrial fibrillation, rate controlled. Continue medical management. 5. Mesothelioma with metastasis. The patient is on chemotherapy. Continue to monitor. 6. Nonoliguric acute kidney injury on top of chronic kidney disease. Etiology secondary to hemodyna mics. Renal function stabilized. Continue current treatment plan. 7. Diabetes. Continue Tradjenta. Continue insulin sliding scale. 8. Acute encephalopathy, etiology toxic metabolic. 9. History of depression. Continue Prozac. 10. Anorexia. Continue Megace. 11. Hypokalemia. Continue to monitor and replete. 12. Debility. Continue physical therapy as tolerated. 13. Gastrointestinal and deep vein thrombosis prophylaxis. Dictated By: RENE VAZQUEZ DO NR/NTS Conf#: [id number] DID#: [id number] CC: REINA MANZANO MD;*End*
--- NOTE | 2018-09-18 11:03 | CONS ---
Consult Date/Type/Reason Admit Date/Time Sep 09, 2018 at 22:52 Initial Consult Date 09/13/18 Type of Consult Pulmonary Requesting Provider: RENE VAZQUEZ DO Date/Time of Note DATE: 09/18/18 TIME: 11:02 Subjective Patient comfortable no respiratory distress Objective Vital Signs Date Temp Pulse Resp B/P (MAP) Pulse Ox O2 O2 Flow FiO2 Time Delivery Rate 09/18/18 102 09:37 09/18/18 Nasal 2.0 07:20 Cannula 09/18/18 98.7 16 109/55 92 07:13 (73) Intake and Output 09/17/18 09/17/18 09/18/18 1515:00 23:00 07:00 IntakeIntake Total 100 ml 500 ml 600 ml OutputOutput Total 400 ml BalanceBalance 100 ml 500 ml 200 ml Exam GENERAL: Well-nourished well-developed gentleman comfortable at rest VITAL SIGNS: per chart NECK: Supple. No JVD or lymphadenopathy. CARDIAC EXAM: S1, S2. No added sounds or murmurs. CHEST: clear bilaterally, No added sounds, rales or wheezes ABDOMEN: Soft, nontender. No guarding or rebound. EXTREMITIES: No cyanosis, clubbing or edema. NEUROLOGIC: Generalized weakness. No focal deficits. Vent Setting Fraction of Inspired Oxygen pe: 27 Results/Medications Result Diagram: 09/18/18 0753 09/18/18 0753 Results 24 hrs Laboratory Tests Test 09/17/18 12:07 09/17/18 17:26 09/17/18 20:13 09/18/18 03:45 Bedside Glucose 138 149 190 133 Test 09/18/18 07:53 09/18/18 08:14 White Blood Count 7.3 # Red Blood Count 2.80 L Hemoglobin 7.9 L Hematocrit 24.8 L Mean Corpuscular 88.6 Volume Mean Corpuscular 28.2 L Hemoglobin Mean Corpuscular 31.9 L Hemoglobin Concent Red Cell Distribution 17.1 H Width Platelet Count 31 L Mean Platelet Volume Immature Granulocytes 9.300 H % Neutrophils % Segmented Neutrophils 29 L % (Manual) Band Neutrophils % 15 H (Manual) Lymphocytes % Lymphocytes % 19 (Manual) Reactive Lymphocytes 1 H % (Manual) Monocytes % Monocytes % (Manual) 7 Eosinophils % Basophils % Metamyelocytes % 10 H (manual) Myelocytes % (Manual) 12 H Promyelocytes % 5 H (Manual) Blast Cells % 1.0 H (Manual) Nucleated Red Blood 4 H Cells % Immature Granulocytes 0.680 H # Neutrophils # Neutrophils # 2.2 (Manual) Band Neutrophils # 1.0 H Lymphocytes (Manual) 1.3 Lymphocytes # Reactive Lymphocytes 0.0 # Monocytes # Monocytes # (Manual) 0.5 Eosinophils # Basophils # Metamyelocytes # 0.7 H Myelocytes # 0.8 H Promyelocytes # 0.3 H Nucleated Red Blood Cells # Toxic Granulation 2+ Dohle Bodies 1+ White Cell Morphology @See below Comment Platelet Estimate DECREASED Giant Platelets 3 H Polychromasia 1+ Poikilocytosis 1+ Anisocytosis 2+ Ovalocytes 1+ Red Cell Morphology @See below Comment Sodium Level 136 Potassium Level 3.9 Chloride Level 106 Carbon Dioxide Level 21 Anion Gap 9 Blood Urea Nitrogen 34 H Creatinine 1.91 H Est Glomerular Filtrat Rate mL/min Glucose Level 111 Calcium Level 8.9 Phosphorus Level 3.2 Magnesium Level 1.6 L Bedside Glucose 114 Medications Current Medications IV Flush (NS 3 ml) 3 ml PER PROTOCOL IV ; Start 09/10/18 at 06:30 Ondansetron HCl (Zofran Inj) 4 mg Q6H PRN IV NAUSEA/VOMITING; Start 09/10/18 at 06:30 Acetaminophen (Tylenol Supp) 650 mg Q6H PRN [place] .PAIN 1-3 OR TEMP; Start 09/10/18 at 06:30 Zolpidem Tartrate (Ambien) 5 mg QHS PRN PO .INSOMNIA; Start 09/10/18 at 06:30 Acetaminophen (Tylenol Tab) 650 mg Q4H PRN PO MILD PAIN(1-3)OR ELEVATED TEMP; Start 09/10/18 at 08:00 Ascorbic Acid (Vitamin C) 500 mg DAILY PO Last administered on 09/18/18at 08:15; Admin Dose 500 MG; Start 09/10/18 at 09:00 Diltiazem HCl (Cardizem) 60 mg Q6 PO Last administered on 09/18/18at 05:31; Admin Dose 60 MG; Start 09/10/18 at 12:00 Docusate Sodium (Colace) 200 mg DAILY PRN PO CONSTIPATION; Start 09/10/18 at 08: 00 Ferrous Sulfate (Ferrous Sulfate (Ec)) 325 mg DAILY PO Last administered on 09/18/18at 08:16; Admin Dose 325 MG; Start 09/10/18 at 09:00 Magnesium Hydroxide (Milk Of Mag) 30 ml Q24H PRN PO CONSTIPATION; Start 09/10/18 at 08:00 Memantine (Namenda) 5 mg DAILY PO Last administered on 09/18/18at 08:16; Admin Dose 5 MG; Start 09/10/18 at 09:00 Multivitamins Therapeutic (Theragran) 1 tab DAILY PO Last administered on 09/18/18at 08:15; Admin Dose 1 TAB; Start 09/10/18 at 09:00 Ondansetron HCl (Zofran Tab) 4 mg Q4H PRN PO NAUSEA AND/OR VOMITING; Start 09/10/18 at 08:00 Pantoprazole (Protonix Tab) 40 mg DAILY@0600 PO Last administered on 09/18/18at 05:31; Admin Dose 40 MG; Start 09/10/18 at 09:00 Prochlorperazine (Compazine) 5 mg Q6H PRN PO NAUSEA; Start 09/10/18 at 08:00 Senna (Senokot) 2 tab DAILY PRN PO CONSTIPATION; Start 09/10/18 at 08:00 Zinc Sulfate (Zinc Sulfate) 220 mg DAILY PO Last administered on 09/18/18at 08:15; Admin Dose 220 MG; Start 09/10/18 at 09:00 Miscellaneous Information 1 ea NOTE XX ; Start 09/10/18 at 08:00 Glucose (Glutose) 15 gm Q15M PRN PO DECREASED GLUCOSE; Start 09/10/18 at 08:00 Glucose (Glutose) 22.5 gm Q15M PRN PO DECREASED GLUCOSE; Start 09/10/18 at 08:00 Dextrose (D50w Syringe) 25 ml Q15M PRN IV DECREASED GLUCOSE; Start 09/10/18 at 08:00 Dextrose (D50w Syringe) 50 ml Q15M PRN IV DECREASED GLUCOSE Last administered on 09/15/18at 07:34; Admin Dose 50 ML; Start 09/10/18 at 08:00 Glucagon (Glucagen) 1 mg Q15M PRN IM DECREASED GLUCOSE; Start 09/10/18 at 08:00 Glucose (Glutose) 15 gm Q15M PRN BUCCAL DECREASED GLUCOSE; Start 09/10/18 at 08:00 Ertapenem 0.5 gm/ Sodium Chloride 100 ml @ 200 mls/hr Q24H IVPB Last administered on 09/17/18 10:45; Admin Dose 200 MLS/HR; Start 09/11/18 at 11:00 Diagnostic Test (Pha) (Accu-Chek) 1 ea 02 XX Last administered on 09/14/18 02:54; Admin Dose 1 EA; Start 09/11/18 at 02:00 Insulin Aspart (Novolog Insulin Pen) NOVOLOG *MODERATE* ALGORITHM WITH MEALS BEDTIME SC Last administered on 09/17/18 20:32; Admin Dose 1 UNIT; Start 09/10/18 at 22:30 Linagliptin (Tradjenta) 5 mg DAILY PO Last administered on 09/18/18 08:16; Admin Dose 5 MG; Start 09/14/18 at 09:00 Diagnostic Test (Pha) (Accu-Chek) 1 ea AC MEALS AND BEDTIME XX Last administered on 09/17/18 17:28; Admin Dose 1 EA; Start 09/14/18 at 11:00 Megestrol Acetate (Megace Susp) 1,250 mg BID PO Last administered on 09/18/18 08:15; Admin Dose 1,250 MG; Start 09/14/18 at 21:00 Filgrastim (Neupogen) 300 mcg DAILY@17 SC Last administered on 09/17/18 18:15; Admin Dose 300 MCG; Start 09/14/18 at 23:15 Fluconazole (Diflucan) 100 mg DAILY PO Last administered on 09/18/18 08:15; Admin Dose 100 MG; Start 09/15/18 at 14:30 Acyclovir (Zovirax) 400 mg BID PO Last administered on 09/18/18 08:15; Admin Dose 400 MG; Start 09/15/18 at 15:00 Fluoxetine HCl (Prozac) 60 mg DAILY PO Last administered on 09/18/18 08:16; Admin Dose 60 MG; Start 09/16/18 at 09:00 Digoxin (Digoxin) 125 mcg DAILY@13 IV Last administered on 09/17/18 13:19; Admin Dose 125 MCG; Start 09/16/18 at 13:00; Stop 09/18/18 at 12:59 Assessment/Plan Hospital Course (Demo Recall) Assessment 1. Patient admitted with UTI and sepsis with hypotension with marked overall interval improvement. No hemodynamically stable 2. Acute on chronic renal injury with continually improving renal function. 3. Pancytopenia. 4. History of chronic atrial fibrillation. Rate is well controlled. Patient not on anticoagulants because of severe anemia and thrombocytopenia. 5. History of mesothelioma involving right lung. Plan 1. Continue antibiotics 2. Hematology oncology recommendations 3. Physical therapy as tolerated Consider transfer to [facility]. REINA MANZANO MD, [facility] Sep 18, 2018 11:03
--- NOTE | 2018-09-18 11:33 | CONS ---
Consult Date/Type/Reason Admit Date/Time Sep 09, 2018 at 22:52 Initial Consult Date 09/12/18 Type of Consultation: CV Requesting Provider: RENE VAZQUEZ DO Date/Time of Note DATE: 09/18/18 TIME: 11:31 Subjective Cardiology follow-up progress note Subjective: Discussed with staff and telemetry was reviewed. Patient remains in atrial fibrillation. HR is under good control He is on tele now Patient denies any chest pain or pressure to me He denies any active bleeding to me he wants to go home Objective: General: Elderly gentleman in no acute distress HEENT: NC/AT. pupils are equal. round. NECK: NO JVD. no stridor. CV: Irregularly irregular. systolic murmur; no gallop or rubs. PULM: no wheezing + rhonchi. GI: SOFT, NT, ND, no rebound or guarding Extremity: trace B/L LE edema. no clubbing. neuro: awake and alert, OX2. Psych: calm and pleasant rectal: deferred : normal Echocardiogram was personally reviewed which shows: Normal left ventricular cavity size. Possibly mild left ventricular systolic dysfunction. . Moderate concentric left ventricular hypertrophy. The left ventricle is not well visualized in the apical views, parasternal and subcostal only. The left ventricular ejection fraction is visually estimated at 60 %. Normal appearance of the mitral valve leaflets. The mitral valve is not well visualized. Mild mitral regurgitation, but only seen from parasternal window. The aortic valve is not well visualized. No hemodynamically significant aortic stenosis by Doppler. Aortic cusps appear mildly calcified. No aortic regurgitation. Normal appearance of the tricuspid valve. No evidence of tricuspid regurgitation. Upper limit of normal left atrial size. Objective Vitals Vital Signs Date Temp Pulse Resp B/P (MAP) Pulse Ox O2 O2 Flow FiO2 Time Delivery Rate 09/18/18 98.0 95 16 92/53 (66) 92 11:12 09/18/18 Nasal 2.0 07:20 Cannula Intake and Output 09/17/18 09/17/18 09/18/18 1515:00 23:00 07:00 IntakeIntake Total 100 ml 500 ml 600 ml OutputOutput Total 400 ml BalanceBalance 100 ml 500 ml 200 ml Results/Medications Result Diagram: 09/18/18 0753 09/18/18 0753 Results 24 hrs Laboratory Tests Test 09/17/18 12:07 09/17/18 17:26 09/17/18 20:13 09/18/18 03:45 Bedside Glucose 138 149 190 133 Test 09/18/18 07:53 09/18/18 08:14 White Blood Count 7.3 # Red Blood Count 2.80 L Hemoglobin 7.9 L Hematocrit 24.8 L Mean Corpuscular 88.6 Volume Mean Corpuscular 28.2 L Hemoglobin Mean Corpuscular 31.9 L Hemoglobin Concent Red Cell Distribution 17.1 H Width Platelet Count 31 L Mean Platelet Volume Immature Granulocytes 9.300 H % Neutrophils % Segmented Neutrophils 29 L % (Manual) Band Neutrophils % 15 H (Manual) Lymphocytes % Lymphocytes % 19 (Manual) Reactive Lymphocytes 1 H % (Manual) Monocytes % Monocytes % (Manual) 7 Eosinophils % Basophils % Metamyelocytes % 10 H (manual) Myelocytes % (Manual) 12 H Promyelocytes % 5 H (Manual) Blast Cells % 1.0 H (Manual) Nucleated Red Blood 4 H Cells % Immature Granulocytes 0.680 H # Neutrophils # Neutrophils # 2.2 (Manual) Band Neutrophils # 1.0 H Lymphocytes (Manual) 1.3 Lymphocytes # Reactive Lymphocytes 0.0 # Monocytes # Monocytes # (Manual) 0.5 Eosinophils # Basophils # Metamyelocytes # 0.7 H Myelocytes # 0.8 H Promyelocytes # 0.3 H Nucleated Red Blood Cells # Toxic Granulation 2+ Dohle Bodies 1+ White Cell Morphology @See below Comment Platelet Estimate DECREASED Giant Platelets 3 H Polychromasia 1+ Poikilocytosis 1+ Anisocytosis 2+ Ovalocytes 1+ Red Cell Morphology @See below Comment Sodium Level 136 Potassium Level 3.9 Chloride Level 106 Carbon Dioxide Level 21 Anion Gap 9 Blood Urea Nitrogen 34 H Creatinine 1.91 H Est Glomerular Filtrat Rate mL/min Glucose Level 111 Calcium Level 8.9 Phosphorus Level 3.2 Magnesium Level 1.6 L Bedside Glucose 114 Home Meds Reported Medications Ondansetron Hcl* (Ondansetron Hcl*) 4 Mg Tablet, 4 MG PO Q4H PRN for NAUSEA AND OR VOMITING, TAB 09/09/18 Zinc Sulfate* (Zinc Sulfate*) 220 Mg Cap, 220 MG PO DAILY, CAP 09/09/18 Ascorbic Acid* (Vitamin C*) 500 Mg Capsule.sa, 500 MG PO DAILY, CAP 09/09/18 Cran/Vitc/Mannose/Inulin/Brom (Uti-Stat Liquid) 3,875 Mg/30 Ml Liquid, 3875 MG PO DAILY 09/09/18 Acetaminophen* (Acetaminophen*) 650 Mg Tablet, 650 MG PO Q4 PRN for PAIN AND OR ELEVATED TEMP, #30 TAB 09/09/18 Sennosides* (Senna Lax*) 8.6 Mg Tablet, 2 TAB PO DAILY PRN for CONSTIPATION, TAB 09/09/18 Fluoxetine Hcl* (Prozac*) 20 Mg Capsule, 20 MG PO DAILY, CAP 09/09/18 Pantoprazole* (Protonix*) 40 Mg Tablet.dr, 40 MG PO DAILY, TAB 09/09/18 Prochlorperazine* (Prochlorperazine*) 5 Mg Tablet, 5 MG PO Q6 PRN for NAUSEA, TAB 09/09/18 Memantine* (Namenda*) 5 Mg Tablet, 5 MG PO DAILY, #30 TAB 09/09/18 Multivitamins* (Theragran*) 1 Tab Tab, 1 TAB PO DAILY, TAB 09/09/18 Magnesium Hydroxide* (Milk Of Magnesia*) 400 Mg/5 Ml Oral.susp, 30 ML PO Q24H PRN for CONSTIPATION, ML 09/09/18 Megestrol Acetate* (Megace ES*) 625 Mg/5 Ml Oral.susp, 10 ML PO BID, ML 09/09/18 Insulin Glargine* (Lantus*) 100 Unit/Ml Soln, 12 UNIT SC QHS, #1 VIAL 09/09/18 Ferrous Sulfate* (Ferrous Sulfate*) 325 Mg Tabec, 325 MG PO DAILY, TAB 09/09/18 Diltiazem Hcl* (Cardizem SR*) 60 Mg Capsr, 60 MG PO Q6, #60 CAP HOLD IF SBP BELOW 110 OR HR BELOW 60 09/09/18 Cranberry (Cranberry) 400 Mg Capsule, 400 MG PO DAILY, CAP 09/09/18 Docusate Sodium* (Colace*) 100 Mg Capsule, 200 MG PO DAILY PRN for CONSTIPATION, #30 CAP 09/09/18 Bisoprolol Fumarate* (Bisoprolol Fumarate*) 5 Mg Tablet, 5 MG PO DAILY, TAB HOLD IF SBP IS BELOW 110 OR HR BELOW 60 09/09/18 Medications Current Medications IV Flush (NS 3 ml) 3 ml PER PROTOCOL IV ; Start 09/10/18 at 06:30 Ondansetron HCl (Zofran Inj) 4 mg Q6H PRN IV NAUSEA/VOMITING; Start 09/10/18 at 06:30 Acetaminophen (Tylenol Supp) 650 mg Q6H PRN [place] .PAIN 1-3 OR TEMP; Start 09/10/18 at 06:30 Zolpidem Tartrate (Ambien) 5 mg QHS PRN PO .INSOMNIA; Start 09/10/18 at 06:30 Acetaminophen (Tylenol Tab) 650 mg Q4H PRN PO MILD PAIN(1-3)OR ELEVATED TEMP; Start 09/10/18 at 08:00 Ascorbic Acid (Vitamin C) 500 mg DAILY PO Last administered on 09/18/18 08:15; Admin Dose 500 MG; Start 09/10/18 at 09:00 Diltiazem HCl (Cardizem) 60 mg Q6 PO Last administered on 09/18/18 05:31; Admin Dose 60 MG; Start 09/10/18 at 12:00 Docusate Sodium (Colace) 200 mg DAILY PRN PO CONSTIPATION; Start 09/10/18 at 08:00 Ferrous Sulfate (Ferrous Sulfate (Ec)) 325 mg DAILY PO Last administered on 09/18/18 08:16; Admin Dose 325 MG; Start 09/10/18 at 09:00 Magnesium Hydroxide (Milk Of Mag) 30 ml Q24H PRN PO CONSTIPATION; Start 09/10/18 at 08:00 Memantine (Namenda) 5 mg DAILY PO Last administered on 09/18/18at 08:16; Admin Dose 5 MG; Start 09/10/18 at 09:00 Multivitamins Therapeutic (Theragran) 1 tab DAILY PO Last administered on 09/18/18 08:15; Admin Dose 1 TAB; Start 09/10/18 at 09:00 Ondansetron HCl (Zofran Tab) 4 mg Q4H PRN PO NAUSEA AND/OR VOMITING; Start 09/10/18 at 08:00 Pantoprazole (Protonix Tab) 40 mg DAILY@0600 PO Last administered on 09/18/18 05:31; Admin Dose 40 MG; Start 09/10/18 at 09:00 Prochlorperazine (Compazine) 5 mg Q6H PRN PO NAUSEA; Start 09/10/18 at 08:00 Senna (Senokot) 2 tab DAILY PRN PO CONSTIPATION; Start 09/10/18 at 08:00 Zinc Sulfate (Zinc Sulfate) 220 mg DAILY PO Last administered on 09/18/18at 08:15; Admin Dose 220 MG; Start 09/10/18 at 09:00 Miscellaneous Information 1 ea NOTE XX ; Start 09/10/18 at 08:00 Glucose (Glutose) 15 gm Q15M PRN PO DECREASED GLUCOSE; Start 09/10/18 at 08:00 Glucose (Glutose) 22.5 gm Q15M PRN PO DECREASED GLUCOSE; Start 09/10/18 at 08:00 Dextrose (D50w Syringe) 25 ml Q15M PRN IV DECREASED GLUCOSE; Start 09/10/18 at 08:00 Dextrose (D50w Syringe) 50 ml Q15M PRN IV DECREASED GLUCOSE Last administered on 09/15/18at 07:34; Admin Dose 50 ML; Start 09/10/18 at 08:00 Glucagon (Glucagen) 1 mg Q15M PRN IM DECREASED GLUCOSE; Start 09/10/18 at 08:00 Glucose (Glutose) 15 gm Q15M PRN BUCCAL DECREASED GLUCOSE; Start 09/10/18 at 08:00 Ertapenem 0.5 gm/ Sodium Chloride 100 ml @ 200 mls/hr Q24H IVPB Last a dministered on 09/17/18at 10:45; Admin Dose 200 MLS/HR; Start 09/11/18 at 11:00 Diagnostic Test (Pha) (Accu-Chek) 1 ea 02 XX Last administered on 09/14/18at 02:54; Admin Dose 1 EA; Start 09/11/18 at 02:00 Insulin Aspart (Novolog Insulin Pen) NOVOLOG *MODERATE* ALGORITHM WITH MEALS BEDTIME SC Last administered on 09/17/18at 20:32; Admin Dose 1 UNIT; Start 09/10/18 at 22:30 Linagliptin (Tradjenta) 5 mg DAILY PO Last administered on 09/18/18 08:16; Admin Dose 5 MG; Start 09/14/18 at 09:00 Diagnostic Test (Pha) (Accu-Chek) 1 ea AC MEALS AND BEDTIME XX Last administered on 3/9/19at 17:28; Admin Dose 1 EA; Start 09/14/18 at 11:00 Megestrol Acetate (Megace Susp) 1,250 mg BID PO Last administered on 09/18/18 08:15; Admin Dose 1,250 MG; Start 09/14/18 at 21:00 Filgrastim (Neupogen) 300 mcg DAILY@17 SC Last administered on 09/17/18 18:15; Admin Dose 300 MCG; Start 09/14/18 at 23:15 Fluconazole (Diflucan) 100 mg DAILY PO Last administered on 09/18/18 08:15; Admin Dose 100 MG; Start 09/15/18 at 14:30 Acyclovir (Zovirax) 400 mg BID PO Last administered on 09/18/18 08:15; Admin Dose 400 MG; Start 09/15/18 at 15:00 Fluoxetine HCl (Prozac) 60 mg DAILY PO Last administered on 09/18/18 08:16; Admin Dose 60 MG; Start 09/16/18 at 09:00 Digoxin (Digoxin) 125 mcg DAILY@13 IV Last administered on 09/17/18 13:19; Admin Dose 125 MCG; Start 09/16/18 at 13:00; Stop 09/18/18 at 12:59 Assessment/Plan Hospital Course (Demo Recall) 1. Atrial fibrillation rapid ventricular response: Currently HR is under control mostly 2. s/p Sepsis and shock 3. renal failure 4. Severe anemia 5. severe Thrombocytopenia 6. History of mesothelioma 7. Diabetes 8. Encephalopathy Recommendations: off Eliquis due to severe anemia and worsening thrombocytopenia Transfusion as needed cont dig will check level intermittently cont Cardizem po as needed Antibiotic management as per internal medicine Thank you for his referral. We will continue to follow along with you as needed over the weekend EMILIA BURCIAGA MD [facility] EMILIA BURCIAGA MD Sep 18, 2018 11:33
--- NOTE | 2018-09-18 11:38 | CONS ---
Consultation Date/Type/Reason Admit Date/Time Sep 09, 2018 at 22:52 Initial Consult Date Pt is sleepy, afebrile, looks comfortable. WBC is improving. VS: stable. T: 98.0 LABS: Reviewed. WBC- 7.3 H&H: 7.9/24.8 Plt: 31 Antimicrobials: Invanz, acyclovir, fluconazole Microbiology: All cultures negative Indwelling: Left chest Port-A-Cath Physical examination: GEN: Well-developed chronically ill-appearing elderly man in no distress. HENT: Head atraumatic normocephalic sclera nonicteric. Neck is supple PULM: chest rise symmetrical breath sounds diminished bases. Heart: S1-S2. Abdomen soft bowel sounds present assessment Assessment: 1. S/p septic shock, possibly cardiogenic 2. Acute renal failure 3. Urinary tract infection as per urinalysis 4. Mesothelioma with metastasis, patient is getting chemotherapy outpatient 5. Atrial fibrillation 6. Possible pneumonia 7. Pancytopenia/neutropenia Plan: Pt remains stable. Continue current antibiotics. Neupogen per oncology. WBC and platelets improving. Requesting Provider: RENE VAZQUEZ DO Date/Time of Note DATE: 09/18/18 TIME: 11:32 Exam/Review of Systems Exam Vitals Vital Signs Date Temp Pulse Resp B/P (MAP) Pulse Ox O2 O2 Flow FiO2 Time Delivery Rate 09/18/18 98.0 95 16 92/53 (66) 92 11:12 09/18/18 Nasal 2.0 07:20 Cannula Intake and Output 09/17/18 09/17/18 09/18/18 1515:00 23:00 07:00 IntakeIntake Total 100 ml 500 ml 600 ml OutputOutput Total 400 ml BalanceBalance 100 ml 500 ml 200 ml Results Result Diagram: 09/18/18 0753 09/18/18 0753 Results 24hrs Laboratory Tests Test 09/17/18 12:07 09/17/18 17:26 09/17/18 20:13 09/18/18 03:45 Bedside Glucose 138 149 190 133 Test 09/18/18 07:53 09/18/18 08:14 White Blood Count 7.3 # Red Blood Count 2.80 L Hemoglobin 7.9 L Hematocrit 24.8 L Mean Corpuscular 88.6 Volume Mean Corpuscular 28.2 L Hemoglobin Mean Corpuscular 31.9 L Hemoglobin Concent Red Cell Distribution 17.1 H Width Platelet Count 31 L Mean Platelet Volume Immature Granulocytes 9.300 H % Neutrophils % Segmented Neutrophils 29 L % (Manual) Band Neutrophils % 15 H (Manual) Lymphocytes % Lymphocytes % 19 (Manual) Reactive Lymphocytes 1 H % (Manual) Monocytes % Monocytes % (Manual) 7 Eosinophils % Basophils % Metamyelocytes % 10 H (manual) Myelocytes % (Manual) 12 H Promyelocytes % 5 H (Manual) Blast Cells % 1.0 H (Manual) Nucleated Red Blood 4 H Cells % Immature Granulocytes 0.680 H # Neutrophils # Neutrophils # 2.2 (Manual) Band Neutrophils # 1.0 H Lymphocytes (Manual) 1.3 Lymphocytes # Reactive Lymphocytes 0.0 # Monocytes # Monocytes # (Manual) 0.5 Eosinophils # Basophils # Metamyelocytes # 0.7 H Myelocytes # 0.8 H Promyelocytes # 0.3 H Nucleated Red Blood Cells # Toxic Granulation 2+ Dohle Bodies 1+ White Cell Morphology @See below Comment Platelet Estimate DECREASED Giant Platelets 3 H Polychromasia 1+ Poikilocytosis 1+ Anisocytosis 2+ Ovalocytes 1+ Red Cell Morphology @See below Comment Sodium Level 136 Potassium Level 3.9 Chloride Level 106 Carbon Dioxide Level 21 Anion Gap 9 Blood Urea Nitrogen 34 H Creatinine 1.91 H Est Glomerular Filtrat Rate mL/min Glucose Level 111 Calcium Level 8.9 Phosphorus Level 3.2 Magnesium Level 1.6 L Bedside Glucose 114 Medications Medication Current Medications IV Flush (NS 3 ml) 3 ml PER PROTOCOL IV ; Start 09/10/18 at 06:30 Ondansetron HCl (Zofran Inj) 4 mg Q6H PRN IV NAUSEA/VOMITING; Start 09/10/18 at 06:30 Acetaminophen (Tylenol Supp) 650 mg Q6H PRN [place] .PAIN 1-3 OR TEMP; Start 09/10/18 at 06:30 Zolpidem Tartrate (Ambien) 5 mg QHS PRN PO .INSOMNIA; Start 09/10/18 at 06:30 Acetaminophen (Tylenol Tab) 650 mg Q4H PRN PO MILD PAIN(1-3)OR ELEVATED TEMP; Start 09/10/18 at 08:00 Ascorbic Acid (Vitamin C) 500 mg DAILY PO Last administered on 09/18/18at 08:15; Admin Dose 500 MG; Start 09/10/18 at 09:00 Diltiazem HCl (Cardizem) 60 mg Q6 PO Last administered on 09/18/18at 05:31; Admin Dose 60 MG; Start 09/10/18 at 12:00 Docusate Sodium (Colace) 200 mg DAILY PRN PO CONSTIPATION; Start 09/10/18 at 08:00 Ferrous Sulfate (Ferrous Sulfate (Ec)) 325 mg DAILY PO Last administered on 09/18/18at 08:16; Admin Dose 325 MG; Start 09/10/18 at 09:00 Magnesium Hydroxide (Milk Of Mag) 30 ml Q24H PRN PO CONSTIPATION; Start 09/10/18 at 08:00 Memantine (Namenda) 5 mg DAILY PO Last administered on 09/18/18at 08:16; Admin Dose 5 MG; Start 09/10/18 at 09:00 Multivitamins Therapeutic (Theragran) 1 tab DAILY PO Last administered on 09/18/18at 08:15; Admin Dose 1 TAB; Start 09/10/18 at 09:00 Ondansetron HCl (Zofran Tab) 4 mg Q4H PRN PO NAUSEA AND/OR VOMITING; Start 09/10/18 at 08:00 Pantoprazole (Protonix Tab) 40 mg DAILY@0600 PO Last administered on 09/18/18at 05:31; Admin Dose 40 MG; Start 09/10/18 at 09:00 Prochlorperazine (Compazine) 5 mg Q6H PRN PO NAUSEA; Start 09/10/18 at 08:00 Senna (Senokot) 2 tab DAILY PRN PO CONSTIPATION; Start 09/10/18 at 08:00 Zinc Sulfate (Zinc Sulfate) 220 mg DAILY PO Last administered on 09/18/18at 08:15; Admin Dose 220 MG; Start 09/10/18 at 09:00 Miscellaneous Information 1 ea NOTE XX ; Start 09/10/18 at 08:00 Glucose (Glutose) 15 gm Q15M PRN PO DECREASED GLUCOSE; Start 09/10/18 at 08:00 Glucose (Glutose) 22.5 gm Q15M PRN PO DECREASED GLUCOSE; Start 09/10/18 at 08:00 Dextrose (D50w Syringe) 25 ml Q15M PRN IV DECREASED GLUCOSE; Start 09/10/18 at 08:00 Dextrose (D50w Syringe) 50 ml Q15M PRN IV DECREASED GLUCOSE Last administered on 09/15/18 07:34; Admin Dose 50 ML; Start 09/10/18 at 08:00 Glucagon (Glucagen) 1 mg Q15M PRN IM DECREASED GLUCOSE; Start 09/10/18 at 08:00 Glucose (Glutose) 15 gm Q15M PRN BUCCAL DECREASED GLUCOSE; Start 09/10/18 at 08:00 Ertapenem 0.5 gm/ Sodium Chloride 100 ml @ 200 mls/hr Q24H IVPB Last administered on 09/17/18 10:45; Admin Dose 200 MLS/HR; Start 09/11/18 at 11:00 Diagnostic Test (Pha) (Accu-Chek) 1 ea 02 XX Last administered on 09/14/18 02:54; Admin Dose 1 EA; Start 09/11/18 at 02:00 Insulin Aspart (Novolog Insulin Pen) NOVOLOG *MODERATE* ALGORITHM WITH MEALS BEDTIME SC Last administered on 09/17/18 20:32; Admin Dose 1 UNIT; Start 09/10/18 at 22:30 Linagliptin (Tradjenta) 5 mg DAILY PO Last administered on 09/18/18 08:16; Admin Dose 5 MG; Start 09/14/18 at 09:00 Diagnostic Test (Pha) (Accu-Chek) 1 ea AC MEALS AND BEDTIME XX Last administered on 09/17/18 17:28; Admin Dose 1 EA; Start 09/14/18 at 11:00 Megestrol Acetate (Megace Susp) 1,250 mg BID PO Last administered on 09/18/18 08:15; Admin Dose 1,250 MG; Start 09/14/18 at 21:00 Filgrastim (Neupogen) 300 mcg DAILY@17 SC Last administered on 09/17/18 18:15; Admin Dose 300 MCG; Start 09/14/18 at 23:15 Fluconazole (Diflucan) 100 mg DAILY PO Last administered on 09/18/18 08:15; Admin Dose 100 MG; Start 09/15/18 at 14:30 Acyclovir (Zovirax) 400 mg BID PO Last administered on 09/18/18 08:15; Admin Dose 400 MG; Start 09/15/18 at 15:00 Fluoxetine HCl (Prozac) 60 mg DAILY PO Last administered on 09/18/18at 08:16; Admin Dose 60 MG; Start 09/16/18 at 09:00 Digoxin (Digoxin) 125 mcg DAILY@13 IV Last administered on 09/17/18at 13:19; Admin Dose 125 MCG; Start 09/16/18 at 13:00; Stop 09/18/18 at 12:59 DEREK SEPULVEDA Sep 18, 2018 11:38
[2018-09-18] MEDS: ERTAPENEM SODIUM 0.5 GM in SOD CHLORIDE 0.9% 100 ML IVPB SCH (12:26)
[2018-09-18] MEDS: FILGRASTIM 300 MCG INJ SC SCH (17:00)
--- NOTE | 2018-09-18 22:11 | CONS ---
Assessment/Plan Assessment/Plan Hospital Course (Demo Recall) Severe anemia and thrombocytopenia. 2 RECENT TO CHEMO The patient is currently receiving chemotherapy, last dose was 2.28. 19 MONITOR BLOOD COUNT CLOSELY OBSERVE FOR BLEEDING AND HEMOLYSIS AVOID MYELOSUPPRESSIVE MEDS LEUKOPENIA IN PT WITH SEPSIS POST RECENT CHEMO CONT NEUPOGEN TILL ANC MORE [place]AN [id number], WILL DC TOMORROW MONITOR COUNT CLOSELY History of mesothelioma likely with right-sided involvement. OUTPT RECORD-P The patient is currently receiving chemotherapy, last dose was 2.28.19 NO INTERVENTION PLANNED AT PRESENT Sepsis , UTI CONT antimicrobial regimen. Acute renal injury possibly with some element of baseline renal insufficiency. Serum creatinine improving. Improving hypotension. Chronic atrial fibrillation. Hyperkalemia: due to ARF and lactic acidosis (sepsis) History of hypertension. History of diabetes. Generalized weakness Consultation Date/Type/Reason Admit Date/Time Sep 09, 2018 at 22:52 Initial Consult Date 09/13/18 Type of Consult [facility] Requesting Provider: RENE VAZQUEZ DO Date/Time of Note DATE: 09/18/18 TIME: 22:10 24 HR Interval Summary Free Text/Dictation WBC AND PLATELET - IMPROVING Exam/Review of Systems Exam Vitals Vital Signs Date Temp Pulse Resp B/P (MAP) Pulse Ox O2 O2 Flow FiO2 Time Delivery Rate 09/18/18 98.6 113 17 121/56 93 20:00 (77) 09/18/18 Nasal 3.0 19:15 Cannula Intake and Output 09/17/18 09/17/18 09/18/18 1515:00 23:00 07:00 IntakeIntake Total 100 ml 500 ml 600 ml OutputOutput Total 400 ml BalanceBalance 100 ml 500 ml 200 ml Exam Const: No acute distress, nontoxic Head: Atraumatic Eyes: Normal Conjunctiva ENT: Dry mucous membranes Neck: Full range of motion. No meningismus. Resp: Clear to auscultation bilaterally Chest wall: Right upper chest surgical scar, well healing. Left upper chest surgical scar from new pacemaker, well-healing Cardio: irregularly irregular rhythm with normal rate, no murmurs Abd: Soft, non tender, non distended. Normal bowel sounds Skin: No petechiae or rashes Back: No midline or flank tenderness Ext: No cyanosis, or edema Neur: Awake and alert, moving all extremities, normal speech, no facial asymmetry Psych: Depressed mood Results Result Diagram: 09/18/18 0753 09/18/18 0753 Results 24hrs Laboratory Tests Test 09/18/18 03:45 09/18/18 07:53 09/18/18 08:14 09/18/18 12:26 Bedside Glucose 133 114 141 White Blood Count 7.3 # Red Blood Count 2.80 L Hemoglobin 7.9 L Hematocrit 24.8 L Mean Corpuscular 88.6 Volume Mean Corpuscular 28.2 L Hemoglobin Mean Corpuscular 31.9 L Hemoglobin Concent Red Cell 17.1 H Distribution Width Platelet Count 31 L Mean Platelet Volume Immature 9.300 H Granulocytes % Neutrophils % Segmented 29 L Neutrophils % (Manual) Band Neutrophils % 15 H (Manual) Lymphocytes % Lymphocytes % 19 (Manual) Reactive Lymphocytes 1 H % (Manual) Monocytes % Monocytes % (Manual) 7 Eosinophils % Basophils % Metamyelocytes % 10 H (manual) Myelocytes % 12 H (Manual) Promyelocytes % 5 H (Manual) Blast Cells % 1.0 H (Manual) Nucleated Red Blood 4 H Cells % Immature 0.680 H Granulocytes # Neutrophils # Neutrophils # 2.2 (Manual) Band Neutrophils # 1.0 H Lymphocytes (Manual) 1.3 Lymphocytes # Reactive Lymphocytes 0.0 # Monocytes # Monocytes # (Manual) 0.5 Eosinophils # Basophils # Metamyelocytes # 0.7 H Myelocytes # 0.8 H Promyelocytes # 0.3 H Nucleated Red Blood Cells # Toxic Granulation 2+ Dohle Bodies 1+ White Cell @See below Morphology Comment Platelet Estimate DECREASED Giant Platelets 3 H Polychromasia 1+ Poikilocytosis 1+ Anisocytosis 2+ Ovalocytes 1+ Red Cell Morphology @See below Comment Sodium Level 136 Potassium Level 3.9 Chloride Level 106 Carbon Dioxide Level 21 Anion Gap 9 Blood Urea Nitrogen 34 H Creatinine 1.91 H Est Glomerular Filtrat Rate mL/min Glucose Level 111 Calcium Level 8.9 Phosphorus Level 3.2 Magnesium Level 1.6 L Test 09/18/18 17:23 09/18/18 20:49 Bedside Glucose 132 124 Medications Medication Current Medications IV Flush (NS 3 ml) 3 ml PER PROTOCOL IV ; Start 09/10/18 at 06:30 Ondansetron HCl (Zofran Inj) 4 mg Q6H PRN IV NAUSEA/VOMITING; Start 09/10/18 at 06:30 Acetaminophen (Tylenol Supp) 650 mg Q6H PRN [place] .PAIN 1-3 OR TEMP; Start 09/10/18 at 06:30 Zolpidem Tartrate (Ambien) 5 mg QHS PRN PO .INSOMNIA; Start 09/10/18 at 06:30 Acetaminophen (Tylenol Tab) 650 mg Q4H PRN PO MILD PAIN(1-3)OR ELEVATED TEMP; Start 09/10/18 at 08:00 Ascorbic Acid (Vitamin C) 500 mg DAILY PO Last administered on 09/18/18at 08:15; Admin Dose 500 MG; Start 09/10/18 at 09:00 Diltiazem HCl (Cardizem) 60 mg Q6 PO Last administered on 09/18/18at 17:51; Admin Dose 60 MG; Start 09/10/18 at 12:00 Docusate Sodium (Colace) 200 mg DAILY PRN PO CONSTIPATION; Start 09/10/18 at 08:00 Ferrous Sulfate (Ferrous Sulfate (Ec)) 325 mg DAILY PO Last administered on 09/18/18 08:16; Admin Dose 325 MG; Start 09/10/18 at 09:00 Magnesium Hydroxide (Milk Of Mag) 30 ml Q24H PRN PO CONSTIPATION; Start 09/10/18 at 08:00 Memantine (Namenda) 5 mg DAILY PO Last administered on 09/18/18 08:16; Admin Dose 5 MG; Start 09/10/18 at 09:00 Multivitamins Therapeutic (Theragran) 1 tab DAILY PO Last administered on 09/18/18 08:15; Admin Dose 1 TAB; Start 09/10/18 at 09:00 Ondansetron HCl (Zofran Tab) 4 mg Q4H PRN PO NAUSEA AND/OR VOMITING; Start 09/10/18 at 08:00 Pantoprazole (Protonix Tab) 40 mg DAILY@0600 PO Last administered on 09/18/18at 05:31; Admin Dose 40 MG; Start 09/10/18 at 09:00 Prochlorperazine (Compazine) 5 mg Q6H PRN PO NAUSEA; Start 09/10/18 at 08:00 Senna (Senokot) 2 tab DAILY PRN PO CONSTIPATION; Start 09/10/18 at 08:00 Zinc Sulfate (Zinc Sulfate) 220 mg DAILY PO Last administered on 3/10/19at 08:15; Admin Dose 220 MG; Start 09/10/18 at 09:00 Miscellaneous Information 1 ea NOTE XX ; Start 09/10/18 at 08:00 Glucose (Glutose) 15 gm Q15M PRN PO DECREASED GLUCOSE; Start 09/10/18 at 08:00 Glucose (Glutose) 22.5 gm Q15M PRN PO DECREASED GLUCOSE; Start 09/10/18 at 08:00 Dextrose (D50w Syringe) 25 ml Q15M PRN IV DECREASED GLUCOSE; Start 09/10/18 at 08:00 Dextrose (D50w Syringe) 50 ml Q15M PRN IV DECREASED GLUCOSE Last administered on 09/15/18 07:34; Admin Dose 50 ML; Start 09/10/18 at 08:00 Glucagon (Glucagen) 1 mg Q15M PRN IM DECREASED GLUCOSE; Start 09/10/18 at 08:00 Glucose (Glutose) 15 gm Q15M PRN BUCCAL DECREASED GLUCOSE; Start 09/10/18 at 08:00 Ertapenem 0.5 gm/ Sodium Chloride 100 ml @ 200 mls/hr Q24H IVPB Last administered on 09/18/18 12:26; Admin Dose 200 MLS/HR; Start 09/11/18 at 11:00 Diagnostic Test (Pha) (Accu-Chek) 1 ea 02 XX Last administered on 09/14/18at 02:54; Admin Dose 1 EA; Start 09/11/18 at 02:00 Insulin Aspart (Novolog Insulin Pen) NOVOLOG *MODERATE* ALGORITHM WITH MEALS BEDTIME SC Last administered on 09/18/18 12:30; Admin Dose 2 UNIT; Start 09/10/18 at 22:30 Linagliptin (Tradjenta) 5 mg DAILY PO Last administered on 09/18/18 08:16; Admin Dose 5 MG; Start 09/14/18 at 09:00 Diagnostic Test (Pha) (Accu-Chek) 1 ea AC MEALS AND BEDTIME XX Last administered on 09/17/18 17:28; Admin Dose 1 EA; Start 09/14/18 at 11:00 Megestrol Acetate (Megace Susp) 1,250 mg BID PO Last administered on 09/18/18 20:50; Admin Dose 1,250 MG; Start 09/14/18 at 21:00 Filgrastim (Neupogen) 300 mcg DAILY@17 SC Last administered on 09/18/18at 17:00; Admin Dose 300 MCG; Start 09/14/18 at 23:15 Fluconazole (Diflucan) 100 mg DAILY PO Last administered on 09/18/18at 08:15; Admin Dose 100 MG; Start 09/15/18 at 14:30 Acyclovir (Zovirax) 400 mg BID PO Last administered on 09/18/18at 20:50; Admin Dose 400 MG; Start 09/15/18 at 15:00 Fluoxetine HCl (Prozac) 60 mg DAILY PO Last administered on 09/18/18at 08:16; Admin Dose 60 MG; Start 09/16/18 at 09:00 ISABELLE JARVIS MD Sep 18, 2018 22:11
[2018-09-19] VITALS (9 sets, daily range): BP systolic 101–124; BP diastolic 53–62; PULSE 90–115; RESP 17–19
[2018-09-19] MEDS: ACCU-CHEK XX SCH ×5 (02:00→21:41)
[2018-09-19] MEDS: PANTOPRAZOLE (EC) 40 MG TAB PO SCH (05:43)
[2018-09-19] MEDS: DILTIAZEM 60 MG TAB PO SCH ×4 (05:43→23:57)
[2018-09-19] MEDS: INSULIN ASPART [NOVOLOG] 3 ML PEN SC SCH ×4 (08:21→20:24)
[2018-09-19] MEDS ORDERED: FUROSEMIDE 20 MG INJ IV ONE (08:30)
[2018-09-19] MEDS: ZINC SULFATE 220 MG CAP PO SCH (08:38)
[2018-09-19] MEDS: LINAGLIPTIN 5 MG TABLET PO SCH (08:38)
[2018-09-19] MEDS: ACYCLOVIR 400 MG TAB PO SCH ×2 (08:38→20:20)
[2018-09-19] MEDS: FLUCONAZOLE 100 MG TAB PO SCH (08:38)
[2018-09-19] MEDS: MEMANTINE 5 MG TAB PO SCH (08:38)
[2018-09-19] MEDS: MEGESTROL (40 MG/ML) 10ML CUP PO SCH ×2 (08:38→20:19)
[2018-09-19] MEDS: FLUOXETINE 20 MG CAP PO SCH (08:38)
[2018-09-19] MEDS: FERROUS SULFATE (EC) 325 MG TAB PO SCH (08:38)
[2018-09-19] MEDS: ASCORBIC ACID 500 MG TAB PO SCH (08:38)
[2018-09-19] MEDS: MULTIVITAMINS THERAPEUTIC TAB PO SCH (09:32)
--- NOTE | 2018-09-19 09:46 | PN ---
DATE: 09/19/2018 SUBJECTIVE: The patient continues to have episodes of tachypnea. No acute events noted. No hemopty sis, hematemesis, or hematochezia. OBJECTIVE: VITAL SIGNS: Blood pressure is 110/56, respirations 19, pulse 90, temperature 98.4. HEENT: Head is normocephalic. NECK: Supple. HEART: Regular rate. LUNGS: Show diminished breath sounds at the base. ABDOMEN: Soft, nontender to palpation without rebound or guarding. EXTREMITIES: Negative for clubbing, cyanosis, no edema. DERMATOLOGIC: No rashes. MUSCULOSKELETAL: No joint effusion. NEUROLOGIC: No change in exam. MEDICATIONS: Reviewed. LABORATORY DATA: Shows a white count 20.0, hemoglobin 8.0, platelet count is 40. Sodium 138, BUN 37 , creatinine 2.18. ASSESSMENT AND PLAN: 1. Sepsis, status post shock. Etiology is secondary to urinary tract infection and pneumonia. The patient is completing antibiotic therapy. We will continue. 2. Tachypnea, etiology is likely multifactorial secondary to pneumonia, mesothelioma, pleural effusi on. The patient's chest x-ray shows bilateral effusions. Continue nasal cannula at 4 liters. Gina nue nebulizers. Follow up with pulmonary for recommendations. We will give the patient a course of Lasix. 3. Pancytopenia, resolved. The patient is status post Neupogen. Continue to monitor. Follow up [facility] hematology. 4. Atrial fibrillation, rate controlled. Continue medical management. 5. Mesothelioma with metastasis. The patient is on chemotherapy. Continue to monitor. 6. Nonoliguric acute kidney injury on top of chronic kidney disease. Etiology is secondary to hemod ynamics. Renal function is stabilized. Continue to monitor. 7. Diabetes. Continue Tradjenta. 8. Acute encephalopathy. Etiology is toxic metabolic. 9. History of depression. Continue Prozac. 10. Anorexia. Continue Megace. 11. Hypokalemia. Continue to monitor and replete. 12. Debility. Continue physical therapy. 13. Gastrointestinal and deep vein thrombosis prophylaxis. Dictated By: RENE VAZQUEZ DO NR/NTS Conf#: [id number] DID#: [id number] CC: REINA MANZANO MD; RENE VAZQUEZ DO;*EndCC*
--- NOTE | 2018-09-19 11:41 | CONS ---
Consult Date/Type/Reason Admit Date/Time Sep 09, 2018 at 22:52 Initial Consult Date 09/13/18 Type of Consult Pulmonary Requesting Provider: RENE VAZQUEZ DO Date/Time of Note DATE: 09/19/18 TIME: 11:41 Subjective Patient denies shortness of breath this morning no respiratory distress Objective Vital Signs Date Temp Pulse Resp B/P (MAP) Pulse Ox O2 O2 Flow FiO2 Time Delivery Rate 09/19/18 97.4 104 17 101/59 93 11:31 (73) 09/19/18 Nasal 3.0 08:00 Cannula Intake and Output 09/18/18 09/18/18 09/19/18 1414:59 22:59 06:59 IntakeIntake Total 850 ml 400 ml OutputOutput Total 600 ml BalanceBalance 850 ml -200 ml Exam GENERAL: Well-nourished well-developed gentleman comfortable at rest VITAL SIGNS: per chart NECK: Supple. No JVD or lymphadenopathy. CARDIAC EXAM: S1, S2. No added sounds or murmurs. CHEST: clear bilaterally, No added sounds, rales or wheezes ABDOMEN: Soft, nontender. No guarding or rebound. EXTREMITIES: No cyanosis, clubbing or edema. NEUROLOGIC: Generalized weakness. No focal deficits. Vent Setting Fraction of Inspired Oxygen pe: 27 Results/Medications Result Diagram: 09/19/18 0559 09/19/18 0559 Results 24 hrs Laboratory Tests Test 09/18/18 12:26 09/18/18 17:23 09/18/18 20:49 09/19/18 05:59 Bedside Glucose 141 132 124 White Blood Count 20.0 #H Red Blood Count 2.86 L Hemoglobin 8.0 L Hematocrit 25.6 L Mean Corpuscular 89.5 Volume Mean Corpuscular 28.0 L Hemoglobin Mean Corpuscular 31.3 L Hemoglobin Concent Red Cell 17.6 H Distribution Width Platelet Count 40 #L Mean Platelet Volume Immature 24.100 H Granulocytes % Neutrophils % Segmented 34 L Neutrophils % (Manual) Band Neutrophils % 20 H (Manual) Lymphocytes % Lymphocytes % 10 L (Manual) Monocytes % Monocytes % 13 H (Manual) Eosinophils % Eosinophils % 1 (Manual) Basophils % Metamyelocytes % 9 H (manual) Myelocytes % 4 H (Manual) Promyelocytes % 9 H (Manual) Nucleated Red 2 H Blood Cells % Immature 4.830 H Granulocytes # Neutrophils # Neutrophils # 7.6 H (Manual) Band Neutrophils # 4.0 H Lymphocytes 2.0 (Manual) Lymphocytes # Monocytes # Monocytes # 2.6 H (Manual) Eosinophils # Basophils # Metamyelocytes # 1.8 H Myelocytes # 0.8 H Promyelocytes # 1.8 H Nucleated Red Blood Cells # Platelet Estimate SIG DECREASED Polychromasia 2+ Hypochromasia 1+ Poikilocytosis 1+ Anisocytosis 1+ Microcytosis 1+ Spherocytes 1+ Sodium Level 138 Potassium Level 4.0 Chloride Level 106 Carbon Dioxide 21 Level Anion Gap 11 Blood Urea 37 H Nitrogen Creatinine 2.18 H Est Glomerular Filtrat Rate mL/min Glucose Level 132 Calcium Level 9.2 Phosphorus Level 4.2 Magnesium Level 1.7 Digoxin Level 0.7 L Test 09/19/18 08:17 Bedside Glucose 144 Medications Current Medications IV Flush (NS 3 ml) 3 ml PER PROTOCOL IV ; Start 09/10/18 at 06:30 Ondansetron HCl (Zofran Inj) 4 mg Q6H PRN IV NAUSEA/VOMITING; Start 09/10/18 at 06:30 Acetaminophen (Tylenol Supp) 650 mg Q6H PRN [place] .PAIN 1-3 OR TEMP; Start 09/10/18 at 06:30 Zolpidem Tartrate (Ambien) 5 mg QHS PRN PO .INSOMNIA; Start 09/10/18 at 06:30 Acetaminophen (Tylenol Tab) 650 mg Q4H PRN PO MILD PAIN(1-3)OR ELEVATED TEMP; Start 09/10/18 at 08:00 Ascorbic Acid (Vitamin C) 500 mg DAILY PO Last administered on 09/19/18at 08:38; Admin Dose 500 MG; Start 09/10/18 at 09:00 Diltiazem HCl (Cardizem) 60 mg Q6 PO Last administered on 09/19/18at 05:43; Admin Dose 60 MG; Start 09/10/18 at 12:00 Docusate Sodium (Colace) 200 mg DAILY PRN PO CONSTIPATION; Start 09/10/18 at 08:00 Ferrous Sulfate (Ferrous Sulfate (Ec)) 325 mg DAILY PO Last administered on 09/19/18at 08:38; Admin Dose 325 MG; Start 09/10/18 at 09:00 Magnesium Hydroxide (Milk Of Mag) 30 ml Q24H PRN PO CONSTIPATION; Start 09/10/18 at 08:00 Memantine (Namenda) 5 mg DAILY PO Last administered on 09/19/18at 08:38; Admin Dose 5 MG; Start 09/10/18 at 09:00 Multivitamins Therapeutic (Theragran) 1 tab DAILY PO Last administered on 09/19/18at 09:32; Admin Dose 1 TAB; Start 09/10/18 at 09:00 Ondansetron HCl (Zofran Tab) 4 mg Q4H PRN PO NAUSEA AND/OR VOMITING Last administered on 09/19/18at 08:43; Admin Dose 4 MG; Start 09/10/18 at 08:00 Pantoprazole (Protonix Tab) 40 mg DAILY@0600 PO Last administered on 09/19/18at 05:43; Admin Dose 40 MG; Start 09/10/18 at 09:00 Prochlorperazine (Compazine) 5 mg Q6H PRN PO NAUSEA; Start 09/10/18 at 08:00 Senna (Senokot) 2 tab DAILY PRN PO CONSTIPATION; Start 09/10/18 at 08:00 Zinc Sulfate (Zinc Sulfate) 220 mg DAILY PO Last administered on 09/19/18at 08:38; Admin Dose 220 MG; Start 09/10/18 at 09:00 Miscellaneous Information 1 ea NOTE XX ; Start 09/10/18 at 08:00 Glucose (Glutose) 15 gm Q15M PRN PO DECREASED GLUCOSE; Start 09/10/18 at 08:00 Glucose (Glutose) 22.5 gm Q15M PRN PO DECREASED GLUCOSE; Start 09/10/18 at 08:00 Dextrose (D50w Syringe) 25 ml Q15M PRN IV DECREASED GLUCOSE; Start 09/10/18 at 08:00 Dextrose (D50w Syringe) 50 ml Q15M PRN IV DECREASED GLUCOSE Last administered on 09/15/18at 07:34; Admin Dose 50 ML; Start 09/10/18 at 08:00 Glucagon (Glucagen) 1 mg Q15M PRN IM DECREASED GLUCOSE; Start 09/10/18 at 08:00 Glucose (Glutose) 15 gm Q15M PRN BUCCAL DECREASED GLUCOSE; Start 09/10/18 at 08:00 Ertapenem 0.5 gm/ Sodium Chloride 100 ml @ 200 mls/hr Q24H IVPB Last administered on 09/18/18 12:26; Admin Dose 200 MLS/HR; Start 09/11/18 at 11:00 Diagnostic Test (Pha) (Accu-Chek) 1 ea 02 XX Last administered on 09/14/18 02:54; Admin Dose 1 EA; Start 09/11/18 at 02:00 Insulin Aspart (Novolog Insulin Pen) NOVOLOG *MODERATE* ALGORITHM WITH MEALS B EDTIME SC Last administered on 09/19/18 08:21; Admin Dose 2 UNIT; Start 09/10/18 at 22:30 Linagliptin (Tradjenta) 5 mg DAILY PO Last administered on 09/19/18 08:38; Admin Dose 5 MG; Start 09/14/18 at 09:00 Diagnostic Test (Pha) (Accu-Chek) 1 ea AC MEALS AND BEDTIME XX Last administered on 09/19/18 08:18; Admin Dose 1 EA; Start 09/14/18 at 11:00 Megestrol Acetate (Megace Susp) 1,250 mg BID PO Last administered on 09/19/18 08:38; Admin Dose 1,250 MG; Start 09/14/18 at 21:00 Fluconazole (Diflucan) 100 mg DAILY PO Last administered on 09/19/18 08:38; Admin Dose 100 MG; Start 09/15/18 at 14:30 Acyclovir (Zovirax) 400 mg BID PO Last administered on 09/19/18 08:38; Admin Dose 400 MG; Start 09/15/18 at 15:00 Fluoxetine HCl (Prozac) 60 mg DAILY PO Last administered on 09/19/18 08:38; Admin Dose 60 MG; Start 09/16/18 at 09:00 Filgrastim (Neupogen) 300 mcg DAILY@17 SC ; Start 09/19/18 at 17:00 Assessment/Plan Hospital Course (Demo Recall) Assessment 1. Patient admitted with UTI and sepsis with hypotension with marked overall interval improvement. No hemodynamically stable 2. Acute on chronic renal injury with continually improving renal function. 3. Pancytopenia. 4. History of chronic atrial fibrillation. Rate is well controlled. Patient not on anticoagulants because of severe anemia and thrombocytopenia. 5. History of mesothelioma involving right lung. Plan 1. Continue antibiotics 2. Hematology oncology recommendations 3. Physical therapy as tolerated Consider transfer to [facility]. Consider acute rehab versus REINA Michel MD, [facility] Sep 19, 2018 11:41
--- NOTE | 2018-09-19 12:31 | CONS ---
Assessment/Plan Assessment/Plan Hospital Course (Demo Recall) Patient is alert and feels much better looks comfortable no fevers overnight. WBC 20 H&H 8 and 25.6 platelets 40 BUN 37 creatinine 2.18 Antimicrobials: Invanz, acyclovir, fluconazole Microbiology: All cultures negative Indwelling: Left chest Port-A-Cath Physical examination: Well-developed chronically ill-appearing elderly man in no distress. Head atraumatic normocephalic sclera nonicteric. Neck is supple chest rise symmetrical breath sounds diminished bases. Heart: S1-S2. Abdomen soft bowel sounds present assessment Assessment: 1. S/p septic shock, possibly cardiogenic 2. Acute renal failure 3. Urinary tract infection as per urinalysis 4. Mesothelioma with metastasis, patient is getting chemotherapy outpatient 5. Atrial fibrillation 6. Possible pneumonia 7. Pancytopenia/neutropenia, resolved Plan: Clinically doing much better, DC Invanz, continue present care Consultation Date/Type/Reason Admit Date/Time Sep 09, 2018 at 22:52 Initial Consult Date Type of Consult id Requesting Provider: RENE VAZQUEZ DO Date/Time of Note DATE: 09/19/18 TIME: 12:30 Exam/Review of Systems Exam Vitals Vital Signs Date Temp Pulse Resp B/P (MAP) Pulse Ox O2 O2 Flow FiO2 Time Delivery Rate 09/19/18 113 12:29 09/19/18 97.4 17 101/59 93 11:31 (73) 09/19/18 Nasal 3.0 08:00 Cannula Intake and Output 09/18/18 09/18/18 09/19/18 1414:59 22:59 06:59 IntakeIntake Total 850 ml 400 ml OutputOutput Total 600 ml BalanceBalance 850 ml -200 ml Results Result Diagram: 09/19/18 0559 09/19/18 0559 Results 24hrs Laboratory Tests Test 09/18/18 17:23 09/18/18 20:49 09/19/18 05:59 09/19/18 08:17 Bedside Glucose 132 124 144 White Blood Count 20.0 #H Red Blood Count 2.86 L Hemoglobin 8.0 L Hematocrit 25.6 L Mean Corpuscular 89.5 Volume Mean Corpuscular 28.0 L Hemoglobin Mean Corpuscular 31.3 L Hemoglobin Concent Red Cell 17.6 H Distribution Width Platelet Count 40 #L Mean Platelet Volume Immature 24.100 H Granulocytes % Neutrophils % Segmented 34 L Neutrophils % (Manual) Band Neutrophils % 20 H (Manual) Lymphocytes % Lymphocytes % 10 L (Manual) Monocytes % Monocytes % 13 H (Manual) Eosinophils % Eosinophils % 1 (Manual) Basophils % Metamyelocytes % 9 H (manual) Myelocytes % 4 H (Manual) Promyelocytes % 9 H (Manual) Nucleated Red 2 H Blood Cells % Immature 4.830 H Granulocytes # Neutrophils # Neutrophils # 7.6 H (Manual) Band Neutrophils # 4.0 H Lymphocytes 2.0 (Manual) Lymphocytes # Monocytes # Monocytes # 2.6 H (Manual) Eosinophils # Basophils # Metamyelocytes # 1.8 H Myelocytes # 0.8 H Promyelocytes # 1.8 H Nucleated Red Blood Cells # Platelet Estimate SIG DECREASED Polychromasia 2+ Hypochromasia 1+ Poikilocytosis 1+ Anisocytosis 1+ Microcytosis 1+ Spherocytes 1+ Sodium Level 138 Potassium Level 4.0 Chloride Level 106 Carbon Dioxide 21 Level Anion Gap 11 Blood Urea 37 H Nitrogen Creatinine 2.18 H Est Glomerular Filtrat Rate mL/min Glucose Level 132 Calcium Level 9.2 Phosphorus Level 4.2 Magnesium Level 1.7 Digoxin Level 0.7 L Test 09/19/18 11:51 Bedside Glucose 159 Medications Medication Current Medications IV Flush (NS 3 ml) 3 ml PER PROTOCOL IV ; Start 09/10/18 at 06:30 Ondansetron HCl (Zofran Inj) 4 mg Q6H PRN IV NAUSEA/VOMITING; Start 09/10/18 at 06:30 Acetaminophen (Tylenol Supp) 650 mg Q6H PRN [place] .PAIN 1-3 OR TEMP; Start 09/10/18 at 06:30 Zolpidem Tartrate (Ambien) 5 mg QHS PRN PO .INSOMNIA; Start 09/10/18 at 06:30 Acetaminophen (Tylenol Tab) 650 mg Q4H PRN PO MILD PAIN(1-3)OR ELEVATED TEMP; Start 09/10/18 at 08:00 Ascorbic Acid (Vitamin C) 500 mg DAILY PO Last administered on 09/19/18at 08:38; Admin Dose 500 MG; Start 09/10/18 at 09:00 Diltiazem HCl (Cardizem) 60 mg Q6 PO Last administered on 09/19/18at 05:43; Admin Dose 60 MG; Start 09/10/18 at 12:00 Docusate Sodium (Colace) 200 mg DAILY PRN PO CONSTIPATION; Start 09/10/18 at 08:00 Ferrous Sulfate (Ferrous Sulfate (Ec)) 325 mg DAILY PO Last administered on 09/19/18at 08:38; Admin Dose 325 MG; Start 09/10/18 at 09:00 Magnesium Hydroxide (Milk Of Mag) 30 ml Q24H PRN PO CONSTIPATION; Start 09/10/18 at 08:00 Memantine (Namenda) 5 mg DAILY PO Last administered on 09/19/18at 08:38; Admin Dose 5 MG; Start 09/10/18 at 09:00 Multivitamins Therapeutic (Theragran) 1 tab DAILY PO Last administered on 09/19/18 09:32; Admin Dose 1 TAB; Start 09/10/18 at 09:00 Ondansetron HCl (Zofran Tab) 4 mg Q4H PRN PO NAUSEA AND/OR VOMITING Last administered on 09/19/18at 08:43; Admin Dose 4 MG; Start 09/10/18 at 08:00 Pantoprazole (Protonix Tab) 40 mg DAILY@0600 PO Last administered on 09/19/18 05:43; Admin Dose 40 MG; Start 09/10/18 at 09:00 Prochlorperazine (Compazine) 5 mg Q6H PRN PO NAUSEA; Start 09/10/18 at 08:00 Senna (Senokot) 2 tab DAILY PRN PO CONSTIPATION; Start 09/10/18 at 08:00 Zinc Sulfate (Zinc Sulfate) 220 mg DAILY PO Last administered on 09/19/18at 08:38; Admin Dose 220 MG; Start 09/10/18 at 09:00 Miscellaneous Information 1 ea NOTE XX ; Start 09/10/18 at 08:00 Glucose (Glutose) 15 gm Q15M PRN PO DECREASED GLUCOSE; Start 09/10/18 at 08:00 Glucose (Glutose) 22.5 gm Q15M PRN PO DECREASED GLUCOSE; Start 09/10/18 at 08:00 Dextrose (D50w Syringe) 25 ml Q15M PRN IV DECREASED GLUCOSE; Start 09/10/18 at 08:00 Dextrose (D50w Syringe) 50 ml Q15M PRN IV DECREASED GLUCOSE Last administered on 3/7/19at 07:34; Admin Dose 50 ML; Start 09/10/18 at 08:00 Glucagon (Glucagen) 1 mg Q15M PRN IM DECREASED GLUCOSE; Start 09/10/18 at 08:00 Glucose (Glutose) 15 gm Q15M PRN BUCCAL DECREASED GLUCOSE; Start 09/10/18 at 08:00 Ertapenem 0.5 gm/ Sodium Chloride 100 ml @ 200 mls/hr Q24H IVPB Last administered on 09/18/18 12:26; Admin Dose 200 MLS/HR; Start 09/11/18 at 11:00 Diagnostic Test (Pha) (Accu-Chek) 1 ea 02 XX Last administered on 09/14/18 02:54; Admin Dose 1 EA; Start 09/11/18 at 02:00 Insulin Aspart (Novolog Insulin Pen) NOVOLOG *MODERATE* ALGORITHM WITH MEALS BEDTIME SC Last administered on 09/19/18 08:21; Admin Dose 2 UNIT; Start 09/10/18 at 22:30 Linagliptin (Tradjenta) 5 mg DAILY PO Last administered on 09/19/18 08:38; Admin Dose 5 MG; Start 09/14/18 at 09:00 Diagnostic Test (Pha) (Accu-Chek) 1 ea AC MEALS AND BEDTIME XX Last administered on 09/19/18 08:18; Admin Dose 1 EA; Start 09/14/18 at 11:00 Megestrol Acetate (Megace Susp) 1,250 mg BID PO Last administered on 09/19/18 08:38; Admin Dose 1,250 MG; Start 09/14/18 at 21:00 Fluconazole (Diflucan) 100 mg DAILY PO Last administered on 09/19/18 08:38; Admin Dose 100 MG; Start 09/15/18 at 14:30 Acyclovir (Zovirax) 400 mg BID PO Last administered on 09/19/18 08:38; Admin Dose 400 MG; Start 09/15/18 at 15:00 Fluoxetine HCl (Prozac) 60 mg DAILY PO Last administered on 09/19/18 08:38; Admin Dose 60 MG; Start 09/16/18 at 09:00 Filgrastim (Neupogen) 300 mcg DAILY@17 SC ; Start 09/19/18 at 17:00 CARMEN ALEGRIA NP Sep 19, 2018 12:31
--- NOTE | 2018-09-19 15:26 | CONS ---
Consult Date/Type/Reason Admit Date/Time Sep 09, 2018 at 22:52 Initial Consult Date 09/12/18 Type of Consultation: CV Requesting Provider: RENE VAZQUEZ DO Date/Time of Note DATE: 09/19/18 TIME: 15:25 Subjective Cardiology follow-up progress note Subjective: Discussed with staff and telemetry was reviewed. Patient remains in atrial fibrillation. HR is under good control Patient denies any chest pain or pressure to me He denies any active bleeding to me Objective: General: Elderly gentleman in no acute distress HEENT: NC/AT. pupils are equal. round. NECK: NO JVD. no stridor. CV: Irregularly irregular. systolic murmur; no gallop or rubs. PULM: no wheezing + rhonchi. GI: SOFT, NT, ND, no rebound or guarding Extremity: trace B/L LE edema. no clubbing. neuro: awake and alert, OX2. Psych: calm and pleasant rectal: deferred : normal Echocardiogram was personally reviewed which shows: Normal left ventricular cavity size. Possibly mild left ventricular systolic dysfunction. . Moderate concentric left ventricular hypertrophy. The left ventricle is not well visualized in the apical views, parasternal and subcostal only. The left ventricular ejection fraction is visually estimated at 60 %. Normal appearance of the mitral valve leaflets. The mitral valve is not well visualized. Mild mitral regurgitation, but only seen from parasternal window. The aortic valve is not well visualized. No hemodynamically significant aortic stenosis by Doppler. Aortic cusps appear mildly calcified. No aortic regurgitation. Normal appearance of the tricuspid valve. No evidence of tricuspid regurgitation. Upper limit of normal left atrial size. Objective Vitals Vital Signs Date Temp Pulse Resp B/P (MAP) Pulse Ox O2 O2 Flow FiO2 Time Delivery Rate 09/19/18 98.4 105 17 108/53 93 15:13 (71) 09/19/18 Nasal 3.0 08:00 Cannula Intake and Output 09/18/18 09/18/18 09/19/18 1414:59 22:59 06:59 IntakeIntake Total 850 ml 400 ml OutputOutput Total 600 ml BalanceBalance 850 ml -200 ml Results/Medications Result Diagram: 09/19/18 0559 09/19/18 0559 Results 24 hrs Laboratory Tests Test 09/18/18 17:23 09/18/18 20:49 09/19/18 05:59 09/19/18 08:17 Bedside Glucose 132 124 144 White Blood Count 20.0 #H Red Blood Count 2.86 L Hemoglobin 8.0 L Hematocrit 25.6 L Mean Corpuscular 89.5 Volume Mean Corpuscular 28.0 L Hemoglobin Mean Corpuscular 31.3 L Hemoglobin Concent Red Cell 17.6 H Distribution Width Platelet Count 40 #L Mean Platelet Volume Immature 24.100 H Granulocytes % Neutrophils % Segmented 34 L Neutrophils % (Manual) Band Neutrophils % 20 H (Manual) Lymphocytes % Lymphocytes % 10 L (Manual) Monocytes % Monocytes % 13 H (Manual) Eosinophils % Eosinophils % 1 (Manual) Basophils % Metamyelocytes % 9 H (manual) Myelocytes % 4 H (Manual) Promyelocytes % 9 H (Manual) Nucleated Red 2 H Blood Cells % Immature 4.830 H Granulocytes # Neutrophils # Neutrophils # 7.6 H (Manual) Band Neutrophils # 4.0 H Lymphocytes 2.0 (Manual) Lymphocytes # Monocytes # Monocytes # 2.6 H (Manual) Eosinophils # Basophils # Metamyelocytes # 1.8 H Myelocytes # 0.8 H Promyelocytes # 1.8 H Nucleated Red Blood Cells # Platelet Estimate SIG DECREASED Polychromasia 2+ Hypochromasia 1+ Poikilocytosis 1+ Anisocytosis 1+ Microcytosis 1+ Spherocytes 1+ Sodium Level 138 Potassium Level 4.0 Chloride Level 106 Carbon Dioxide 21 Level Anion Gap 11 Blood Urea 37 H Nitrogen Creatinine 2.18 H Est Glomerular Filtrat Rate mL/min Glucose Level 132 Calcium Level 9.2 Phosphorus Level 4.2 Magnesium Level 1.7 Digoxin Level 0.7 L Test 09/19/18 11:51 Bedside Glucose 159 Home Meds Reported Medications Ondansetron Hcl* (Ondansetron Hcl*) 4 Mg Tablet, 4 MG PO Q4H PRN for NAUSEA AND OR VOMITING, TAB 09/09/18 Zinc Sulfate* (Zinc Sulfate*) 220 Mg Cap, 220 MG PO DAILY, CAP 09/09/18 Ascorbic Acid* (Vitamin C*) 500 Mg Capsule.sa, 500 MG PO DAILY, CAP 09/09/18 Cran/Vitc/Mannose/Inulin/Brom (Uti-Stat Liquid) 3,875 Mg/30 Ml Liquid, 3875 MG PO DAILY 09/09/18 Acetaminophen* (Acetaminophen*) 650 Mg Tablet, 650 MG PO Q4 PRN for PAIN AND OR ELEVATED TEMP, #30 TAB 09/09/18 Sennosides* (Senna Lax*) 8.6 Mg Tablet, 2 TAB PO DAILY PRN for CONSTIPATION, TAB 09/09/18 Fluoxetine Hcl* (Prozac*) 20 Mg Capsule, 20 MG PO DAILY, CAP 09/09/18 Pantoprazole* (Protonix*) 40 Mg Tablet.dr, 40 MG PO DAILY, TAB 09/09/18 Prochlorperazine* (Prochlorperazine*) 5 Mg Tablet, 5 MG PO Q6 PRN for NAUSEA, TAB 09/09/18 Memantine* (Namenda*) 5 Mg Tablet, 5 MG PO DAILY, #30 TAB 09/09/18 Multivitamins* (Theragran*) 1 Tab Tab, 1 TAB PO DAILY, TAB 09/09/18 Magnesium Hydroxide* (Milk Of Magnesia*) 400 Mg/5 Ml Oral.susp, 30 ML PO Q24H PRN for CONSTIPATION, ML 09/09/18 Megestrol Acetate* (Megace ES*) 625 Mg/5 Ml Oral.susp, 10 ML PO BID, ML 09/09/18 Insulin Glargine* (Lantus*) 100 Unit/Ml Soln, 12 UNIT SC QHS, #1 VIAL 09/09/18 Ferrous Sulfate* (Ferrous Sulfate*) 325 Mg Tabec, 325 MG PO DAILY, TAB 09/09/18 Diltiazem Hcl* (Cardizem SR*) 60 Mg Capsr, 60 MG PO Q6, #60 CAP HOLD IF SBP BELOW 110 OR HR BELOW 60 09/09/18 Cranberry (Cranberry) 400 Mg Capsule, 400 MG PO DAILY, CAP 09/09/18 Docusate Sodium* (Colace*) 100 Mg Capsule, 200 MG PO DAILY PRN for CONSTIPATION, #30 CAP 09/09/18 Bisoprolol Fumarate* (Bisoprolol Fumarate*) 5 Mg Tablet, 5 MG PO DAILY, TAB HOLD IF SBP IS BELOW 110 OR HR BELOW 60 09/09/18 Medications Current Medications IV Flush (NS 3 ml) 3 ml PER PROTOCOL IV ; Start 09/10/18 at 06:30 Ondansetron HCl (Zofran Inj) 4 mg Q6H PRN IV NAUSEA/VOMITING; Start 09/10/18 at 06:30 Acetaminophen (Tylenol Supp) 650 mg Q6H PRN [place] .PAIN 1-3 OR TEMP; Start 09/10/18 at 06:30 Zolpidem Tartrate (Ambien) 5 mg QHS PRN PO .INSOMNIA; Start 09/10/18 at 06:30 Acetaminophen (Tylenol Tab) 650 mg Q4H PRN PO MILD PAIN(1-3)OR ELEVATED TEMP; Start 09/10/18 at 08:00 Ascorbic Acid (Vitamin C) 500 mg DAILY PO Last administered on 09/19/18 08:38; Admin Dose 500 MG; Start 09/10/18 at 09:00 Diltiazem HCl (Cardizem) 60 mg Q6 PO Last administered on 09/19/18at 12:53; Adm in Dose 60 MG; Start 09/10/18 at 12:00 Docusate Sodium (Colace) 200 mg DAILY PRN PO CONSTIPATION; Start 09/10/18 at 08:00 Ferrous Sulfate (Ferrous Sulfate (Ec)) 325 mg DAILY PO Last administered on 08:38; Admin Dose 325 MG; Start 09/10/18 at 09:00 Magnesium Hydroxide (Milk Of Mag) 30 ml Q24H PRN PO CONSTIPATION; Start 09/10/18 at 08:00 Memantine (Namenda) 5 mg DAILY PO Last administered on 09/19/18 08:38; Admin Dose 5 MG; Start 09/10/18 at 09:00 Multivitamins Therapeutic (Theragran) 1 tab DAILY PO Last administered on 09/19/18 09:32; Admin Dose 1 TAB; Start 09/10/18 at 09:00 Ondansetron HCl (Zofran Tab) 4 mg Q4H PRN PO NAUSEA AND/OR VOMITING Last administered on 09/19/18 08:43; Admin Dose 4 MG; Start 09/10/18 at 08:00 Pantoprazole (Protonix Tab) 40 mg DAILY@0600 PO Last administered on 09/19/18 05:43; Admin Dose 40 MG; Start 09/10/18 at 09:00 Prochlorperazine (Compazine) 5 mg Q6H PRN PO NAUSEA; Start 09/10/18 at 08:00 Senna (Senokot) 2 tab DAILY PRN PO CONSTIPATION; Start 09/10/18 at 08:00 Zinc Sulfate (Zinc Sulfate) 220 mg DAILY PO Last administered on 09/19/18 08:38; Admin Dose 220 MG; Start 09/10/18 at 09:00 Miscellaneous Information 1 ea NOTE XX ; Start 09/10/18 at 08:00 Glucose (Glutose) 15 gm Q15M PRN PO DECREASED GLUCOSE; Start 09/10/18 at 08:00 Glucose (Glutose) 22.5 gm Q15M PRN PO DECREASED GLUCOSE; Start 09/10/18 at 08:00 Dextrose (D50w Syringe) 25 ml Q15M PRN IV DECREASED GLUCOSE; Start 09/10/18 at 08:00 Dextrose (D50w Syringe) 50 ml Q15M PRN IV DECREASED GLUCOSE Last administered on 09/15/18at 07:34; Admin Dose 50 ML; Start 09/10/18 at 08:00 Glucagon (Glucagen) 1 mg Q15M PRN IM DECREASED GLUCOSE; Start 09/10/18 at 08:00 Glucose (Glutose) 15 gm Q15M PRN BUCCAL DECREASED GLUCOSE; Start 09/10/18 at 08:00 Diagnostic Test (Pha) (Accu-Chek) 1 ea 02 XX Last administered on 09/14/18at 02:54; Admin Dose 1 EA; Start 09/11/18 at 02:00 Insulin Aspart (Novolog Insulin Pen) NOVOLOG *MODERATE* ALGORITHM WITH MEALS BEDTIME SC Last administered on 09/19/18 12:39; Admin Dose 2 UNIT; Start 09/10/18 at 22:30 Linagliptin (Tradjenta) 5 mg DAILY PO Last administered on 09/19/18 08:38; Admin Dose 5 MG; Start 09/14/18 at 09:00 Diagnostic Test (Pha) (Accu-Chek) 1 ea AC MEALS AND BEDTIME XX Last administered on 09/19/18 11:51; Admin Dose 1 EA; Start 09/14/18 at 11:00 Megestrol Acetate (Megace Susp) 1,250 mg BID PO Last administered on 09/19/18 08:38; Admin Dose 1,250 MG; Start 09/14/18 at 21:00 Fluconazole (Diflucan) 100 mg DAILY PO Last administered on 09/19/18 08:38; Admin Dose 100 MG; Start 09/15/18 at 14:30 Acyclovir (Zovirax) 400 mg BID PO Last administered on 09/19/18 08:38; Admin Dose 400 MG; Start 09/15/18 at 15:00 Fluoxetine HCl (Prozac) 60 mg DAILY PO Last administered on 09/19/18 08:38; Admin Dose 60 MG; Start 09/16/18 at 09:00 Assessment/Plan Hospital Course (Demo Recall) 1. Atrial fibrillation rapid ventricular response: Currently HR is under control mostly 2. s/p Sepsis and shock 3. renal failure 4. Severe anemia 5. severe Thrombocytopenia 6. History of mesothelioma 7. Diabetes 8. Encephalopathy Recommendations: off Eliquis due to severe anemia and worsening thrombocytopenia Transfusion as needed dig prn as long as low level. cont Cardizem po as needed Antibiotic management as per internal medicine Thank you for his referral. We will continue to follow along with you as needed over the weekend EMILIA BURCIAGA MD [facility] EMILIA BURCIAGA MD Sep 19, 2018 15:26
[2018-09-19] MEDS ORDERED: FILGRASTIM 300 MCG INJ SC SCH (17:00)
--- NOTE | 2018-09-19 22:28 | CONS ---
Assessment/Plan Assessment/Plan Hospital Course (Demo Recall) Severe anemia and thrombocytopenia. 2 RECENT TO CHEMO The patient is currently receiving chemotherapy, last dose was 2.28. 19 MONITOR BLOOD COUNT CLOSELY OBSERVE FOR BLEEDING AND HEMOLYSIS AVOID MYELOSUPPRESSIVE MEDS LEUKOPENIA IN PT WITH SEPSIS POST RECENT CHEMO CONT NEUPOGEN TILL ANC MORE THAN [id number], WILL DC TODAY MONITOR COUNT CLOSELY History of mesothelioma likely with right-sided involvement. OUTPT RECORD-P The patient is currently receiving chemotherapy, last dose was 2.28.19 NO INTERVENTION PLANNED AT PRESENT Sepsis , UTI CONT antimicrobial regimen. Acute renal injury possibly with some element of baseline renal insufficiency. Serum creatinine improving. Improving hypotension. Chronic atrial fibrillation. Hyperkalemia: due to ARF and lactic acidosis (sepsis) History of hypertension. History of diabetes. Generalized weakness Consultation Date/Type/Reason Admit Date/Time Sep 09, 2018 at 22:52 Initial Consult Date 09/13/18 Type of Consult [facility] Requesting Provider: RENE VAZQUEZ DO Date/Time of Note DATE: 09/19/18 TIME: 22:27 24 HR Interval Summary Free Text/Dictation all noted nad count improving Exam/Review of Systems Exam Vitals Vital Signs Date Temp Pulse Resp B/P (MAP) Pulse Ox O2 O2 Flow FiO2 Time Delivery Rate 09/19/18 115 20:00 09/19/18 Nasal 3.0 20:00 Cannula 09/19/18 98.2 18 116/62 93 20:00 (80) Intake and Output 09/18/18 09/18/18 09/19/18 1515:00 23:00 07:00 IntakeIntake Total 850 ml 400 ml OutputOutput Total 600 ml BalanceBalance 850 ml -200 ml Exam Const: No acute distress, nontoxic Head: Atraumatic Eyes: Normal Conjunctiva ENT: Dry mucous membranes Neck: Full range of motion. No meningismus. Resp: Clear to auscultation bilaterally Chest wall: Right upper chest surgical scar, well healing. Left upper chest surgical scar from new pacemaker, well-healing Cardio: irregularly irregular rhythm with normal rate, no murmurs Abd: Soft, non tender, non distended. Normal bowel sounds Skin: No petechiae or rashes Back: No midline or flank tenderness Ext: No cyanosis, or edema Neur: Awake and alert, moving all extremities, normal speech, no facial asymmetry Psych: Depressed mood Results Result Diagram: 09/19/18 0559 09/19/18 0559 Results 24hrs Laboratory Tests Test 09/19/18 05:59 09/19/18 08:17 09/19/18 11:51 09/19/18 17:16 White Blood Count 20.0 #H Red Blood Count 2.86 L Hemoglobin 8.0 L Hematocrit 25.6 L Mean Corpuscular 89.5 Volume Mean Corpuscular 28.0 L Hemoglobin Mean Corpuscular 31.3 L Hemoglobin Concent Red Cell 17.6 H Distribution Width Platelet Count 40 #L Mean Platelet Volume Immature 24.100 H Granulocytes % Neutrophils % Segmented 34 L Neutrophils % (Manual) Band Neutrophils % 20 H (Manual) Lymphocytes % Lymphocytes % 10 L (Manual) Monocytes % Monocytes % 13 H (Manual) Eosinophils % Eosinophils % 1 (Manual) Basophils % Metamyelocytes % 9 H (manual) Myelocytes % 4 H (Manual) Promyelocytes % 9 H (Manual) Nucleated Red 2 H Blood Cells % Immature 4.830 H Granulocytes # Neutrophils # Neutrophils # 7.6 H (Manual) Band Neutrophils # 4.0 H Lymphocytes 2.0 (Manual) Lymphocytes # Monocytes # Monocytes # 2.6 H (Manual) Eosinophils # Basophils # Metamyelocytes # 1.8 H Myelocytes # 0.8 H Promyelocytes # 1.8 H Nucleated Red Blood Cells # Platelet Estimate SIG DECREASED Polychromasia 2+ Hypochromasia 1+ Poikilocytosis 1+ Anisocytosis 1+ Microcytosis 1+ Spherocytes 1+ Sodium Level 138 Potassium Level 4.0 Chloride Level 106 Carbon Dioxide 21 Level Anion Gap 11 Blood Urea 37 H Nitrogen Creatinine 2.18 H Est Glomerular Filtrat Rate mL/min Glucose Level 132 Calcium Level 9.2 Phosphorus Level 4.2 Magnesium Level 1.7 Digoxin Level 0.7 L Bedside Glucose 144 159 160 Test 09/19/18 20:18 Bedside Glucose 224 H Medications Medication Current Medications IV Flush (NS 3 ml) 3 ml PER PROTOCOL IV ; Start 09/10/18 at 06:30 Ondansetron HCl (Zofran Inj) 4 mg Q6H PRN IV NAUSEA/VOMITING; Start 09/10/18 at 06:30 Acetaminophen (Tylenol Supp) 650 mg Q6H PRN [place] .PAIN 1-3 OR TEMP; Start 09/10/18 at 06:30 Zolpidem Tartrate (Ambien) 5 mg QHS PRN PO .INSOMNIA; Start 09/10/18 at 06:30 Acetaminophen (Tylenol Tab) 650 mg Q4H PRN PO MILD PAIN(1-3)OR ELEVATED TEMP; Start 09/10/18 at 08:00 Ascorbic Acid (Vitamin C) 500 mg DAILY PO Last administered on 09/19/18 08:38; Admin Dose 500 MG; Start 09/10/18 at 09:00 Diltiazem HCl (Cardizem) 60 mg Q6 PO Last administered on 09/19/18 17:25; Admin Dose 60 MG; Start 09/10/18 at 12:00 Docusate Sodium (Colace) 200 mg DAILY PRN PO CONSTIPATION; Start 09/10/18 at 08:00 Ferrous Sulfate (Ferrous Sulfate (Ec)) 325 mg DAILY PO Last administered on 09/19/18 08:38; Admin Dose 325 MG; Start 09/10/18 at 09:00 Magnesium Hydroxide (Milk Of Mag) 30 ml Q24H PRN PO CONSTIPATION; Start 09/10/18 at 08:00 Memantine (Namenda) 5 mg DAILY PO Last administered on 09/19/18 08:38; Admin Dose 5 MG; Start 09/10/18 at 09:00 Multivitamins Therapeutic (Theragran) 1 tab DAILY PO Last administered on 09/19/18 09:32; Admin Dose 1 TAB; Start 09/10/18 at 09:00 Ondansetron HCl (Zofran Tab) 4 mg Q4H PRN PO NAUSEA AND/OR VOMITING Last administered on 09/19/18 08:43; Admin Dose 4 MG; Start 09/10/18 at 08:00 Pantoprazole (Protonix Tab) 40 mg DAILY@0600 PO Last administered on 09/19/18 05:43; Admin Dose 40 MG; Start 09/10/18 at 09:00 Prochlorperazine (Compazine) 5 mg Q6H PRN PO NAUSEA; Start 09/10/18 at 08:00 Senna (Senokot) 2 tab DAILY PRN PO CONSTIPATION; Start 09/10/18 at 08:00 Zinc Sulfate (Zinc Sulfate) 220 mg DAILY PO Last administered on 09/19/18 08:38; Admin Dose 220 MG; Start 09/10/18 at 09:00 Miscellaneous Information 1 ea NOTE XX ; Start 09/10/18 at 08:00 Glucose (Glutose) 15 gm Q15M PRN PO DECREASED GLUCOSE; Start 09/10/18 at 08:00 Glucose (Glutose) 22.5 gm Q15M PRN PO DECREASED GLUCOSE; Start 09/10/18 at 08:00 Dextrose (D50w Syringe) 25 ml Q15M PRN IV DECREASED GLUCOSE; Start 09/10/18 at 08:00 Dextrose (D50w Syringe) 50 ml Q15M PRN IV DECREASED GLUCOSE Last administered on 09/15/18at 07:34; Admin Dose 50 ML; Start 09/10/18 at 08:00 Glucagon (Glucagen) 1 mg Q15M PRN IM DECREASED GLUCOSE; Start 09/10/18 at 08:00 Glucose (Glutose) 15 gm Q15M PRN BUCCAL DECREASED GLUCOSE; Start 09/10/18 at 08:00 Diagnostic Test (Pha) (Accu-Chek) 1 ea 02 XX Last administered on 09/14/18at 02:54; Admin Dose 1 EA; Start 09/11/18 at 02:00 Insulin Aspart (Novolog Insulin Pen) NOVOLOG *MODERATE* ALGORITHM WITH MEALS BEDTIME SC Last administered on 09/19/18 20:24; Admin Dose 2 UNIT; Start 09/10/18 at 22:30 Linagliptin (Tradjenta) 5 mg DAILY PO Last administered on 09/19/18 08:38; Admin Dose 5 MG; Start 09/14/18 at 09:00 Diagnostic Test (Pha) (Accu-Chek) 1 ea AC MEALS AND BEDTIME XX Last administered on 09/19/18at 21:41; Admin Dose 1 EA; Start 09/14/18 at 11:00 Megestrol Acetate (Megace Susp) 1,250 mg BID PO Last administered on 09/19/18 20:19; Admin Dose 1,250 MG; Start 09/14/18 at 21:00 Fluconazole (Diflucan) 100 mg DAILY PO Last administered on 09/19/18 08:38; Admin Dose 100 MG; Start 09/15/18 at 14:30 Acyclovir (Zovirax) 400 mg BID PO Last administered on 09/19/18at 20:20; Admin Dose 400 MG; Start 09/15/18 at 15:00 Fluoxetine HCl (Prozac) 60 mg DAILY PO Last administered on 09/19/18at 08:38; Admin Dose 60 MG; Start 09/16/18 at 09:00 ISABELLE JARVIS MD Sep 19, 2018 22:28
[2018-09-20] VITALS (10 sets, daily range): BP systolic 109–134; BP diastolic 59–69; PULSE 68–114; RESP 17–19
[2018-09-20] MEDS: ACCU-CHEK XX SCH ×5 (02:06→20:06)
[2018-09-20] MEDS: DILTIAZEM 60 MG TAB PO SCH ×3 (06:06→17:25)
[2018-09-20] MEDS: PANTOPRAZOLE (EC) 40 MG TAB PO SCH (06:06)
[2018-09-20] MEDS: INSULIN ASPART [NOVOLOG] 3 ML PEN SC SCH ×4 (07:26→20:06)
[2018-09-20] MEDS: FLUCONAZOLE 100 MG TAB PO SCH (08:16)
[2018-09-20] MEDS: MEMANTINE 5 MG TAB PO SCH (08:16)
[2018-09-20] MEDS: MULTIVITAMINS THERAPEUTIC TAB PO SCH (08:16)
[2018-09-20] MEDS: LINAGLIPTIN 5 MG TABLET PO SCH (08:16)
[2018-09-20] MEDS: FERROUS SULFATE (EC) 325 MG TAB PO SCH (08:16)
[2018-09-20] MEDS: ASCORBIC ACID 500 MG TAB PO SCH (08:16)
[2018-09-20] MEDS: ACYCLOVIR 400 MG TAB PO SCH ×2 (08:16→19:59)
[2018-09-20] MEDS: FLUOXETINE 20 MG CAP PO SCH (08:16)
[2018-09-20] MEDS: MEGESTROL (40 MG/ML) 10ML CUP PO SCH ×2 (08:16→19:58)
[2018-09-20] MEDS: ZINC SULFATE 220 MG CAP PO SCH (08:17)
--- NOTE | 2018-09-20 08:29 | CONS ---
Consult Date/Type/Reason Admit Date/Time Sep 09, 2018 at 22:52 Initial Consult Date 09/12/18 Type of Consultation: CV Requesting Provider: RENE VAZQUEZ DO Date/Time of Note DATE: 09/20/18 TIME: 08:28 Subjective Cardiology follow-up progress note Subjective: Discussed with staff and telemetry was reviewed. Patient remains in atrial fibrillation. HR is under fair control Patient denies any chest pain or pressure to me He denies any active bleeding to me Objective: General: Elderly gentleman in no acute distress HEENT: NC/AT. pupils are equal. round. NECK: NO JVD. no stridor. CV: Irregularly irregular. systolic murmur; no gallop or rubs. PULM: no wheezing + rhonchi. GI: SOFT, NT, ND, no rebound or guarding Extremity: trace B/L LE edema. no clubbing. neuro: awake and alert, OX2. Psych: calm and pleasant rectal: deferred : normal Echocardiogram was personally reviewed which shows: Normal left ventricular cavity size. Possibly mild left ventricular systolic dysfunction. . Moderate concentric left ventricular hypertrophy. The left ventricle is not well visualized in the apical views, parasternal and subcostal only. The left ventricular ejection fraction is visually estimated at 60 %. Normal appearance of the mitral valve leaflets. The mitral valve is not well visualized. Mild mitral regurgitation, but only seen from parasternal window. The aortic valve is not well visualized. No hemodynamically significant aortic stenosis by Doppler. Aortic cusps appear mildly calcified. No aortic regurgitation. Normal appearance of the tricuspid valve. No evidence of tricuspid regurgitation. Upper limit of normal left atrial size. Objective Vitals Vital Signs Date Temp Pulse Resp B/P (MAP) Pulse Ox O2 O2 Flow FiO2 Time Delivery Rate 09/20/18 103 08:19 09/20/18 98.1 17 114/60 96 07:21 (78) 09/19/18 Nasal 3.0 20:00 Cannula Intake and Output 09/19/18 09/19/18 09/20/18 1515:00 23:00 07:00 IntakeIntake Total 400 ml 300 ml OutputOutput Total 300 ml 400 ml BalanceBalance 100 ml -100 ml Results/Medications Result Diagram: 09/20/18 0603 09/20/18 0603 Results 24 hrs Laboratory Tests Test 09/19/18 11:51 09/19/18 17:16 09/19/18 20:18 09/20/18 01:47 Bedside Glucose 159 160 224 H 164 Test 09/20/18 06:03 09/20/18 07:21 White Blood Count 28.8 #H Red Blood Count 2.73 L Hemoglobin 7.5 L Hematocrit 24.9 L Mean Corpuscular 91.2 Volume Mean Corpuscular 27.5 L Hemoglobin Mean Corpuscular 30.1 L Hemoglobin Concent Red Cell 18.2 H Distribution Width Platelet Count 46 L Mean Platelet Volume Immature 38.100 H Granulocytes % Neutrophils % Segmented 44 Neutrophils % (Manual) Band Neutrophils % 13 H (Manual) Lymphocytes % Lymphocytes % 6 L (Manual) Reactive 2 H Lymphocytes % (Manual) Monocytes % Monocytes % 10 (Manual) Eosinophils % Basophils % Metamyelocytes % 3 H (manual) Myelocytes % 15 H (Manual) Promyelocytes % 7 H (Manual) Nucleated Red 4 H Blood Cells % Immature 10.970 H Granulocytes # Neutrophils # Neutrophils # 13.7 H (Manual) Band Neutrophils # 3.7 H Lymphocytes 1.7 (Manual) Lymphocytes # Reactive 0.5 H Lymphocytes # Monocytes # Monocytes # 2.8 H (Manual) Eosinophils # Basophils # Metamyelocytes # 0.8 H Myelocytes # 4.3 H Promyelocytes # 2.0 H Nucleated Red Blood Cells # Toxic Granulation 1+ Platelet Estimate SIG DECREASED Polychromasia 2+ Poikilocytosis 1+ Anisocytosis 1+ Microcytosis 1+ Schistocytes 1+ Sodium Level 138 Potassium Level 3.9 Chloride Level 105 Carbon Dioxide 22 Level Anion Gap 11 Blood Urea 40 H Nitrogen Creatinine 2.33 H Est Glomerular Filtrat Rate mL/min Glucose Level 124 Calcium Level 9.1 Phosphorus Level 4.4 Magnesium Level 1.8 Bedside Glucose 145 Home Meds Reported Medications Ondansetron Hcl* (Ondansetron Hcl*) 4 Mg Tablet, 4 MG PO Q4H PRN for NAUSEA AND OR VOMITING, TAB 09/09/18 Zinc Sulfate* (Zinc Sulfate*) 220 Mg Cap, 220 MG PO DAILY, CAP 09/09/18 Ascorbic Acid* (Vitamin C*) 500 Mg Capsule.sa, 500 MG PO DAILY, CAP 09/09/18 Cran/Vitc/Mannose/Inulin/Brom (Uti-Stat Liquid) 3,875 Mg/30 Ml Liquid, 3875 MG PO DAILY 3/1/19 Acetaminophen* (Acetaminophen*) 650 Mg Tablet, 650 MG PO Q4 PRN for PAIN AND OR ELEVATED TEMP, #30 TAB 09/09/18 Sennosides* (Senna Lax*) 8.6 Mg Tablet, 2 TAB PO DAILY PRN for CONSTIPATION, TAB 09/09/18 Fluoxetine Hcl* (Prozac*) 20 Mg Capsule, 20 MG PO DAILY, CAP 09/09/18 Pantoprazole* (Protonix*) 40 Mg Tablet.dr, 40 MG PO DAILY, TAB 09/09/18 Prochlorperazine* (Prochlorperazine*) 5 Mg Tablet, 5 MG PO Q6 PRN for NAUSEA, TAB 09/09/18 Memantine* (Namenda*) 5 Mg Tablet, 5 MG PO DAILY, #30 TAB 09/09/18 Multivitamins* (Theragran*) 1 Tab Tab, 1 TAB PO DAILY, TAB 09/09/18 Magnesium Hydroxide* (Milk Of Magnesia*) 400 Mg/5 Ml Oral.susp, 30 ML PO Q24H PRN for CONSTIPATION, ML 09/09/18 Megestrol Acetate* (Megace ES*) 625 Mg/5 Ml Oral.susp, 10 ML PO BID, ML 09/09/18 Insulin Glargine* (Lantus*) 100 Unit/Ml Soln, 12 UNIT SC QHS, #1 VIAL 09/09/18 Ferrous Sulfate* (Ferrous Sulfate*) 325 Mg Tabec, 325 MG PO DAILY, TAB 09/09/18 Diltiazem Hcl* (Cardizem SR*) 60 Mg Capsr, 60 MG PO Q6, #60 CAP HOLD IF SBP BELOW 110 OR HR BELOW 60 09/09/18 Cranberry (Cranberry) 400 Mg Capsule, 400 MG PO DAILY, CAP 09/09/18 Docusate Sodium* (Colace*) 100 Mg Capsule, 200 MG PO DAILY PRN for CONSTIPATION, #30 CAP 09/09/18 Bisoprolol Fumarate* (Bisoprolol Fumarate*) 5 Mg Tablet, 5 MG PO DAILY, TAB HOLD IF SBP IS BELOW 110 OR HR BELOW 60 09/09/18 Medications Current Medications IV Flush (NS 3 ml) 3 ml PER PROTOCOL IV ; Start 09/10/18 at 06:30 Ondansetron HCl (Zofran Inj) 4 mg Q6H PRN IV NAUSEA/VOMITING; Start 09/10/18 at 06:30 Acetaminophen (Tylenol Supp) 650 mg Q6H PRN NE .PAIN 1-3 OR TEMP; Start 09/10/18 at 06:30 Zolpidem Tartrate (Ambien) 5 mg QHS PRN PO .INSOMNIA; Start 09/10/18 at 06:30 Acetaminophen (Tylenol Tab) 650 mg Q4H PRN PO MILD PAIN(1-3)OR ELEVATED TEMP; Start 09/10/18 at 08:00 Ascorbic Acid (Vitamin C) 500 mg DAILY PO Last administered on 09/20/18 08:16; Admin Dose 500 MG; Start 09/10/18 at 09:00 Diltiazem HCl (Cardizem) 60 mg Q6 PO Last administered on 09/20/18 06:06; Admin Dose 60 MG; Start 09/10/18 at 12:00 Docusate Sodium (Colace) 200 mg DAILY PRN PO CONSTIPATION; Start 09/10/18 at 08:00 Ferrous Sulfate (Ferrous Sulfate (Ec)) 325 mg DAILY PO Last administered on 09/20/18 08:16; Admin Dose 325 MG; Start 09/10/18 at 09:00 Magnesium Hydroxide (Milk Of Mag) 30 ml Q24H PRN PO CONSTIPATION; Start 09/10/18 at 08:00 Memantine (Namenda) 5 mg DAILY PO Last administered on 09/20/18 08:16; Admin Dose 5 MG; Start 09/10/18 at 09:00 Multivitamins Therapeutic (Theragran) 1 tab DAILY PO Last administered on 09/20/18at 08:16; Admin Dose 1 TAB; Start 09/10/18 at 09:00 Ondansetron HCl (Zofran Tab) 4 mg Q4H PRN PO NAUSEA AND/OR VOMITING Last administered on 09/19/18at 08:43; Admin Dose 4 MG; Start 09/10/18 at 08:00 Pantoprazole (Protonix Tab) 40 mg DAILY@0600 PO Last administered on 09/20/18 06:06; Admin Dose 40 MG; Start 09/10/18 at 09:00 Prochlorperazine (Compazine) 5 mg Q6H PRN PO NAUSEA; Start 09/10/18 at 08:00 Senna (Senokot) 2 tab DAILY PRN PO CONSTIPATION; Start 09/10/18 at 08:00 Zinc Sulfate (Zinc Sulfate) 220 mg DAILY PO Last administered on 09/20/18at 08:17; Admin Dose 220 MG; Start 09/10/18 at 09:00 Miscellaneous Information 1 ea NOTE XX ; Start 09/10/18 at 08:00 Glucose (Glutose) 15 gm Q15M PRN PO DECREASED GLUCOSE; Start 09/10/18 at 08:00 Glucose (Glutose) 22.5 gm Q15M PRN PO DECREASED GLUCOSE; Start 09/10/18 at 08:00 Dextrose (D50w Syringe) 25 ml Q15M PRN IV DECREASED GLUCOSE; Start 09/10/18 at 08:00 Dextrose (D50w Syringe) 50 ml Q15M PRN IV DECREASED GLUCOSE Last administered on 09/15/18at 07:34; Admin Dose 50 ML; Start 09/10/18 at 08:00 Glucagon (Glucagen) 1 mg Q15M PRN IM DECREASED GLUCOSE; Start 09/10/18 at 08:00 Glucose (Glutose) 15 gm Q15M PRN BUCCAL DECREASED GLUCOSE; Start 09/10/18 at 08:00 Diagnostic Test (Pha) (Accu-Chek) 1 ea 02 XX Last administered on 09/20/18at 02:06; Admin Dose 1 EA; Start 09/11/18 at 02:00 Insulin Aspart (Novolog Insulin Pen) NOVOLOG *MODERATE* ALGORITHM WITH MEALS BEDTIME SC Last administered on 09/20/18at 07:26; Admin Dose 2 UNIT; Start 09/10/18 at 22:30 Linagliptin (Tradjenta) 5 mg DAILY PO Last administered on 09/20/18 08:16; Admin Dose 5 MG; Start 09/14/18 at 09:00 Diagnostic Test (Pha) (Accu-Chek) 1 ea AC MEALS AND BEDTIME XX Last administered on 09/20/18at 07:24; Admin Dose 1 EA; Start 09/14/18 at 11:00 Megestrol Acetate (Megace Susp) 1,250 mg BID PO Last administered on 09/20/18at 08:16; Admin Dose 1,250 MG; Start 09/14/18 at 21:00 Fluconazole (Diflucan) 100 mg DAILY PO Last administered on 09/20/18at 08:16; Admin Dose 100 MG; Start 09/15/18 at 14:30 Acyclovir (Zovirax) 400 mg BID PO Last administered on 09/20/18at 08:16; Admin Dose 400 MG; Start 09/15/18 at 15:00 Fluoxetine HCl (Prozac) 60 mg DAILY PO Last administered on 09/20/18at 08:16; Admin Dose 60 MG; Start 09/16/18 at 09:00 Assessment/Plan Hospital Course (Demo Recall) 1. Atrial fibrillation rapid ventricular response: Currently HR is under control mostly 2. s/p Sepsis and shock 3. renal failure 4. Severe anemia 5. severe Thrombocytopenia 6. History of mesothelioma 7. Diabetes 8. Encephalopathy Recommendations: off Eliquis due to severe anemia and worsening thrombocytopenia Transfusion as needed will start low dose dig cont Cardizem po as needed Antibiotic management as per internal medicine Thank you for his referral. We will continue to follow along with you as needed over the weekend EMILIA BURCIAGA MD [facility] EMILIA BURCIAGA MD Sep 20, 2018 08:29
--- NOTE | 2018-09-20 08:40 | PN ---
DATE: 09/20/2018 SUBJECTIVE: The patient is stable. The patient is more alert this morning. No other acute events n oted. No hemoptysis, hematemesis or hematochezia. OBJECTIVE: VITAL SIGNS: Blood pressure is 140/60, respirations 17, pulse 111, temperature 98.1. HEENT: Head is normocephalic. NECK: Supple. HEART: Regular rate. LUNGS: Show diminished breath sounds at the base. ABDOMEN: Soft, nontender to palpation without rebound or guarding. EXTREMITIES: Negative for clubbing, cyanosis, no edema. DERMATOLOGIC: No rashes. MUSCULOSKELETAL: No joint effusion. NEUROLOGIC: No change in exam. MEDICATIONS: Reviewed. LABORATORY DATA: Shows sodium 138, potassium 3.9, BUN 40, creatinine 2.33. White count 28.8, hemogl obin 7.5, platelet count is 46. ASSESSMENT AND PLAN: 1. Sepsis, status post shock. Etiology is secondary to urinary tract infection, pneumonia. The pat ient is completing antibiotic course. We will continue to monitor. 2. Tachypnea, shortness of breath. Etiology is multifactorial secondary to pneumonia, mesothelioma, pleural effusion. The patient is status post Lasix x1 yesterday. The patient appears to have less shortness of breath today. Continue to monitor. Follow up with pulmonary. 3. Pancytopenia, resolved. 4. Leukocytosis, likely from Neupogen which is currently being held. We will continue to monitor. 5. Atrial fibrillation, rate controlled. Continue medical management off Eliquis and anticoagulatio n due to severe anemia and thrombocytopenia. 6. Mesothelioma with metastasis. The patient is status post chemotherapy. 7. Nonoliguric acute kidney injury on top of chronic kidney disease. Etiology is secondary to hemod ynamics. Renal function appears to have stabilized overall around a creatinine of 2.0 -- 2.4 mg/dL. Continue to monitor. 8. Diabetes. Continue Tradjenta. 9. Acute encephalopathy, etiology is toxic metabolic. 10. History of depression. Continue Prozac. 11. Anorexia. Continue Megace. 12. Debility. Continue physical therapy. 13. Gastrointestinal and deep venous thrombosis prophylaxis. DISPOSITION: We will place a Colon respiratory consult if family agrees. Dictated By: RENE YADAV/GUNJAN Conf#: [id number] DID#: [id number] CC: RENE VAZQUEZ DO;*EndCC*
--- NOTE | 2018-09-20 11:25 | CONS ---
Consult Date/Type/Reason Admit Date/Time Sep 09, 2018 at 22:52 Initial Consult Date 09/13/18 Type of Consult Pulmonary Requesting Provider: RENE VAZQUEZ DO Date/Time of Note DATE: 09/20/18 TIME: 11:24 Objective Vital Signs Date Temp Pulse Resp B/P (MAP) Pulse Ox O2 O2 Flow FiO2 Time Delivery Rate 09/20/18 103 08:19 09/20/18 98.1 17 114/60 96 07:21 (78) 09/19/18 Nasal 3.0 20:00 Cannula Intake and Output 09/19/18 09/19/18 09/20/18 1515:00 23:00 07:00 IntakeIntake Total 400 ml 300 ml OutputOutput Total 300 ml 400 ml BalanceBalance 100 ml -100 ml Vent Setting Fraction of Inspired Oxygen pe: 27 Results/Medications Result Diagram: 09/20/18 0603 09/20/18 0603 Results 24 hrs Laboratory Tests Test 09/19/18 11:51 09/19/18 17:16 09/19/18 20:18 09/20/18 01:47 Bedside Glucose 159 160 224 H 164 Test 09/20/18 06:03 09/20/18 07:21 White Blood Count 28.8 #H Red Blood Count 2.73 L Hemoglobin 7.5 L Hematocrit 24.9 L Mean Corpuscular 91.2 Volume Mean Corpuscular 27.5 L Hemoglobin Mean Corpuscular 30.1 L Hemoglobin Concent Red Cell 18.2 H Distribution Width Platelet Count 46 L Mean Platelet Volume Immature 38.100 H Granulocytes % Neutrophils % Segmented 44 Neutrophils % (Manual) Band Neutrophils % 13 H (Manual) Lymphocytes % Lymphocytes % 6 L (Manual) Reactive 2 H Lymphocytes % (Manual) Monocytes % Monocytes % 10 (Manual) Eosinophils % Basophils % Metamyelocytes % 3 H (manual) Myelocytes % 15 H (Manual) Promyelocytes % 7 H (Manual) Nucleated Red 4 H Blood Cells % Immature 10.970 H Granulocytes # Neutrophils # Neutrophils # 13.7 H (Manual) Band Neutrophils # 3.7 H Lymphocytes 1.7 (Manual) Lymphocytes # Reactive 0.5 H Lymphocytes # Monocytes # Monocytes # 2.8 H (Manual) Eosinophils # Basophils # Metamyelocytes # 0.8 H Myelocytes # 4.3 H Promyelocytes # 2.0 H Nucleated Red Blood Cells # Toxic Granulation 1+ Platelet Estimate SIG DECREASED Polychromasia 2+ Poikilocytosis 1+ Anisocytosis 1+ Microcytosis 1+ Schistocytes 1+ Sodium Level 138 Potassium Level 3.9 Chloride Level 105 Carbon Dioxide 22 Level Anion Gap 11 Blood Urea 40 H Nitrogen Creatinine 2.33 H Est Glomerular Filtrat Rate mL/min Glucose Level 124 Calcium Level 9.1 Phosphorus Level 4.4 Magnesium Level 1.8 Bedside Glucose 145 Medications Current Medications IV Flush (NS 3 ml) 3 ml PER PROTOCOL IV ; Start 09/10/18 at 06:30 Ondansetron HCl (Zofran Inj) 4 mg Q6H PRN IV NAUSEA/VOMITING; Start 09/10/18 at 06:30 Acetaminophen (Tylenol Supp) 650 mg Q6H PRN MS .PAIN 1-3 OR TEMP; Start 09/10/18 at 06:30 Zolpidem Tartrate (Ambien) 5 mg QHS PRN PO .INSOMNIA; Start 09/10/18 at 06:30 Acetaminophen (Tylenol Tab) 650 mg Q4H PRN PO MILD PAIN(1-3)OR ELEVATED TEMP; Start 09/10/18 at 08:00 Ascorbic Acid (Vitamin C) 500 mg DAILY PO Last administered on 09/20/18 08:16; Admin Dose 500 MG; Start 09/10/18 at 09:00 Diltiazem HCl (Cardizem) 60 mg Q6 PO Last administered on 09/20/18at 06:06; Admin Dose 60 MG; Start 09/10/18 at 12:00 Docusate Sodium (Colace) 200 mg DAILY PRN PO CONSTIPATION; Start 09/10/18 at 08:00 Ferrous Sulfate (Ferrous Sulfate (Ec)) 325 mg DAILY PO Last administered on 09/20/18 08:16; Admin Dose 325 MG; Start 09/10/18 at 09:00 Magnesium Hydroxide (Milk Of Mag) 30 ml Q24H PRN PO CONSTIPATION; Start 09/10/18 at 08:00 Memantine (Namenda) 5 mg DAILY PO Last administered on 09/20/18 08:16; Admin Dose 5 MG; Start 09/10/18 at 09:00 Multivitamins Therapeutic (Theragran) 1 tab DAILY PO Last administered on 09/20/18 08:16; Admin Dose 1 TAB; Start 09/10/18 at 09:00 Ondansetron HCl (Zofran Tab) 4 mg Q4H PRN PO NAUSEA AND/OR VOMITING Last administered on 09/19/18at 08:43; Admin Dose 4 MG; Start 09/10/18 at 08:00 Pantoprazole (Protonix Tab) 40 mg DAILY@0600 PO Last administered on 09/20/18at 06:06; Admin Dose 40 MG; Start 09/10/18 at 09:00 Prochlorperazine (Compazine) 5 mg Q6H PRN PO NAUSEA; Start 09/10/18 at 08:00 Senna (Senokot) 2 tab DAILY PRN PO CONSTIPATION; Start 09/10/18 at 08:00 Zinc Sulfate (Zinc Sulfate) 220 mg DAILY PO Last administered on 09/20/18at 08:17; Admin Dose 220 MG; Start 09/10/18 at 09:00 Miscellaneous Information 1 ea NOTE XX ; Start 09/10/18 at 08:00 Glucose (Glutose) 15 gm Q15M PRN PO DECREASED GLUCOSE; Start 09/10/18 at 08:00 Glucose (Glutose) 22.5 gm Q15M PRN PO DECREASED GLUCOSE; Start 09/10/18 at 08:00 Dextrose (D50w Syringe) 25 ml Q15M PRN IV DECREASED GLUCOSE; Start 09/10/18 at 08:00 Dextrose (D50w Syringe) 50 ml Q15M PRN IV DECREASED GLUCOSE Last administered on 09/15/18at 07:34; Admin Dose 50 ML; Start 09/10/18 at 08:00 Glucagon (Glucagen) 1 mg Q15M PRN IM DECREASED GLUCOSE; Start 09/10/18 at 08:00 Glucose (Glutose) 15 gm Q15M PRN BUCCAL DECREASED GLUCOSE; Start 09/10/18 at 08:00 Diagnostic Test (Pha) (Accu-Chek) 1 ea 02 XX Last administered on 09/20/18at 02:06; Admin Dose 1 EA; Start 09/11/18 at 02:00 Insulin Aspart (Novolog Insulin Pen) NOVOLOG *MODERATE* ALGORITHM WITH MEALS BEDTIME SC Last administered on 09/20/18at 07:26; Admin Dose 2 UNIT; Start 09/10/18 at 22:30 Linagliptin (Tradjenta) 5 mg DAILY PO Last administered on 09/20/18 08:16; Admin Dose 5 MG; Start 09/14/18 at 09:00 Diagnostic Test (Pha) (Accu-Chek) 1 ea AC MEALS AND BEDTIME XX Last administered on 09/20/18 07:24; Admin Dose 1 EA; Start 09/14/18 at 11:00 Megestrol Acetate (Megace Susp) 1,250 mg BID PO Last administered on 09/20/18 08:16; Admin Dose 1,250 MG; Start 09/14/18 at 21:00 Fluconazole (Diflucan) 100 mg DAILY PO Last administered on 09/20/18 08:16; Admin Dose 100 MG; Start 09/15/18 at 14:30 Acyclovir (Zovirax) 400 mg BID PO Last administered on 09/20/18 08:16; Admin Dose 400 MG; Start 09/15/18 at 15:00 Fluoxetine HCl (Prozac) 60 mg DAILY PO Last administered on 09/20/18 08:16; Admin Dose 60 MG; Start 09/16/18 at 09:00 Digoxin (Digoxin) 0.125 mg Q2D@13 PO ; Start 09/20/18 at 13:00 Assessment/Plan Hospital Course (Demo Recall) Assessment 1. Patient admitted with UTI and sepsis with hypotension with marked overall interval improvement. No hemodynamically stable 2. Acute on chronic renal injury with continually improving renal function. 3. Persistent leukocytosis possibly secondary to Neupogen. 4. History of chronic atrial fibrillation. Rate is well controlled. Patient not on anticoagulants because of severe anemia and thrombocytopenia. 5. History of mesothelioma involving right lung. Plan 1. Continue antibiotics 2. Hematology oncology recommendations 3. Physical therapy as tolerated Consider transfer to [facility]. Consider acute rehab versus REINA Michel MD, [facility] Sep 20, 2018 11:25
[2018-09-20] MEDS ORDERED: DIGOXIN 0.125 MG TAB PO SCH (13:00)
--- NOTE | 2018-09-20 13:25 | CONS ---
Assessment/Plan Assessment/Plan Hospital Course (Demo Recall) No acute events, no fevers, looks comfortable Antimicrobials: acyclovir, fluconazole Microbiology: All cultures negative Indwelling: Left chest Port-A-Cath Physical examination: Well-developed chronically ill-appearing elderly man in no distress. Head atraumatic normocephalic sclera nonicteric. Neck is supple chest rise symmetrical breath sounds diminished bases. Heart: S1-S2. Abdomen soft bowel sounds present assessment Assessment: 1. S/p septic shock, possibly cardiogenic 2. Acute renal failure 3. Urinary tract infection as per urinalysis 4. Mesothelioma with metastasis, patient is getting chemotherapy outpatient 5. Atrial fibrillation 6. Possible pneumonia 7. Pancytopenia/neutropenia, resolved Plan: Stable, continue present care, agree with acute rehab Consultation Date/Type/Reason Admit Date/Time Sep 09, 2018 at 22:52 Initial Consult Date Type of Consult id Requesting Provider: RENE VAZQUEZ DO Date/Time of Note DATE: 09/20/18 TIME: 13:24 Exam/Review of Systems Exam Vitals Vital Signs Date Temp Pulse Resp B/P (MAP) Pulse Ox O2 O2 Flow FiO2 Time Delivery Rate 09/20/18 102 12:39 09/20/18 97.9 19 109/66 98 11:24 (80) 09/20/18 Nasal 3.0 08:00 Cannula Intake and Output 09/19/18 09/19/18 09/20/18 1515:00 23:00 07:00 IntakeIntake Total 400 ml 300 ml OutputOutput Total 300 ml 400 ml BalanceBalance 100 ml -100 ml Results Result Diagram: 09/20/18 0603 09/20/18 0603 Results 24hrs Laboratory Tests Test 09/19/18 17:16 09/19/18 20:18 09/20/18 01:47 09/20/18 06:03 Bedside Glucose 160 224 H 164 White Blood Count 28.8 #H Red Blood Count 2.73 L Hemoglobin 7.5 L Hematocrit 24.9 L Mean Corpuscular 91.2 Volume Mean Corpuscular 27.5 L Hemoglobin Mean Corpuscular 30.1 L Hemoglobin Concent Red Cell 18.2 H Distribution Width Platelet Count 46 L Mean Platelet Volume Immature 38.100 H Granulocytes % Neutrophils % Segmented 44 Neutrophils % (Manual) Band Neutrophils % 13 H (Manual) Lymphocytes % Lymphocytes % 6 L (Manual) Reactive 2 H Lymphocytes % (Manual) Monocytes % Monocytes % 10 (Manual) Eosinophils % Basophils % Metamyelocytes % 3 H (manual) Myelocytes % 15 H (Manual) Promyelocytes % 7 H (Manual) Nucleated Red 4 H Blood Cells % Immature 10.970 H Granulocytes # Neutrophils # Neutrophils # 13.7 H (Manual) Band Neutrophils # 3.7 H Lymphocytes 1.7 (Manual) Lymphocytes # Reactive 0.5 H Lymphocytes # Monocytes # Monocytes # 2.8 H (Manual) Eosinophils # Basophils # Metamyelocytes # 0.8 H Myelocytes # 4.3 H Promyelocytes # 2.0 H Nucleated Red Blood Cells # Toxic Granulation 1+ Platelet Estimate SIG DECREASED Polychromasia 2+ Poikilocytosis 1+ Anisocytosis 1+ Microcytosis 1+ Schistocytes 1+ Sodium Level 138 Potassium Level 3.9 Chloride Level 105 Carbon Dioxide 22 Level Anion Gap 11 Blood Urea 40 H Nitrogen Creatinine 2.33 H Est Glomerular Filtrat Rate mL/min Glucose Level 124 Calcium Level 9.1 Phosphorus Level 4.4 Magnesium Level 1.8 Test 09/20/18 07:21 09/20/18 11:32 Bedside Glucose 145 218 Medications Medication Current Medications IV Flush (NS 3 ml) 3 ml PER PROTOCOL IV ; Start 09/10/18 at 06:30 Ondansetron HCl (Zofran Inj) 4 mg Q6H PRN IV NAUSEA/VOMITING; Start 09/10/18 at 06:30 Acetaminophen (Tylenol Supp) 650 mg Q6H PRN [place] .PAIN 1-3 OR TEMP; Start 09/10/18 at 06:30 Zolpidem Tartrate (Ambien) 5 mg QHS PRN PO .INSOMNIA; Start 09/10/18 at 06:30 Acetaminophen (Tylenol Tab) 650 mg Q4H PRN PO MILD PAIN(1-3)OR ELEVATED TEMP; Start 09/10/18 at 08:00 Ascorbic Acid (Vitamin C) 500 mg DAILY PO Last administered on 09/20/18at 08:16; Admin Dose 500 MG; Start 09/10/18 at 09:00 Diltiazem HCl (Cardizem) 60 mg Q6 PO Last administered on 09/20/18at 12:14; Admi n Dose 60 MG; Start 09/10/18 at 12:00 Docusate Sodium (Colace) 200 mg DAILY PRN PO CONSTIPATION; Start 09/10/18 at 08:00 Ferrous Sulfate (Ferrous Sulfate (Ec)) 325 mg DAILY PO Last administered on 09/09 08/30at 08:16; Admin Dose 325 MG; Start 09/10/18 at 09:00 Magnesium Hydroxide (Milk Of Mag) 30 ml Q24H PRN PO CONSTIPATION; Start 09/10/18 at 08:00 Memantine (Namenda) 5 mg DAILY PO Last administered on 09/20/18at 08:16; Admin Dose 5 MG; Start 09/10/18 at 09:00 Multivitamins Therapeutic (Theragran) 1 tab DAILY PO Last administered on 09/20/18at 08:16; Admin Dose 1 TAB; Start 09/10/18 at 09:00 Ondansetron HCl (Zofran Tab) 4 mg Q4H PRN PO NAUSEA AND/OR VOMITING Last administered on 09/19/18at 08:43; Admin Dose 4 MG; Start 09/10/18 at 08:00 Pantoprazole (Protonix Tab) 40 mg DAILY@0600 PO Last administered on 09/20/18at 06:06; Admin Dose 40 MG; Start 09/10/18 at 09:00 Prochlorperazine (Compazine) 5 mg Q6H PRN PO NAUSEA; Start 09/10/18 at 08:00 Senna (Senokot) 2 tab DAILY PRN PO CONSTIPATION; Start 09/10/18 at 08:00 Zinc Sulfate (Zinc Sulfate) 220 mg DAILY PO Last administered on 09/20/18at 08:17; Admin Dose 220 MG; Start 09/10/18 at 09:00 Miscellaneous Information 1 ea NOTE XX ; Start 09/10/18 at 08:00 Glucose (Glutose) 15 gm Q15M PRN PO DECREASED GLUCOSE; Start 09/10/18 at 08:00 Glucose (Glutose) 22.5 gm Q15M PRN PO DECREASED GLUCOSE; Start 09/10/18 at 08:00 Dextrose (D50w Syringe) 25 ml Q15M PRN IV DECREASED GLUCOSE; Start 09/10/18 at 08:00 Dextrose (D50w Syringe) 50 ml Q15M PRN IV DECREASED GLUCOSE Last administered on 09/15/18at 07:34; Admin Dose 50 ML; Start 09/10/18 at 08:00 Glucagon (Glucagen) 1 mg Q15M PRN IM DECREASED GLUCOSE; Start 09/10/18 at 08:00 Glucose (Glutose) 15 gm Q15M PRN BUCCAL DECREASED GLUCOSE; Start 09/10/18 at 08:00 Diagnostic Test (Pha) (Accu-Chek) 1 ea 02 XX Last administered on 09/20/18 02:06; Admin Dose 1 EA; Start 09/11/18 at 02:00 Insulin Aspart (Novolog Insulin Pen) NOVOLOG *MODERATE* ALGORITHM WITH MEALS BEDTIME SC Last administered on 09/20/18 11:36; Admin Dose 4 UNIT; Start 09/10/18 at 22:30 Linagliptin (Tradjenta) 5 mg DAILY PO Last administered on 09/20/18 08:16; Admin Dose 5 MG; Start 09/14/18 at 09:00 Diagnostic Test (Pha) (Accu-Chek) 1 ea AC MEALS AND BEDTIME XX Last administered on 09/20/18 11:34; Admin Dose 1 EA; Start 09/14/18 at 11:00 Megestrol Acetate (Megace Susp) 1,250 mg BID PO Last administered on 09/20/18 08:16; Admin Dose 1,250 MG; Start 09/14/18 at 21:00 Fluconazole (Diflucan) 100 mg DAILY PO Last administered on 09/20/18 08:16; Admin Dose 100 MG; Start 09/15/18 at 14:30 Acyclovir (Zovirax) 400 mg BID PO Last administered on 09/20/18 08:16; Admin Dose 400 MG; Start 09/15/18 at 15:00 Fluoxetine HCl (Prozac) 60 mg DAILY PO Last administered on 09/20/18 08:16; Admin Dose 60 MG; Start 09/16/18 at 09:00 Digoxin (Digoxin) 0.125 mg Q2D@13 PO Last administered on 09/20/18 12:13; Admin Dose 0.125 MG; Start 09/20/18 at 13:00 CARMEN ALEGRIA NP Sep 20, 2018 13:25
--- NOTE | 2018-09-20 22:36 | CONS ---
Assessment/Plan Assessment/Plan Hospital Course (Demo Recall) Severe anemia and thrombocytopenia. 2 RECENT TO CHEMO The patient is currently receiving chemotherapy, last dose was 2.28. 19 MONITOR BLOOD COUNT CLOSELY OBSERVE FOR BLEEDING AND HEMOLYSIS AVOID MYELOSUPPRESSIVE MEDS COUNT IMPROVING, CONT TO MONITOR HIPA- NEG LEUKOPENIA IN PT WITH SEPSIS POST RECENT CHEMO CONT NEUPOGEN TILL ANC MORE THAN [id number], WILL DC TODAY MONITOR COUNT CLOSELY History of mesothelioma likely with right-sided involvement. OUTPT RECORD-P The patient is currently receiving chemotherapy, last dose was 2.28.19 NO INTERVENTION PLANNED AT PRESENT Sepsis , UTI CONT antimicrobial regimen. Acute renal injury possibly with some element of baseline renal insufficiency. Serum creatinine improving. Improving hypotension. Chronic atrial fibrillation. Hyperkalemia: due to ARF and lactic acidosis (sepsis) History of hypertension. History of diabetes. Generalized weakness Consultation Date/Type/Reason Admit Date/Time Sep 09, 2018 at 22:52 Initial Consult Date 09/13/18 Type of Consult [facility] Requesting Provider: RENE VAZQUEZ DO Date/Time of Note DATE: 09/20/18 TIME: 22:34 24 HR Interval Summary Free Text/Dictation ALL NOTED NAD NO BLEEDING Exam/Review of Systems Exam Vitals Vital Signs Date Temp Pulse Resp B/P (MAP) Pulse Ox O2 O2 Flow FiO2 Time Delivery Rate 09/20/18 105 20:00 09/20/18 97.8 19 134/67 97 19:31 (89) 09/20/18 Nasal 3.0 08:00 Cannula Intake and Output 09/19/18 09/19/18 09/20/18 1515:00 23:00 07:00 IntakeIntake Total 400 ml 300 ml OutputOutput Total 300 ml 400 ml BalanceBalance 100 ml -100 ml Exam Const: No acute distress, nontoxic Head: Atraumatic Eyes: Normal Conjunctiva ENT: Dry mucous membranes Neck: Full range of motion. No meningismus. Resp: Clear to auscultation bilaterally Chest wall: Right upper chest surgical scar, well healing. Left upper chest surgical scar from new pacemaker, well-healing Cardio: irregularly irregular rhythm with normal rate, no murmurs Abd: Soft, non tender, non distended. Normal bowel sounds Skin: No petechiae or rashes Back: No midline or flank tenderness Ext: No cyanosis, or edema Neur: Awake and alert, moving all extremities, normal speech, no facial asymmetry Psych: Depressed mood Results Result Diagram: 09/20/18 0603 09/20/18 0603 Results 24hrs Laboratory Tests Test 09/20/18 01:47 09/20/18 06:03 09/20/18 07:21 09/20/18 11:32 Bedside Glucose 164 145 218 White Blood Count 28.8 #H Red Blood Count 2.73 L Hemoglobin 7.5 L Hematocrit 24.9 L Mean Corpuscular 91.2 Volume Mean Corpuscular 27.5 L Hemoglobin Mean Corpuscular 30.1 L Hemoglobin Concent Red Cell 18.2 H Distribution Width Platelet Count 46 L Mean Platelet Volume Immature 38.100 H Granulocytes % Neutrophils % Segmented 44 Neutrophils % (Manual) Band Neutrophils % 13 H (Manual) Lymphocytes % Lymphocytes % 6 L (Manual) Reactive 2 H Lymphocytes % (Manual) Monocytes % Monocytes % 10 (Manual) Eosinophils % Basophils % Metamyelocytes % 3 H (manual) Myelocytes % 15 H (Manual) Promyelocytes % 7 H (Manual) Nucleated Red 4 H Blood Cells % Immature 10.970 H Granulocytes # Neutrophils # Neutrophils # 13.7 H (Manual) Band Neutrophils # 3.7 H Lymphocytes 1.7 (Manual) Lymphocytes # Reactive 0.5 H Lymphocytes # Monocytes # Monocytes # 2.8 H (Manual) Eosinophils # Basophils # Metamyelocytes # 0.8 H Myelocytes # 4.3 H Promyelocytes # 2.0 H Nucleated Red Blood Cells # Toxic Granulation 1+ Platelet Estimate SIG DECREASED Polychromasia 2+ Poikilocytosis 1+ Anisocytosis 1+ Microcytosis 1+ Schistocytes 1+ Sodium Level 138 Potassium Level 3.9 Chloride Level 105 Carbon Dioxide 22 Level Anion Gap 11 Blood Urea 40 H Nitrogen Creatinine 2.33 H Est Glomerular Filtrat Rate mL/min Glucose Level 124 Calcium Level 9.1 Phosphorus Level 4.4 Magnesium Level 1.8 Test 09/20/18 17:13 09/20/18 20:05 Bedside Glucose 114 177 Medications Medication Current Medications IV Flush (NS 3 ml) 3 ml PER PROTOCOL IV ; Start 09/10/18 at 06:30 Ondansetron HCl (Zofran Inj) 4 mg Q6H PRN IV NAUSEA/VOMITING; Start 09/10/18 at 06:30 Acetaminophen (Tylenol Supp) 650 mg Q6H PRN [place] .PAIN 1-3 OR TEMP; Start 09/10/18 at 06:30 Zolpidem Tartrate (Ambien) 5 mg QHS PRN PO .INSOMNIA; Start 09/10/18 at 06:30 Acetaminophen (Tylenol Tab) 650 mg Q4H PRN PO MILD PAIN(1-3)OR ELEVATED TEMP; Start 09/10/18 at 08:00 Ascorbic Acid (Vitamin C) 500 mg DAILY PO Last administered on 09/20/18at 08:16; Admin Dose 500 MG; Start 09/10/18 at 09:00 Diltiazem HCl (Cardizem) 60 mg Q6 PO Last administered on 09/20/18at 17:25; Admin Dose 60 MG; Start 09/10/18 at 12:00 Docusate Sodium (Colace) 200 mg DAILY PRN PO CONSTIPATION; Start 09/10/18 at 08:00 Ferrous Sulfate (Ferrous Sulfate (Ec)) 325 mg DAILY PO Last administered on 09/20/18at 08:16; Admin Dose 325 MG; Start 09/10/18 at 09:00 Magnesium Hydroxide (Milk Of Mag) 30 ml Q24H PRN PO CONSTIPATION; Start 09/10/18 at 08:00 Memantine (Namenda) 5 mg DAILY PO Last administered on 09/20/18at 08:16; Admin Dose 5 MG; Start 09/10/18 at 09:00 Multivitamins Therapeutic (Theragran) 1 tab DAILY PO Last administered on 09/20/18at 08:16; Admin Dose 1 TAB; Start 09/10/18 at 09:00 Ondansetron HCl (Zofran Tab) 4 mg Q4H PRN PO NAUSEA AND/OR VOMITING Last administered on 09/19/18at 08:43; Admin Dose 4 MG; Start 09/10/18 at 08:00 Pantoprazole (Protonix Tab) 40 mg DAILY@0600 PO Last administered on 09/20/18at 06:06; Admin Dose 40 MG; Start 09/10/18 at 09:00 Prochlorperazine (Compazine) 5 mg Q6H PRN PO NAUSEA; Start 09/10/18 at 08:00 Senna (Senokot) 2 tab DAILY PRN PO CONSTIPATION; Start 09/10/18 at 08:00 Zinc Sulfate (Zinc Sulfate) 220 mg DAILY PO Last administered on 09/20/18 08:17; Admin Dose 220 MG; Start 09/10/18 at 09:00 Miscellaneous Information 1 ea NOTE XX ; Start 09/10/18 at 08:00 Glucose (Glutose) 15 gm Q15M PRN PO DECREASED GLUCOSE; Start 09/10/18 at 08:00 Glucose (Glutose) 22.5 gm Q15M PRN PO DECREASED GLUCOSE; Start 09/10/18 at 08:00 Dextrose (D50w Syringe) 25 ml Q15M PRN IV DECREASED GLUCOSE; Start 09/10/18 at 08:00 Dextrose (D50w Syringe) 50 ml Q15M PRN IV DECREASED GLUCOSE Last administered on 09/15/18at 07:34; Admin Dose 50 ML; Start 09/10/18 at 08:00 Glucagon (Glucagen) 1 mg Q15M PRN IM DECREASED GLUCOSE; Start 09/10/18 at 08:00 Glucose (Glutose) 15 gm Q15M PRN BUCCAL DECREASED GLUCOSE; Start 09/10/18 at 08:00 Diagnostic Test (Pha) (Accu-Chek) 1 ea 02 XX Last administered on 09/20/18at 02:06; Admin Dose 1 EA; Start 09/11/18 at 02:00 Insulin Aspart (Novolog Insulin Pen) NOVOLOG *MODERATE* ALGORITHM WITH MEALS BEDTIME SC Last administered on 09/20/18at 11:36; Admin Dose 4 UNIT; Start 09/10/18 at 22:30 Linagliptin (Tradjenta) 5 mg DAILY PO Last administered on 09/20/18at 08:16; Admin Dose 5 MG; Start 09/14/18 at 09:00 Diagnostic Test (Pha) (Accu-Chek) 1 ea AC MEALS AND BEDTIME XX Last administered on 09/20/18at 20:06; Admin Dose 1 EA; Start 09/14/18 at 11:00 Megestrol Acetate (Megace Susp) 1,250 mg BID PO Last administered on 09/20/18at 19:58; Admin Dose 1,250 MG; Start 09/14/18 at 21:00 Fluconazole (Diflucan) 100 mg DAILY PO Last administered on 09/20/18at 08:16; Admin Dose 100 MG; Start 09/15/18 at 14:30 Acyclovir (Zovirax) 400 mg BID PO Last administered on 09/20/18 19:59; Admin Dose 400 MG; Start 09/15/18 at 15:00 Fluoxetine HCl (Prozac) 60 mg DAILY PO Last administered on 09/20/18 08:16; Admin Dose 60 MG; Start 09/16/18 at 09:00 Digoxin (Digoxin) 0.125 mg Q2D@13 PO Last administered on 09/20/18 12:13; Admin Dose 0.125 MG; Start 09/20/18 at 13:00 ISABELLE JARVIS MD Sep 20, 2018 22:36
== END 2018-09-20 22:30 | DRG 871 ==
LOC: E/R 19:51 → 6WM 22:52 → ICU 09-12 01:42 → TEL 09-14 18:08
PROVIDERS: ADMIT Internal Medicine; ATTEND Internal Medicine
DX: A41.9 Sepsis, unspecified organism (principal); R65.21 Severe sepsis with septic shock; G92 Toxic encephalopathy; D61.810 Antineoplastic chemotherapy induced pancytopenia; N17.0 Acute kidney failure with tubular necrosis; J18.9 Pneumonia, unspecified organism; N39.0 Urinary tract infection, site not specified; E87.2 Acidosis; C79.9 Secondary malignant neoplasm of unspecified site; E87.5 Hyperkalemia; I48.2 Chronic atrial fibrillation; E11.9 Type 2 diabetes mellitus without complications; C45.7 Mesothelioma of other sites; I10 Essential (primary) hypertension; F03.90 Unspecified dementia, unspecified severity, without behavioral disturbance, psychotic disturbance, mood disturbance, and anxiety; R63.0 Anorexia; Z68.21 Body mass index [BMI] 21.0-21.9, adult; Z79.4 Long term (current) use of insulin
CPT/HCPCS: 36415; 36430; 71045; 76775; 80048; 80053; 80162; 81001; 82270; 82306; 82330; 82607; 82728; 82746; 82962; 83010; 83036; 83540; 83605; 83615; 83735; 83880; 84100; 84155; 84300; 84439; 84443; 84484; 84560; 85025; 85045; 85378; 85384; 85610; 85730; 86022; 86850; 86900; 86901; 86920; 87040; 87081; 87086; 89190; 92526; 92610; 93005; 93306; 93970; 94644; 97110; 97162; 97530; J0696; J1335; J1644; J1815; J1940; J3475; J7030; J7042; P9016